=== PATIENT | male | born 1960 | race Caucasian/White ===

== ENCOUNTER 2021-02-02 12:07 | Outpatient (CLI) | payer MEDICARE, SELFPAY ==
[2021-02-02 12:46] LABS: Basophils # 0.1 10^3/uL (0.0-0.1); Eosinophils # 0.2 10^3/uL (0.0-0.8); Eosinophils % 3.2 %; Hematocrit 57.1 % (42.0-52.0); Hemoglobin 17.7 g/dL (11.7-16.6); Lymphocytes # 0.8 10^3/uL (0.8-4.8); Lymphocytes % 11.4 %; Mean Corpuscular Hemoglobin 27.1 pg (28.0-34.0); Mean Corpuscular Volume 87.6 fL (80-94); Mean Platelet Volume 9.6 fL (7.4-10.4); Monocytes # 0.9 10^3/uL (0.2-0.9); Monocytes % 12.4 %; Neutrophils # 5.08 10^3/uL (1.8-7.7); Neutrophils % 71.9 %; Nucleated Red Blood Cells % 0 %; Platelet Count 166 10^3/cmm (130-400); Red Blood Count 6.52 10^6/uL (4.1-5.3); Red Cell Distribution Width 19.2 % (12.1-15.1); White Blood Count 7.1 10^3/uL (4.0-10.0)
--- NOTE | 2021-02-02 15:18 | ONC CON_ITS ---
Dr. Arellano New Patient Note Patient: João Carter Unit #: [id number]: 1960 Dicatated By: Sera Arellano M.D.Date of Visit: Feb 02, 2021 Onc MED New Patient/Consult Referring Physician: Ness Ignacio History of Present Illness: Mr. João Carter, is a 60-year-old gentleman with history of sleep apnea, on CPAP machine since 2014, chronic kidney disease, diabetes, hypertension, paroxysmal supraventricular tachycardia,, during his routine follow-up his lab work-up done on January 20, 2021 showed white blood count 7.3 hemoglobin 17.5 hematocrit 55.7 platelets 180,000 RBC 6.55/uL, creatinine 3.10. As per patient this was a first-time he was told about elevated 'blood counts'. Denies any headaches blurred vision or double vision denies any peripheral neuropathy denies any shortness of breath palpitation, patient denies smoking, never smoked, denies any family history of polycythemia. Denies any night sweats, denies any weight loss, denies any recurrent fever denies any generalized weakness and fatigue, denies any male hormone supplement Past Medical History: 's medical history consists of chronic interstitual lung disease, chronic kidney disease (stage IV), hypertension, nephrotic syndrome, paroxysmal supraventricular tachycardia, sleep apnea, type II diabetes, and vitamin D deficiency. Past Surgical History: 's surgical/procedural history consists of lung surgery(drain) in 2014 and cholecystectomy in 1996. Medications: Aspirin 1 Tablet (of 81 mg) Tablet, chewable Oral daily, Cholecalciferol 1 Capsule (of 1.25 mg ) Oral q 7 days, Furosemide 1 Tablet (of 40 mg) Oral b.i.d., Lisinopril 1 Tablet (of 20 mg) Oral daily, Lovastatin 1 Tablet (of 20 mg) Oral daily, Metoprolol Tartrate 1 Tablet (of 25 mg) Oral b.i.d. Allergies: Penicillins Social History: is . He has no history of drinking. Family History: 's mother at age 81. 's father at age 67: congestive heart failure. has 1 sister who is alive. Review Of Symptoms: Review of Systems is not available for this patient. Vital Signs: Performed on Feb 02, 2021 14:46: 0, 0, 35.04 (HIGH), 2.27 sq.m, 70 in, 93 % (LOW), 88 /min, 18 /min, 163/81 mm(hg) (HIGH), 97.3 F (LOW), and 244.2 lbs (HIGH). Performance Status: 0 - Fully active, able to carry on all predisease activities without restrictions. (ECOG) Physical Examination: ENMT - No mouth sores, no thrush, no jaundice, Respiratory - Lungs are clear to auscultation, Cardiovascular - Regular rate and rhythm of heart, Abdomen - Soft, bowel sounds present, Extremities - No visible edema. Lab/Imaging: Most recent lab results are not available for this patient. Impression: Polycythemia, etiology unclear could be multifactorial including suboptimal CPAP machine setting causing hypoxia during sleep or medications like testosterone but patient denies, or myeloproliferative disorder including polycythemia vera Sleep apnea diagnosed in 2014, on CPAP machine since then Diabetes Hypertension Chronic renal insufficiency Paroxysmal supraventricular tachycardia No history of smoking Plan: Discussed with patient regarding his labs white blood count 7.1 hemoglobin 17.7 hematocrit 57.1, RBC 6.52 normal being less than 5.30 millions/uL,platelets 166,000, with a normal differential Clinically, patient denies any specific complaints, no headaches, no peripheral numbness, no blurred vision or double vision, no shortness of breath but generalized weakness and fatigue. Repeat CBC done today shows further increase in his hematocrit now 57.1, at this point will consider phlebotomy with 250 cc and replaced with 250 cc normal saline to avoid hypovolemia and continue phlebotomy on a weekly basis unless hematocrit less than 52 if is reactive polycythemia , or less than 45 if is due to polycythemia vera in the meantime. we will proceed with work-up including erythropoietin level, JAK2 mutation, CLL/MPL, BCR ABL 1 testing, patient return to clinic in 1 week with CBC, patient was advised to maintain good hydration is already on aspirin. Patient was advised in case he develops any headaches blurred vision double vision, then he need to call us or go to hospital for evaluation Signed By: Sera Arellano M.D. <<Signature on File>>
[2021-02-02] MEDS: sodium chloride 0.9% 250 ML 999 ML IV (16:00)
[2021-02-03 01:35] LABS: Vitamin B12 1895 pg/mL (232-1245)
[2021-02-08 16:17] LABS: CALR Exon 9 Mutation NOT DETECTED (NOT DETECTED); CSF3R Exon 14/17 Mutation NOT DETECTED (NOT DETECTED); JAK2 Exon 12 Mutation NOT DETECTED (NOT DETECTED); JAK2 V617 Block Specimen ID NG; JAK2 V617 Clinical Indication NG; JAK2 V617 Mutation NOT DETECTED (NOT DETECTED); JAK2 V617 Specimen Source NG; MPL Exon 12 Mutation NOT DETECTED (NOT DETECTED)
== END 2021-02-02 12:08 | disposition home or self-care (01) ==
PROVIDERS: PCP Family Medicine; Visit Provider Internal Medicine Hematology & Oncology
DX: D75.1 Secondary polycythemia (principal); G47.33 Obstructive sleep apnea (adult) (pediatric); E11.9 Type 2 diabetes mellitus without complications; N18.9 Chronic kidney disease, unspecified; I47.1 Supraventricular tachycardia; Z79.899 Other long term (current) drug therapy
CPT/HCPCS: 81219; 81270; 82607; 85025; 99195; 99205; J7050

== ENCOUNTER 2021-02-03 08:11 | Outpatient (CLI) | payer MEDICARE, SELFPAY ==
[2021-02-03 10:43] LABS: Basophils # 0.1 10^3/uL (0.0-0.1); Basophils % 0.7 %; Eosinophils # 0.3 10^3/uL (0.0-0.8); Hemoglobin 17.5 g/dL (11.7-16.6); Lymphocytes # 0.8 10^3/uL (0.8-4.8); Lymphocytes % 9.4 %; Mean Corpuscular HGB Conc 31.3 g/dL (30.0-36.0); Mean Corpuscular Hemoglobin 27.6 pg (28.0-34.0); Mean Corpuscular Volume 88.5 fL (80-94); Mean Platelet Volume 9.7 fL (7.4-10.4); Monocytes # 1.1 10^3/uL (0.2-0.9); Monocytes % 12.9 %; Neutrophils # 6.15 10^3/uL (1.8-7.7); Neutrophils % 73.8 %; Nucleated Red Blood Cells % 0 %; Platelet Count 170 10^3/cmm (130-400); Red Blood Count 6.33 10^6/uL (4.1-5.3); Red Cell Distribution Width 19.2 % (12.1-15.1); White Blood Count 8.3 10^3/uL (4.0-10.0)
== END 2021-02-03 08:12 | disposition home or self-care (01) ==
PROVIDERS: PCP Family Medicine; Visit Provider Internal Medicine Medical Oncology
DX: D45 Polycythemia vera (principal)
CPT/HCPCS: 85025

== ENCOUNTER 2021-02-07 11:31 | Outpatient (CLI) | payer MEDICARE, SELFPAY | END 2021-02-07 11:32 | disposition home or self-care (01) | LOC: ONCMED 11:33 | PROVIDERS: PCP Family Medicine; Visit Provider Internal Medicine Medical Oncology | DX: D45 Polycythemia vera (principal) | CPT/HCPCS: 36415; 88374 ==

== ENCOUNTER 2021-02-09 07:13 | Outpatient (CLI) | payer MEDICARE, SELFPAY ==
[2021-02-09 15:37] LABS: Basophils # 0.1 10^3/uL (0.0-0.1); Basophils % 0.8 %; Eosinophils # 0.3 10^3/uL (0.0-0.8); Eosinophils % 3.3 %; Hematocrit 55.3 % (42.0-52.0); Hemoglobin 17.3 g/dL (11.7-16.6); Mean Corpuscular HGB Conc 31.3 g/dL (30.0-36.0); Mean Corpuscular Hemoglobin 27.5 pg (28.0-34.0); Mean Corpuscular Volume 87.8 fL (80-94); Mean Platelet Volume 9.7 fL (7.4-10.4); Monocytes # 1.1 10^3/uL (0.2-0.9); Monocytes % 12.9 %; Neutrophils # 6.22 10^3/uL (1.8-7.7); Neutrophils % 71.8 %; Nucleated Red Blood Cells % 0 %; Platelet Count 192 10^3/cmm (130-400); Red Cell Distribution Width 19.3 % (12.1-15.1); White Blood Count 8.7 10^3/uL (4.0-10.0)
[2021-02-09] MEDS: sodium chloride 0.9% 250 ML 999 ML IV (16:00)
== END 2021-02-09 07:14 | disposition home or self-care (01) ==
LOC: ONCMED 07:20
PROVIDERS: PCP Family Medicine; Visit Provider Internal Medicine Medical Oncology
DX: D75.1 Secondary polycythemia (principal); G47.33 Obstructive sleep apnea (adult) (pediatric); E11.9 Type 2 diabetes mellitus without complications; N18.9 Chronic kidney disease, unspecified; I47.1 Supraventricular tachycardia; Z79.899 Other long term (current) drug therapy
CPT/HCPCS: 85025; 99195; J7050

== ENCOUNTER 2021-03-09 05:50 | Outpatient (RCR) | payer MEDICARE, SELFPAY ==
[2021-02-16 16:20] LABS: Basophils # 0.1 10^3/uL (0.0-0.1); Basophils % 0.7 %; Eosinophils # 0.3 10^3/uL (0.0-0.8); Hematocrit 53.1 % (42.0-52.0); Hemoglobin 16.4 g/dL (11.7-16.6); Lymphocytes # 0.9 10^3/uL (0.8-4.8); Lymphocytes % 11.6 %; Mean Corpuscular HGB Conc 30.9 g/dL (30.0-36.0); Mean Corpuscular Hemoglobin 27.7 pg (28.0-34.0); Mean Corpuscular Volume 89.8 fL (80-94); Mean Platelet Volume 9.9 fL (7.4-10.4); Monocytes # 1.1 10^3/uL (0.2-0.9); Monocytes % 14.1 %; Neutrophils % 69.3 %; Nucleated Red Blood Cells % 0 %; Platelet Count 182 10^3/cmm (130-400); Red Blood Count 5.91 10^6/uL (4.1-5.3); White Blood Count 7.5 10^3/uL (4.0-10.0)
[2021-02-23 16:20] LABS: Basophils # 0.1 10^3/uL (0.0-0.1); Basophils % 0.8 %; Eosinophils # 0.3 10^3/uL (0.0-0.8); Hematocrit 54.1 % (42.0-52.0); Hemoglobin 16.8 g/dL (11.7-16.6); Lymphocytes # 0.6 10^3/uL (0.8-4.8); Lymphocytes % 9.2 %; Mean Corpuscular HGB Conc 31.1 g/dL (30.0-36.0); Mean Corpuscular Hemoglobin 27.8 pg (28.0-34.0); Mean Corpuscular Volume 89.4 fL (80-94); Mean Platelet Volume 9.5 fL (7.4-10.4); Monocytes # 1.1 10^3/uL (0.2-0.9); Monocytes % 18.2 %; Neutrophils # 4.25 10^3/uL (1.8-7.7); Neutrophils % 67.6 %; Nucleated Red Blood Cells % 0 %; Platelet Count 174 10^3/cmm (130-400); Red Blood Count 6.05 10^6/uL (4.1-5.3); Red Cell Distribution Width 19.2 % (12.1-15.1); White Blood Count 6.3 10^3/uL (4.0-10.0)
[2021-02-23] MEDS: sodium chloride 0.9% 250 ML 999 ML IV (16:30)
[2021-03-02 15:44] LABS: Basophils % 0.5 %; Eosinophils # 0.3 10^3/uL (0.0-0.8); Eosinophils % 3.7 %; Hematocrit 51.8 % (42.0-52.0); Lymphocytes # 0.8 10^3/uL (0.8-4.8); Lymphocytes % 10.6 %; Mean Corpuscular HGB Conc 30.9 g/dL (30.0-36.0); Mean Corpuscular Hemoglobin 28.2 pg (28.0-34.0); Mean Corpuscular Volume 91.2 fL (80-94); Mean Platelet Volume 9.6 fL (7.4-10.4); Monocytes % 12.1 %; Neutrophils # 5.73 10^3/uL (1.8-7.7); Neutrophils % 72.8 %; Nucleated Red Blood Cells % 0 %; Platelet Count 194 10^3/cmm (130-400); Red Blood Count 5.68 10^6/uL (4.1-5.3); Red Cell Distribution Width 18.7 % (12.1-15.1); White Blood Count 7.9 10^3/uL (4.0-10.0)
[2021-03-02] MEDS: sodium chloride 0.9% 250 ML 999 ML IV (16:10)
[2021-03-09 15:54] LABS: Basophils # 0.1 10^3/uL (0.0-0.1); Basophils % 0.9 %; Eosinophils # 0.3 10^3/uL (0.0-0.8); Eosinophils % 2.8 %; Hematocrit 50.6 % (42.0-52.0); Hemoglobin 15.4 g/dL (11.7-16.6); Lymphocytes # 0.8 10^3/uL (0.8-4.8); Mean Corpuscular HGB Conc 30.4 g/dL (30.0-36.0); Mean Corpuscular Hemoglobin 27.5 pg (28.0-34.0); Mean Corpuscular Volume 90.2 fL (80-94); Mean Platelet Volume 9.9 fL (7.4-10.4); Monocytes # 0.8 10^3/uL (0.2-0.9); Monocytes % 8.6 %; Neutrophils # 6.96 10^3/uL (1.8-7.7); Neutrophils % 78.4 %; Nucleated Red Blood Cells % 0 %; Platelet Count 220 10^3/cmm (130-400); Red Blood Count 5.61 10^6/uL (4.1-5.3); Red Cell Distribution Width 17.6 % (12.1-15.1); White Blood Count 8.9 10^3/uL (4.0-10.0)
== END 2021-03-12 23:59 | disposition home or self-care (01) ==
LOC: ONCMED 05:50
PROVIDERS: Internal Medicine Medical Oncology; PCP Family Medicine; Visit Provider Internal Medicine Hematology & Oncology
DX: D75.1 Secondary polycythemia (principal); Z79.899 Other long term (current) drug therapy
CPT/HCPCS: 36415; 85025; 99195; J7050

== ENCOUNTER 2021-04-07 05:50 | Outpatient (RCR) | payer MEDICARE, SELFPAY ==
[2021-04-07 15:47] LABS: Basophils # 0.1 10^3/uL (0.0-0.1); Basophils % 0.7 %; Eosinophils # 0.3 10^3/uL (0.0-0.8); Hematocrit 52.5 % (42.0-52.0); Hemoglobin 15.8 g/dL (11.7-16.6); Lymphocytes # 0.8 10^3/uL (0.8-4.8); Lymphocytes % 9.1 %; Mean Corpuscular HGB Conc 30.1 g/dL (30.0-36.0); Mean Corpuscular Hemoglobin 26.4 pg (28.0-34.0); Mean Corpuscular Volume 87.8 fl (80-94); Mean Platelet Volume 9.6 fL (7.4-10.4); Monocytes # 1.1 10^3/uL (0.2-0.9); Neutrophils # 6.52 10^3/uL (1.8-7.7); Nucleated Red Blood Cells % 0 %; Platelet Count 204 10^3/cmm (130-400); Red Blood Count 5.98 10^6/uL (4.1-5.3); Red Cell Distribution Width 15.5 % (12.1-15.1); White Blood Count 8.8 10^3/uL (4.0-10.0)
--- NOTE | 2021-04-07 18:04 | ONC FU_ITS ---
Dr. Arellano follow up note Patient: João Carter Unit #: [id number]: 1960 Dicatated By: Sera Arellano M.D.Date of Visit:Apr 07, 2021 Onc Med Follow-up/Prog Note History of Present Illness: Mr. João Carter, is a 60-year-old gentleman with history of sleep apnea, on CPAP machine since 2014, chronic kidney disease, diabetes, hypertension, paroxysmal supraventricular tachycardia,, during his routine follow-up his lab work-up done on January 20, 2021 showed white blood count 7.3 hemoglobin 17.5 hematocrit 55.7 platelets 180,000 RBC 6.55/uL, creatinine 3.10. As per patient this was a first-time he was told about elevated 'blood counts'. Work-up for myeloproliferative disorder including polycythemia vera showed negative for JAK2 mutation, CHAYO R exon 9, MPL exon 10, Denies any headaches blurred vision or double vision denies any peripheral neuropathy denies any shortness of breath palpitation, patient denies smoking, never smoked, denies any family history of polycythemia. Denies any night sweats, denies any weight loss, denies any recurrent fever denies any generalized weakness and fatigue, denies any male hormone supplement Came for follow-up, complaining of generalized weakness and fatigue but no headaches blurred vision double vision, no mouth sores, no lightheadedness or dizziness, patient said he is using his CPAP machine on regular basis along with oxygen at night but denies any smoking denies any shortness of breath at rest but dyspnea on exertion denies any palpitation, Tolerating phlebotomies on as-needed basis well Medications: Aspirin 1 Tablet (of 81 mg) Tablet, chewable Oral daily, Cholecalciferol 1 Capsule (of 1.25 mg ) Oral q 7 days, Furosemide 1 Tablet (of 40 mg) Oral b.i.d., Lisinopril 1 Tablet (of 20 mg) Oral daily, Lovastatin 1 Tablet (of 20 mg) Oral daily, Metoprolol Tartrate 1 Tablet (of 25 mg) Oral b.i.d. Allergies: Penicillins Review of Systems: Review of Systems is not available for this patient. Vital Signs: Performed on Apr 07, 2021 16:28 Height - 70.00 in Weight - 253.2 lbs (HIGH) BSA - 2.31 sq.m BMI - 36.33 (HIGH) Temperature - 97.7 F (LOW) Pulse - 70 /min Respiration - 18 /min BP - 102/63 mm(hg) O2 Sat - 96 % Pain - 0 Fatigue - 4 Performance Status: 0 - Fully active, able to carry on all predisease activities without restrictions. (ECOG) Physical Examination: ENMT - No mouth sores, no thrush, no jaundice, Respiratory - Poor air entry otherwise clear, Cardiovascular - Regular rate and rhythm of heart, Abdomen - Soft, bowel sounds present, Extremities - No visible edema. Lab/Imaging: Test performed on Feb 16, 2021 16:10 WBC 7.5 10 3/uL RBC 5.91 10 6/uL HGB 16.4 g/dL HCT 53.1 % MCV 89.8 fL MCH 27.7 pg MCHC 30.9 g/dL RDW 19.0 % Platelet Count 182 10 3/cmm MPV 9.9 fL Neutrophils 5.20 10 3/uL Lymphocytes 0.9 10 3/uL Monocytes 1.1 10 3/uL Eosinophils 0.3 10 3/uL Basophils 0.1 10 3/uL Neutrophil % 69.3 % Lymphocyte % 11.6 % Monocyte % 14.1 % Eosinophil % 4.0 % Basophils % 0.7 % NRBC % 0 % Impression: Polycythemia,, Secondary to exertional hypoxia, probably malfunctioning CPAP machine, polycythemia vera less likely as molecular testing including JAK2 mutation, CHAYO R exon 9, MPL exon 10 came back negative On mild exertion his oxygen level dropped to 82 but recovered with rest up to 95 Sleep apnea diagnosed in 2014, on CPAP machine since then Diabetes Hypertension Chronic renal insufficiency Paroxysmal supraventricular tachycardia No history of smoking Plan: Discussed with patient regarding his labs white blood count 8.8 hemoglobin 15.8 hematocrit 52.5 platelets 204,000 Clinically, patient is doing reasonably well with no new signs symptoms except dyspnea on exertion, on mild exertion, his O2 sat dropped to 82, with rest it improved and to mid 90s, patient is not using oxygen except at night with CPAP machine, at this point, will refer him to pulmonology for evaluation regarding pulmonary function test as well as oxygen supplement if needed especially on exertion, patient was advised to maintain good hydration and continue to take daily aspirin and avoid exertion until evaluated by pulmonology. In the meantime, we will hold his phlebotomy as patient, most likely has reactive polycythemia to exertional hypoxia or may be malfunctioning CPAP machine or noncompliance as JAK2 mutation came back negative. Return to clinic in 1 month with CBC Signed By: Sera Arellano M.D. <<Signature on File>>
== END 2021-04-12 23:59 | disposition home or self-care (01) ==
LOC: ONCMED 05:50
PROVIDERS: PCP Family Medicine; Visit Provider Internal Medicine Hematology & Oncology
DX: D75.1 Secondary polycythemia (principal); R09.02 Hypoxemia; G47.33 Obstructive sleep apnea (adult) (pediatric); E11.9 Type 2 diabetes mellitus without complications; I10 Essential (primary) hypertension; N18.9 Chronic kidney disease, unspecified; I47.1 Supraventricular tachycardia; Z79.899 Other long term (current) drug therapy
CPT/HCPCS: 36415; 85025; 99214

== ENCOUNTER → 2021-06-13 10:34 | Outpatient (BNVA) | payer MEDICARE, SELFPAY | PROVIDERS: PCP Family Medicine; Visit Provider Internal Medicine Pulmonary Disease | DX: Z20.822 Contact with and (suspected) exposure to COVID-19 (principal); G47.30 Sleep apnea, unspecified; R06.02 Shortness of breath | CPT/HCPCS: 87635 ==

== ENCOUNTER 2021-06-16 10:09 | Outpatient (CLI) | payer MEDICARE, SELFPAY ==
--- NOTE | 2021-06-16 10:21 | USCV_ITS ---
João Carter Age: 60 Gender: M : 1960 Exam Date: 06/16/2021 11:17 Ordering Phys: Jer Block MD Technologist: HUMZA [place] [facility] [place] SOB BP: 104 / 66 HR: 89 Rhythm: Other Technical Quality: Technically difficult study MEASUREMENTS (Male / Female) Normal Values 2D ECHO LV Diastolic Diameter PLAX 3.5 cm 4.2 - 5.9 / 3.9 - 5.3 cm LV Systolic Diameter PLAX 2.3 cm IVS Diastolic Thickness 1.5 cm 0.6 - 1.0 / 0.6 - 0.9 cm IVS Systolic Thickness 1.7 cm LVPW Diastolic Thickness 2.1 cm 0.6 - 1.0 / 0.6 - 0.9 cm LVPW Systolic Thickness 2.7 cm LVOT Diameter 2.0 cm LV Ejection Fraction 2D Teich 63.7 % LV Ejection Fraction MOD 2C 60.4 % LV Ejection Fraction 2C AL 63.2 % LA Diameter 4.0 cm LA Width 3.7 cm LA Height 4.1 cm RA Width 4.1 cm RA Height 4.5 cm Aorta at Sinotubular Diameter 2.8 cm DOPPLER AV Peak Velocity 101.0 cm/s LVOT Peak Velocity 112.0 cm/s AV Area Cont Eq vti 3.1 cm squared AV Area Cont Eq pk 3.5 cm squared Right Atrial Pressure 3.0 mmHg PV Peak Velocity 50.0 cm/s RV Acceleration Time 0.1 s RV Ejection Time 0.3 s RV AcT/ET 0.3 FINDINGS Left Ventricle Normal left ventricular cavity size. Normal left ventricular systolic function. Left ventricular ejection fraction is estimated at 55 %. In the presence of atrial fibrillation diastolic function cannot be assessed accurately. Right Ventricle The right ventricle is normal in size and function. RVSP could not be calculated due to incomplete tricuspid regurgitation velocity profile. Right Atrium The right atrium is normal in size. Left Atrium The left atrium is normal in size. Mitral Valve Moderately thickened mitral valve. Moderate mitral annular calcification. No mitral valve stenosis. No mitral valve regurgitation. Aortic Valve Severe aortic valve calcification. Aortic valve sclerosis. No aortic valve stenosis. Trace aortic valve regurgitation. Tricuspid Valve Structurally normal tricuspid valve without significant stenosis or regurgitation. Pulmonic Valve Structurally normal pulmonic valve without significant stenosis. There is no pulmonic regurgitation. Pericardium Normal pericardium without effusion. Aorta Normal ascending aorta dimension. CONCLUSIONS 1-Normal left ventricular cavity size. Normal left ventricular systolic function. Left ventricular ejection fraction is estimated at 55 %. In the presence of atrial fibrillation diastolic function cannot be assessed accurately. 2-Severe aortic valve calcification. Aortic valve sclerosis. No aortic valve stenosis. Trace aortic valve regurgitation. 3-Moderately thickened mitral valve. Moderate mitral annular calcification. No mitral valve stenosis. No mitral valve regurgitation. 4-There is no pericardial effusion. 5-The right ventricle is normal in size and function. RVSP could not be calculated due to incomplete tricuspid regurgitation velocity profile. 6-There is no pericardial effusion. 7-Right atrial pressure is around 5 mm of mercury. 8-There are no prior echocardiogram studies to compare. Joshua Miller MD (Electronically Signed) Final Date: 16 June 2021 15:11 S
--- NOTE | 2021-06-16 10:21 | XR_ITS ---
WS: [id number] PA and lateral chest, 06/16/2021 Clinical Data: dyspnea Comparison: Portable chest, 12/07/2014. Findings: No nodules or masses are seen. The heart is enlarged. There is blunting of the right costop hrenic angle. There are bilateral pulmonary opacities which have been present before. No pneumothorax is seen. The aortic arch and descending thoracic thoracic aorta show calcification and tortuosity. T here is a healed right posterior lateral sixth rib fracture.. XR/XR chest 2V* [id number] Impression: 1. Bilateral pulmonary opacities which have been present before and may be from chronic and/or acute pneumonia. 2. Cardiomegaly and atherosclerosis.
--- NOTE | 2021-06-16 13:46 | PFTS_ITS ---
Date of Study:06/16/21 Date of Dictation: MECHANICS: Forced vital capacity (FVC) is reduced. Forced expiratory volume in one second (FEV1) is reduced. FEV1/FVC is normal. FLOW VOLUME LOOP: Narrow. LUNG VOLUMES: Total lung capacity (TLC) is reduced. Residual volume (RV) is normal. DIFFUSING CAPACITY FOR CARBON MONOXIDE: Mild reduced. INTERPRETATION: The pulmonary function tests are consistent with severe restriction. There is no significant postbronchodilator response. Lung volumes are consistent with restriction. Interestingly the patient has preserved residual volume. The constellation of severe restriction on spirometry with preserved residual volume could be suggestive of neuromuscular weakness. Gas exchange (DLCO) is minimally reduced. MTDD
== END 2021-06-16 10:10 | disposition home or self-care (01) ==
LOC: RT 10:16
PROVIDERS: PCP Family Medicine; Visit Provider Internal Medicine Pulmonary Disease
DX: R06.02 Shortness of breath (principal); I08.3 Combined rheumatic disorders of mitral, aortic and tricuspid valves; I70.90 Unspecified atherosclerosis
CPT/HCPCS: 71046; 93306; 94060; 94618; 94726; 94729; J7611

== ENCOUNTER 2021-07-11 12:58 | Outpatient (CLI) | payer MEDICARE, SELFPAY ==
[2021-07-11 14:30] LABS: Creatine Phosphokinase 51 U/L (39-308)
[2021-07-12 11:33] LABS: Aldolase 4.5 U/L (< OR = 8.1)
[2021-07-12 12:04] LABS: Smith Antibody <1.0 NEG AI (<1.0 NEG)
[2021-07-12 14:24] LABS: Anti-Double Strand DNA AB 1 IU/mL; Centromere B Antibody <1.0 NEG AI (<1.0 NEG); JO-1 Antibody <1.0 NEG AI (<1.0 NEG); SCL 70 <1.0 NEG AI (<1.0 NEG); SS A Ro Sjogrens Antibody <1.0 NEG AI (<1.0 NEG); SS-B/LA IGG <1.0 NEG AI (<1.0 NEG); Sm/RNP Antibody <1.0 NEG AI (<1.0 NEG)
[2021-07-12 15:13] LABS: Cyclic Citrullinated Peptide <16 UNITS
== END 2021-07-11 12:59 | disposition home or self-care (01) ==
LOC: LAB 13:06
PROVIDERS: PCP Family Medicine; Visit Provider Internal Medicine Pulmonary Disease
DX: J98.4 Other disorders of lung (principal); R06.02 Shortness of breath
CPT/HCPCS: 36415; 82085; 82550; 83516; 83519; 86200; 86225; 86235; 86431

== ENCOUNTER 2021-09-26 08:56 | Outpatient (CLI) | payer MEDICARE, SELFPAY ==
--- NOTE | 2021-09-26 09:00 | CT_ITS ---
WS: [id number] CT CHEST WITHOUT INTRAVENOUS CONTRAST HISTORY: Rule out interstitial lung disease TECHNIQUE: Contiguous 5 mm axial imaging performed on the thorax. Coronal and sagittal reformats are submitted. All CT scans at [facility] use at least one of these dose optimization techniques: automated exposure control; mA and/or kV adjustment per patient size (includes targeted exams where dose is matched to clinical indication); or iterative reconstruction. CONTRAST: None DLP: 756.99 mGy.cm COMPARISON: 03/13/2016 Lungs and central airway: Lung volumes are normal. There is diffuse groundglass attenuation with incr eased areas of focal consolidation. Central and peripheral involvement. Greatest involvement of the d enser consolidations throughout the RIGHT lung. Mild progression since the prior examination. Pleura: No pleural effusion. Heart and pericardium: Mild enlargement of the heart. No pericardial effusion. Mediastinum and cipriano: Numerous mediastinal and hilar lymph nodes are reidentified. Lymph nodes are di fficult to distinguish at the hilar regions without IV contrast. No definite change. Vessels: Moderate atherosclerosis aorta. Extensive coronary artery calcifications the appearance of t he aortic arch and aortic root are similar to the prior examinations. Dilated pulmonary artery 3.9 cm . Chest wall and lower neck: No soft tissue masses. Upper abdomen: Small amount of ascites adjacent to the liver and spleen. Omental thickening is probab ly on the basis of the ascites with no history of malignancy. Coronary artery atherosclerosis. Prior cholecystectomy. Additional lymph nodes are noted within the upper abdomen around the celiac axis wit h no change. Contour of the liver suggests cirrhosis. The ascites and lymph nodes in the upper abdome n may be associated to the patient's hepatocellular disease. Osseous structures: Severe degenerative disc disease at T10-11 with mild anterior wedging of T11. CT/CT chest wo con [id number] IMPRESSION: 1. Mild progression of diffuse groundglass attenuation and increasing opacific ations since 03/13/2016. By history patient has sarcoidosis. 2. No pleural effusion. 3. Moderate atherosclerosis thoracic aorta and coronary arteries. Very similar appearance with only minimal progression since 2016. 4. Pulmonary hypertension. 5. Prior cholecystectomy. 6. Development of new abdominal ascites with omental thickening which is proba warren also on the basis of the ascites and edema. May be related to patient's chr onic hepatocellular disease. Findings suspicious for cirrhosis. 7. Prior cholecystectomy. 8. Indeterminate prominent mediastinal and hilar lymph nodes. Similar to the p rior study. Cannot further characterize without IV contrast.
== END 2021-09-26 08:57 | disposition home or self-care (01) ==
LOC: RAD 08:59
PROVIDERS: PCP Family Medicine; Visit Provider Internal Medicine Pulmonary Disease
DX: J98.4 Other disorders of lung (principal); R06.02 Shortness of breath; I70.0 Atherosclerosis of aorta; I25.10 Atherosclerotic heart disease of native coronary artery without angina pectoris; I27.20 Pulmonary hypertension, unspecified; Z90.49 Acquired absence of other specified parts of digestive tract
CPT/HCPCS: 71250

== ENCOUNTER 2022-02-14 09:01 | Outpatient (CLI) | payer MEDICARE, SELFPAY ==
[2022-02-14 11:59] LABS: Blood Urea Nitrogen 53 mg/dL (8-23); Calcium 9.3 mg/dL (8.5-10.5); Carbon Dioxide 27 mmol/L (22-29); Glomerular Filtration Rate 26.5 mL/min (90-130); Glucose 67 mg/dL (65-115); Phosphorus 5.1 mg/dL (2.5-4.5)
[2022-02-14 12:08] LABS: Anion Gap 19.5 (5-19); Chloride 96 mmol/L (98-107); Potassium 4.5 mmol/L (3.5-5.1); Sodium 138 mmol/L (136-145)
== END 2022-02-14 09:02 | disposition home or self-care (01) ==
PROVIDERS: PCP Family Medicine; Visit Provider Internal Medicine Nephrology
DX: N17.9 Acute kidney failure, unspecified (principal)
CPT/HCPCS: 80069

== ENCOUNTER → 2022-10-09 12:15 | Outpatient (BNVA) | payer MEDICARE, SELFPAY | PROVIDERS: PCP Family Medicine; Visit Provider Internal Medicine Cardiovascular Disease | DX: R06.02 Shortness of breath (principal); J98.4 Other disorders of lung; G47.34 Idiopathic sleep related nonobstructive alveolar hypoventilation; D75.1 Secondary polycythemia; I46.9 Cardiac arrest, cause unspecified | CPT/HCPCS: 36415; 80048; 83880; 99214 ==

== ENCOUNTER → 2022-12-28 14:20 | Outpatient (BNVA) | payer MEDICARE, SELFPAY | PROVIDERS: PCP Family Medicine; Visit Provider Internal Medicine Pulmonary Disease | DX: J98.4 Other disorders of lung (principal); R06.02 Shortness of breath; N18.9 Chronic kidney disease, unspecified; D75.1 Secondary polycythemia; G47.33 Obstructive sleep apnea (adult) (pediatric); Z99.81 Dependence on supplemental oxygen; Z87.01 Personal history of pneumonia (recurrent) | CPT/HCPCS: 99214 ==

== ENCOUNTER → 2023-02-27 16:02 | Outpatient (BNVA) | payer MEDICARE, SELFPAY | PROVIDERS: PCP Family Medicine; Visit Provider Internal Medicine Pulmonary Disease | DX: R06.02 Shortness of breath (principal); J98.4 Other disorders of lung; G47.34 Idiopathic sleep related nonobstructive alveolar hypoventilation; G47.30 Sleep apnea, unspecified | CPT/HCPCS: 36415; 80048; 83735; 83880; 86331; 86606; 86609; 99214 ==

== ENCOUNTER → 2023-04-30 11:01 | Outpatient (BNVA) | payer MEDICARE, SELFPAY | PROVIDERS: PCP Family Medicine; Visit Provider Internal Medicine Cardiovascular Disease | DX: I50.30 Unspecified diastolic (congestive) heart failure (principal); J98.4 Other disorders of lung; D75.1 Secondary polycythemia; G47.34 Idiopathic sleep related nonobstructive alveolar hypoventilation; N18.6 End stage renal disease | CPT/HCPCS: 99214 ==

== ENCOUNTER → 2023-05-14 14:11 | Outpatient (BNVA) | payer MEDICARE, SELFPAY | PROVIDERS: PCP Family Medicine; Visit Provider Internal Medicine Pulmonary Disease | DX: J84.9 Interstitial pulmonary disease, unspecified (principal); N18.9 Chronic kidney disease, unspecified; G47.33 Obstructive sleep apnea (adult) (pediatric); Z99.81 Dependence on supplemental oxygen; I50.9 Heart failure, unspecified; Z99.89 Dependence on other enabling machines and devices | CPT/HCPCS: 99214 ==

== ENCOUNTER 2023-05-22 08:48 | Observation (INO) | payer MEDICARE, SELFPAY ==
[2023-05-22] VITALS (19 sets, daily range): BP systolic 113–156; BP diastolic 56–83; PULSE 53–86; RESP 15–19; TEMP 36.3–36.7; O2SAT 90–94; BMI 28.7
--- NOTE | 2023-05-22 08:50 | ECG_ITS ---
[facility] Test Date: 2023-05-22 Pat Name: João Carter Department: Room: Gender: Male [employer]: : 1960 Requested By: Pito Stanton Order Number: [id number] Thais MD: Steven Mallory M.D. Measurements Intervals [place] Rate: 65 P: 55 MN: 290 QRS: 260 QRSD: 165 T: -4 QT: 492 QTc: 514 Interpretive Statements SINUS RHYTHM WITH FIRST DEGREE AV BLOCK RIGHT AXIS DEVIATION [QRS AXIS > 100] RIGHT BUNDLE BRANCH BLOCK [120+ ms QRS DURATION, UPRIGHT V1, 40+ ms S IN I/aVL/V4/V5/V6] POSSIBLE ANTERIOR MYOCARDIAL INFARCTION , OF INDETERMINATE AGE [30 ms Q WAVE IN V3/V4, OR R < 0.2 mV IN V4] No previous ECG available for comparison Electronically Signed On 05-22-2023 9:14:49 CDT by Steven Mallory M.D. [id number]
--- NOTE | 2023-05-22 08:50 | XRR_ITS ---
PROCEDURE INFORMATION: Exam: XR Chest Exam date and time: 05/22/2023 9:08 AM Age: 62 years old Clinical indication: Pain; Angina pectoris; Additional info: Chest pain TECHNIQUE: Imaging protocol: Radiologic exam of the chest. Views: 1 view. COMPARISON: CT chest wo con [id number] 02/16/2023 12:49 PM FINDINGS: Tubes, catheters and devices: New tunneled right dialysis catheter projects in satisfactory position. Lungs: Abdominal window pneumonitis and/or atelectasis right upper lung is probably unchanged. Probable unchanged enlargement of both pulmonary cipriano. This is probably vasculature, but lymphadenopathy can not be excluded. Pleural spaces: Unchanged tiny right pleural effusion. No left pleural effusion or pneumothorax. Heart/Mediastinum: Unchanged mild cardiomegaly. Bones/joints: Mild spondylosis. XR/XR chest 1V portable [id number] IMPRESSION: 1. Right upper lung atelectasis and/or pneumonitis is probably unchanged. 2. Probably unchanged enlarged pulmonary cipriano is probably vasculature, but could be lymphadenopathy. 3. Additional details as above.
--- NOTE | 2023-05-22 08:51 | W.ED.CHESTPA ---
HPI - Chest Pain General: Chief Complaint: Chest Pain Stated Complaint: chest pain Time Seen by Provider: 05/22/23 08:50 Source: patient Mode of arrival: EMS History of Present Illness: 62-year-old male presents emergency room via EMS from dialysis clinic. He was getting his usual dialysis run this morning was about 30 minutes into it began to experience chest pain had episode of chest pain that lasted about 20 minutes and resolved spontaneously. He has previously had angiogram some 15+ years ago that was normal and about 3 to 5 years ago he thinks that he had a stress test he said the last one he had was done here and what was reported to him as normal he did not have any further testing after that. He is uncertain of the etiology of his renal failure he is not a smoker he is not diabetic. He is not having any chest pain at the time he arrives here. When he did have a dose substernal did not radiate. He is chronically on oxygen. He is on his baseline oxygen of 4 L/min at this time. MD complaint: chest pain Associated symptoms: Deny abdominal pain, dyspnea or fever(s) Review of Systems Const: Denies: fever(s) or chills Card: Reports: chest pain Resp: Denies: dyspnea GI: Denies: abdominal pain : Denies: dysuria, urinary frequency or urinary urgency Musc: Denies: neck pain or back pain Skin/Breast: Denies: rash PFSH ED PFSH: Medical History (Updated 05/22/23 @ 16:22 by Pito James DO) Cardiac arrest Late 2021/2022 during hospitalization/rehab stay in [place] Diabetes mellitus, type II History, lost weight, no longer active diagnosis Diastolic heart failure End stage renal disease started dialysis late 2021/2022 History of cirrhosis of liver History of echocardiogram 06/2021 EF 55%, severe AV sclerosis and calcification but no stenosis History of hemoptysis late summer 2022, several bronchoscopies done at [place], no source found, treated with antibiotics History of PFTs 06/2021 severe restriction with preserved residual volume, minimal reduction in DLCO History of pulmonary aspiration per swallow study done during a prolonged acute illness in late 2021/2022 Hyperlipidemia Hypertension Nephrotic syndrome JOSE (obstructive sleep apnea) Paroxysmal SVT (supraventricular tachycardia) Pneumonia due to COVID-19 virus 2022, on ventilator for a time Polycythemia secondary to hypoxia Restrictive lung disease Vitamin D deficiency Surgical History (Updated 05/22/23 @ 15:50 by Rebecca Wade MD) History of cholecystectomy 1996 History of percutaneous endoscopic gastrostomy late 2021/2022, removed short time later History of tracheostomy late 2021/2022, removed short time later S/P thoracentesis 2014 Family History Father CHF (congestive heart failure) Mother CHF (congestive heart failure) Social History (Updated 05/22/23 @ 15:50 by Rebecca Wade MD) Smoking and tobacco status: never smoked Second hand smoke exposure: No Alcohol intake: never Substance/Drug Use: never Household members: spouse 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 Physical Exam Const: COMMON NORMALS: no acute distress GENERAL APPEARANCE: cooperative and comfortable ORIENTATION/CONSCIOUSNESS: Yes awake, Yes oriented to person, Yes oriented to place and Yes oriented to time HENMT: COMMON NORMALS: normocephalic, atraumatic and hearing grossly normal bilaterally HEAD & SCALP: normocephalic and atraumatic Resp: COMMON NORMALS: normal respiratory effort, No retractions, No use of accessory muscles and clear to auscultation bilaterally AUSCULTATION: clear to auscultation bilaterally Cardio: COMMON NORMALS: regular rate, regular rhythm and No murmurs present (Cardio) RATE: regular rate RHYTHM: regular rhythm GI: COMMON NORMALS: Soft to palpation and No hepatosplenomegaly present AUSCULTATION: Yes normoactive bowel sounds PALPATION: Yes Soft to palpation, No Tenderness to palpation present (GI), No Guarding due to palpation present (GI) and Yes No hepatosplenomegaly present Extremity: COMMON NORMALS: normal to inspection, capillary refill normal, no clubbing, cyanosis or edema, no calf tenderness and no pedal edema Neuro: SENSORIUM/ORIENTATION: Yes oriented to person, Yes oriented to place and Yes oriented to time Skin: COMMON NORMALS: no rashes or lesions noted GENERAL SKIN EXAM: no rashes or lesions noted Course Vital Signs: Vital signs: Vital Signs Temperature 98.0 F 05/22/23 08:52 Pulse Rate 57 L 05/22/23 16:17 Respiratory Rate 18 05/22/23 16:17 Blood Pressure 123/83 05/22/23 16:17 Pulse Oximetry 91 05/22/23 16:17 Oxygen Delivery Me thod Nasal Cannula 05/22/23 15:17 Oxygen Flow Rate 4 05/22/23 14:30 MDM - Chest Pain Medical Decision Making Elevation of troponin. Will admit for further evaluation chest comfort started on nitro discussed with hospitalist will start on heparin as well. Consult nephrology may need to complete course of dialysis run today since he only had 30 minutes in initially. Medical Records I reviewed the patient's medical records. Lab Data I reviewed the patient's lab results. 05/22/23 08:30 05/22/23 09:31 Radiology Impressions Chest X-Ray 05/22/23 08:50 IMPRESSION: 1. Right upper lung atelectasis and/or pneumonitis is probably unchanged. 2. Probably unchanged enlarged pulmonary cipriano is probably vasculature, but could be lymphadenopathy. 3. Additional details as above. Laboratory Results WBC 5.90 10^3/uL (3.29-11.43) 05/22/23 08:30 RBC 4.76 10^6/uL (3.85-5.65) 05/22/23 08:30 Hgb 12.20 g/dL (11.27-16.99) 05/22/23 08:30 Hct 42.2 % (37-53) 05/22/23 08:30 MCV 88.7 fl (82-101) 05/22/23 08:30 MCH 25.6 pg (27-33) L 05/22/23 08:30 MCHC 28.9 g/dL (30-55) L 05/22/23 08:30 RDW 18.6 % (12.1-15.1) H 05/22/23 08:30 Plt Count 117 10^3/cmm (157-399) L 05/22/23 08:30 MPV 10.8 fL (7.4-10.4) H 05/22/23 08:30 Neut % (Auto) 85.4 % 05/22/23 08:30 Lymph % (Auto) 8.5 % 05/22/23 08:30 [place] % (Auto) 2.5 % 05/22/23 08:30 Eos % (Auto) 2.9 % 05/22/23 08:30 Baso % (Auto) 0.5 % 05/22/23 08:30 Neut # (Auto) 5.04 10^3/uL (1.8-7.7) 05/22/23 08:30 Lymph # (Auto) 0.5 10^3/uL (0.8-4.8) L 05/22/23 08:30 [place] # (Auto) 0.2 10^3/uL (0.2-0.9) 05/22/23 08:30 Eos # (Auto) 0.2 10^3/uL (0.0-0.8) 05/22/23 08:30 Baso # (Auto) 0.0 10^3/uL (0.0-0.1) 05/22/23 08:30 Nucleated RBC % (auto) 0 % 05/22/23 08:30 Nucleated RBCs # 0.0 /100WBC 05/22/23 08:30 PT 16.10 SECONDS (12.1-14.9) H 05/22/23 09:31 INR 1.25 (0.8-1.2) H 05/22/23 09:31 APTT 100.4 SECONDS (23.9-36.7) H 05/22/23 09:31 Sodium 135 mmol/L (136-145) L 05/22/23 09:31 Potassium 4.5 mmol/L (3.5-5.1) 05/22/23 09:31 Chloride 97 mmol/L (98-107) L 05/22/23 09:31 Carbon Dioxide 28 mmol/L (22-29) 05/22/23 09:31 Anion Gap 14.5 (5-19) 05/22/23 09:31 BUN 47 mg/dL (8-23) H 05/22/23 09:31 Creatinine 3.7 mg/dL (0.7-1.2) H 05/22/23 09:31 GFR Calculation 16.8 mL/min (90-130) L 05/22/23 09:31 Glucose 72 mg/dL (65-115) 05/22/23 09:31 Calculated Osmolality 291 mOsm/kg (285-295) 05/22/23 09:31 Calcium 9.1 mg/dL (8.5-10.5) 05/22/23 09:31 Total Bilirubin 0.7 mg/dL (0.15-1.2) 05/22/23 09:31 AST 14 U/L (0-40) 05/22/23 09:31 ALT 8 U/L (0-41) 05/22/23 09:31 Alkaline Phosphatase 99 U/L (40-130) 05/22/23 09:31 Troponin T Baseline 66 ng/L (0-15) H 05/22/23 09:31 Troponin T 120 Minute 70.10 ng/L (0-15) H 05/22/23 11:18 Delta Troponin T 4.10 ABS# (0-10) 05/22/23 11:18 Total Protein 7.7 g/dL (6.6-8.7) 05/22/23 09:31 Albumin 3.7 g/dL (3.5-5.2) 05/22/23 09:31 Globulin 4.0 g/dL (1.3-4.6) 05/22/23 09:31 All radiology interpretation(s) finalized by discharge Discharge Plan Discharge Patient Disposition: Admitted As Inpatient Admit Provider: Rebecca Wade Clinical Impression: Elevated troponin I level, Polycythemia secondary to hypoxia, End stage renal disease Condition: Stable Coding Level of Care Code ED Filing Clerk for Rafa Cassidy
[2023-05-22 09:10] LABS: Basophils % 0.5 %; Eosinophils # 0.2 10^3/uL (0.0-0.8); Eosinophils % 2.9 %; Hematocrit 42.2 % (37-53); Lymphocytes # 0.5 10^3/uL (0.8-4.8); Lymphocytes % 8.5 %; Mean Corpuscular HGB Conc 28.9 g/dL (30-55); Mean Corpuscular Hemoglobin 25.6 pg (27-33); Mean Corpuscular Volume 88.7 fl (82-101); Mean Platelet Volume 10.8 fL (7.4-10.4); Monocytes # 0.2 10^3/uL (0.2-0.9); Monocytes % 2.5 %; Neutrophils # 5.04 10^3/uL (1.8-7.7); Neutrophils % 85.4 %; Nucleated Red Blood Cells % 0 %; Platelet Count 117 10^3/cmm (157-399); Red Blood Count 4.76 10^6/uL (3.85-5.65); Red Cell Distribution Width 18.6 % (12.1-15.1)
[2023-05-22 10:01] LABS: Alanine Aminotransferase 8 U/L (0-41); Albumin Level 3.7 g/dL (3.5-5.2); Alkaline Phosphatase 99 U/L (40-130); Anion Gap 14.5 (5-19); Aspartate Amino Transferase 14 U/L (0-40); Blood Urea Nitrogen 47 mg/dL (8-23); Calcium 9.1 mg/dL (8.5-10.5); Carbon Dioxide 28 mmol/L (22-29); Chloride 97 mmol/L (98-107); Glomerular Filtration Rate 16.8 mL/min (90-130); Glucose 72 mg/dL (65-115); Osmolality Calculated 291 mOsm/kg (285-295); Potassium 4.5 mmol/L (3.5-5.1); Sodium 135 mmol/L (136-145); Total Bilirubin 0.7 mg/dL (0.15-1.2); Total Protein 7.7 g/dL (6.6-8.7)
[2023-05-22 10:02] LABS: Troponin(5th) Baseline 66 ng/L (0-15)
--- NOTE | 2023-05-22 10:50 | ECG_ITS ---
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 Measurements Intervals [place] Rate: 57 P: 48 FL: 282 QRS: 258 QRSD: 167 T: -9 QT: 519 QTc: 507 Interpretive Statements SINUS BRADYCARDIA WITH FIRST DEGREE AV BLOCK RIGHT AXIS DEVIATION [QRS AXIS > 100] RIGHT BUNDLE BRANCH BLOCK [120+ ms QRS DURATION, UPRIGHT V1, 40+ ms S IN I/aVL/V4/V5/V6] POSSIBLE ANTERIOR MYOCARDIAL INFARCTION , OF INDETERMINATE AGE [30 ms Q WAVE IN V3/V4, OR R < 0.2 mV IN V4] Compared to ECG 05/22/2023 08:52:42 Sinus rhythm no longer present Myocardial infarct finding still present Electronically Signed On 05-22-2023 11:46:13 CDT by Steven Mallory M.D. [email or web address]
--- NOTE | 2023-05-22 12:13 | P.HP_ITS ---
Providers/Chief Complaint Admitting Physician: Rebecca Wade MD Primary Care Provider: Philip Torrez Chief Complaint: chest pain History of Present Illness João Carter is a 62 year old male who presented to the emergency room from dialysis clinic with a chief complaint of chest pain. He was maybe 30 minutes into his usual dialysis session which is on Tuesdays, and Saturdays when he had sudden onset of substernal chest pain. There was no radiation of the pain. It was a pressure-like sensation. He rated it at an 8 out of 10 in severity. No other associated symptoms. At first he thought it was because they might have been pulling too fast but it persisted and eventually dialysis was stopped and he was sent to the emergency room for further evaluation. Pain lasted for a total of 20 to 30 minutes. Initial troponin was 66. Twelve-lead EKG had any ST elevation. Patient received Nitropaste with resolution of his chest pain. He denies any other episodes of chest pain recently. He has had some mild sensations of pressure in his chest with a few episodes of dialysis before but this was the most severe he can recall. Patient does have significant history as will be outlined below. No known coronary artery disease but has restrictive lung disease and CHF in addition to chronic kidney disease. Known sleep apnea on CPAP. He was started on dialysis in the early part of this year and has generally done better since then. Towards the end of 2021 in the beginning of 2022 he had a prolonged hospital stay during which she had an episode of cardiac arrest with successful resuscitation. He had tracheostomy and PEG tube placement during that timeframe which were eventually removed. He himself has no recollection of if any cardiac work-up was done during that hospital stay. He reports that he had cardiac catheterization a long time ago and some type of cardiac work-up maybe 5 years ago, both of which were normal. Attempts to obtain more recent cardiac records by Dr. Valles have not been fruitful thus far. This past summer he had some episodes of hemoptysis with several bronchoscopies and possibly pulmonary biopsies done without specific etiology identified. He was treated empirically with antibiotics. He denies any recent hemoptysis today. Again no other episodes of chest pain recently. No pleuritic type chest discomfort. No reports of calf pain or asymmetrical lower extremity swelling. No worsening of his breathing recently beyond baseline difficulties. No fevers. He has not had any GI symptoms to speak of that are new. Given past history, presenting complaints, findings, he is being admitted to the hospitalist service for further evaluation and treatment as indicated. Heparin drip was started in the emergency room. Review of Systems General: Reports: Other (ROS as per HPI or as otherwise noted here) Const: Denies: change in weight Card: Reports: edema and dyspnea on exertion (No recent increase); Denies: palpitations or syncope Resp: Reports: dyspnea, productive cough and non-productive cough; Denies: pain on inspiration or chest congestion GI: Reports: constipation; Denies: nausea, vomiting, heartburn or diarrhea Musc: Reports: other (No new musculoskeletal complaints) Neuro: Reports: other (No new focal neurological symptoms); Denies: headache(s) William/Lymph: Denies: easy bleeding (No recent hemoptysis) Medications/Allergies Home Medications Medication Instructions Recorded Confirmed Last Taken Type aspirin 81 mg chewable tablet 81 mg PO DAILY 05/02/21 05/22/23 05/21/23 History lisinopril 20 mg tablet 20 mg PO DAILY 05/02/21 05/22/23 05/21/23 History lovastatin 20 mg tablet 20 mg PO DAILY 05/02/21 05/22/23 05/21/23 History tramadol 50 mg tablet 50 mg PO BID PRN Pain 10/09/22 05/22/23 Unknown History albuterol sulfate 90 mcg/actuation 1 inh inhalation Q4H PRN Shortness 02/27/23 05/22/23 Unknown History aerosol inhaler Of Breath Or Wheezing metoprolol tartrate 25 mg tablet 25 mg PO BID 04/30/23 05/22/23 05/21/23 History furosemide 20 mg tablet 20 mg PO DAILY 05/14/23 05/22/23 05/21/23 History ascorbic acid (vitamin C) 500 mg 500 mg PO DAILY 05/22/23 05/22/23 05/21/23 History tablet (Vitamin C) cholecalciferol (vitamin D3) 25 25 mcg PO DAILY 05/22/23 05/22/23 05/21/23 History mcg (1,000 unit) capsule (Vitamin D3) vit B,C-folic ac 800 mcg-zinc 12.5 1 tab PO DAILY 05/22/23 05/22/23 05/21/23 History mg-selen-D3 2,000 unit-vit E tablet (RenaPlex-D) vitamin B12 0.5 mg-folic acid 1 mg 1 tab PO DAILY 05/22/23 05/22/23 05/21/23 History tablet vitamin E 268 mg (400 unit) capsule 268 mg PO DAILY 05/22/23 05/22/23 05/21/23 History vitamin K2 40 mcg tablet 40 mcg PO DAILY 05/22/23 05/22/23 05/21/23 History Allergies Allergy/AdvReac Type Severity Reaction Status Date / Time Penicillins Allergy Severe hives Verified 05/22/23 09:00 PFSH Acute PFS: Medical History (Updated 05/22/23 @ 16:22 by Pito James, ) Cardiac arrest Late 2022 during hospitalization/rehab stay in [place] Diabetes mellitus, type II History, lost weight, no longer active diagnosis Diastolic heart failure End stage renal disease started dialysis late 2022 History of cirrhosis of liver History of echocardiogram 06/2021 EF 55%, severe AV sclerosis and calcification but no stenosis History of hemoptysis late summer 2022, several bronchoscopies done at [place], no source found, treated with antibiotics History of PFTs 06/2021 severe restriction with preserved residual volume, minimal reduction in DLCO History of pulmonary aspiration per swallow study done during a prolonged acute illness in late 2022 Hyperlipidemia Hypertension Nephrotic syndrome JOSE (obstructive sleep apnea) Paroxysmal SVT (supraventricular tachycardia) Pneumonia due to COVID-19 virus 2022, on ventilator for a time Polycythemia secondary to hypoxia Restrictive lung disease Vitamin D deficiency Surgical History (Updated 05/22/23 @ 15:50 by Rebecca Wade MD) History of cholecystectomy 1996 History of percutaneous endoscopic gastrostomy 2022, removed short time later History of tracheostomy 2022, removed short time later S/P thoracentesis 2014 Family History Father CHF (congestive heart failure) Mother CHF (congestive heart failure) Social History (Updated 05/22/23 @ 15:50 by Rebecca Wade MD) Smoking and tobacco status: never smoked Second hand smoke exposure: No Alcohol intake: never Substance/Drug Use: never Household members: spouse 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 Normocephalic. Pupils are equal reactive. Oropharynx with moist mucous membranes. Neck is supple. Lungs are generally clear though some crackles noted at both bases posteriorly. No accessory muscle use. No chest wall tenderness to palpation. Cardiovascular exam reveals a regular rate and rhythm. No murmurs gallops or rubs noted. Abdomen is soft, nontender with positive bowel sounds. No pitting edema to lower extremities. Skin is dry. Speech clear, face symmetric, moves all extremities with no abnormal movements appreciated. Data 05/22/23 08:30 05/22/23 09:31 Other Labs: Radiology Impressions Chest X-Ray 05/22/23 08:50 IMPRESSION: 1. Right upper lung atelectasis and/or pneumonitis is probably unchanged. 2. Probably unchanged enlarged pulmonary cipriano is probably vasculature, but could be lymphadenopathy. 3. Additional details as above. Laboratory Results WBC 5.90 10^3/uL (3.29-11.43) 05/22/23 08:30 RBC 4.76 10^6/uL (3.85-5.65) 05/22/23 08:30 Hgb 12.20 g/dL (11.27-16.99) 05/22/23 08:30 Hct 42.2 % (37-53) 05/22/23 08:30 MCV 88.7 fl (82-101) 05/22/23 08:30 MCH 25.6 pg (27-33) L 05/22/23 08:30 MCHC 28.9 g/dL (30-55) L 05/22/23 08:30 RDW 18.6 % (12.1-15.1) H 05/22/23 08:30 Plt Count 117 10^3/cmm (157-399) L 05/22/23 08:30 MPV 10.8 fL (7.4-10.4) H 05/22/23 08:30 Neut % (Auto) 85.4 % 05/22/23 08:30 Lymph % (Auto) 8.5 % 05/22/23 08:30 [place] % (Auto) 2.5 % 05/22/23 08:30 Eos % (Auto) 2.9 % 05/22/23 08:30 Baso % (Auto) 0.5 % 05/22/23 08:30 Neut # (Auto) 5.04 10^3/uL (1.8-7.7) 05/22/23 08:30 Lymph # (Auto) 0.5 10^3/uL (0.8-4.8) L 05/22/23 08:30 [place] # (Auto) 0.2 10^3/uL (0.2-0.9) 05/22/23 08:30 Eos # (Auto) 0.2 10^3/uL (0.0-0.8) 05/22/23 08:30 Baso # (Auto) 0.0 10^3/uL (0.0-0.1) 05/22/23 08:30 Nucleated RBC % (auto) 0 % 05/22/23 08:30 Nucleated RBCs # 0.0 /100WBC 05/22/23 08:30 Sodium 135 mmol/L (136-145) L 05/22/23 09:31 Potassium 4.5 mmol/L (3.5-5.1) 05/22/23 09:31 Chloride 97 mmol/L (98-107) L 05/22/23 09:31 Carbon Dioxide 28 mmol/L (22-29) 05/22/23 09:31 Anion Gap 14.5 (5-19) 05/22/23 09:31 BUN 47 mg/dL (8-23) H 05/22/23 09:31 Creatinine 3.7 mg/dL (0.7-1.2) H 05/22/23 09:31 GFR Calculation 16.8 mL/min (90-130) L 05/22/23 09:31 Glucose 72 mg/dL (65-115) 05/22/23 09:31 Calculated Osmolality 291 mOsm/kg (285-295) 05/22/23 09:31 Calcium 9.1 mg/dL (8.5-10.5) 05/22/23 09:31 Total Bilirubin 0.7 mg/dL (0.15-1.2) 05/22/23 09:31 AST 14 U/L (0-40) 05/22/23 09:31 ALT 8 U/L (0-41) 05/22/23 09:31 Alkaline Phosphatase 99 U/L (40-130) 05/22/23 09:31 Troponin T Baseline 66 ng/L (0-15) H 05/22/23 09:31 Troponin T 120 Minute 70.10 ng/L (0-15) H 05/22/23 11:18 Delta Troponin T 4.10 ABS# (0-10) 05/22/23 11:18 Total Protein 7.7 g/dL (6.6-8.7) 05/22/23 09:31 Albumin 3.7 g/dL (3.5-5.2) 05/22/23 09:31 Globulin 4.0 g/dL (1.3-4.6) 05/22/23 09:31 A&P Assessment and plan (1) Chest pain: Precordial chest pain. Does not have a definitive history of coronary artery disease though certainly risk factors for such. Pain resolved with nitroglycerin. Blood pressures were not grossly elevated upon arrival nor significantly low both of which could have also contributed. No arrhythmias appreciated. Thromboembolic event within differential particularly with episodes of unexplained hemoptysis earlier this year, but patient's not experiencing hemoptysis currently, denies any pleuritic pain and has not had any recurrence of chest discomfort beyond that which he presented with. Does not otherwise sound pulmonary nor GI in nature by available description. No recent musculoskeletal injuries. Currently chest pain-free with nitrates in play. (2) End stage renal disease: Chronic kidney disease stage V on dialysis since late 2021 early 2022. He has a prior history of diabetes though no longer an active diagnosis. Also with hypertension. Usual dialysis days on Tuesdays and Saturdays via dialysis catheter in the right upper chest. (3) Diastolic heart failure: Chronic diastolic CHF with preserved ejection fraction, currently does not appear acute though with only having 30 minutes of usual dialysis today at risk for developing. (4) Hyperlipidemia: Chronically on statin therapy (5) Hypertension: Primary hypertension chronically on lisinopril, metoprolol and Lasix. Follows with Dr. Valles from a cardiac standpoint. (6) Restrictive lung disease: Follows with Dr. Block from a pulmonology standpoint. Was scheduled for pulmo nary function studies tomorrow morning at 645 which will need to be rescheduled. Has albuterol inhaler if needed. Not on any steroid, chronic antibiotic or immunosuppressive therapy. Clinically appears at baseline by examination and history. On home oxygen at 2 to 4 L by nasal cannula. (7) JOSE (obstructive sleep apnea): Chronically on CPAP therapy with sleep (8) Paroxysmal SVT (supraventricular tachycardia): Previous diagnosis from history prior to consistent use of CPAP for sleep apnea from what I can gather. Is on chronic beta-blockade but not on any chronic anticoagulation. Currently in sinus rhythm without any report of palpitations. Plan History of hemoptysis this past summer without clear etiology History of secondary polycythemia from hypoxemia/sleep apnea currently with appropriate hemoglobin levels Observation admission for now We will continue heparin drip presently Monitor for any evidence of hemoptysis and recent history and borderline platelet count Echocardiogram Continue serial cardiac enzymes and EKGs Depending on results of above will consider cardiology consult for catheterization versus scheduling cardiac stress testing Patient will need to have pulmonary function studies that were scheduled for tomorrow morning rescheduled, have asked nursing to assist with this Nephrology consultation for dialysis management Continue home aspirin, beta-blockade, ETHAN inhibitor and statin therapy Add sublingual nitroglycerin Status post 1 dose of Nitropaste in the ER With blood pressures at the time of my evaluation being in a lower range in this dialysis patient who only had 30 minutes of dialysis rather than usual schedule therapy, I am going to hold Lasix for at least 1 dose Monitor overall volume and respiratory status closely for need to adjust Breathing treatments if needed Telemetry monitoring CPAP with sleep Oxygen therapy which patient is on at home Continue home tramadol as needed Medical records request has been ordered for [facility] records VTE prophylaxis: Currently on heparin drip plus SCDs GI Prophylaxis: PPI Telemetry: Ordered for monitoring given complaint of chest pain and history of paroxysmal SVT [place]: not currently indicated Line(s): peripheral IVs plus right upper chest dialysis catheter which is pr esent on admission Disposition plan: Home with outpatient follow up to primary care provider. Will need pulmonary function studies rescheduled that have been ordered by Dr. Block and plan for May 23 at 6:45 in the morning. May need sooner follow-up appointment with Dr. Valles (currently scheduled for November 2023) and Dr. Block (currently scheduled for August 2023). We will also need to maintain follow-up with nephrology/dialysis and continue using home oxygen and CPAP. Code Status: Full Code Supportive care otherwise Findings, concerns and plans were discussed with patient as described and they were given an opportunity to ask questions Attestations Medical Necessity Statement*: Anticipate stay less than 2 midnights in this patient with multiple medical issues as noted above, including risk for CAD of prior diabetes, known hypertension and hyperlipidemia, diastolic CHF and paroxysmal SVT history. Presetned with chest pain during dialysis which persisted until treated with nitroglycerin. Elevated baseline troponin. Was unable to complete dialysis as scheduled today. Admitted for work up for chest pain as outlined. and High Time for a total of 80 minutes, includes reviewing past or interval history, examining/interviewing patient, placing orders, updating patient/family/other support, discussing plan of care with staff and documenting encounter Diagnoses Chest pain R07.9 End stage renal disease N18.6 Diastolic heart failure I50.30 Hyperlipidemia E78.5 Hypertension I10 Restrictive lung disease J98.4 JOES (obstructive sleep apnea) G47.33 Paroxysmal SVT (supraventricular tachycardia) I47.10
[2023-05-22] MEDS: nitroglycerin 1 gm/inch oint Pkt 1 INCH TOPICAL (12:28)
[2023-05-22] MEDS: heparin 5,000 unit/mL INJ 1 mL IV (12:32)
[2023-05-22] MEDS: heparin drip 25,000 UNIT/500 ML PREMIX 25.4 UNIT IV (12:41)
[2023-05-22 13:04] LABS: INR 1.25 (0.8-1.2)
[2023-05-22 13:12] LABS: Partial Thromboplastin Time 100.4 SECONDS (23.9-36.7)
--- NOTE | 2023-05-22 13:15 | P.CONIM_ITS ---
Providers/Reason For Consult Consulting Physician/Specialty*: [facility]/Nephrology Reason for Consult*: ESRD Primary Care Provider: Philip Torrez History of Present Illness History of Present Illness João Carter is a 62 year old male With past medical history of end-stage renal disease on dialysis per Sunday, history of liver cirrhosis, hypertension, history of pulmonary hypertension, dyslipidemia, obstructive sleep apnea, nephrotic syndrome scented to the emergency department due to chest pain. Patient underwent about half an hour of dialysis and started having chest pain and dialysis was discontinued and was sent department. . Review of Systems Narrative: Other ROS negative Medications/Allergies Home Medications Medication Instructions Recorded Confirmed Last Taken Type aspirin 81 mg chewable tablet 81 mg PO DAILY 05/02/21 05/22/23 05/21/23 History lisinopril 20 mg tablet 20 mg PO DAILY 05/02/21 05/22/23 05/21/23 History lovastatin 20 mg tablet 20 mg PO DAILY 05/02/21 05/22/23 05/21/23 History tramadol 50 mg tablet 50 mg PO BID PRN Pain 10/09/22 05/22/23 Unknown History albuterol sulfate 90 mcg/actuation 1 inh inhalation Q4H PRN Shortness 02/27/23 05/22/23 Unknown History aerosol inhaler Of Breath Or Wheezing metoprolol tartrate 25 mg tablet 25 mg PO BID 04/30/23 05/22/23 05/21/23 History furosemide 20 mg tablet 20 mg PO DAILY 05/14/23 05/22/23 05/21/23 History ascorbic acid (vitamin C) 500 mg 500 mg PO DAILY 05/22/23 05/22/23 05/21/23 History tablet (Vitamin C) cholecalciferol (vitamin D3) 25 25 mcg PO DAILY 05/22/23 05/22/23 05/21/23 History mcg (1,000 unit) capsule (Vitamin D3) vit B,C-folic ac 800 mcg-zinc 12.5 1 tab PO DAILY 05/22/23 05/22/23 05/21/23 History mg-selen-D3 2,000 unit-vit E tablet (RenaPlex-D) vitamin B12 0.5 mg-folic acid 1 mg 1 tab PO DAILY 05/22/23 05/22/23 05/21/23 History tablet vitamin E 268 mg (400 unit) capsule 268 mg PO DAILY 05/22/23 05/22/23 05/21/23 History vitamin K2 40 mcg tablet 40 mcg PO DAILY 05/22/23 05/22/23 05/21/23 History Allergies Allergy/AdvReac Type Severity Reaction Status Date / Time Penicillins Allergy Severe hives Verified 05/22/23 09:00 Current Medications Generic Name Dose Route Start Last Admin Trade Name Freq PRN Reason Stop Dose Admin Heparin Sodium (Porcine) 0 unit 05/22/23 12:09 05/22/23 12:32 Heparin 5,000 Unit/Ml Inj 1 Ml IV 4,000 unit PRN PRN Administration Heparin weight-base protocol Protocol Heparin Sodium/Sodium Chloride 25,000 unit in 500 mls @ 0 mls/hr 05/22/23 12:15 05/22/23 12:41 Heparin Drip IV 14 unit/kg/hr .Q0M LEN 25.4 mls/hr Administration Protocol Per Protocol PFSH Acute PFSH: Medical History (Updated 05/22/23 @ 16:22 by Pito James DO) Cardiac arrest Late 2021/2022 during hospitalization/rehab stay in [place] Diabetes mellitus, type II History, lost weight, no longer active diagnosis Diastolic heart failure End stage renal disease started dialysis late 2022 History of cirrhosis of liver History of echocardiogram 06/2021 EF 55%, severe AV sclerosis and calcification but no stenosis History of hemoptysis late summer 2022, several bronchoscopies done at [place], no source found, treated with antibiotics History of PFTs 06/2021 severe restriction with preserved residual volume, minimal reduction in DLCO History of pulmonary aspiration per swallow study done during a prolonged acute illness in late 2022 Hyperlipidemia Hypertension Nephrotic syndrome JOSE (obstructive sleep apnea) Paroxysmal SVT (supraventricular tachycardia) Pneumonia due to COVID-19 virus 2022, on ventilator for a time Polycythemia secondary to hypoxia Restrictive lung disease Vitamin D deficiency Surgical History (Updated 05/22/23 @ 15:50 by Rebecca Wade MD) History of cholecystectomy 1996 History of percutaneous endoscopic gastrostomy 2022, removed short time later History of tracheostomy 2022, removed short time later S/P thoracentesis 2014 Family History Father CHF (congestive heart failure) Mother CHF (congestive heart failure) Social History (Updated 05/22/23 @ 15:50 by Rebecca Wade MD) Smoking and tobacco status: never smoked Second hand smoke exposure: No Alcohol intake: never Substance/Drug Use: never Household members: spouse 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 End-stage renal disease: On TTS schedule as outpatient, no indication for HD today we will plan on HD tomorrow await cardiac work-up. 2. Hypertension: On beta-blockers, ETHAN inhibitors and Lasix, restart 3. CHF: With preserved ejection fraction 4. History of polycythemia 5. Obstructive sleep apnea 6. Chest pain: Await further work-up Patient evaluated using audiovisual cart. Time spent 40 minutes Consult Attestations Medical Necessity Statement: per medicine team Coding Level of Care Code Acute Code for Chg Fwd Diagnoses End stage renal disease N18.6
--- NOTE | 2023-05-22 14:42 | USCV_ITS ---
João Carter Age: 62 Gender: M : 1960 Exam Date: 05/22/2023 15:43 Ordering Phys: Rebecca Wade MD Technologist: [place] [facility] [place]: cad BP: 140 / 80 HR: 61 Rhythm: Sinus Technical Quality: Poor MEASUREMENTS (Male / Female) Normal Values 2D ECHO LV Chamber Size 4.9 cm RV Chamber Size 3.9 cm LVOT Diameter 2.1 cm LV Ejection Fraction MOD 2C 32.5 % LV Ejection Fraction 2C AL 30.5 % LA Diameter 4.4 cm LA Width 3.9 cm LA Height 4.1 cm RA Width 4.9 cm RA Height 5.2 cm Aorta at Sinotubular Diameter 1.9 cm IVC Diameter 2.1 cm M-MODE Aortic Annulus Diameter 3.3 cm LA Ao Ratio MM 1.3 MV E Point Septal Separation 1.3 cm DOPPLER AV Peak Velocity 78.0 cm/s LVOT Peak Velocity 60.0 cm/s AV Area Cont Eq vti 2.8 cm squared AV Area Cont Eq pk 2.6 cm squared MV Peak Velocity 87.0 cm/s MV Area PHT 3.5 cm squared Mitral E to A Ratio 1.0 MV E' Velocity 44.5 cm/s Mitral E to MV E' Ratio 22.4 Mitral E to LV E' Lateral Ratio 22.4 Mitral E to LV E' Septal Ratio 22.4 TV Peak E Velocity 52.0 cm/s Right Atrial Pressure 3.0 mmHg PV Peak Velocity 54.0 cm/s FINDINGS Left Ventricle Study is poor in quality. The ventricle is seen only in the apical view. The ventricle appears normal in size and there is probably lower limit of normal left ventricular function. A rough estimate of the ejection fraction is 55%. Grade 1 diastolic dysfunction. No obvious wall motion abnormalities. Right Ventricle Normal right ventricular size and systolic function. Unable to assess right ventricular pressure. Right Atrium The right atrium is normal in size. Left Atrium The left atrium is normal in size. Mitral Valve The mitral valve is not well seen. 1 cannot assess for the presence or absence of mitral regurgitation. Aortic Valve The aortic valve is poorly seen. There is probably mild calcification present. There is at least mild aortic insufficiency. No obvious aortic stenosis. Tricuspid Valve Tricuspid valve is poorly seen. Pulmonic Valve Pulmonic valve was not seen. There is mild pulmonic insufficiency. Pericardium Normal pericardium without effusion. Aorta Normal ascending aorta dimension. IVC Inferior vena cava not visualized. CONCLUSIONS Study is poor in quality. The ventricle is seen only in the apical view. The ventricle appears normal in size and there is probably lower limit of normal left ventricular function. A rough estimate of the ejection fraction is 55%. Grade 1 diastolic dysfunction. No obvious wall motion abnormalities. The aortic valve is poorly seen. There is probably mild calcification present. There is at least mild aortic insufficiency. No obvious aortic stenosis. Previous study is 06/16/2021. There appears to be no significant change from the previous study. Dr. Curtis Hinojosa MD (Electronically Signed) Final Date: 22 May 2023 17:43 S
--- NOTE | 2023-05-22 15:04 | ECG_ITS ---
[facility] Test Date: 2023-05-22 Pat Name: João Carter Department: Room: 112 Gender: Male Telephone Recorder: : 1960 Requested By: Pito Stanton Order Number: [id number] Thais MD: Steven Mallory M.D. Measurements Intervals [place] Rate: 54 P: 61 FL: 291 QRS: 259 QRSD: 169 T: 5 QT: 550 QTc: 522 Interpretive Statements SINUS BRADYCARDIA WITH FIRST DEGREE AV BLOCK RIGHT AXIS DEVIATION [QRS AXIS > 100] RIGHT BUNDLE BRANCH BLOCK [120+ ms QRS DURATION, UPRIGHT V1, 40+ ms S IN I/aVL/V4/V5/V6] POSSIBLE ANTERIOR MYOCARDIAL INFARCTION , OF INDETERMINATE AGE [30 ms Q WAVE IN V3/V4, OR R < 0.2 mV IN V4] PROLONGED QT INTERVAL Compared to ECG 05/22/2023 10:49:04 Prolonged QT interval now present Myocardial infarct finding still present Electronically Signed On 05-22-2023 15:20:55 CDT by Steven Mallory M.D. [id number]
[2023-05-22 16:18] LABS: Troponin 5 6HR 62.13 ng/L (0-15)
[2023-05-22 16:21] LABS: Troponin 5 6HR Delta -3.87 ng/L (0-12)
[2023-05-22 16:47] LABS: NT Pro B Type Natriuretic Pept 20938 pg/mL (0-125)
--- NOTE | 2023-05-22 18:52 | ECG_ITS ---
[facility] Test Date: 2023-05-23 Pat Name: João Carter Department: Room: 112 Gender: Male Payroll Assistant: Reddcarissa Carrasco : 1960 Requested By: Rebecca Wade Order Number: [id number] Thais MD: Steven Mallory M.D. Interpretive Statements NAME OF STUDY: LEXISCAN SESTAMIBI STRESS TEST INDICATION: [cp, ckd, baseline trop 60's, ] Procedure: At the baseline, the blood pressure was 129/59 mmHg with a heart rate of 54 bpm. The electrocardiogram showed sinus bradycaria, right bundle branch block with non specific ST T wave changes. The Lexiscan was infused over a period of 20 seconds. A total of 0.4 mg of Lexiscan was infused. The stress phase was continued for a total of 5 minutes. Heart rate was at the end of stress phase was 60 bpm and a blood pressure of 125/54 mmHg. The EKG at the peak infusion revealed normal sinus rhythm with no significant ST-T wave changes. Sestamibi was injected 20 seconds after the Lexiscan infusion. Blood pressure at the end of recovery phase was 120/51 mmHg with a heart rate of 58 bpm. Conclusion: 1. Normal EKG response to Lexiscan infusion 2. No Lexiscan induced chest pain or cardiac arrhythmia. 3. Normal blood pressure and heart rate response. 4. Sestamibi/sestamibi perfusion scan pending; see separate report. Electronically Signed On 06-07-2023 12:14:03 CDT by Steven Mallory M.D. [id number]
[2023-05-22 19:45] LABS: Partial Thromboplastin Time 62.5 SECONDS (23.9-36.7)
--- NOTE | 2023-05-22 20:23 | PC.NURSE ---
Patient pTT 62.5, no change to heparin gtt per protocol.
[2023-05-22] MEDS: metoprolol tartrate 25 mg Tablet PO (20:57)
[2023-05-23] VITALS (9 sets, daily range): BP systolic 120–177; BP diastolic 51–91; PULSE 53–72; RESP 16–19; TEMP 36.6–37; O2SAT 89–95
[2023-05-23 01:43] LABS: Basophils # 0.1 10^3/uL (0.0-0.1); Basophils % 0.9 %; Eosinophils # 0.2 10^3/uL (0.0-0.8); Eosinophils % 4.3 %; Hematocrit 40.6 % (37-53); Lymphocytes # 0.7 10^3/uL (0.8-4.8); Mean Corpuscular HGB Conc 29.3 g/dL (30-55); Mean Corpuscular Hemoglobin 25.6 pg (27-33); Mean Corpuscular Volume 87.5 fl (82-101); Mean Platelet Volume 9.7 fL (7.4-10.4); Monocytes # 0.7 10^3/uL (0.2-0.9); Neutrophils # 3.83 10^3/uL (1.8-7.7); Neutrophils % 69.4 %; Nucleated Red Blood Cells % 0 %; Platelet Count 136 10^3/cmm (157-399); Red Blood Count 4.64 10^6/uL (3.85-5.65); Red Cell Distribution Width 18.8 % (12.1-15.1); White Blood Count 5.52 10^3/uL (3.29-11.43)
[2023-05-23 02:00] LABS: Partial Thromboplastin Time 55.5 SECONDS (23.9-36.7)
[2023-05-23 02:16] LABS: Anion Gap 15.8 (5-19); Blood Urea Nitrogen 54 mg/dL (8-23); Calcium 8.9 mg/dL (8.5-10.5); Carbon Dioxide 25 mmol/L (22-29); Chloride 99 mmol/L (98-107); Cholesterol 104 mg/dL (0-200); Glomerular Filtration Rate 15.3 mL/min (90-130); Glucose 87 mg/dL (65-115); HDL Cholesterol 40 mg/dL (60-100); LDL Cholesterol Calculated 49 mg/dL (50-129); LDL HDL Ratio 1.23 RATIO (0.00-3.22); Magnesium 2.2 mg/dL (1.7-2.3); Osmolality Calculated 294 mOsm/kg (285-295); Phosphorus 5.8 mg/dL (2.5-4.5); Potassium 4.8 mmol/L (3.5-5.1); Sodium 135 mmol/L (136-145); Triglycerides 73 mg/dL (0-150)
--- NOTE | 2023-05-23 02:43 | PC.NURSE ---
No change to heparin gtt per protocol, pTT 55.5
[2023-05-23] MEDS: regadenoson 0.4 Mg/5 ml Syringe IVP (07:30)
--- NOTE | 2023-05-23 07:39 | PC.NURSE ---
Patient heparin gtt paused for stress test per Dr Wade.
[2023-05-23 09:15] LABS: Partial Thromboplastin Time 30.7 SECONDS (23.9-36.7)
[2023-05-23] MEDS: atorvastatin 40 mg Tablet 20 MG PO (10:04)
[2023-05-23] MEDS: pantoprazole DR 40 mg Tablet PO (10:04)
[2023-05-23] MEDS: metoprolol tartrate 25 mg Tablet PO (10:04)
[2023-05-23] MEDS: lisinopril 20 mg Tablet PO (10:05)
[2023-05-23] MEDS: heparin 5,000 unit/mL INJ 1 mL IV (10:05)
[2023-05-23] MEDS: aspirin 81 mg Chew Tablet PO (10:05)
[2023-05-23 10:17] LABS: Hepatitis B Surface Antigen Non-Reactive (Nonreactive)
[2023-05-23 10:28] LABS: Hepatitis B Surface AB < 3.5 (11.5-1000)
[2023-05-23] MEDS: heparin drip 25,000 UNIT/500 ML PREMIX 31 UNIT IV (11:12)
--- NOTE | 2023-05-23 12:12 | PM.DCS ---
Discharge Providers Date of Admission: 05/22/23 12:36 Date of Discharge: May 23, 2023 Attending Provider at Admission: Rebecca Wade MD Attending Provider at Discharge: Mike Pro MD Primary Care Provider: Philip Torrez Diagnoses at Discharge Discharge Diagnosis (1) End stage renal disease: Status: Chronic Permanent problem details: started dialysis late 2021/early 2022 Reason for Visit Reason for Visit: chest pain Hospital Course Hospital Course João Carter is a 62-year-old male with a past medical history significant for ESRD on HD, cardiac arrest, type 2 diabetes mellitus, diastolic heart failure, liver cirrhosis, hemoptysis, hypertension, hyperlipidemia, supraventricular tachycardia, restrictive lung disease, polycythemia and multiple other comorbidities who presented from dialysis clinic with chest pain. Troponin was found to be elevated without significant delta troponin consistent with chronic myocardial injury. Patient treated with heparin drip and underwent ischemic evaluation with myocardial stress testing which was negative for evidence of reversible ischemia. Patient's home regiment was adjusted to include a long-acting nitrate. Echocardiogram obtained and although study quality was limited, no acute findings were identified. Patient's symptomatology resolved. He was discharged home in stable condition. He will follow-up with his primary care provider as well as cardiology clinic for further care. Physical Exam Narrative: General: Patient is awake and alert. Head: Normocephalic. Atraumatic. EOM intact. Neck: No JVD. Cardiovascular: RRR. No gallops. No murmurs. Lungs: Breath sounds are slightly diminished in bilateral bases, no use of accessory muscles, no crackles or wheezes. Skin: No jaundice. No rashes. Abdomen: Normal bowel sounds, abdomen soft and nontender. Extremities: No cyanosis or clubbing. Musculoskeletal: No erythematous joints. Neurological: Moves all 4 extremities. No myoclonus. Discharge Data Studies Completed and Pending Completed Studies During Hospitalization Category Date Time Status Sestamibi Stress Test Request Routine Exams 05/22/23 18:52 Draft XR chest 1V portable [id number] Stat Exams 05/22/23 08:50 Completed NM aristeo perf SPECT r/s* [id number] Routine Nuc Med 05/23/23 18:52 Completed CV. echo complete* [id number] Routine Ultrasound 05/22/23 14:42 Completed Pending at discharge Category Date Time Status PTT [Partial Thromboplastin Time] Timed Lab 05/23/23 16:00 Ordered Platelet Count Q2D Lab 05/24/23 04:00 Ordered Platelet Count Q2D Lab 05/26/23 04:00 Ordered Radiology Impressions Chest X-Ray 05/22/23 08:50 IMPRESSION: 1. Right upper lung atelectasis and/or pneumonitis is probably unchanged. 2. Probably unchanged enlarged pulmonary cipriano is probably vasculature, but could be lymphadenopathy. 3. Additional details as above. Laboratory Results WBC 5.52 10^3/uL (3.29-11.43) 05/23/23 01:35 RBC 4.64 10^6/uL (3.85-5.65) 05/23/23 01:35 Hgb 11.90 g/dL (11.27-16.99) 05/23/23 01:35 Hct 40.6 % (37-53) 05/23/23 01:35 MCV 87.5 fl (82-101) 05/23/23 01:35 MCH 25.6 pg (27-33) L 05/23/23 01:35 MCHC 29.3 g/dL (30-55) L 05/23/23 01:35 RDW 18.8 % (12.1-15.1) H 05/23/23 01:35 Plt Count 136 10^3/cmm (157-399) L 05/23/23 01:35 MPV 9.7 fL (7.4-10.4) 05/23/23 01:35 Neut % (Auto) 69.4 % 05/23/23 01:35 Lymph % (Auto) 13.0 % 05/23/23 01:35 [place] % (Auto) 12.0 % 05/23/23 01:35 Eos % (Auto) 4.3 % 05/23/23 01:35 Baso % (Auto) 0.9 % 05/23/23 01:35 Neut # (Auto) 3.83 10^3/uL (1.8-7.7) 05/23/23 01:35 Lymph # (Auto) 0.7 10^3/uL (0.8-4.8) L 05/23/23 01:35 [place] # (Auto) 0.7 10^3/uL (0.2-0.9) 05/23/23 01:35 Eos # (Auto) 0.2 10^3/uL (0.0-0.8) 05/23/23 01:35 Baso # (Auto) 0.1 10^3/uL (0.0-0.1) 05/23/23 01:35 Nucleated RBC % (auto) 0 % 05/23/23 01:35 Nucleated RBCs # 0.0 /100WBC 05/23/23 01:35 PT 16.10 SECONDS (12.1-14.9) H 05/22/23 09:31 INR 1.25 (0.8-1.2) H 05/22/23 09:31 APTT 30.7 SECONDS (23.9-36.7) 05/23/23 08:54 Sodium 135 mmol/L (136-145) L 05/23/23 01:35 Potassium 4.8 mmol/L (3.5-5.1) 05/23/23 01:35 Chloride 99 mmol/L (98-107) 05/23/23 01:35 Carbon Dioxide 25 mmol/L (22-29) 05/23/23 01:35 Anion Gap 15.8 (5-19) 05/23/23 01:35 BUN 54 mg/dL (8-23) H 05/23/23 01:35 Creatinine 4.0 mg/dL (0.7-1.2) H 05/23/23 01:35 GFR Calculation 15.3 mL/min (90-130) L 05/23/23 01:35 Glucose 87 mg/dL (65-115) 05/23/23 01:35 Calculated Osmolality 294 mOsm/kg (285-295) 05/23/23 01:35 Calcium 8.9 mg/dL (8.5-10.5) 05/23/23 01:35 Phosphorus 5.8 mg/dL (2.5-4.5) H 05/23/23 01:35 Magnesium 2.2 mg/dL (1.7-2.3) 05/23/23 01:35 Total Bilirubin 0.7 mg/dL (0.15-1.2) 05/22/23 09:31 AST 14 U/L (0-40) 05/22/23 09:31 ALT 8 U/L (0-41) 05/22/23 09:31 Alkaline Phosphatase 99 U/L (40-130) 05/22/23 09:31 Troponin T Baseline 66 ng/L (0-15) H 05/22/23 09:31 Troponin T 120 Minute 70.10 ng/L (0-15) H 05/22/23 11:18 Delta Troponin T 4.10 ABS# (0-10) 05/22/23 11:18 Troponin T Hi Sens 6Hr 62.13 ng/L (0-15) H 05/22/23 15:31 Troponin T Hi Sens 6Hr Delta -3.87 ng/L (0-12) L 05/22/23 15:31 NT-Pro-B Natriuret Pep 26085 pg/mL (0-125) H 05/22/23 09:31 Total Protein 7.7 g/dL (6.6-8.7) 05/22/23 09:31 Albumin 3.7 g/dL (3.5-5.2) 05/22/23 09:31 Globulin 4.0 g/dL (1.3-4.6) 05/22/23 09:31 Triglycerides 73 mg/dL (0-150) 05/23/23 01:35 Cholesterol 104 mg/dL (0-200) 05/23/23 01:35 LDL Cholesterol, Calc 49 mg/dL (50-129) L 05/23/23 01:35 HDL Cholesterol 40 mg/dL (60-100) L 05/23/23 01:35 LDL/HDL Ratio 1.23 RATIO (0.00-3.22) 05/23/23 01:35 Cholesterol/HDL Ratio 2.60 mg/dL (1.0-5.00) 05/23/23 01:35 Hep Bs Antigen Non-reactive (Nonreactive) 05/23/23 01:35 Hep Bs Antibody < 3.5 (11.5-1000) L 05/23/23 01:35 Vitals Last Vital Signs Temp 98.1 F 05/23/23 11:08 Pulse 57 L 05/23/23 11:08 Resp 18 05/23/23 11:08 BP 156/62 05/23/23 11:08 Pulse Ox 93 05/23/23 09:44 O2 Del Method Nasal Cannula 05/23/23 09:44 O2 Flow Rate 5 05/23/23 09:44 Discharge Plan Discharge Patient Disposition: Home Condition: Stable Prescriptions: New isosorbide mononitrate 30 mg tablet extended release 24 hr 30 mg PO DAILY Qty: 30 1RF Continued aspirin 81 mg tablet,chewable 81 mg PO DAILY lisinopril 20 mg tablet 20 mg PO DAILY lovastatin 20 mg tablet 20 mg PO DAILY metoprolol tartrate 25 mg tablet 25 mg PO BID tramadol 50 mg tablet 50 mg PO BID PRN (Reason: Pain) albuterol sulfate 90 mcg/actuation HFA aerosol inhaler 1 inh inhalation Q4H PRN (Reason: Shortness Of Breath Or Wheezing) furosemide 20 mg tablet 20 mg PO DAILY Vitamin C 500 mg Tablet 500 mg PO DAILY vitamin E 268 mg (400 unit) Capsule 268 mg PO DAILY Vitamin D3 25 mcg (1,000 unit) Capsule 25 mcg PO DAILY vitamin R68-eamaw acid 0.5-1 mg Tablet 1 tab PO DAILY vitamin K2 40 mcg Tablet 40 mcg PO DAILY RenaPlex-D 800 mcg-12.5 mg -2,000 unit tablet 1 tab PO DAILY Discharge Orders: Discharge Order (Routine); Ordered 05/23/23 Ordered By: Mike Pro Referrals: Philip Torrez [Primary Care Provider] - 05/28/23 11:00 am Jeri Beltran FNP [Nurse Practitioner] - 7-10 days Discharge Diet: Advance as tolerated, Usual diet, Cardiac and Low Salt Discharge Activity: Resume usual activity and Increase activity as tolerated Patient Instructions: Opioid Safety Activity Restrictions/Additional Instructions: 1. Take medications as prescribed. 2. Resume usual dialysis schedule. 3. Follow up with PCP as scheduled. Discharge Attestations Time Spent in Discharge Care*: greater than 30 min Quality Metrics Clinical Quality Measures [ No reported AMI, CVA or VTE this stay] Coding Level of Care Code Acute Code for Chg Fwd Diagnoses End stage renal disease N18.6
--- NOTE | 2023-05-23 15:42 | PC.NURSE ---
Pt arrived back from dialysis. IV heparin drip stopped. Pt to be discharged.
--- NOTE | 2023-05-23 16:34 | PM.PN ---
Subjective Subjective: getting hd Medications: Reviewed: Yes Vitals/I&O/Wt Last Vital Signs Temp 98.6 F 05/23/23 14:38 Pulse 53 L 05/23/23 14:38 Resp 16 05/23/23 14:38 BP 171/68 05/23/23 14:38 Pulse Ox 93 05/23/23 09:44 O2 Del Method Nasal Cannula 05/23/23 09:44 O2 Flow Rate 5 05/23/23 09:44 05/23/23 05/23/23 05/23/23 06:59 14:59 22:59 Intake Total 800 / 800 Output Total 3300 / 3300 Balance -2500 / -2500 Weight last 48 hrs Weight 94.6 kg Weight 96.814 kg Weight 90.718 kg Physical Exam Narrative: awake , alert heent s1s2 rrr lungs clear no edema Data 05/23/23 01:35 05/23/23 01:35 A&P Assessment and plan (1) End stage renal disease: 1. End-stage renal disease: On TTS schedule as outpatient, hd today 2. Hypertension: On beta-blockers, ETHAN inhibitors and Lasix, restart 3. CHF: With preserved ejection fraction 4. History of polycythemia 5. Obstructive sleep apnea 6. Chest pain: Await further work-up Patient evaluated using audiovisual cart. Time spent 20 minutes Attestations Medical Necessity Statement*: per medicine team Coding Level of Care Code Acute Code for Chg Fwd Diagnoses End stage renal disease N18.6
--- NOTE | 2023-05-23 17:24 | PC.NURSE ---
Discharge Note Patient discharged to [home] via [w/c to POV] accompanied by [spouse]. Discharge instructions reviewed with patient and/or welding equipment sales representative. Mobile pharmacy medications and/or prescriptions provided. Belongings/home medications returned.
--- NOTE | 2023-05-23 18:52 | NMCV_ITS ---
NM aristeo perf SPECT r/s* [id number] João Carter Age: 62 Gender: M : 1960 Exam Date: 05/23/2023 18:52 Ordering Phys: Rebecca Wade MD Technologist: ANIA Lynn Exam Location: [facility] Indications: CHEST PAIN STRESS TEST Please see separate stress test report in [facility] for full findings IMAGE PROTOCOL Rest/Stress 1 Lexiscan Day Radiopharmaceutical Dose (mCi) Administration Site Administered by Rest: Tc-99m 10.7 IV ANIA Quick Sestamibi Stress:Tc-99m 32.9 IV ANIA Quick Sestamibi Rest: 23-May-2023 60 Discovery 630 Stress: 23-May-2023 30 Discovery 630 0.4mg Lexiscan. Supine position only as patient was unable to lay prone. SPECT RESULTS Technical Quality: Excellent Raw Data Analysis: Normal Image Corrections: No attenuation or motion correction applied Summed Stress Score: 0 Summed Rest Score: 0 Summed Difference Score: 0 PERFUSION FINDINGS SPECT images demonstrate homogeneous tracer distribution throughout the myocardium. FUNCTIONAL RESULTS (calculated via Gated SPECT) Stress Image LV EF (%): 62 Stress EDV (mL):112 TID: 0.96 Stress ESV (mL):43 FUNCTIONAL FINDINGS: There is normal left ventricular systolic function. IMPRESSIONS 1. Normal myocardial perfusion imaging with no evidence of ischemia 2. LV systolic function is normal Steven Mallory MD (Electronically Signed) Final Date: 23 May 2023 10:56 S
== END 2023-05-23 17:25 | disposition home or self-care (01) ==
LOC: ER 08:54 → CSU 15:09
PROVIDERS: Hospitalist; Admitting Provider Hospitalist; Emergency Provider Family Medicine; PCP Family Medicine; Visit Provider Internal Medicine
DX: E11.22 Type 2 diabetes mellitus with diabetic chronic kidney disease (principal); I13.0 Hypertensive heart and chronic kidney disease with heart failure and stage 1 through stage 4 chronic kidney disease, or unspecified chronic kidney disease; N18.6 End stage renal disease; I50.30 Unspecified diastolic (congestive) heart failure; Z99.2 Dependence on renal dialysis; I45.10 Unspecified right bundle-branch block; K74.60 Unspecified cirrhosis of liver; I27.20 Pulmonary hypertension, unspecified; E78.5 Hyperlipidemia, unspecified; G47.33 Obstructive sleep apnea (adult) (pediatric); Z79.82 Long term (current) use of aspirin; I47.10 Supraventricular tachycardia, unspecified; J98.4 Other disorders of lung; I44.0 Atrioventricular block, first degree
CPT/HCPCS: 36415; 71045; 78452; 80048; 80053; 80061; 83735; 83880; 84100; 84484; 85025; 85610; 85730; 86706; 87340; 90935; 93005; 93306; 96365; 96366; 96375; 99285; A9500; G0378; J1644; J2785; Q3014

== ENCOUNTER → 2023-05-28 13:32 | Outpatient (BNVA) | payer MEDICARE, SELFPAY | PROVIDERS: PCP Family Medicine; Visit Provider Nurse Practitioner Family | DX: I13.2 Hypertensive heart and chronic kidney disease with heart failure and with stage 5 chronic kidney disease, or end stage renal disease (principal); N18.6 End stage renal disease; I50.30 Unspecified diastolic (congestive) heart failure; Z99.2 Dependence on renal dialysis | CPT/HCPCS: 99213 ==

== ENCOUNTER → 2023-09-12 10:30 | Outpatient (BNVA) | payer MEDICARE, SELFPAY | PROVIDERS: PCP Family Medicine; Visit Provider Internal Medicine Pulmonary Disease | DX: J98.4 Other disorders of lung (principal); G47.30 Sleep apnea, unspecified; I13.2 Hypertensive heart and chronic kidney disease with heart failure and with stage 5 chronic kidney disease, or end stage renal disease; N18.6 End stage renal disease; I50.33 Acute on chronic diastolic (congestive) heart failure; Z99.2 Dependence on renal dialysis | CPT/HCPCS: 99214 ==

== ENCOUNTER 2023-10-03 15:02 | Outpatient (CLI) | payer MEDICARE, SELFPAY ==
--- NOTE | 2023-10-03 15:30 | CT_ITS ---
WS: [id number] CT CHEST CT-HIGH RESOLUTION, NONCONTRAST. HISTORY: Interstitial lung disease. Technique: High-resolution chest CT is performed in inspiration, expiration, supine and prone positio pam. All CT scans at [facility] use at least one of these dose optimization techniques: automated exposure control; mA and/or kV adjustment per patient size (includes targeted exams where dose is mat ched to clinical indication); or iterative reconstruction. DLP: 1537.30 mGy.cm COMPARISON: 02/28/2023, 09/26/2021 Findings: Overall there has been a mild improvement in the areas of groundglass attenuation and mosai c attenuation since 02/28/2023. Mild elevation of the LEFT hemidiaphragm. Focal area of consolidation with mild peripheral sparing centered in the RIGHT upper lobe was previously described. There is asso ciated bronchiectasis now present in the RIGHT upper lobe. There is mild bronchovascular thickening o n the RIGHT. There is slight nodularity along the fissures of the RIGHT lung. No mass. No obvious, id entifiable changes noted within the mosaic attenuation between inspiration and expiration. Also with prone positioning the mosaic attenuation and the airspace disease in the RIGHT upper lobe did not radha nge. Fullness in the hilar regions bilaterally similar to prior studies. Suspicious for lymphadenopathy bu t cannot be further described without IV contrast. There are smaller paratracheal lymph nodes. Pulmon denise artery is dilated. Pulmonary artery measures 3.8 cm. Aorta is mildly aneurysmal at 4.1 cm. Heavy calcification in the [place] coronary arteries. Heart is slightly enlarged. There is advanced atherosclerosis within the aorta which is much greater than expected for a patient of this age. Atherosclerotic plaque continues into the suprarenal aorta and the splenic artery. Prior cholecystectomy. Impression: 1. Low lung volumes. 2. RIGHT upper lobe opacification with subpleural sparing and underlying bronchiectasis is reidentif ied with no progression. There may be slight improvement since the prior study. Some of the interstit ial changes extend along the bronchovascular bundle which is seen with sarcoidosis. There is no simil ar finding on the LEFT. 3. Mosaic attenuation and groundglass attenuation bilaterally does not change with prone positioning or expiration. 4. Continued fullness in the hilar regions bilaterally. This cannot be further evaluated without IV contrast. Suspicious but indeterminate for adenopathy. 5. There is severe atherosclerotic plaque within the aorta and [place] coronary arteries. 6. Pulmonary hypertension.
== END 2023-10-03 15:03 | disposition home or self-care (01) ==
LOC: RAD 15:02
PROVIDERS: PCP Family Medicine; Visit Provider Internal Medicine Pulmonary Disease
DX: J47.9 Bronchiectasis, uncomplicated (principal); I25.10 Atherosclerotic heart disease of native coronary artery without angina pectoris; I27.20 Pulmonary hypertension, unspecified
CPT/HCPCS: 71250

== ENCOUNTER 2023-10-10 07:49 | Outpatient (CLI) | payer MEDICARE, SELFPAY ==
[2023-10-10] MEDS: albuterol 2.5 mg/3 mL Neb INHALATION (07:57)
[2023-10-10 08:13] VITALS: PULSE 79; RESP 18; O2SAT 96
[2023-10-10 08:17] VITALS: PULSE 90
== END 2023-10-10 07:50 | disposition home or self-care (01) ==
LOC: RT 07:49
PROVIDERS: PCP Family Medicine; Visit Provider Internal Medicine Pulmonary Disease
DX: R06.02 Shortness of breath (principal)
CPT/HCPCS: 94060; 94618; 94726; 94729; J7613

== ENCOUNTER → 2023-11-09 10:43 | Outpatient (BNVA) | payer MEDICARE, SELFPAY | PROVIDERS: PCP Family Medicine; Visit Provider Internal Medicine Pulmonary Disease | DX: J98.4 Other disorders of lung (principal); D86.9 Sarcoidosis, unspecified; G47.30 Sleep apnea, unspecified; I13.2 Hypertensive heart and chronic kidney disease with heart failure and with stage 5 chronic kidney disease, or end stage renal disease; N18.6 End stage renal disease; I50.30 Unspecified diastolic (congestive) heart failure; Z99.2 Dependence on renal dialysis | CPT/HCPCS: 99214 ==

== ENCOUNTER → 2023-11-20 14:57 | Outpatient (BNVA) | payer MEDICARE, SELFPAY | PROVIDERS: PCP Family Medicine; Visit Provider Internal Medicine Cardiovascular Disease | DX: I46.9 Cardiac arrest, cause unspecified (principal); I11.0 Hypertensive heart disease with heart failure; I50.32 Chronic diastolic (congestive) heart failure; Z99.81 Dependence on supplemental oxygen | CPT/HCPCS: 99214 ==

== ENCOUNTER 2024-04-26 13:00 | Inpatient (IN) | payer MEDICARE, SELFPAY ==
[2024-04-26] VITALS (71 sets, daily range): BP systolic 78–137; BP diastolic 48–91; PULSE 75–135; RESP 10–30; TEMP 37.1; O2SAT 79–98; BMI 31.4
--- NOTE | 2024-04-26 13:07 | CTR_ITS ---
PROCEDURE INFORMATION: Exam: CT Head Without Contrast Exam date and time: 04/26/2024 1:00 PM Age: 63 years old Clinical indication: Stroke-like symptoms; Altered mental status/memory loss TECHNIQUE: Imaging protocol: Computed tomography of the head without contrast. Radiation optimization: All CT scans at this facility use at least one of these dose optimization techniques: automated exposure control; mA and/or kV adjustment per patient size (includes targeted exams where dose is matched to clinical indication); or iterative reconstruction. Other technique: STROKE PROTOCOL was implemented. COMPARISON: CT head wo con* [id number] 03/12/2023 3:14 PM RADIATION DOSE METRICS: Total DLP (mGy-cm): 1134.7 FINDINGS: Brain: Mild bilateral periventricular white matter and centrum semiovale hypodensities, consistent with chronic ischemic small vessel disease. No recent infarct, intracranial bleed or mass effect. Cerebral ventricles: No ventriculomegaly. Pituitary gland and sella: Partially empty sella. Paranasal sinuses: Visualized sinuses are unremarkable. No fluid levels. Mastoid air cells: Visualized mastoid air cells are well aerated. Orbital cavities: Post bilateral cataract surgery. Bones: Unremarkable. No acute fracture. Soft tissues: Mild soft tissue emphysema in the left forehead. CT/CT head thrombolytic [id number] IMPRESSION: No large territorial infarct or intracranial bleed. ASSESSMENT: ASPECTS ([place] Stroke Program Early CT Score) is 10.
--- NOTE | 2024-04-26 13:19 | ECG_ITS ---
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 Measurements Intervals [place] Rate: 91 P: 101 CA: 264 QRS: 252 QRSD: 161 T: 8 QT: 431 QTc: 531 Interpretive Statements SINUS RHYTHM WITH FIRST DEGREE AV BLOCK RIGHT AXIS DEVIATION [QRS AXIS > 100] RIGHT BUNDLE BRANCH BLOCK [120+ ms QRS DURATION, UPRIGHT V1, 40+ ms S IN I/aVL/V4/V5/V6] POSSIBLE ANTERIOR MYOCARDIAL INFARCTION , OF INDETERMINATE AGE [30 ms Q WAVE IN V3/V4, OR R < 0.2 mV IN V4] INFERIOR MYOCARDIAL INFARCTION , PROBABLY OLD [40+ ms Q WAVE AND/OR ST/T ABNORMALITY IN II/aVF] Compared to ECG 05/22/2023 15:04:31 Sinus bradycardia no longer present Prolonged QT interval no longer present Myocardial infarct finding still present Electronically Signed On 04-27-2024 9:15:59 CDT by Steven Mallory M.D. [id number]
--- NOTE | 2024-04-26 13:19 | XRR_ITS ---
PROCEDURE INFORMATION: Exam: XR Chest Exam date and time: 04/26/2024 1:55 PM Age: 63 years old Clinical indication: Other: Neuro deficits, came in as stroke symptoms; Prior surgery; Surgery date: 1-6 months; Surgery type: Dialysis port; Additional info: Neurodeficits TECHNIQUE: Imaging protocol: Radiologic exam of the chest. Views: 1 view. COMPARISON: CT chest con [id number] 10/03/2023 3:23 PM FINDINGS: Tubes, catheters and devices: Right internal jugular tunneled catheter with its tip in the cavoatrial junction. Lungs: Left lower lung zone reticular opacities that might represent atelectasis versus infiltrates. No consolidation. Pleural spaces: Small right pleural effusion. Heart/Mediastinum: Unremarkable. No cardiomegaly. Vasculature: Aortic arch calcifications. Unfolding of the thoracic aorta. Bones/joints: Moderate degenerative disease of bilateral acromioclavicular and bilateral glenohumeral joints. XR/XR chest 1V portable [id number] IMPRESSION: Left lower lung zone reticular opacities that might represent atelectasis versus infiltrates.
--- NOTE | 2024-04-26 13:23 | ED_ITS ---
Documented by User: Jay Sagastume DO 04/26/24 16:15 HPI - Neuro Symptoms/Deficit 2 General: Chief Complaint: Neuro Symptoms/Deficit Stated Complaint: right side weakness Time Seen by Provider: 04/26/24 13:03 History of Present Illness: Presents to the ER as code stroke, after dialysis was finished today patient appeared to pass out and when he came to he was flaccid on his right side and had altered mental status. EMS arrived there and brought him to the ER where he was taken directly to CT. Upon evaluation patient is alert oriented to name and place knows his year of and the season but not the dates. Time: 12:40 Last Observed Normal: 12:40 Timing confirmed by: other (ems) Location: right arm History of same: No Severity: mild Quality: weak Relieving factors: none Exacerbating factors: none Context: sudden onset On Anticoagulants: No Associated symptoms: Reports syncope Treatments Prior to Arrival: none Related Data Home Medications Medication Instructions Recorded Confirmed aspirin 81 mg chewable tablet 81 mg PO DAILY 05/02/21 11/09/23 lisinopril 20 mg tablet 20 mg PO DAILY 05/02/21 11/09/23 lovastatin 20 mg tablet 20 mg PO DAILY 05/02/21 11/09/23 tramadol 50 mg tablet 50 mg PO BID PRN Pain 10/09/22 11/09/23 albuterol sulfate 90 mcg/actuation 1 inh inhalation Q4H PRN Shortness 02/27/23 11/09/23 aerosol inhaler Of Breath Or Wheezing metoprolol tartrate 25 mg tablet 25 mg PO BID 04/30/23 11/09/23 furosemide 20 mg tablet 20 mg PO DAILY 05/14/23 11/09/23 ascorbic acid (vitamin C) 500 mg 500 mg PO DAILY 05/22/23 11/09/23 tablet (Vitamin C) cholecalciferol (vitamin D3) 25 25 mcg PO DAILY 05/22/23 11/09/23 mcg (1,000 unit) capsule (Vitamin D3) vit B,C-folic ac 800 mcg-zinc 12.5 1 tab PO DAILY 05/22/23 11/09/23 mg-selen-D3 2,000 unit-vit E tablet (RenaPlex-D) vitamin B12 0.5 mg-folic acid 1 mg 1 tab PO DAILY 05/22/23 11/09/23 tablet vitamin E 268 mg (400 unit) capsule 268 mg PO DAILY 05/22/23 11/09/23 vitamin K2 40 mcg tablet 40 mcg PO DAILY 05/22/23 11/09/23 Previous Rx's Medication Instructions Recorded isosorbide mononitrate 30 mg 30 mg PO DAILY #30 tabs 05/23/23 tablet,extended release 24 hr Allergies Allergy/AdvReac Type Severity Reaction Status Date / Time Penicillins Allergy Severe hives Verified 04/26/24 14:51 Review of Systems 2 General: Reports: 10 or more systems reviewed and unremarkable except in HPI and below Card: Reports: syncope [facility] ED 2 [facility]: Medical History Hyperlipidemia Paroxysmal SVT (supraventricular tachycardia) History of hemoptysis late summer 2022, several bronchoscopies done at [place], no source found, treated with antibiotics Pneumonia due to COVID-19 virus 2022, on ventilator for a time History of pulmonary aspiration per swallow study done during a prolonged acute illness in late 2022 History of cirrhosis of liver History of echocardiogram 06/2021 EF 55%, severe AV sclerosis and calcification but no stenosis History of PFTs 06/2021 severe restriction with preserved residual volume, minimal reduction in DLCO Nephrotic syndrome Vitamin D deficiency Diabetes mellitus, type II History, lost weight, no longer active diagnosis Hypertension JOSE (obstructive sleep apnea) Diastolic heart failure End stage renal disease started dialysis 2022 Cardiac arrest 2022 during hospitalization/rehab stay in [place] Restrictive lung disease Polycythemia secondary to hypoxia Surgical History History of percutaneous endoscopic gastrostomy late 2022, removed short time later History of tracheostomy 2022, removed short time later S/P thoracentesis 2014 History of cholecystectomy 1996 Family History Father Congestive heart failure (CHF) Mother Congestive heart failure (CHF) Social History Smoking and tobacco/nicotine status: never used tobacco/nicotine Second hand smoke exposure: No Alcohol intake: never Substance/Drug Use: never Household members: spouse 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 NIH stroke score 2 NIHSS: Level Of Consciousness - 1a: 0 Level Of Consciousness Questions - 1b: One Correct Level Of Consciousness Commands - 1c: One Correct Best Gaze - 2: Normal Visual Vásquez - 3: No Visual Loss Facial Palsy - 4: N ormal Motor Arm Right - 5: No Drift Motor Arm Left - 5: No Drift Motor Leg Right - 6: No Drift Motor Leg Left - 6: No Drift Limb Ataxia - 7: P resent In One Limb Sensory - 8: Normal Best Language - 9: No Aphasia D ysarthia - 10: Normal Extinction And Inattention - 11: 0 Score: Total Score: 3 Physical Exam 2 Const: COMMON NORMALS: no acute distress, average body habitus, healthy appearing, alert and well nourished HENMT: COMMON NORMALS: normocephalic, atraumatic, hearing grossly normal bilaterally, external ears normal, TM's normal bilaterally, Normal external nose present and moist oral mucous membranes HEAD & SCALP: normocephalic and atraumatic NOSE: Normal external nose present EXTERNAL EAR: Yes external ears normal TYMPANIC MEMBRANE: TM's normal bilaterally Eye: COMMON NORMALS: Equal, round and reactive pupils present, EOMs intact bilaterally, conjunctivae normal and no scleral icterus CONJUNCTIVA: Yes conjunctivae normal PUPIL: Yes Equal, round and reactive pupils present Neck/C-Spine: COMMON NORMALS: full ROM, no lymphadenopathy, supple, no meningeal signs, no JVD and Thyroid normal THYROID: Thyroid normal Chest: COMMONS NORMALS: normal inspection of the chest and normal palpation of entire chest wall Resp: COMMON NORMALS: normal respiratory effort, No retractions, No use of accessory muscles and clear to auscultation bilaterally AUSCULTATION: clear to auscultation bilaterally Cardio: COMMON NORMALS: no JVD, regular rate, regular rhythm, S1 normal heart sound present, S2 normal heart sound present, No gallops present (Cardio), No clicks present (Cardio), No murmurs present (Cardio) and No rub (Cardio) R ATE: regular rate RHYTHM: regular rhythm HEART SOUNDS: S1 normal heart sound present and S2 normal heart sound present GI: COMMON NORMALS: Normal to inspection, nondistended, normoactive bowel sounds present, Soft to palpation, non-tender, No hepatosplenomegaly present and no masses PALPATION: Yes Soft to palpation and Yes No hepatosplenomegaly present Neuro: SENSORIUM/ORIENTATION: Yes alert MENINGEAL SIGNS: Yes no meningeal signs Course 2 Vital Signs: Vital signs: Vital Signs Temperature 98.8 F 04/26/24 13:15 Pulse Rate 88 04/27/24 00:00 Respiratory Rate 14 04/27/24 00:26 Blood Pressure 142/96 04/27/24 00:00 Pulse Oximetry 97 04/27/24 00:26 Oxygen Delivery Me thod Mechanical Ventil ation 04/26/24 21:35 Fraction of Inspir ed Oxygen 80 04/27/24 00:26 MDM - Neuro Symptoms/Deficit Medical Decision Making While talking on the phone to [facility] neuro on-call nurse notified me that his NIH went from 3-0, [facility] said that is not an indication for TNKase due to low NIH that is not proving and patient back to baseline. They will write a complete workup with suggestions. Discussed the patient with Dr. Monroy we will place the patient on [facility], we will get a CTA of the head and neck, we will consult nephrology. Called left message for nephrology nephrology called back and we will see the patient in the ER, and we notified them of the CTA and they said no problem they will take care of it. Differential Diagnosis Likely cerebrovascular accident and transient cerebral ischemia Medical Records I reviewed the patient's medical records. Lab Data I reviewed the patient's lab results. 04/26/24 13:29 04/26/24 22:25 Radiology Impressions Head/Neck CTA 04/26/24 16:04 IMPRESSION: No occlusion of the ALESHA, MCA or [employer]JUN[employer] IN[employer] CHEMISTRY arteries. IMPRESSION: 1. Severe stenosis of the left proximal common carotid artery with sluggish flow in the common carotid and left internal carotid arteries. 2. Ground-glass infiltrates in the right upper lobe, likely infectious. REFERENCES: NASCET CRITERIA. The degree of stenosis in the cervical segment of the internal carotid artery is based on NASCET criteria. Normal is no stenosis. Mild is less than 50% stenosis. Moderate is 50-69% stenosis. Severe is 70% to 99% stenosis. Total occlusion is no detectable patent lumen. Head CT 04/26/24 19:57 IMPRESSION: No acute intracranial findings. Chest CTA 04/26/24 20:46 IMPRESSION: 1. No evidence of pulmonary emboli. 2. Left basilar consolidation concerning for pneumonia. Findings may be in part on the basis of aspiration, particularly with a small amount of layering debris in the upper thoracic esophagus. Recommend continued imaging follow-up to evaluate evolution of findings. 3. Multifocal ground-glass and consolidative opacities throughout the remaining portions of the lungs overall appear similar to prior. Chronic fibrotic changes are likely, including with areas of air trapping from chronic small airways disease. Superimposed edema and/or atypical infection not excluded. 4. Mediastinal/hilar adenopathy similar to prior. 5. Reflux of contrast into the IVC and hepatic veins compatible with tricuspid regurgitation and/or elevated right heart pressures. 6. Ectatic ascending thoracic aorta measuring up to 4.4 cm. 7. Dilated main pulmonary artery can be seen with pulmonary hypertension. COMMENTS: Consistent with the [employer]'s Incidental Findings Committee white paper (J Am Cecily Radiol 2015): In patients aged 35 years and older with an incidental thyroid nodule equal to or greater than 1.[address], MRI or extrathyroidal US, further evaluation with dedicated thyroid US is recommended for patients with normal life expectancy and without comorbidities. For smaller nodules without suspicious features, no further evaluation or follow up is recommended. Chest X-Ray 04/26/24 22:41 IMPRESSION: 1. NG tube tip is in the stomach with the side port below the GE junction. 2. Diffuse interstitial and airspace opacities may reflect pulmonary edema and/or atypical infection. Laboratory Results WBC 10.39 10^3/uL (3.29-11.43) 04/26/24 13:29 RBC 7.25 10^6/uL (3.85-5.65) H 04/26/24 13:29 Hgb 18.40 g/dL (11.27-16.99) H 04/26/24 13:29 Hct 61.1 % (37-53) H 04/26/24 13:29 MCV 84.3 fl (82-101) 04/26/24 13:29 MCH 25.4 pg (27-33) L 04/26/24 13:29 MCHC 30.1 g/dL (30-55) 04/26/24 13:29 RDW 21.2 % (12.1-15.1) H 04/26/24 13:29 Plt Count 90 10^3/cmm (157-399) L 04/26/24 13:29 MPV 9.2 fL (7.4-10.4) 04/26/24 13:29 Neut % (Auto) 82.0 % 04/26/24 13:29 Lymph % (Auto) 6.5 % 04/26/24 13:29 Runnels % (Auto) 9.7 % 04/26/24 13:29 Eos % (Auto) 0.7 % 04/26/24 13:29 Baso % (Auto) 0.5 % 04/26/24 13:29 Neut # (Auto) 8.52 10^3/uL (1.8-7.7) H 04/26/24 13:29 Lymph # (Auto) 0.7 10^3/uL (0.8-4.8) L 04/26/24 13:29 Runnels # (Auto) 1.0 10^3/uL (0.2-0.9) H 04/26/24 13:29 Eos # (Auto) 0.1 10^3/uL (0.0-0.8) 04/26/24 13:29 Baso # (Auto) 0.1 10^3/uL (0.0-0.1) 04/26/24 13:29 Nucleated RBC % (auto) 0 % 04/26/24 13: Nucleated RBCs # 0.0 /100WBC 04/26/24 13:29 Peripher Smr Path Cons Sent for review 04/26/24 13:29 ESR 17 mm/hr (0-10) H 04/26/24 13:29 PT 14.10 SECONDS (12.1-14.9) 04/26/24 13:29 INR 1.06 (0.8-1.2) 04/26/24 13:29 APTT 66.8 SECONDS (23.9-36.7) H 04/26/24 13:29 Sodium 135 mmol/L (136-145) L 04/26/24 13:29 Potassium 4.5 mmol/L (3.5-5.1) 04/26/24 13:29 Chloride 91 mmol/L (98-107) L 04/26/24 13:29 Carbon Dioxide 26 mmol/L (22-29) 04/26/24 13:29 Anion Gap 22.5 (5-19) H 04/26/24 13:29 BUN 25 mg/dL (8-23) H 04/26/24 13:29 Creatinine 3.1 mg/dL (0.7-1.2) H 04/26/24 13:29 GFR Calculation 20.5 mL/min (90-130) L 04/26/24 13:29 Glucose 125 mg/dL (65-115) H 04/26/24 13:29 Estimat Average Glucose 126 04/26/24 13:29 Hemoglobin A1c 6.0 % (4.0-6.0) 04/26/24 13:29 Calculated Osmolality 286 mOsm/kg (285-295) 04/26/24 13:29 Lactic Acid 1.8 mmol/L (0.5-2.2) 04/26/24 13:29 Calcium 9.2 mg/dL (8.5-10.5) 04/26/24 13:29 Phosphorus 3.3 mg/dL (2.5-4.5) 04/26/24 13:29 Magnesium 2.4 mg/dL (1.7-2.3) H 04/26/24 13:29 Total Bilirubin 1.0 mg/dL (0.15-1.2) 04/26/24 13:29 Total Bilirubin 1.2 mg/dL (0.15-1.2) 04/26/24 13:29 Direct Bilirubin 0.30 mg/dL (0.00-0.30) 04/26/24 13:29 AST 26 U/L (0-40) 04/26/24 13:29 AST 32 U/L (0-40) 04/26/24 13:29 ALT 18 U/L (0-41) 04/26/24 13:29 ALT 20 U/L (0-41) 04/26/24 13:29 Alkaline Phosphatase 131 U/L (40-130) H 04/26/24 13:29 Alkaline Phosphatase 167 U/L (40-130) H 04/26/24 13:29 Troponin T Baseline 97 ng/L (0-15) H 04/26/24 13:29 Troponin T 120 Minute 119.0 ng/L (0-15) H 04/26/24 15:58 Delta Troponin T 22.0 ABS# (0-10) H* 04/26/24 15:58 C-Reactive Protein 26.5 mg/L (0.0-4.9) H 04/26/24 13:29 NT-Pro-B Natriuret Pep 4734 pg/mL (0-125) H 04/26/24 13:29 Total Protein 8.5 g/dL (6.6-8.7) 04/26/24 13:29 Total Protein 9.7 g/dL (6.6-8.7) H 04/26/24 13:29 Albumin 3.9 g/dL (3.5-5.2) 04/26/24 13:29 Albumin 4.8 g/dL (3.5-5.2) 04/26/24 13:29 Globulin 4.6 g/dL (1.3-4.6) 04/26/24 13:29 Globulin 4.9 g/dL (1.3-4.6) H 04/26/24 13:29 Triglycerides 116 mg/dL (0-150) 04/26/24 13:29 Cholesterol 141 mg/dL (0-200) 04/26/24 13:29 LDL Cholesterol, Calc 65 mg/dL (50-129) 04/26/24 13:29 HDL Cholesterol 53 mg/dL (60-100) L 04/26/24 13:29 LDL/HDL Ratio 1.23 RATIO (0.00-3.22) 04/26/24 13:29 Cholesterol/HDL Ratio 2.66 mg/dL (1.0-5.00) 04/26/24 13:29 Procalcitonin 0.37 ng/mL (0-0.5) 04/26/24 13:29 Procalcitonin 0.38 ng/mL (0-0.5) 04/26/24 13:29 TSH 5.21 uIU/mL (0.27-4.20) H 04/26/24 13:29 TSH 5.25 uIU/mL (0.27-4.20) H 04/26/24 13:29 Ethyl Alcohol < 10 mg/dL (0-10) 04/26/24 13:29 Hepatitis A IgM Ab Non-reactive (Nonreactive) 04/26/24 13:29 Hep Bs Antigen Non-reactive (Nonreactive) 04/26/24 13:29 Hep Bs Antibody 28.4 (11.5-1000) 04/26/24 13:29 Hep B Core Total Ab Non-reactive (Nonreactive) 04/26/24 13:29 Hepatitis C Antibody Non-reactive (Nonreactive) 04/26/24 13:29 All radiology interpretation(s) finalized by discharge Discharge Plan Discharge Patient Disposition: Placed in Observation Admit Provider: Kellie Monroy Clinical Impression: Transient ischemic attack (TIA), ESRD on dialysis Coding Level of Care Code ED Pole Classifier for Chg Fwd Documented by User: Anjel Nash DO 04/27/24 00:49 HPI - Neuro Symptoms/Deficit 2 General: Chief Complaint: Neuro Symptoms/Deficit Stated Complaint: right side weakness Time Seen by Provider: 04/26/24 13:03 Related Data Home Medications Medication Instructions Recorded Confirmed aspirin 81 mg chewable tablet 81 mg PO DAILY 05/02/21 11/09/23 lisinopril 20 mg tablet 20 mg PO DAILY 05/02/21 11/09/23 lovastatin 20 mg tablet 20 mg PO DAILY 05/02/21 11/09/23 tramadol 50 mg tablet 50 mg PO BID PRN Pain 10/09/22 11/09/23 albuterol sulfate 90 mcg/actuation 1 inh inhalation Q4H PRN Shortness 02/27/23 11/09/23 aerosol inhaler Of Breath Or Wheezing metoprolol tartrate 25 mg tablet 25 mg PO BID 04/30/23 11/09/23 furosemide 20 mg tablet 20 mg PO DAILY 05/14/23 11/09/23 ascorbic acid (vitamin C) 500 mg 500 mg PO DAILY 05/22/23 11/09/23 tablet (Vitamin C) cholecalciferol (vitamin D3) 25 25 mcg PO DAILY 05/22/23 11/09/23 mcg (1,000 unit) capsule (Vitamin D3) vit B,C-folic ac 800 mcg-zinc 12.5 1 tab PO DAILY 05/22/23 11/09/23 mg-selen-D3 2,000 unit-vit E tablet (RenaPlex-D) vitamin B12 0.5 mg-folic acid 1 mg 1 tab PO DAILY 05/22/23 11/09/23 tablet vitamin E 268 mg (400 unit) capsule 268 mg PO DAILY 05/22/23 11/09/23 vitamin K2 40 mcg tablet 40 mcg PO DAILY 05/22/23 11/09/23 Previous Rx's Medication Instructions Recorded isosorbide mononitrate 30 mg 30 mg PO DAILY #30 tabs 05/23/23 tablet,extended release 24 hr Allergies Allergy/AdvReac Type Severity Reaction Status Date / Time Penicillins Allergy Severe hives Verified 04/26/24 14:51 PFS ED 2 PFSH: Medical History Hyperlipidemia Paroxysmal SVT (supraventricular tachycardia) History of hemoptysis late summer 2022, several bronchoscopies done at [place], no source found, treated with antibiotics Pneumonia due to COVID-19 virus 2022, on ventilator for a time History of pulmonary aspiration per swallow study done during a prolonged acute illness in late 2022 History of cirrhosis of liver History of echocardiogram 06/2021 EF 55%, severe AV sclerosis and calcification but no stenosis History of PFTs 06/2021 severe restriction with preserved residual volume, minimal reduction in DLCO Nephrotic syndrome Vitamin D deficiency Diabetes mellitus, type II History, lost weight, no longer active diagnosis Hypertension JOSE (obstructive sleep apnea) Diastolic heart failure End stage renal disease started dialysis 2022 Cardiac arrest 2022 during hospitalization/rehab stay in [place] Restrictive lung disease Polycythemia secondary to hypoxia Surgical History History of percutaneous endoscopic gastrostomy late 2022, removed short time later History of tracheostomy 2022, removed short time later S/P thoracentesis 2014 History of cholecystectomy 1996 Family History Father Congestive heart failure (CHF) Mother Congestive heart failure (CHF) Social History Smoking and tobacco/nicotine status: never used tobacco/nicotine Second hand smoke exposure: No Alcohol intake: never Substance/Drug Use: never Household members: spouse 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 NIH stroke score 2 Score: Total Score: 3 Procedures Central Line Placement Left Femoral: Time Out Performed: Yes Patient Placed on Monitor/Pulse Ox: Yes MD Prep: mask, gown and gloves Central Line Prep: Chlorhexidine scrub Local Anesthetic: lidocaine 1% Amount of anesthesia used (mL): 3 Ultrasound Used for Placement: Yes Central Line Lumen Inserted: triple Post Procedure: sutured in place, good blood return, all ports aspirated, flushed, capped and sterile dressing applied Post Procedure X-Ray: other Patient Tolerated Procedure: well and no complications Complications: none Intubation Time out performed: No sedative: none Laryngoscope: Zakiya ET Tube Size: 8 ET Tube Uncuffed: No Tube Secured Depth (cm): 25 Tube Secured Location: lips Tube Placement Confirmation: visualized tube passing through cords, equal breath sounds bilaterally and confirmation by capnometry Patient Tolerated Procedure: well and no complications Intubation Complications: none Course 2 Vital Signs: Vital signs: Vital Signs Temperature 98.8 F 04/26/24 13:15 Pulse Rate 88 04/27/24 00:00 Respiratory Rate 14 04/27/24 00:26 Blood Pressure 142/96 04/27/24 00:00 Pulse Oximetry 97 04/27/24 00:26 Oxygen Delivery Me thod Mechanical Ventil ation 04/26/24 21:35 Fraction of Inspir ed Oxygen 80 04/27/24 00:26 MDM - Neuro Symptoms/Deficit Lab Data 04/26/24 13:29 04/26/24 22:25 Radiology Impressions Head/Neck CTA 04/26/24 16:04 IMPRESSION: No occlusion of the ALESHA, MCA or ADJUN[employer] IN[employer] CHEMISTRY arteries. IMPRESSION: 1. Severe stenosis of the left proximal common carotid artery with sluggish flow in the common carotid and left internal carotid arteries. 2. Ground-glass infiltrates in the right upper lobe, likely infectious. REFERENCES: NASCET CRITERIA. The degree of stenosis in the cervical segment of the internal carotid artery is based on NASCET criteria. Normal is no stenosis. Mild is less than 50% stenosis. Moderate is 50-69% stenosis. Severe is 70% to 99% stenosis. Total occlusion is no detectable patent lumen. Head CT 04/26/24 19:57 IMPRESSION: No acute intracranial findings. Chest CTA 04/26/24 20:46 IMPRESSION: 1. No evidence of pulmonary emboli. 2. Left basilar consolidation concerning for pneumonia. Findings may be in part on the basis of aspiration, particularly with a small amount of layering debris in the upper thoracic esophagus. Recommend continued imaging follow-up to evaluate evolution of findings. 3. Multifocal ground-glass and consolidative opacities throughout the remaining portions of the lungs overall appear similar to prior. Chronic fibrotic changes are likely, including with areas of air trapping from chronic small airways disease. Superimposed edema and/or atypical infection not excluded. 4. Mediastinal/hilar adenopathy similar to prior. 5. Reflux of contrast into the IVC and hepatic veins compatible with tricuspid regurgitation and/or elevated right heart pressures. 6. Ectatic ascending thoracic aorta measuring up to 4.4 cm. 7. Dilated main pulmonary artery can be seen with pulmonary hypertension. COMMENTS: Consistent with the [employer]'s Incidental Findings Committee white paper (J Am Cecily Radiol 2015): In patients aged 35 years and older with an incidental thyroid nodule equal to or greater than 1.[address], MRI or extrathyroidal US, further evaluation with dedicated thyroid US is recommended for patients with normal life expectancy and without comorbidities. For smaller nodules without suspicious features, no further evaluation or follow up is recommended. Chest X-Ray 04/26/24 22:41 IMPRESSION: 1. NG tube tip is in the stomach with the side port below the GE junction. 2. Diffuse interstitial and airspace opacities may reflect pulmonary edema and/or atypical infection. Laboratory Results WBC 10.39 10^3/uL (3.29-11.43) 04/26/24 13:29 RBC 7.25 10^6/uL (3.85-5.65) H 04/26/24 13:29 Hgb 18.40 g/dL (11.27-16.99) H 04/26/24 13:29 Hct 61.1 % (37-53) H 04/26/24 13:29 MCV 84.3 fl (82-101) 04/26/24 13:29 MCH 25.4 pg (27-33) L 04/26/24 13:29 MCHC 30.1 g/dL (30-55) 04/26/24 13:29 RDW 21.2 % (12.1-15.1) H 04/26/24 13:29 Plt Count 90 10^3/cmm (157-399) L 04/26/24 13:29 MPV 9.2 fL (7.4-10.4) 04/26/24 13:29 Neut % (Auto) 82.0 % 04/26/24 13:29 Lymph % (Auto) 6.5 % 04/26/24 13:29 Runnels % (Auto) 9.7 % 04/26/24 13:29 Eos % (Auto) 0.7 % 04/26/24 13:29 Baso % (Auto) 0.5 % 04/26/24 13:29 Neut # (Auto) 8.52 10^3/uL (1.8-7.7) H 04/26/24 13:29 Lymph # (Auto) 0.7 10^3/uL (0.8-4.8) L 04/26/24 13:29 Runnels # (Auto) 1.0 10^3/uL (0.2-0.9) H 04/26/24 13:29 Eos # (Auto) 0.1 10^3/uL (0.0-0.8) 04/26/24 13:29 Baso # (Auto) 0.1 10^3/uL (0.0-0.1) 04/26/24 13:29 Nucleated RBC % (auto) 0 % 04/26/24 13:29 Nucleated RBCs # 0.0 /100WBC 04/26/24 13:29 Peripher Smr Path Cons Sent for review 04/26/24 13:29 ESR 17 mm/hr (0-10) H 04/26/24 13:29 PT 14.10 SECONDS (12.1-14.9) 04/26/24 13:29 INR 1.06 (0.8-1.2) 04/26/24 13:29 APTT 66.8 SECONDS (23.9-36.7) H 04/26/24 13:29 Sodium 135 mmol/L (136-145) L 04/26/24 13:29 Potassium 4.5 mmol/L (3.5-5.1) 04/26/24 13:29 Chloride 91 mmol/L (98-107) L 04/26/24 13:29 Carbon Dioxide 26 mmol/L (22-29) 04/26/24 13:29 Anion Gap 22.5 (5-19) H 04/26/24 13:29 BUN 25 mg/dL (8-23) H 04/26/24 13:29 Creatinine 3.1 mg/dL (0.7-1.2) H 04/26/24 13:29 GFR Calculation 20.5 mL/min (90-130) L 04/26/24 13:29 Glucose 125 mg/dL (65-115) H 04/26/24 13:29 Estimat Average Glucose 126 04/26/24 13:29 Hemoglobin A1c 6.0 % (4.0-6.0) 04/26/24 13:29 Calculated Osmolality 286 mOsm/kg (285-295) 04/26/24 13:29 Lactic Acid 1.8 mmol/L (0.5-2.2) 04/26/24 13:29 Calcium 9.2 mg/dL (8.5-10.5) 04/26/24 13:29 Phosphorus 3.3 mg/dL (2.5-4.5) 04/26/24 13:29 Magnesium 2.4 mg/dL (1.7-2.3) H 04/26/24 13:29 Total Bilirubin 1.0 mg/dL (0.15-1.2) 04/26/24 13:29 Total Bilirubin 1.2 mg/dL (0.15-1.2) 04/26/24 13:29 Direct Bilirubin 0.30 mg/dL (0.00-0.30) 04/26/24 13:29 AST 26 U/L (0-40) 04/26/24 13:29 AST 32 U/L (0-40) 04/26/24 13:29 ALT 18 U/L (0-41) 04/26/24 13:29 ALT 20 U/L (0-41) 04/26/24 13:29 Alkaline Phosphatase 131 U/L (40-130) H 04/26/24 13:29 Alkaline Phosphatase 167 U/L (40-130) H 04/26/24 13:29 Troponin T Baseline 97 ng/L (0-15) H 04/26/24 13:29 Troponin T 120 Minute 119.0 ng/L (0-15) H 04/26/24 15:58 Delta Troponin T 22.0 ABS# (0-10) H* 04/26/24 15:58 C-Reactive Protein 26.5 mg/L (0.0-4.9) H 04/26/24 13:29 NT-Pro-B Natriuret Pep 4734 pg/mL (0-125) H 04/26/24 13:29 Total Protein 8.5 g/dL (6.6-8.7) 04/26/24 13:29 Total Protein 9.7 g/dL (6.6-8.7) H 04/26/24 13:29 Albumin 3.9 g/dL (3.5-5.2) 04/26/24 13:29 Albumin 4.8 g/dL (3.5-5.2) 04/26/24 13:29 Globulin 4.6 g/dL (1.3-4.6) 04/26/24 13:29 Globulin 4.9 g/dL (1.3-4.6) H 04/26/24 13:29 Triglycerides 116 mg/dL (0-150) 04/26/24 13:29 Cholesterol 141 mg/dL (0-200) 04/26/24 13:29 LDL Cholesterol, Calc 65 mg/dL (50-129) 04/26/24 13:29 HDL Cholesterol 53 mg/dL (60-100) L 04/26/24 13:29 LDL/HDL Ratio 1.23 RATIO (0.00-3.22) 04/26/24 13:29 Cholesterol/HDL Ratio 2.66 mg/dL (1.0-5.00) 04/26/24 13:29 Procalcitonin 0.37 ng/mL (0-0.5) 04/26/24 13:29 Procalcitonin 0.38 ng/mL (0-0.5) 04/26/24 13:29 TSH 5.21 uIU/mL (0.27-4.20) H 04/26/24 13:29 TSH 5.25 uIU/mL (0.27-4.20) H 04/26/24 13:29 Ethyl Alcohol < 10 mg/dL (0-10) 04/26/24 13:29 Hepatitis A IgM Ab Non-reactive (Nonreactive) 04/26/24 13:29 Hep Bs Antigen Non-reactive (Nonreactive) 04/26/24 13:29 Hep Bs Antibody 28.4 (11.5-1000) 04/26/24 13:29 Hep B Core Total Ab Non-reactive (Nonreactive) 04/26/24 13:29 Hepatitis C Antibody Non-reactive (Nonreactive) 04/26/24 13:29 Discharge Plan Discharge Patient Disposition: Placed in Observation Admit Provider: Kellie Monroy Clinical Impression: Transient ischemic attack (TIA), ESRD on dialysis Coding Level of Care Code ED Pole Classifier for Rafa Cassidy
[2024-04-26 14:14] LABS: Basophils # 0.1 10^3/uL (0.0-0.1); Basophils % 0.5 %; Eosinophils # 0.1 10^3/uL (0.0-0.8); Eosinophils % 0.7 %; Hematocrit 61.1 % (37-53); Lymphocytes # 0.7 10^3/uL (0.8-4.8); Lymphocytes % 6.5 %; Mean Corpuscular HGB Conc 30.1 g/dL (30-55); Mean Corpuscular Hemoglobin 25.4 pg (27-33); Mean Corpuscular Volume 84.3 fl (82-101); Mean Platelet Volume 9.2 fL (7.4-10.4); Monocytes % 9.7 %; Neutrophils # 8.52 10^3/uL (1.8-7.7); Nucleated Red Blood Cells % 0 %; Platelet Count 90 10^3/cmm (157-399); Red Blood Count 7.25 10^6/uL (3.85-5.65); Red Cell Distribution Width 21.2 % (12.1-15.1); White Blood Count 10.39 10^3/uL (3.29-11.43)
[2024-04-26 14:19] LABS: Erythrocyte Sedimentation Rate 17 mm/hr (0-10)
[2024-04-26 14:30] LABS: INR 1.06 (0.8-1.2)
[2024-04-26 14:31] LABS: Partial Thromboplastin Time 66.8 SECONDS (23.9-36.7)
[2024-04-26 14:32] LABS: Troponin(5th) Baseline 97 ng/L (0-15)
[2024-04-26 14:33] LABS: Lactic Sepsis W/Reflex 1.8 mmol/L (0.5-2.2)
[2024-04-26 14:43] LABS: NT Pro B Type Natriuretic Pept 4734 pg/mL (0-125); Procalcitonin 0.38 ng/mL (0-0.5); Thyroid Stimulating Hormone 5.21 uIU/mL (0.27-4.20)
[2024-04-26 14:54] LABS: Alanine Aminotransferase 20 U/L (0-41); Albumin Level 4.8 g/dL (3.5-5.2); Alkaline Phosphatase 167 U/L (40-130); Aspartate Amino Transferase 32 U/L (0-40); C Reactive Protein 26.5 mg/L (0.0-4.9); Chloride 91 mmol/L (98-107); Glucose 125 mg/dL (65-115); Phosphorus 3.3 mg/dL (2.5-4.5); Potassium 4.5 mmol/L (3.5-5.1); Sodium 135 mmol/L (136-145)
[2024-04-26 15:06] LABS: Alcohol Level < 10 mg/dL (0-10)
[2024-04-26 15:19] LABS: Anion Gap 22.5 (5-19); Blood Urea Nitrogen 25 mg/dL (8-23); Calcium 9.2 mg/dL (8.5-10.5); Carbon Dioxide 26 mmol/L (22-29); Globulin 4.9 g/dL (1.3-4.6); Glomerular Filtration Rate 20.5 mL/min (90-130); Magnesium 2.4 mg/dL (1.7-2.3); Osmolality Calculated 286 mOsm/kg (285-295); Total Bilirubin 1.2 mg/dL (0.15-1.2); Total Protein 9.7 g/dL (6.6-8.7)
[2024-04-26 15:25] LABS: Creatinine Clr Calc Pharmacy 30.0549
[2024-04-26] MEDS: heparin, porcine 1,000 unit/mL INJ 10 mL 4000 UNIT XX (15:31)
--- NOTE | 2024-04-26 15:31 | ECG_ITS ---
[facility] Test Date: 2024-04-26 Pat Name: João Carter Department: Room: Gender: Male Branch Manager: : 1960 Requested By: Jay Sagastume Order Number: [id number] Thais MD: Steven Mallory M.D. Measurements Intervals [place] Rate: 79 P: 263 AL: 214 QRS: 249 QRSD: 158 T: -22 QT: 442 QTc: 509 Interpretive Statements ECTOPIC ATRIAL RHYTHM WITH FIRST DEGREE AV BLOCK POSSIBLE LEFT ATRIAL ENLARGEMENT [-0.1mV P-WAVE IN V1/V2] RIGHT AXIS DEVIATION [QRS AXIS > 100] RIGHT BUNDLE BRANCH BLOCK AND POSSIBLE RIGHT VENTRICULAR HYPERTROPHY [RBBB, 1.5 mV R IN V1, RAD] POSSIBLE ANTERIOR MYOCARDIAL INFARCTION , OF INDETERMINATE AGE [30 ms Q WAVE IN V3/V4, OR R < 0.2 mV IN V4] INFERIOR MYOCARDIAL INFARCTION , OF INDETERMINATE AGE [40+ ms Q WAVE AND/OR ST/T ABNORMALITY IN II/aVF] Compared to ECG 04/26/2024 13:19:30 Ectopic atrial rhythm now present Myocardial infarct finding still present Electronically Signed On 04-27-2024 9:25:24 CDT by Steven Mallory M.D. [id number]
--- NOTE | 2024-04-26 16:03 | P.HP_ITS ---
Providers/Chief Complaint 2 Primary Care Provider: Philip Torrez Chief Complaint: right side weakness History of Present Illness João Carter is a 63 year old male With past medical history of sleep apnea noncompliant with CPAP, diabetes, hypertension, end-stage renal disease, SVT, secondary polycythemia presented to the hospital after right-sided flaccidity while he was going to dialysis. Patient was also altered at the time. He was brought in by EMS and taken directly to CT. CT negative for acute stroke. He was seen by telemetry neurology service at [place] and he was not a candidate for TNKase based on NIH. As patient was being evaluated via A/V cart patient's symptoms resolved and now he could move his right side and subsequently had an NIH of 0. Apparently blood pressure was low during that episode as well. He did not take his antihypertensives today. Patient's does state that lately he has been having issues where low blood pressure and similar episodes. [facility] recommends to admit patient for TIA workup at this time. CTA head and neck has been ordered. Nephrology has been consulted. When seen in ER patient has no focal deficits at this time. Denies nausea vomiting diarrhea abdominal pain, constipation, shortness of breath, chest pain. Medications/Allergies Home Medications Medication Instructions Recorded Confirmed Last Taken Type aspirin 81 mg chewable tablet 81 mg PO DAILY 05/02/21 11/09/23 05/21/23 History lisinopril 20 mg tablet 20 mg PO DAILY 05/02/21 11/09/23 05/21/23 History lovastatin 20 mg tablet 20 mg PO DAILY 05/02/21 11/09/23 05/21/23 History tramadol 50 mg tablet 50 mg PO BID PRN Pain 10/09/22 11/09/23 Unknown History albuterol sulfate 90 mcg/actuation 1 inh inhalation Q4H PRN Shortness 02/27/23 11/09/23 Unknown History aerosol inhaler Of Breath Or Wheezing metoprolol tartrate 25 mg tablet 25 mg PO BID 04/30/23 11/09/23 05/21/23 History furosemide 20 mg tablet 20 mg PO DAILY 05/14/23 11/09/23 05/21/23 History ascorbic acid (vitamin C) 500 mg 500 mg PO DAILY 05/22/23 11/09/23 05/21/23 History tablet (Vitamin C) cholecalciferol (vitamin D3) 25 25 mcg PO DAILY 05/22/23 11/09/23 05/21/23 History mcg (1,000 unit) capsule (Vitamin D3) vit B,C-folic ac 800 mcg-zinc 12.5 1 tab PO DAILY 05/22/23 11/09/23 05/21/23 History mg-selen-D3 2,000 unit-vit E tablet (RenaPlex-D) vitamin B12 0.5 mg-folic acid 1 mg 1 tab PO DAILY 05/22/23 11/09/23 05/21/23 History tablet vitamin E 268 mg (400 unit) capsule 268 mg PO DAILY 05/22/23 11/09/23 05/21/23 History vitamin K2 40 mcg tablet 40 mcg PO DAILY 05/22/23 11/09/23 05/21/23 History isosorbide mononitrate 30 mg 30 mg PO DAILY #30 tabs 05/23/23 11/09/23 Unknown Rx tablet,extended release 24 hr Allergies Allergy/AdvReac Type Severity Reaction Status Date / Time Penicillins Allergy Severe hives Verified 04/26/24 14:51 PFSH Acute 2 PFSH: Medical History Hyperlipidemia Paroxysmal SVT (supraventricular tachycardia) History of hemoptysis late summer 2022, several bronchoscopies done at [place], no source found, treated with antibiotics Pneumonia due to COVID-19 virus 2022, on ventilator for a time History of pulmonary aspiration per swallow study done during a prolonged acute illness in late 2022 History of cirrhosis of liver History of echocardiogram 06/2021 EF 55%, severe AV sclerosis and calcification but no stenosis History of PFTs 06/2021 severe restriction with preserved residual volume, minimal reduction in DLCO Nephrotic syndrome Vitamin D deficiency Diabetes mellitus, type II History, lost weight, no longer active diagnosis Hypertension JOSE (obstructive sleep apnea) Diastolic heart failure End stage renal disease started dialysis 2022 Cardiac arrest Late 2022 during hospitalization/rehab stay in [place] Restrictive lung disease Polycythemia secondary to hypoxia Surgical History History of percutaneous endoscopic gastrostomy late 2022, removed short time later History of tracheostomy late 2022, removed short time later S/P thoracentesis 2014 History of cholecystectomy 1997 Family History Father Congestive heart failure (CHF) Mother Congestive heart failure (CHF) Social History Smoking and tobacco/nicotine status: never used tobacco/nicotine Second hand smoke exposure: No Alcohol intake: never Substance/Drug Use: never Household members: spouse 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 HEENT: Normocephalic, atraumatic, EOMI, breathing room air. Cardio: Regular rate rhythm, normal S1-S2, Respiratory: Good bilateral air entry, no wheezes no rhonchi appreciated GI: Abdomen soft, nontender, nondistended, bowel sounds + Behavior: Appropriate and cooperative Extremities: No edema bilateral extremities. Data 04/27/24 04:13 04/27/24 04:13 Micro: Microbiology 04/26/24 13:35 Blood Culture - Preliminary Blood SPECIMEN COLLECTED 04/26/24 13:45 Blood Culture - Preliminary Blood SPECIMEN COLLECTED A&P Assessment and plan (1) Hypertension: Qualifiers: Hypertension type: primary hypertension Qualified Code(s): I10 - Essential (primary) hypertension (2) Chronic diastolic heart failure: (3) Hyperlipidemia: (4) ESRD on dialysis: (5) Transient ischemic attack (TIA): (6) Uses continuous positive airway pressure (CPAP) ventilation at home: (7) Seizure: (8) Respiratory failure: Plan #TIA #Hypertensive episode during dialysis #Thrombocytopenia #End-stage renal disease #History of diastolic heart failure, cardiac arrest #Restrictive lung disease #Polycythemia secondary to hypoxia #Obstructive sleep apnea #History of COVID-19 #Hypertension #Dyslipidemia - neuro checks q2h - cta head and neck pending - continue on aspirin, plavix x 21 days. -Platelets are 70,000. Will continue to monitor. ? Will need to confirm home medications ? From last cardiology office visit it seems patient is on Lasix 20 daily, Imdur 30 daily, lovastatin 20 daily, lisinopril 20 daily, metoprolol tartrate 25 twice daily, aspirin 81. ? I will hold all antihypertensive at this time since patient's blood pressure is on the soft side. ? Check echocardiogram ? Placed on telemetry rule out atrial fibrillation ? Patient may require an event monitor at discharge ? PT OT ? Consult nephrology for dialysis ? Continue CPAP at nighttime for sleep apnea ? Will check peripheral blood smear secondary to thrombocytopenia ? Check liver function panel ? Check HIV, hepatitis panel ? Dysphagia nursing screen. ? Check TSH, hemoglobin A1c, lipid panel Full code Due to prophylaxis: Will hold off as platelets are low. I have added dual antiplatelet for TIA at this time. Will use SCDs as mechanical DVT prophylaxis. Attestations 2 Medical Necessity Statement*: Greater than 2 midnight stay for management of TIA workup. Diagnoses Primary hypertension I10 Hypertension type: primary hypertension Chronic diastolic heart failure I50.32 Hyperlipidemia E78.5 ESRD on dialysis N18.6; Z99.2 Transient ischemic attack (TIA) G45.9 Uses continuous positive airway pressure (CPAP) ventilation at home Z99.89 Seizure R56.9 Respiratory failure J96.90
--- NOTE | 2024-04-26 16:04 | CTR_ITS ---
PROCEDURE INFORMATION: Exam: CTA Head With Contrast, Arteriography Exam date and time: 04/26/2024 4:58 PM Age: 63 years old Clinical indication: Weakness; Additional info: Right sided weakness, esrd on dialysis TECHNIQUE: Imaging protocol: Computed tomographic angiography of the head with contrast. Exam focused on the arteries. 3D rendering (Not supervised by radiologist): MIP and/or 3D reconstructed images were created by the technologist. Radiation optimization: All CT scans at this facility use at least one of these dose optimization techniques: automated exposure control; mA and/or kV adjustment per patient size (includes targeted exams where dose is matched to clinical indication); or iterative reconstruction. Contrast material: [id number]; Contrast volume: 100 ml; Contrast route: INTRAVENOUS (IV); COMPARISON: CT head thrombolytic 00000 04/26/2024 1:00 PM RADIATION DOSE METRICS: Total DLP (mGy-cm): 592.33 FINDINGS: ANTERIOR CIRCULATION: Right internal carotid artery: Calcified atheroma of the right cavernous ICA but no significant stenosis. Right middle cerebral artery: No occlusion or significant stenosis. No aneurysm. Right anterior cerebral artery: No occlusion or significant stenosis. No aneurysm. Left internal carotid artery: Severe stenosis of the left internal carotid artery with sluggish flow and mild retrograde opacification from the anterior communicating artery. Left middle cerebral artery: No occlusion or significant stenosis. No aneurysm. Left anterior cerebral artery: No occlusion or significant stenosis. No aneurysm. POSTERIOR CIRCULATION: Right vertebral artery: No occlusion or significant stenosis. No aneurysm. Left vertebral artery: No occlusion or significant stenosis. No aneurysm. Basilar artery: No occlusion or significant stenosis. No aneurysm. Right posterior cerebral artery: No occlusion or significant stenosis. No aneurysm. Left posterior cerebral artery: No occlusion or significant stenosis. No aneurysm. Brain: No definite mass, mass effect, or midline shift. Chronic ischemic small vessel disease. Cerebral ventricles: No ventriculomegaly. Bones/joints: Unremarkable. No acute fracture. Soft tissues: Unremarkable. PROCEDURE INFORMATION: Exam: CTA Neck With Contrast Exam date and time: 04/26/2024 4:58 PM Age: 63 years old Clinical indication: Weakness; Additional info: Right sided weakness, esrd on dialysis TECHNIQUE: Imaging protocol: Computed tomographic angiography of the neck with contrast. Exam focused on the cervical segments of the vasculature. 3D rendering (Not supervised by radiologist): MIP and/or 3D reconstructed images were created by the technologist. Radiation optimization: All CT scans at this facility use at least one of these dose optimization techniques: automated exposure control; mA and/or kV adjustment per patient size (includes targeted exams where dose is matched to clinical indication); or iterative reconstruction. Contrast material: [id number]; Contrast volume: 100 ml; Contrast route: INTRAVENOUS (IV); COMPARISON: CT head thrombolytic 39875 04/26/2024 1:00 PM RADIATION DOSE METRICS: Total DLP (mGy-cm): 592.33 FINDINGS: Right common carotid artery: Calcified atheroma of the right common carotid artery but no significant stenosis. Right internal carotid artery: No stenosis of the extracranial segment. No dissection or occlusion. Right external carotid artery: No occlusion or stenosis of the origin. Left common carotid artery: Calcified atheroma of the left common carotid artery with 90% stenosis and diffuse sluggish flow in the left common carotid artery and left internal carotid artery. Left internal carotid artery: No stenosis of the extracranial segment. No dissection or occlusion. Left external carotid artery: No occlusion or stenosis of the origin. Left middle cerebral artery: Collateral opacification of the left MCA via the anterior communicating artery. Right vertebral artery: Calcified atheroma of the V4 segment of the right vertebral artery but no significant stenosis. Left vertebral artery: No stenosis. No dissection or occlusion. Orbital cavities: Post bilateral cataract surgery. Soft tissues: Normal. No significant soft tissue swelling. Bones/joints: Mild degenerative disease at the anterior C1-C2 articulation. Lungs: Ground-glass infiltrates in the right upper lobe. CT/CT angio headneck* [id number] IMPRESSION: No occlusion of the ALESHA, MCA or [employer] arteries. IMPRESSION: 1. Severe stenosis of the left proximal common carotid artery with sluggish flow in the common carotid and left internal carotid arteries. 2. Ground-glass infiltrates in the right upper lobe, likely infectious. REFERENCES: NASCET CRITERIA. The degree of stenosis in the cervical segment of the internal carotid artery is based on NASCET criteria. Normal is no stenosis. Mild is less than 50% stenosis. Moderate is 50-69% stenosis. Severe is 70% to 99% stenosis. Total occlusion is no detectable patent lumen.
--- NOTE | 2024-04-26 16:25 | P.CONIM_ITS ---
Providers/Reason For Consult 2 Consulting Physician/Specialty*: contreras eagle md Reason for Consult*: ESRD care Requesting Physician: DR Martha Monroy Attending Physician: Dr Kellie Monroy Primary Care Provider: Philip Torrez History of Present Illness History of Present Illness João Carter is a 63 year old male history of ESRD, heart failure preserved ejection fraction, cardiac arrest, restrictive lung disease, polycythemia, obstructive sleep apnea, ESRD on dialysis Sunday and Sunday for over a year. History of COVID-19 pneumonia and was ventilated for 2 weeks at that time. History of pneumonia, obesity hyperlipidemia nephrotic syndrome type 2 diabetes hypertension. The patient is here as at the end of dialysis he became weak on his right side and was somewhat confused. Per the family recently his blood pressure has been dropping at the end of dialysis. And he said episodes of confusion he usually improves. Review of Systems 2 Narrative: Patient states that he is on many medications for blood pressure and has episodes of low blood pressure. He has had episodes of confusion and weakness. He has sleep apnea and requires BiPAP at night. Otherwise review of systems normal Medications/Allergies Home Medications Medication Instructions Recorded Confirmed Last Taken Type aspirin 81 mg chewable tablet 81 mg PO DAILY 05/02/21 11/09/23 05/21/23 History lisinopril 20 mg tablet 20 mg PO DAILY 05/02/21 11/09/23 05/21/23 History lovastatin 20 mg tablet 20 mg PO DAILY 05/02/21 11/09/23 05/21/23 History tramadol 50 mg tablet 50 mg PO BID PRN Pain 10/09/22 11/09/23 Unknown History albuterol sulfate 90 mcg/actuation 1 inh inhalation Q4H PRN Shortness 02/27/23 11/09/23 Unknown History aerosol inhaler Of Breath Or Wheezing metoprolol tartrate 25 mg tablet 25 mg PO BID 04/30/23 11/09/23 05/21/23 History furosemide 20 mg tablet 20 mg PO DAILY 05/14/23 11/09/23 05/21/23 History ascorbic acid (vitamin C) 500 mg 500 mg PO DAILY 05/22/23 11/09/23 05/21/23 History tablet (Vitamin C) cholecalciferol (vitamin D3) 25 25 mcg PO DAILY 05/22/23 11/09/23 05/21/23 History mcg (1,000 unit) capsule (Vitamin D3) vit B,C-folic ac 800 mcg-zinc 12.5 1 tab PO DAILY 05/22/23 11/09/23 05/21/23 History mg-selen-D3 2,000 unit-vit E tablet (RenaPlex-D) vitamin B12 0.5 mg-folic acid 1 mg 1 tab PO DAILY 05/22/23 11/09/23 05/21/23 History tablet vitamin E 268 mg (400 unit) capsule 268 mg PO DAILY 05/22/23 11/09/23 05/21/23 History vitamin K2 40 mcg tablet 40 mcg PO DAILY 05/22/23 11/09/23 05/21/23 History isosorbide mononitrate 30 mg 30 mg PO DAILY #30 tabs 05/23/23 11/09/23 Unknown Rx tablet,extended release 24 hr Allergies Allergy/AdvReac Type Severity Reaction Status Date / Time Penicillins Allergy Severe hives Verified 04/26/24 14:51 PFSH Acute 2 PFSH: Medical History Hyperlipidemia Paroxysmal SVT (supraventricular tachycardia) History of hemoptysis late summer 2022, several bronchoscopies done at [place], no source found, treated with antibiotics Pneumonia due to COVID-19 virus 2022, on ventilator for a time History of pulmonary aspiration per swallow study done during a prolonged acute illness in late 2022 History of cirrhosis of liver History of echocardiogram 06/2021 EF 55%, severe AV sclerosis and calcification but no stenosis History of PFTs 06/2021 severe restriction with preserved residual volume, minimal reduction in DLCO Nephrotic syndrome Vitamin D deficiency Diabetes mellitus, type II History, lost weight, no longer active diagnosis Hypertension JOSE (obstructive sleep apnea) Diastolic heart failure End stage renal disease started dialysis 2022 Cardiac arrest 2022 during hospitalization/rehab stay in [place] Restrictive lung disease Polycythemia secondary to hypoxia Surgical History History of percutaneous endoscopic gastrostomy late 2022, removed short time later History of tracheostomy 2022, removed short time later S/P thoracentesis 2014 History of cholecystectomy 1996 Family History Father Congestive heart failure (CHF) Mother Congestive heart failure (CHF) Social History Smoking and tobacco/nicotine status: never used tobacco/nicotine Second hand smoke exposure: No Alcohol intake: never Substance/Drug Use: never Household members: spouse 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 Confused at times. Blood pressure on low side. HEENT normocephalic atraumatic. Neck is supple Lungs clear to auscultation. Heart regular Abdomen is soft positive bowel sounds. Extremities no edema. Right anterior chest wall permacath. Neuro awake alert oriented x 3. Able to move all extremities. Data 04/26/24 13:29 04/26/24 13:29 Micro: Microbiology 04/26/24 13:35 Blood Culture - Preliminary Blood SPECIMEN COLLECTED 04/26/24 13:45 Blood Culture - Preliminary Blood SPECIMEN COLLECTED A&P Assessment and plan (1) ESRD on dialysis: 63-year-old gentleman ESRD here with right-sided weakness. History of hypertension, polycythemia, obesity, sleep apnea. Patient here with episodes of altered mental status. 1. Please ensure patient not getting Epogen. Please note patient also has thrombocytopenia. 2. Agree with getting a CTA. Can do extra dialysis tomorrow. 3. Blood pressure on low side with lower his medications. Will decrease furosemide to daily and decrease lisinopril dose and have hold blood pressure pills today as blood pressure is on low side. 4. Chest x-ray reviewed patient has left lower lobe lung opacity either atelectasis versus infiltrate. Monitor for possible pneumonia. The patient was seen and examined using A/V equipment and a nurse examined the patient. The patient consented to telehealth visit and to dialysis. We will follow the patient along with you. Thank for this interesting consult. Plan See above neurological evaluation. Consult Attestations 2 Medical Necessity Statement: ESRD question TIA elevated hemoglobin with thrombocytopenia consider hematology evaluation. Can be as outpatient. Time Spent in Patient Care: Greater than 35 minutes (>than 50% of time spent in counselling and/or direct pt care on unit) . Coding Level of Care Code Acute Code for Chg Fwd Diagnoses ESRD on dialysis N18.6; Z99.2
[2024-04-26 16:50] LABS: Procalcitonin 0.37 ng/mL (0-0.5); Thyroid Stimulating Hormone 5.25 uIU/mL (0.27-4.20)
[2024-04-26 16:59] LABS: Alanine Aminotransferase 18 U/L (0-41); Albumin Level 3.9 g/dL (3.5-5.2); Alkaline Phosphatase 131 U/L (40-130); Aspartate Amino Transferase 26 U/L (0-40); Globulin 4.6 g/dL (1.3-4.6); Total Protein 8.5 g/dL (6.6-8.7)
[2024-04-26 17:01] LABS: Chol HDL Ratio 2.66 mg/dL (1.0-5.00); Cholesterol 141 mg/dL (0-200); HDL Cholesterol 53 mg/dL (60-100); LDL Cholesterol Calculated 65 mg/dL (50-129); LDL HDL Ratio 1.23 RATIO (0.00-3.22); Triglycerides 116 mg/dL (0-150)
[2024-04-26 17:12] LABS: Estmated Average Glucose 126
[2024-04-26] MEDS: iohexol 350 mg/mL 500 mL Btl (per mL) IV ×2 (17:20→22:00)
[2024-04-26 17:22] LABS: Hepatitis A Antibody IgM Non-Reactive (Nonreactive); Hepatitis B Core AB, Total Non-Reactive (Nonreactive); Hepatitis B Surface AB 28.4 (11.5-1000); Hepatitis B Surface Antigen Non-Reactive (Nonreactive); Hepatitis C Virus Antibody Non-Reactive (Nonreactive); LAB Peripheral Smear Sent for Review
--- NOTE | 2024-04-26 19:28 | PC.NURSE ---
This nurse and charge nurse Moses EDMONDS overrode 4mg IVP of Ativan per verbal instruction of Dr Nash for emergent situation, witnessed at Pyxis by Moses EDMONDS.
--- NOTE | 2024-04-26 19:29 | ECG_ITS ---
[facility] Test Date: 2024-04-26 Pat Name: João Carter Department: Room: 277 Gender: Male Cardiothoracic Icu Rn: : 1960 Requested By: Jay Sagastume Order Number: [id number] Thais MD: Steven Mallory M.D. Measurements Intervals [place] Rate: 114 P: 0 IA: 0 QRS: 261 QRSD: 162 T: 66 QT: 365 QTc: 503 Interpretive Statements ATRIAL FIBRILLATION WITH RAPID VENTRICULAR RESPONSE RIGHT AXIS DEVIATION [QRS AXIS > 100] RIGHT BUNDLE BRANCH BLOCK [120+ ms QRS DURATION, UPRIGHT V1, 40+ ms S IN I/aVL/V4/V5/V6] INFERIOR MYOCARDIAL INFARCTION , OF INDETERMINATE AGE [40+ ms Q WAVE AND/OR ST/T ABNORMALITY IN II/aVF] ANTEROLATERAL MYOCARDIAL INFARCTION , AGE INDETERMINATE Compared to ECG 04/26/2024 15:31:53 Ectopic atrial rhythm no longer present First degree AV block no longer present Myocardial infarct finding still present Electronically Signed On 04-27-2024 9:23:54 CDT by Steven Mallory M.D. [id number]
[2024-04-26] MEDS: atropine 0.1 mg/mL Syr 10 mL 1 MG IVP (19:31)
[2024-04-26] MEDS: LORazepam 2 mg/mL INJ 1 mL 4 MG IVP (19:32)
[2024-04-26 19:38] LABS: ABG PCO2 54.5 mmHg (35-45); Alveolar-Arterial Oxygen Gradi 0.2 mmHg (5-10); Arterial Blood Gas Hematocrit 57.3 % (42-52); Base Excess ABG -14.8 mmol/L (-2.0-2.0); Blood Gas Allen Test Pos; Blood Gas Operator Identificat CL; Blood Gas Sample Site Radial, right; Blood Gas Sample Type Arterial; HCO3 ABG 15.9 mmol/L (22-26); HGB O2 Sat 86.6 % (95-100); Ionized Calcium Level - ABG 1.3 mmol/L (1.1-1.4); Methemoglobin 0.8 % (0.4-1.5); Oxygen Device AMBU; Oxygen Saturation ABG 88.2; PO2 ABG 81.4 mmHg (80.0-100.0); Potassium Level - ABG 5.3 mmol/L (3.5-5.0); Total Hemoglobin 18.7 g/dL (14-18)
[2024-04-26 19:39] LABS: ABG PH Result 7.08 (7.35-7.45)
--- NOTE | 2024-04-26 19:42 | PC.NURSE ---
Verbal order taken from Dr Sagastume for propofol drip and ramin.
--- NOTE | 2024-04-26 19:46 | XRR_ITS ---
PROCEDURE INFORMATION: Exam: XR Chest Exam date and time: 04/26/2024 7:44 PM Age: 63 years old Clinical indication: Device placement; Ett placement (vent status); Prior surgery; Surgery date: 6+ months; Surgery type: RT dialysis cath; Additional info: Tube placement TECHNIQUE: Imaging protocol: Radiologic exam of the chest. Views: 1 view. COMPARISON: CR (CHEST, ) 04/26/2024 1:55 PM FINDINGS: Tubes, catheters and devices: Endotracheal tube tip is approximately 3.2 cm above the linda. Pacer pads overlie the chest. Right IJ dialysis catheter is in similar position. Lungs: Improved aeration of the left lung base. No evidence of new airspace disease. Pleural spaces: Unremarkable. No pleural effusion. No pneumothorax. Heart/Mediastinum: Stable cardiomediastinal silhouette. Vasculature: Atherosclerotic aortic calcifications. Bones/joints: Unremarkable. XR/XR chest 1V portable [id number] IMPRESSION: 1. Endotracheal tube appears appropriately positioned. 2. No new airspace disease.
[2024-04-26] MEDS: propofol 1,000 MG/100 ML INJ 3.06 MG IV (19:48)
[2024-04-26] MEDS: levETIRAcetam 1,000 MG/100 ML PREMIX 400 MG IV (19:55)
--- NOTE | 2024-04-26 19:56 | PC.NURSE ---
This nurse had to override propofol due to unavailability to pull at time of order.
--- NOTE | 2024-04-26 19:57 | CTR_ITS ---
PROCEDURE INFORMATION: Exam: CT Head Without Contrast Exam date and time: 04/26/2024 9:57 PM Age: 63 years old Clinical indication: Patient HX: Witnessed grand mal seizure with loss of airway while in er. CT angiography performed earlier at 1700 hours. Intubated. ; Additional info: Seizures TECHNIQUE: Imaging protocol: Computed tomography of the head without contrast. Radiation optimization: All CT scans at this facility use at least one of these dose optimization techniques: automated exposure control; mA and/or kV adjustment per patient size (includes targeted exams where dose is matched to clinical indication); or iterative reconstruction. COMPARISON: CT angio headneck* [id number] 04/26/2024 4:58 PM RADIATION DOSE METRICS: Total DLP (mGy-cm): 1402.64 FINDINGS: Brain: No hemorrhage. Mild periventricular white matter hypodensities are again seen, likely chronic small vessel ischemic changes. No mass effect. Cerebral ventricles: No ventriculomegaly. Pituitary gland and sella: Partially empty sella again seen. Paranasal sinuses: Visualized sinuses are unremarkable. No fluid levels. Mastoid air cells: Visualized mastoid air cells are well aerated. Orbital cavities: Bilateral lens replacements. Bones: Unremarkable. No acute fracture. Soft tissues: Unremarkable. CT/CT head wo con* [id number] IMPRESSION: No acute intracranial findings.
[2024-04-26 20:25] LABS: Anion Gap 33.9 (5-19); Blood Urea Nitrogen 30 mg/dL (8-23); Calcium 9.6 mg/dL (8.5-10.5); Carbon Dioxide 16 mmol/L (22-29); Chloride 88 mmol/L (98-107); Creatinine Clr Calc Pharmacy 25.1811; Glomerular Filtration Rate 16.7 mL/min (90-130); Glucose 193 mg/dL (65-115); Osmolality Calculated 287 mOsm/kg (285-295); Phosphorus 6.9 mg/dL (2.5-4.5); Potassium 4.9 mmol/L (3.5-5.1); Sodium 133 mmol/L (136-145)
[2024-04-26] MEDS: cefTRIAXone 1,000 mg SDV 1000 MG IVP (20:29)
[2024-04-26 20:31] LABS: Troponin(5th) Baseline 187 ng/L (0-15)
--- NOTE | 2024-04-26 20:46 | CTR_ITS ---
PROCEDURE INFORMATION: Exam: CTA Chest With Contrast Exam date and time: 04/26/2024 10:01 PM Age: 63 years old Clinical indication: Shortness of breath; Prior surgery; Surgery date: 6+ months; Surgery type: Dialysis cath; Patient HX: Resp failure post grand mal seizure with loss of airway. Base troponin of 187. Intubated. TECHNIQUE: Imaging protocol: Computed tomographic angiography of the chest with contrast. Exam focused on the arteries. 3D rendering (Not supervised by radiologist): MIP and/or 3D reconstructed images were created by the technologist. Radiation optimization: All CT scans at this facility use at least one of these dose optimization techniques: automated exposure control; mA and/or kV adjustment per patient size (includes targeted exams where dose is matched to clinical indication); or iterative reconstruction. Contrast material: OMNI 350; Contrast volume: 80 ml; Contrast route: INTRAVENOUS (IV); COMPARISON: CT chest wo [facility] [id number] 10/03/2023 3:23 PM RADIATION DOSE METRICS: Total DLP (mGy-cm): 448.99 FINDINGS: Tubes, catheters and devices: Endotracheal tube tip is 2.8 cm above the linda. Right IJ dialysis catheter terminates in the superior cavoatrial junction. Pulmonary arteries: Dilated main pulmonary artery measuring 3.2 cm in caliber. Aorta: Ectatic ascending thoracic aorta measuring 4.4 cm in caliber. Extensive atherosclerotic calcifications of the aorta, including along the aortic valve plane. Veins: Reflux of contrast into the IVC and hepatic veins. Thyroid: Tiny hypodense thyroid nodules are of doubtful clinical significance. Lungs: Multifocal consolidative and ground-glass opacities throughout the lungs bilaterally with areas of mosaic attenuation. Findings are overall similar to prior. Likely right apical scarring appears unchanged. Interval development of left basilar consolidation. Calcified granuloma in the right lung apex. Pleural spaces: Unremarkable. No pneumothorax. No pleural effusion. Heart: Moderate cardiomegaly. Coronary arteries: Multivessel coronary artery calcifications. Esophagus: Mildly patulous esophagus with layering debris in the upper thoracic esophagus. Lymph nodes: Multiple enlarged mediastinal and hilar lymph nodes are similar to prior exams. Liver: Morphologic changes of the liver. Bones/joints: Degenerative changes of the thoracic spine. No acute fracture. Similar small sclerotic focus in the sternum. Soft tissues: Mild bilateral gynecomastia. CT/CT angio chest PE protcl [id number] IMPRESSION: 1. No evidence of pulmonary emboli. 2. Left basilar consolidation concerning for pneumonia. Findings may be in part on the basis of aspiration, particularly with a small amount of layering debris in the upper thoracic esophagus. Recommend continued imaging follow-up to evaluate evolution of findings. 3. Multifocal ground-glass and consolidative opacities throughout the remaining portions of the lungs overall appear similar to prior. Chronic fibrotic changes are likely, including with areas of air trapping from chronic small airways disease. Superimposed edema and/or atypical infection not excluded. 4. Mediastinal/hilar adenopathy similar to prior. 5. Reflux of contrast into the IVC and hepatic veins compatible with tricuspid regurgitation and/or elevated right heart pressures. 6. Ectatic ascending thoracic aorta measuring up to 4.4 cm. 7. Dilated main pulmonary artery can be seen with pulmonary hypertension. COMMENTS: Consistent with the [employer]'s Incidental Findings Committee white paper (J Am Cecily Radiol 2015): In patients aged 35 years and older with an incidental thyroid nodule equal to or greater than 1.[address], MRI or extrathyroidal US, further evaluation with dedicated thyroid US is recommended for patients with normal life expectancy and without comorbidities. For smaller nodules without suspicious features, no further evaluation or follow up is recommended.
[2024-04-26] MEDS: norepinephrine 4 MG/250 ML BAG 18.75 MG IV (21:10)
[2024-04-26] MEDS: azithromycin 500 MG in sodium chloride 0.9% 250 ML 250 MG IV (21:31)
--- NOTE | 2024-04-26 21:32 | XRR_ITS ---
PROCEDURE INFORMATION: Exam: XR Chest Exam date and time: 04/26/2024 9:44 PM Age: 63 years old Clinical indication: Shortness of breath; Prior surgery; Surgery date: 6+ months; Surgery type: RT dialysis cath; Patient HX: Respiratory distress; Concern for lt upper pneumo after unsuccessful central line attempt due to PT anatomy TECHNIQUE: Imaging protocol: Radiologic exam of the chest. Views: 1 view. COMPARISON: CR XR chest 1V portable [id number] 04/26/2024 7:44 PM FINDINGS: Tubes, catheters and devices: Stable support hardware. Pacer pads remain over the chest. Lungs: Similar appearance of the lungs. No new airspace disease. Pleural spaces: Unremarkable. No pleural effusion. No pneumothorax. Heart/Mediastinum: Unremarkable. No cardiomegaly. Bones/joints: Unremarkable. XR/XR chest 1V portable [id number] IMPRESSION: 1. No pneumothorax visualized. 2. Remainder stable.
[2024-04-26 21:39] LABS: ABG PCO2 47.1 mmHg (35-45); Arterial Blood Gas Hematocrit 52.9 % (42-52); Base Excess ABG -3.5 mmol/L (-2.0-2.0); Blood Gas Allen Test Pos; Blood Gas Operator Identificat CL; Blood Gas Sample Site Radial, right; Blood Gas Sample Type Arterial; Carboxyhemoglobin 1.1 %THgb (0.4-20.1); HCO3 ABG 23.3 mmol/L (22-26); HGB O2 Sat 97.6 % (95-100); Ionized Calcium Level - ABG 1.1 mmol/L (1.1-1.4); Methemoglobin 0.8 % (0.4-1.5); Oxygen Device VENT; Oxygen Saturation ABG > 99.1; PO2 FiO2 Ratio Arterial Blood 168; Potassium Level - ABG 5.6 mmol/L (3.5-5.0); Total Hemoglobin 17.3 g/dL (14-18)
--- NOTE | 2024-04-26 22:15 | PM.CCNAC ---
Critical Care Event Note The high probability of a clinically significant, sudden or life threatening deterioration of the patient's [] system(s) required my full and direct attention, intervention and personal management. The critical care time is as shown. This time is in addition to time spent performing any reported procedures but includes the following: [x] Data and vital sign review and interpretation [x] Patient assessment, examination and intervention [x] Documentation [x] Medication orders and management Critical Care Time Code activated: No Critical Care Time (min): 35 Additional information about critical care time: - I was notified by ER provider, Dr. Sagastume, that in the emergency room, patient had a seizure episode, became nonresponsive, needed to be bagged, by nursing staff, subsequently intubated by ER provider, he is intubated, sedated, mechanical ventilation, MAP is around 65, currently on propofol -Patient was examined, currently intubated, on propofol, MAP around 65, heart rates are in the 120s, it looks like A-fib on the monitor -Pupils are minimally reactive to light, endotracheal tube in place, currently on mechanical ventilation, currently on propofol -Patient's is at bedside, patient's denies known history of seizures in the past, but she does tell me that he he has been complaining of these intermittent episodes of twitching, João describes his episodes to his family members that he has these episodes in which he becomes weak and starts twitching, typically 1 side of his body, sometimes he needs to sleep off these episodes -Discussed with family, I am going to reorder head CT to ensure he has not had an intracranial bleed with a stroke, repeat head CT is within normal limits -Will order CTA of the lungs, to evaluate for possible respiratory failure, pneumonia ? CTA shows no pulmonary embolism, left basilar consolidation, multifocal groundglass and consolidative opacities throughout the remaining portion of the lungs, continue Rocephin, azithromycin -Due to low blood pressure patient was started on Levophed -Repeat ABG shows pH 7.3, pCO2 47.1, pO2 168 -Potassium is 5.9 will give 10 units IV push insulin with D10, bicarb 25 -Troponins up to 205, positive delta troponin, start heparin drip, monitor platelet count as it is 90,000, monitor hemoglobin -Status is critical, prognosis guarded -Reviewed with Dr. Datar note, he has a history of restrictive lung disease, had a bronchial lavage, which was suggestive of sarcoidosis Coding Level of Care Code Acute Code for Chg Fwd
--- NOTE | 2024-04-26 22:41 | XRR_ITS ---
PROCEDURE INFORMATION: Exam: XR Chest Exam date and time: 04/26/2024 10:53 PM Age: 63 years old Clinical indication: Device placement; Ng tube; Prior surgery; Surgery date: 6+ months; Surgery type: Dialysis cath; Patient HX: Check S/P og placement. Intubated. ; Additional info: Og tube placement verification TECHNIQUE: Imaging protocol: Radiologic exam of the chest. Views: 1 view. COMPARISON: CT angio chest PE protcl [id number] 04/26/2024 10:01 PM FINDINGS: Tubes, catheters and devices: Endotracheal tube tip is 3 cm above the linda. Interval placement of a nasogastric tube with the tip in the stomach. The side port is below the GE junction. Remaining support hardware is unchanged. Lungs: Similar appearance of the lungs. Diffuse interstitial and airspace opacities. Pleural spaces: Unremarkable. No pleural effusion. No pneumothorax. Heart/Mediastinum: Stable cardiomediastinal contours. Bones/joints: Unremarkable. Organs: Cholecystectomy clips. XR/XR chest 1V portable [id number] IMPRESSION: 1. NG tube tip is in the stomach with the side port below the GE junction. 2. Diffuse interstitial and airspace opacities may reflect pulmonary edema and/or atypical infection.
--- NOTE | 2024-04-26 22:42 | ECG_ITS ---
[facility] Test Date: 2024-04-27 Pat Name: João Carter Department: Room: ICU11 Gender: Male Miller Head Wet Process: : 1960 Requested By: Miguel Dietz Order Number: [id number] Thais MD: Steven Mallory M.D. Measurements Intervals [place] Rate: 82 P: 250 MO: 159 QRS: 263 QRSD: 161 T: 78 QT: 434 QTc: 508 Interpretive Statements SINUS RHYTHM RIGHT AXIS DEVIATION [QRS AXIS > 100] RIGHT BUNDLE BRANCH BLOCK [120+ ms QRS DURATION, UPRIGHT V1, 40+ ms S IN I/aVL/V4/V5/V6] POSSIBLE ANTERIOR MYOCARDIAL INFARCTION , OF INDETERMINATE AGE [30 ms Q WAVE IN V3/V4, OR R < 0.2 mV IN V4] Compared to ECG 04/26/2024 20:20:44 T-wave abnormality now present Possible ischemia now present Atrial fibrillation no longer present Myocardial infarct finding still present Electronically Signed On 04-27-2024 9:20:59 CDT by Steven Mallory M.D. [id number]
--- NOTE | 2024-04-26 23:38 | PC.NURSE ---
This nurse read through admitting patients chart and read consulation from Dr. Corrales that patient has thrombocytopenia.This nurse also clarified with Dr. Dietz to give heparin drip. Physician said would be easier to monitor on a heparin drip. Notified physician also of plt count of 90.
[2024-04-26 23:46] LABS: Alanine Aminotransferase 16 U/L (0-41); Albumin Level 3.4 g/dL (3.5-5.2); Alkaline Phosphatase 114 U/L (40-130); Anion Gap 17.9 (5-19); Aspartate Amino Transferase 26 U/L (0-40); Blood Urea Nitrogen 33 mg/dL (8-23); Calcium 8.1 mg/dL (8.5-10.5); Carbon Dioxide 25 mmol/L (22-29); Chloride 91 mmol/L (98-107); Globulin 3.8 g/dL (1.3-4.6); Glomerular Filtration Rate 15.3 mL/min (90-130); Glucose 163 mg/dL (65-115); Osmolality Calculated 277 mOsm/kg (285-295); Potassium 5.9 mmol/L (3.5-5.1); Sodium 128 mmol/L (136-145); Total Bilirubin 0.5 mg/dL (0.15-1.2); Total Protein 7.2 g/dL (6.6-8.7)
[2024-04-26 23:50] LABS: Creatinine Clr Calc Pharmacy 23.2925
[2024-04-26 23:52] LABS: Troponin 5 2HR 205.2 ng/L (0-15); Troponin 5 2HR Delta 18.2 ABS# (0-10)
--- NOTE | 2024-04-26 23:59 | PC.NURSE ---
ORDER OF EVENTS REGARDING SEIZURE AND INTUBATION, RECORDED BY RADHA INIGUEZ RN Note put in chart by this nurse per request of primary nurse 1925-- seizure postictal - bagging, HR 85, last BP 98/75 @0 1930-- intubation perfomred by Dr Nash 1930-- 0.5mg atropine and ABG obtained 1931-- 4mg Ativan, HR 99 1937-- O2 67%, HR 140 1941-- Move to ED 11, ABG results, HR 124 1943-- O2 88%, XR, BP 99/82
[2024-04-27] VITALS (105 sets, daily range): BP systolic 73–164; BP diastolic 45–111; PULSE 65–88; RESP 14–18; TEMP 36.2–37; O2SAT 94–99
[2024-04-27] MEDS: heparin 5,000 unit/mL INJ 1 mL IVP (00:06)
[2024-04-27] MEDS: heparin drip 25,000 UNIT/500 ML PREMIX 28 UNIT IV (00:07)
[2024-04-27 01:08] LABS: Basophils # 0.1 10^3/uL (0.0-0.1); Basophils % 0.3 %; Eosinophils # 0.1 10^3/uL (0.0-0.8); Eosinophils % 0.7 %; Hematocrit 56.3 % (37-53); Lymphocytes # 0.9 10^3/uL (0.8-4.8); Lymphocytes % 4.7 %; Mean Corpuscular HGB Conc 29.5 g/dL (30-55); Mean Corpuscular Volume 84.8 fl (82-101); Mean Platelet Volume 10.3 fL (7.4-10.4); Monocytes # 2.1 10^3/uL (0.2-0.9); Monocytes % 11.2 %; Neutrophils # 15.59 10^3/uL (1.8-7.7); Neutrophils % 82.7 %; Nucleated Red Blood Cells % 0 %; Platelet Count 164 10^3/cmm (157-399); Red Blood Count 6.64 10^6/uL (3.85-5.65); Red Cell Distribution Width 21.1 % (12.1-15.1); White Blood Count 18.83 10^3/uL (3.29-11.43)
[2024-04-27] MEDS: insulin regular-human 10 UNIT in SYRINGE 1 EACH 999 UNIT IVP (01:54)
[2024-04-27] MEDS: dextrose 10% 125 ML 750 ML IV (01:56)
--- NOTE | 2024-04-27 01:57 | ECG_ITS ---
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 Measurements Intervals [place] Rate: 75 P: 4 CA: 268 QRS: 157 QRSD: 154 T: -11 QT: 452 QTc: 507 Interpretive Statements SINUS RHYTHM WITH FIRST DEGREE AV BLOCK POSSIBLE LEFT ATRIAL ENLARGEMENT [-0.1mV P-WAVE IN V1/V2] RIGHT BUNDLE BRANCH BLOCK [120+ ms QRS DURATION, UPRIGHT V1, 40+ ms S IN I/aVL/V4/V5/V6] LEFT POSTERIOR FASCICULAR BLOCK [QRS AXIS > 109, INFERIOR Q] POSSIBLE ANTERIOR MYOCARDIAL INFARCTION , PROBABLY OLD [30 ms Q WAVE IN V3/V4, OR R < 0.2 mV IN V4] MODERATE T-WAVE ABNORMALITY, CONSIDER INFERIOR ISCHEMIA [-0.1+ mV T-WAVE IN II/aVF] Compared to ECG 04/27/2024 00:45:59 First degree AV block now present Left posterior fascicular block now present T-wave abnormality still present Possible ischemia still present Electronically Signed On 04-27-2024 9:19:32 CDT by Steven Mallory M.D. [id number]
[2024-04-27 02:12] LABS: HIV 1 & 2 Antibody Non-Reactive (Non-Reactiv); HIV 1 & 2 Antigen Non-Reactive (Non-Reactiv)
[2024-04-27 02:53] LABS: Troponin 5 6HR 389.1 ng/L (0-15)
[2024-04-27 02:54] LABS: Troponin 5 6HR Delta 202.1 ng/L (0-12)
[2024-04-27 04:27] LABS: Basophils # 0.1 10^3/uL (0.0-0.1); Basophils % 0.3 %; Eosinophils # 0.2 10^3/uL (0.0-0.8); Eosinophils % 1.1 %; Hematocrit 53.9 % (37-53); Lymphocytes # 1.2 10^3/uL (0.8-4.8); Lymphocytes % 6.7 %; Mean Corpuscular HGB Conc 29.9 g/dL (30-55); Mean Corpuscular Volume 83.8 fl (82-101); Mean Platelet Volume 9.6 fL (7.4-10.4); Monocytes # 2.2 10^3/uL (0.2-0.9); Monocytes % 11.9 %; Neutrophils # 14.69 10^3/uL (1.8-7.7); Neutrophils % 79.5 %; Nucleated Red Blood Cells % 0 %; Platelet Count 139 10^3/cmm (157-399); Red Blood Count 6.43 10^6/uL (3.85-5.65); Red Cell Distribution Width 20.7 % (12.1-15.1); White Blood Count 18.47 10^3/uL (3.29-11.43)
[2024-04-27 04:42] LABS: INR 1.19 (0.8-1.2)
[2024-04-27 04:45] LABS: Alanine Aminotransferase 18 U/L (0-41); Albumin Level 3.6 g/dL (3.5-5.2); Alkaline Phosphatase 118 U/L (40-130); Anion Gap 15.9 (5-19); Aspartate Amino Transferase 40 U/L (0-40); Blood Urea Nitrogen 38 mg/dL (8-23); Calcium 8.6 mg/dL (8.5-10.5); Carbon Dioxide 26 mmol/L (22-29); Chloride 92 mmol/L (98-107); Globulin 3.9 g/dL (1.3-4.6); Glomerular Filtration Rate 13.7 mL/min (90-130); Glucose 89 mg/dL (65-115); Magnesium 2.9 mg/dL (1.7-2.3); Osmolality Calculated 275 mOsm/kg (285-295); Potassium 5.9 mmol/L (3.5-5.1); Sodium 128 mmol/L (136-145); Total Bilirubin 0.5 mg/dL (0.15-1.2); Total Protein 7.5 g/dL (6.6-8.7)
[2024-04-27 04:48] LABS: Creatinine Clr Calc Pharmacy 20.8739
[2024-04-27 04:53] LABS: Partial Thromboplastin Time 126.2 SECONDS (23.9-36.7)
[2024-04-27 04:55] LABS: ABG PH Result 7.34 (7.35-7.45); Arterial Blood Gas Hematocrit 56.4 % (42-52); Base Excess ABG -1.5 mmol/L (-2.0-2.0); Blood Gas Allen Test Pos; Blood Gas Operator Identificat JB; Blood Gas Sample Site Radial, right; Blood Gas Sample Type Arterial; Carboxyhemoglobin 0.4 %THgb (0.4-20.1); HCO3 ABG 25.1 mmol/L (22-26); HGB O2 Sat 96.3 % (95-100); Ionized Calcium Level - ABG 1.3 mmol/L (1.1-1.4); Methemoglobin 0.6 % (0.4-1.5); Oxygen Device VENT; Oxygen Saturation ABG 97.3; PO2 FiO2 Ratio Arterial Blood 138; Potassium Level - ABG 5.2 mmol/L (3.5-5.0); Total Hemoglobin 18.4 g/dL (14-18)
[2024-04-27] MEDS: norepinephrine 4 MG/250 ML BAG 30 MG IV ×2 (05:02→12:35)
[2024-04-27] MEDS: propofol 1,000 MG/100 ML INJ 9.19 MG IV (06:45)
[2024-04-27] MEDS: clopidogrel 75 mg Tablet PO (08:53)
[2024-04-27] MEDS: aspirin 81 mg EC Tablet PO (08:53)
--- NOTE | 2024-04-27 09:18 | P.PN_ITS ---
Subjective 2 Subjective: Overnight events noted. Patient was intubated yesterday evening in the emergency room when he had question of his seizure-like activity and became unresponsive. The patient is now on pressors. The patient is requiring high FiO2 requirements. Medications: Reviewed: Yes Medication Review Details: Current Medications Acetaminophen (Acetaminophen 325 Mg Tablet) 650 mg PO Q6H PRN PRN Reason: Mild/Mod Pain Or Temp >/= 101 Aspirin (Aspirin 81 Mg Ec Tablet) 81 mg PO DAILY LEN Last Admin: 04/27/24 08:53 Dose: 81 mg Atorvastatin Calcium (Atorvastatin 40 Mg Tablet) 80 mg PO BEDTIME LEN Last Admin: 04/27/24 00:29 Dose: Not Given Ceftriaxone Sodium (Ceftriaxone 1,000 Mg Sdv) 1,000 mg IVP Q24H LEN; Protocol Last Admin: 04/26/24 20:29 Dose: 1,000 mg Clopidogrel Bisulfate (Clopidogrel 75 Mg Tablet) 75 mg PO DAILY LEN Last Admin: 04/27/24 08:53 Dose: 75 mg Heparin Sodium (Porcine) (Heparin Lock Flush 500 Unit/5 Ml Syringe) 200 - 500 unit IV Q12H LEN Last Admin: 04/27/24 08:49 Dose: Not Given Heparin Sodium (Porcine) (Heparin Lock Flush 500 Unit/5 Ml Syringe) 200 - 500 unit IV PRN PRN PRN Reason: Central line flush Heparin Sodium (Porcine) (Heparin 5,000 Unit/Ml Inj 1 Ml) 0 unit IVP PRN PRN; Protocol PRN Reason: Heparin Weight Based Protocol -Subsequent Bolus Azithromycin 500 mg/ Sodium (Chloride) 250 mls @ 250 mls/hr IV Q24H LEN; Protocol Last Infusion: 04/27/24 00:20 Dose: Infused Propofol (Diprivan) 1,000 mg in 100 mls @ 0 mls/hr IV .Q0M LEN; Protocol Last Titration: 04/27/24 08:20 Dose: 17 mcg/kg/min, 10.41 mls/hr Norepinephrine Bitartrate (Levophed) 4 mg in 250 mls @ 0 mls/hr IV .Q0M LEN; Protocol Last Titration: 04/27/24 08:00 Dose: 8 mcg/min, 30 mls/hr Heparin Sodium/Sodium Chloride (Heparin Drip) 25,000 unit in 500 mls @ 0 mls/hr IV CONT ELN; Protocol Last Titration: 04/27/24 05:16 Dose: 10.78 unit/kg/hr, 22 mls/hr Dextrose (D10w) 125 mls @ 750 mls/hr IV PRN PRN; Protocol PRN Reason: Adult Acute Hypoglycemia Nursing Protocol Dextrose (D10w) 125 mls @ 750 mls/hr IV PRN PRN PRN Reason: HYPERKALEMIA Last Admin: 04/27/24 01:56 Dose: 750 mls/hr Lidocaine HCl (Lidocaine 1% Inj 20 Ml) 0.1 ml INTRADERMA PRN PRN PRN Reason: Anesthetic Catheter Placement Morphine Sulfate (Morphine 4 Mg/Ml Sdv 1 Ml) 2 mg IVP Q4H PRN PRN Reason: SEVERE PAIN Ondansetron HCl (Ondansetron 2 Mg/Ml Sdv 2 Ml) 4 mg IVP Q8H PRN PRN Reason: vomiting, or N/V if npo Sodium Chloride (Sodium Chloride 0.9 % (Flush) Syringe 10 Ml) 5 - 10 ml IV Q12H LEN Last Admin: 04/27/24 08:49 Dose: Not Given Sodium Chloride (Sodium Chloride 0.9 % (Flush) Syringe 10 Ml) 5 - 10 ml IV PRN PRN PRN Reason: Central line flush Vitals/I&O/Wt Last Vital Signs Temp 98.4 F 04/27/24 08:00 Pulse 78 04/27/24 06:00 Resp 14 04/27/24 08:06 BP 122/77 04/27/24 04:15 Pulse Ox 96 04/27/24 08:06 O2 Del Method Mechanical Ventilation 04/27/24 00:38 FiO2 80 04/27/24 08:06 04/26/24 04/27/24 04/27/24 22:59 06:59 14:59 Intake Total 122.459 / 122.459 681.850 / 804.309 103.551 / 103.551 Output Total 250 / 250 Balance 122.459 / 122.459 431.850 / 554.309 103.551 / 103.551 Weight last 48 hrs Weight 100.2 kg Weight 99 kg Weight 102.058 kg Physical Exam 2 Narrative: Intubated on Levophed FiO2 of 80%. HEENT normocephalic atraumatic. Neck is supple Lungs -scattered bilateral rhonchi. Heart regular positive S1-S2 Abdomen is soft positive bowel sounds. Extremities no edema. Right anterior chest wall permacath. Neuro sedated. Urinary Catheter Management: [place]: Cath Placed During This Visit: yes Reason for Continuing Indwelling Catheter: Accurate Measurement of Urinary Output in Critically Ill Patients Urinary Catheter Date of Insertion: 04/26/24 Urinary Catheter Time of Insertion: 21:25 Data 04/27/24 04:13 04/27/24 04:13 Micro: Microbiology 04/26/24 13:35 Blood Culture - Preliminary Blood SPECIMEN COLLECTED 04/26/24 13:45 Blood Culture - Preliminary Blood SPECIMEN COLLECTED A&P Assessment and plan (1) ESRD on dialysis: 63-year-old gentleman ESRD here with right-sided weakness. History of hypertension, polycythemia, obesity, sleep apnea. Patient here with episodes of altered mental status. 1. Vent dependent respiratory failure. As per critical care. Appreciate Dr. Carrillo's note. CTA found dilated main pulmonary artery of 3.2 cm ectatic ascending thoracic aorta measuring 4.4 cm in the lung multifocal consolidative and groundglass opacities of the lungs with areas of mosaic attenuation. Similar to prior likely right apical scarring calcified granuloma in the right lung apex -Multiple enlarged mediastinal and hilar, no evidence of PE. Question of left basilar consolidation for pneumonia. Question of sarcoidosis. 1b. ESRD with hyperkalemia and hyponatremia from poor mental status will dialyze today. 2. septic shock with white cell count of 18.47. Renal dosed antibiotics 3. Hyponatremia monitor with dialysis 4. Hyperkalemia monitor with dialysis. 5. Hyperphosphatemia monitor with dialysis and get binder when eating. 6. Positive troponins likely from stress. 7. History of sarcoidosis as per pulmonary. Patient is in critical condition in the ICU will monitor closely. The patient was seen and examined using A/V equipment and a nurse examined the patient. The patient consented on april 26, 2024 to telehealth visit and to dialysis. . Plan See above Attestations 2 Medical Necessity Statement*: Septic shock, vent dependent respiratory failure, on pressors, ESRD with hyperkalemia., Pneumonia., Question sarcoidosis. Time Spent in Patient Care: Greater than 35 minutes (>than 50% of time spent in counselling and/or direct pt care on unit) . Coding Level of Care Code Acute Code for Chg Fwd Diagnoses ESRD on dialysis N18.6; Z99.2
[2024-04-27 10:08] LABS: Hepatitis B Surface AB 18.4 (11.5-1000); Hepatitis B Surface Antigen Non-Reactive (Nonreactive); Hepatitis C Virus Antibody Non-Reactive (Nonreactive)
[2024-04-27 10:40] LABS: Glucose Point of Care 113 mg/dL (70-110)
[2024-04-27 11:26] LABS: Partial Thromboplastin Time 48.1 SECONDS (23.9-36.7)
[2024-04-27] MEDS: heparin, porcine 1,000 unit/mL INJ 10 mL 1000 UNIT IV (11:50)
[2024-04-27 12:11] LABS: Glucose Point of Care 103 mg/dL (70-110)
--- NOTE | 2024-04-27 12:25 | P.CONIM_ITS ---
Providers/Reason For Consult 2 Consulting Physician/Specialty*: Steven Mallory MD / Cardiology Reason for Consult*: Troponin elevation Requesting Physician: Dr Monroy Attending Physician: Kellie Monroy MD Primary Care Provider: Philip Torrez History of Present Illness History of Present Illness João Carter is a 63 year old male with past medical history of end-stage renal disease, hypertension, cardiac arrest, sarcoidosis, no history of coronary artery disease presented to hospital with right-sided weakness. Suspected TIA. While in the ER, per the notes, he had seizure and altered mental status requiring intubation. Cardiology was consulted as troponins were checked and trended up from a baseline of 187 to 202 at 6 hours. EKG showed sinus rhythm with right bundle branch block and non-specific ST T wave changes. Patient is on levophed and heparin. Patient went in afib with RVR briefly last night. He is currently in normal sinus rhythm. CTA neck shows severe stenosis of left common carotid and internal carotid arteries. Review of Systems 2 General: Reports: ROS unobtainable due to endotracheal tube Medications/Allergies Home Medications Medication Instructions Recorded Confirmed Last Taken Type aspirin 81 mg chewable tablet 81 mg PO DAILY 05/02/21 11/09/23 05/21/23 History lisinopril 20 mg tablet 20 mg PO DAILY 05/02/21 11/09/23 05/21/23 History lovastatin 20 mg tablet 20 mg PO DAILY 05/02/21 11/09/23 05/21/23 History tramadol 50 mg tablet 50 mg PO BID PRN Pain 10/09/22 11/09/23 Unknown History albuterol sulfate 90 mcg/actuation 1 inh inhalation Q4H PRN Shortness 02/27/23 11/09/23 Unknown History aerosol inhaler Of Breath Or Wheezing metoprolol tartrate 25 mg tablet 25 mg PO BID 04/30/23 11/09/23 05/21/23 History furosemide 20 mg tablet 20 mg PO DAILY 05/14/23 11/09/23 05/21/23 History ascorbic acid (vitamin C) 500 mg 500 mg PO DAILY 05/22/23 11/09/23 05/21/23 History tablet (Vitamin C) cholecalciferol (vitamin D3) 25 25 mcg PO DAILY 05/22/23 11/09/23 05/21/23 History mcg (1,000 unit) capsule (Vitamin D3) vit B,C-folic ac 800 mcg-zinc 12.5 1 tab PO DAILY 05/22/23 11/09/23 05/21/23 History mg-selen-D3 2,000 unit-vit E tablet (RenaPlex-D) vitamin B12 0.5 mg-folic acid 1 mg 1 tab PO DAILY 05/22/23 11/09/23 05/21/23 History tablet vitamin E 268 mg (400 unit) capsule 268 mg PO DAILY 05/22/23 11/09/23 05/21/23 History vitamin K2 40 mcg tablet 40 mcg PO DAILY 05/22/23 11/09/23 05/21/23 History isosorbide mononitrate 30 mg 30 mg PO DAILY #30 tabs 05/23/23 11/09/23 Unknown Rx tablet,extended release 24 hr Allergies Allergy/AdvReac Type Severity Reaction Status Date / Time Penicillins Allergy Severe hives Verified 04/26/24 14:51 Current Medications Generic Name Dose Route Start Last Admin Trade Name Joseq PRN Reason Stop Dose Admin Aspirin 81 mg 04/27/24 09:00 04/27/24 08:53 Aspirin 81 Mg Ec Tablet PO 81 mg DAILY [facility] Administration Atorvastatin Calcium 80 mg 04/26/24 22:42 04/27/24 00:29 Atorvastatin 40 Mg Tablet PO Not Given BEDTIME [facility] Ceftriaxone Sodium 1,000 mg 04/26/24 19:30 04/26/24 20:29 Ceftriaxone 1,000 Mg Sdv IVP 1,000 mg Q24H LEN Administration Protocol Clopidogrel Bisulfate 75 mg 04/27/24 09:00 04/27/24 08:53 Clopidogrel 75 Mg Tablet PO 75 mg DAILY [facility] Administration Heparin Sodium (Porcine) 200 - 500 unit 04/26/24 20:30 04/27/24 08:49 Heparin Lock Flush 500 Unit/5 Ml Syringe IV Not Given Q12H [facility] Azithromycin 500 mg/ Sodium 250 mls @ 250 mls/hr 04/26/24 19:30 04/27/24 00:20 Chloride IV Infused Q24H [facility] Infusion Protocol Propofol 1,000 mg in 100 mls @ 0 mls/hr 04/26/24 19:45 04/27/24 08:20 Diprivan IV 17 mcg/kg/min .Q0M LEN 10.41 mls/hr Titration Protocol Per Protocol Norepinephrine Bitartrate 4 mg in 250 mls @ 0 mls/hr 04/26/24 20:30 04/27/24 11:23 Levophed IV 6 mcg/min .Q0M LEN 22.5 mls/hr Titration Protocol Per Protocol Heparin Sodium/Sodium Chloride 25,000 unit in 500 mls @ 0 mls/hr 04/26/24 23:15 04/27/24 11:46 Heparin Drip IV 11.27 unit/kg/hr CONT LEN 23 mls/hr Titration Protocol Per Protocol Dextrose 125 mls @ 750 mls/hr 04/27/24 00:39 04/27/24 01:56 D10w IV 750 mls/hr PRN PRN Administration HYPERKALEMIA Sodium Chloride 5 - 10 ml 04/26/24 20:30 04/27/24 08:49 Sodium Chloride 0.9 % (Flush) Syringe 10 Ml IV Not Given Q12H LEN PFSH Acute 2 PFSH: Medical History Hyperlipidemia Paroxysmal SVT (supraventricular tachycardia) History of hemoptysis late summer 2022, several bronchoscopies done at [facility], no source found, treated with antibiotics Pneumonia due to COVID-19 virus 2022, on ventilator for a time History of pulmonary aspiration per swallow study done during a prolonged acute illness in late 2022 History of cirrhosis of liver History of echocardiogram 06/2021 EF 55%, severe AV sclerosis and calcification but no stenosis History of PFTs 06/2021 severe restriction with preserved residual volume, minimal reduction in DLCO Nephrotic syndrome Vitamin D deficiency Diabetes mellitus, type II History, lost weight, no longer active diagnosis Hypertension JOSE (obstructive sleep apnea) Diastolic heart failure End stage renal disease started dialysis 2022 Cardiac arrest 2022 during hospitalization/rehab stay in [place] Restrictive lung disease Polycythemia secondary to hypoxia Surgical History History of percutaneous endoscopic gastrostomy late 2022, removed short time later History of tracheostomy 2022, removed short time later S/P thoracentesis 2014 History of cholecystectomy 1996 Family History Father Congestive heart failure (CHF) Mother Congestive heart failure (CHF) Social History Smoking and tobacco/nicotine status: never used tobacco/nicotine Second hand smoke exposure: No Alcohol intake: never Substance/Drug Use: never Household members: spouse 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 NECK: No jugular vein distension. [] HEENT: No cyanosis. No icterus. No pallor. [] HEART: Regular S1 and S2. No murmur, rub or gallop. [] LUNGS: Diminished air entry. EXTREMITIES: Lower extremities with 1+ edema bilaterally. Urinary Catheter Management: Latham: Cath Placed During This Visit: yes Reason for Continuing Indwelling Catheter: Accurate Measurement of Urinary Output in Critically Ill Patients Urinary Catheter Date of Insertion: 04/26/24 Urinary Catheter Time of Insertion: 21:25 Data 04/27/24 04:13 04/27/24 04:13 Micro: Microbiology 04/26/24 13:35 Blood Culture - Preliminary Blood SPECIMEN COLLECTED 04/26/24 13:45 Blood Culture - Preliminary Blood SPECIMEN COLLECTED A&P Assessment and plan (1) Transient ischemic attack (TIA): (2) Seizure: (3) Troponin level elevated: (4) Hypertension: Qualifiers: Hypertension type: primary hypertension Qualified Code(s): I10 - Essential (primary) hypertension (5) Hyperlipidemia: (6) ESRD on dialysis: (7) Sarcoidosis: (8) Carotid artery stenosis: Plan Patient had presented with presumed TIA and had seizure activity in the ER. Cardiology was consulted as troponins were elevated. Likely secondary to demand ischemia. Will obtain echocardiogram. If EF is normal, can plan on stress testing once patient is stable. If there is reduction in EF, can plan for coronary angiogram. Patient has severe left carotid artery disease. Also went into afib last night. If no contraindication from neurological standpoint, can continue dual antiplatelet therapy and anticoagulation. Will also need vascular surgery work up for carotid artery disease Thank you for involving us with care of this patient. We will continue to follow. Please call with questions. I spoke with patient's and updated about the plan. She showed understanding and agreed with current plan. Consult Attestations 2 Medical Necessity Statement: Care expected to cross 2 midnights. Coding Level of Care Code Acute Code for [facility] Diagnoses Transient ischemic attack (TIA) G45.9 Seizure R56.9 Troponin level elevated R79.89 Primary hypertension I10 Hypertension type: primary hypertension Hyperlipidemia E78.5 ESRD on dialysis N18.6; Z99.2 Sarcoidosis D86.9 Carotid artery stenosis I65.29
--- NOTE | 2024-04-27 13:29 | P.PN_ITS ---
Subjective 2 Subjective: Overnight events noted. Patient had a seizure in the ER and became unresponsive therefore was intubated. Seen this morning. On 80% FiO2 on the ventilator. Sedated intubated Addendum to history physical document: Patient denied a history of seizures on admission I did not mention that he was ever intubated before. No family at bedside at this time Vitals/I&O/Wt Last Vital Signs Temp 98.6 F 04/27/24 12:08 Pulse 75 04/27/24 12:08 Resp 14 04/27/24 12:08 BP 131/83 04/27/24 12:08 Pulse Ox 97 04/27/24 11:00 O2 Del Method Mechanical Ventilation 04/27/24 00:38 FiO2 70 04/27/24 11:00 04/26/24 04/27/24 04/27/24 22:59 06:59 14:59 Intake Total 122.459 / 122.459 681.850 / 804.309 373.363 / 373.363 Output Total 250 / 250 250 / 250 Balance 122.459 / 122.459 431.850 / 554.309 123.363 / 123.363 Weight last 48 hrs Weight 100.2 kg Weight 99 kg Weight 102.058 kg Physical Exam 2 Narrative: General: Intubated sedated HEENT: Normocephalic, atraumatic, EOMI, Cardio: Regular rate rhythm, normal S1-S2, Respiratory: Mild rhonchi bilateral lower lung bases GI: Abdomen soft, nontender, nondistended, bowel sounds + Extremities: No edema bilateral extremities. Urinary Catheter Management: Latham: Cath Placed During This Visit: yes Reason for Continuing Indwelling Catheter: Accurate Measurement of Urinary Output in Critically Ill Patients Urinary Catheter Date of Insertion: 04/26/24 Urinary Catheter Time of Insertion: 21:25 Data 04/27/24 04:13 04/27/24 04:13 Micro: Microbiology 04/26/24 13:35 Blood Culture - Preliminary Blood SPECIMEN COLLECTED 04/26/24 13:45 Blood Culture - Preliminary Blood SPECIMEN COLLECTED A&P Assessment and plan (1) Hypertension: Qualifiers: Hypertension type: primary hypertension Qualified Code(s): I10 - Essential (primary) hypertension (2) Chronic diastolic heart failure: (3) Hyperlipidemia: (4) ESRD on dialysis: (5) Transient ischemic attack (TIA): (6) Uses continuous positive airway pressure (CPAP) ventilation at home: (7) Seizure: (8) Respiratory failure: Plan #TIA #Hypotensive episode during dialysis #Thrombocytopenia #End-stage renal disease #History of diastolic heart failure, cardiac arrest #Restrictive lung disease #Polycythemia secondary to hypoxia #Obstructive sleep apnea #History of COVID-19 #Hypertension #Dyslipidemia - neuro checks q2h - cta head and neck pending - continue on aspirin, plavix x 21 days. -Platelets are 70,000. Will continue to monitor. ? Will need to confirm home medications ? From last cardiology office visit it seems patient is on Lasix 20 daily, Imdur 30 daily, lovastatin 20 daily, lisinopril 20 daily, metoprolol tartrate 25 twice daily, aspirin 81. ? I will hold all antihypertensive at this time since patient's blood pressure is on the soft side. ? Check echocardiogram ? Placed on telemetry rule out atrial fibrillation ? Patient may require an event monitor at discharge ? PT OT ? Consult nephrology for dialysis ? Continue CPAP at nighttime for sleep apnea ? Will check peripheral blood smear secondary to thrombocytopenia ? Check liver function panel ? Check HIV, hepatitis panel ? Dysphagia nursing screen. ? Check TSH, hemoglobin A1c, lipid panel Full code Due to prophylaxis: Will hold off as platelets are low. I have added dual antiplatelet for TIA at this time. Will use SCDs as mechanical DVT prophylaxis. 04/27 #Vent dependent respiratory failure #Septic shock secondary to pneumonia? #New onset seizure #Period Of unresponsiveness #Hyperkalemia #Hyponatremia #NSTEMI #History of sarcoidosis These above diagnoses are in addition to the ones listed above. ? Patient was initially admitted for TIA and was asymptomatic by the time he was seen in the ER by hospitalist. He was admitted under observation to allow for permissive hypertension and was started on aspirin Plavix for 21 days. CTA head and neck was performed which showed severe right artery stenosis 90% on right side. He was to be monitored on telemetry overnight set up with an event monitor at discharge to rule out atrial fibrillation and discharged home in next 24 to 48 hours. However overnight he developed a seizure and became unresponsive had to be Ambu bag in the ER and was subsequently intubated. Transferred to ICU. ? Patient currently on 80% FiO2. Will recheck ABG ? Goal to wean off vent when able ? Hyperkalemic potassium 5.9. Seen by nephrology. Plan for dialysis today. ? Will check chest x-ray WBC count 18.47 most likely secondary to stress response versus seizure versus true infection. CTA chest done yesterday did show left basilar consolidation concerning for pneumonia. And multifocal groundglass and consolidative opacities throughout the remaining portions of the lungs overall appear similar to prior. I will continue to treat empirically with vancomycin and Zosyn at this time. Placed on Protonix 40 IV daily for GI prophylaxis Continue to hold home antihypertensives at this time CT head repeated negative for acute stroke ? Echocardiogram pending Cardiology consulted Continue on heparin drip at this time Delta troponin positive at 6 hours. EKG without any acute ischemic changes. Did also have an episode of atrial fibrillation overnight as evidenced on one of the EKGs. Once patient is extubated will need anticoagulation agent. Continue on heparin at this time. Check blood cultures Check sputum culture Gram stain Patient is requiring 8 mics of Levophed. Will wean off as able. ABG in a.m., chest x-ray Check BNP, CRP, phosphorus, CK Check urine drug screen Continue propofol and fentanyl. Full code Due to prophylaxis: On heparin drip Attestations 2 Medical Necessity Statement*: Critically ill in ICU with vent dependent respiratory failure, septic shock, new onset seizure, NSTEMI Critical Care Time: The high probability of a clinically significant, sudden or life threatening deterioration of the patient's [cardiovascular, pulmonary, renal] system(s) required my full and direct attention, intervention and personal management. The critical care time is as shown. This time is in addition to time spent performing any reported procedures but includes the following: [x] Data and vital sign review and interpretation [x] Patient assessment, examination and intervention [x] Documentation [x] Medication orders and management Critical Care Time (min): 65 Coding Level of Care Code Acute Code for Chg Fwd Diagnoses Primary hypertension I10 Hypertension type: primary hypertension Chronic diastolic heart failure I50.32 Hyperlipidemia E78.5 ESRD on dialysis N18.6; Z99.2 Transient ischemic attack (TIA) G45.9 Uses continuous positive airway pressure (CPAP) ventilation at home Z99.89 Seizure R56.9 Respiratory failure J96.90
[2024-04-27] MEDS: albuterol 2.5 mg/3 mL Neb INHALATION ×2 (13:42→20:22)
[2024-04-27] MEDS: cefepime 1,000 MG in sodium chloride 0.9% (plus) 50 ML 100 MG IV (14:18)
[2024-04-27] MEDS: propofol 1,000 MG/100 ML INJ 10.41 MG IV (14:26)
--- NOTE | 2024-04-27 14:26 | PHA.VACGOAL ---
Vancomycin Goal - Goal Vancomycin Indication:: Other - Therapy Day of therpy:: Day []of [] . Actual body weight (kg): 220 lb 14.451 oz - Data Labs: WBC 18.47 10^3/uL (3.29-11.43) H 04/27/24 04:13 RBC 6.43 10^6/uL (3.85-5.65) H 04/27/24 04:13 Hgb 16.10 g/dL (11.27-16.99) 04/27/24 04:13 Hct 53.9 % (37-53) H 04/27/24 04:13 MCV 83.8 fl (82-101) 04/27/24 04:13 MCH 25.0 pg (27-33) L 04/27/24 04:13 MCHC 29.9 g/dL (30-55) L 04/27/24 04:13 RDW 20.7 % (12.1-15.1) H 04/27/24 04:13 Sodium 128 mmol/L (136-145) L 04/27/24 04:13 Potassium 5.9 mmol/L (3.5-5.1) H 04/27/24 04:13 Chloride 92 mmol/L (98-107) L 04/27/24 04:13 Carbon Dioxide 26 mmol/L (22-29) 04/27/24 04:13 Anion Gap 15.9 (5-19) 04/27/24 04:13 BUN 38 mg/dL (8-23) H 04/27/24 04:13 Creatinine 4.4 mg/dL (0.7-1.2) H 04/27/24 04:13 GFR Calculation 13.7 mL/min (90-130) L 04/27/24 04:13 Treatment plan:: new consult Regimen:: 1500MG Q36 H
--- NOTE | 2024-04-27 14:53 | PC.NURSE ---
1444 Monitor showed 4 beat run of ectopy. Blood pressure continues stable. No other changes. Rythem strip posted in chart.
--- NOTE | 2024-04-27 14:55 | PC.NURSE ---
1445 Unable to do NIH stroke scale due to patient being sedated and on ventilator. Does gag when suctioned. Pupils react to light.
[2024-04-27] MEDS: vancomycin 1,500 MG/300 ML PIGGYBACK 200 MG IV (14:59)
[2024-04-27 18:10] LABS: Partial Thromboplastin Time 77.2 SECONDS (23.9-36.7)
--- NOTE | 2024-04-27 19:54 | PC.NURSE ---
Lipitor held this evening, tablet cannot be crushed and placed in OG.
[2024-04-27] MEDS: propofol 1,000 MG/100 ML INJ 18.37 MG IV (20:52)
--- NOTE | 2024-04-27 22:42 | USCV_ITS ---
João Carter Age: 63 Gender: M : 1960 Exam Date: 04/27/2024 18:09 Ordering Phys: Kellie Monroy MD Technologist: Angel Hardwick [place] [facility] [place]: BP: 134 / 77 HR: 69 Rhythm: Sinus Technical Quality: Adequate MEASUREMENTS (Male / Female) Normal Values 2D ECHO LV Diastolic Diameter PLAX 2.8 cm 4.2 - 5.9 / 3.9 - 5.3 cm IVS Diastolic Thickness 1.7 cm 0.6 - 1.0 / 0.6 - 0.9 cm IVS Systolic Thickness 1.9 cm LVPW Diastolic Thickness 2.7 cm 0.6 - 1.0 / 0.6 - 0.9 cm LVPW Systolic Thickness 2.8 cm LVOT Diameter 2.0 cm LV Ejection Fraction 2D Teich 66.2 % LV Ejection Fraction MOD 4C 60.5 % LV Ejection Fraction MOD 2C 67.1 % LV Ejection Fraction 2C AL 68.1 % LA Diameter 3.6 cm RA Systolic Volume 4C AL 53.9 ml RA Systolic Volume 4C MOD 49.4 ml LA Sys Volume AL 42.7 cm cubed LA Sys Volume Index AL 19.0 cm cubed/m squared Aorta at Sinotubular Diameter 2.3 cm IVC Diameter 1.9 cm M-MODE LA Ao Ratio MM 1.5 AV Cusp Separation MM 1.1 cm DOPPLER AV Peak Velocity 86.0 cm/s LVOT Peak Velocity 65.0 cm/s AV Area Cont Eq vti 2.3 cm squared AV Area Cont Eq pk 2.4 cm squared MV Peak Velocity 111.0 cm/s MV Area PHT 7.4 cm squared Mitral E to A Ratio 0.6 PV Peak Velocity 71.0 cm/s RV Ejection Time 0.3 s FINDINGS Left Ventricle Technically limited quality echocardiogram because of poor ultrasonic windows. LV systolic function is normal with EF of 60 to 65%. Moderate to severe left ventricular hypertrophy seen. Grade 1 diastolic dysfunction. No regional wall motion abnormalities Right Ventricle Grossly normal Right Atrium Normal in size Left Atrium Normal in size Mitral Valve Structurally normal mitral valve. Mild mitral regurgitation. Aortic Valve Grossly aortic valve is thickened. Doppler signals are suboptimal however grossly no significant stenosis. Tricuspid Valve Mild tricuspid regurgitation. Insufficient TR jet to calculate RVSP Pulmonic Valve Mild pulmonic regurgitation. Pericardium Normal Aorta Normal in size IVC Appears to be normal CONCLUSIONS Technically limited quality echocardiogram because of poor ultrasonic windows. LV systolic function is normal with EF of 60 to 65%. Grade 1 diastolic dysfunction Moderate to severe left ventricular hypertrophy Mild mitral regurgitation Mild tricuspid regurgitation Mild pulmonic regurgitation Accurate comparison with prior studies not possible because of poor ultrasonic windows and limited visualization. Steven Mallory MD (Electronically Signed) Final Date: 27 April 2024 19:08 S
[2024-04-27] MEDS: heparin drip 25,000 UNIT/500 ML PREMIX 22 UNIT IV (22:46)
[2024-04-28] VITALS (111 sets, daily range): BP systolic 62–139; BP diastolic 49–88; PULSE 63–87; RESP 14–22; TEMP 36.3–36.7; O2SAT 94–100
[2024-04-28 00:18] LABS: Glucose Point of Care 95 mg/dL (70-110)
[2024-04-28 01:13] LABS: Partial Thromboplastin Time 60.4 SECONDS (23.9-36.7)
[2024-04-28] MEDS: albuterol 2.5 mg/3 mL Neb INHALATION ×2 (01:34→08:40)
[2024-04-28] MEDS: propofol 1,000 MG/100 ML INJ 18.37 MG IV ×5 (03:15→23:44)
[2024-04-28 04:14] LABS: INR 1.19 (0.8-1.2)
[2024-04-28 04:20] LABS: Lactate (Lactic Acid level) 2.5 mmol/L (0.5-2.2)
[2024-04-28 04:29] LABS: C Reactive Protein 122.1 mg/L (0.0-4.9); Phosphorus 6.2 mg/dL (2.5-4.5)
[2024-04-28 04:30] LABS: ABG PCO2 42.9 mmHg (35-45); ABG PH Result 7.36 (7.35-7.45); Arterial Blood Gas Hematocrit 48.4 % (42-52); Base Excess ABG -1.4 mmol/L (-2.0-2.0); Blood Gas Allen Test Pos; Blood Gas Operator Identificat ED; Blood Gas Sample Site Radial, right; Blood Gas Sample Type Arterial; HCO3 ABG 24.3 mmol/L (22-26); Oxygen Device VENT; PO2 ABG 79.3 mmHg (80.0-100.0); PO2 FiO2 Ratio Arterial Blood 226
[2024-04-28 04:31] LABS: NT Pro B Type Natriuretic Pept 8284 pg/mL (0-125); Procalcitonin 0.94 ng/mL (0-0.5)
[2024-04-28 04:41] LABS: Creatine Phosphokinase 120 U/L (39-308)
[2024-04-28 06:34] LABS: Partial Thromboplastin Time 52.1 SECONDS (23.9-36.7)
[2024-04-28] MEDS: norepinephrine 4 MG/250 ML BAG 7.5 MG IV (06:49)
[2024-04-28 08:03] LABS: Basophils # 0.1 10^3/uL (0.0-0.1); Basophils % 0.6 %; Eosinophils # 0.4 10^3/uL (0.0-0.8); Eosinophils % 3.6 %; Lymphocytes # 0.6 10^3/uL (0.8-4.8); Lymphocytes % 5.9 %; Mean Corpuscular HGB Conc 29.4 g/dL (30-55); Mean Corpuscular Hemoglobin 24.9 pg (27-33); Mean Corpuscular Volume 84.6 fl (82-101); Mean Platelet Volume 10.5 fL (7.4-10.4); Monocytes # 1.1 10^3/uL (0.2-0.9); Monocytes % 9.8 %; Neutrophils # 8.54 10^3/uL (1.8-7.7); Neutrophils % 79.7 %; Nucleated Red Blood Cells % 0 %; Platelet Count 102 10^3/cmm (157-399); Red Blood Count 6.15 10^6/uL (3.85-5.65); White Blood Count 10.71 10^3/uL (3.29-11.43)
--- NOTE | 2024-04-28 08:04 | P.PN_ITS ---
Subjective 2 Subjective: remains on vent Medications: Reviewed: Yes Vitals/I&O/Wt Last Vital Signs Temp 97.4 F L 04/28/24 04:00 Pulse 66 04/28/24 05:43 Resp 14 04/28/24 03:54 BP 62/49 04/28/24 04:15 Pulse Ox 96 04/28/24 04:15 O2 Del Method Mechanical Ventilation 04/28/24 01:34 FiO2 35 04/28/24 03:54 04/27/24 04/28/24 04/28/24 22:59 06:59 14:59 Intake Total 1293.209 / 1780.073 289.737 / 2069.810 87.258 / 87.258 Output Total 2514 / 2764 75 / 2839 Balance -1220.791 / -983.927 214.737 / -769.190 87.258 / 87.258 Weight last 48 hrs Weight 95.5 kg Weight 98.9 kg Weight 100.2 kg Weight 99 kg Weight 102.058 kg Physical Exam 2 Narrative: Intubated on Levophed FiO2 of 80%. HEENT normocephalic atraumatic. Neck is supple Lungs -scattered bilateral rhonchi. Heart regular positive S1-S2 Abdomen is soft positive bowel sounds. Extremities no edema. Right anterior chest wall permacath. Neuro sedated. Urinary Catheter Management: Latham: Cath Placed During This Visit: yes Reason for Continuing Indwelling Catheter: Accurate Measurement of Urinary Output in Critically Ill Patients Urinary Catheter Date of Insertion: 04/26/24 Urinary Catheter Time of Insertion: 21:25 Data 04/28/24 06:13 04/27/24 04:13 Micro: Microbiology 04/26/24 13:35 Blood Culture - Preliminary Blood NEGATIVE TO DATE 04/26/24 13:45 Blood Culture - Preliminary Blood NEGATIVE TO DATE A&P Assessment and plan (1) ESRD on dialysis: 63-year-old gentleman ESRD here with right-sided weakness. History of hypertension, polycythemia, obesity, sleep apnea. Patient here with episodes of altered mental status. 1. Vent dependent respiratory failure. As per critical care. Appreciate Dr. Carrillo's note. CTA found dilated main pulmonary artery of 3.2 cm ectatic ascending thoracic aorta measuring 4.4 cm in the lung multifocal consolidative and groundglass opacities of the lungs with areas of mosaic attenuation. Similar to prior likely right apical scarring calcified granuloma in the right lung apex -Multiple enlarged mediastinal and hilar, no evidence of PE. Question of left basilar consolidation for pneumonia. Question of sarcoidosis. 1. ESRD : HD yesterday , seth for next HD tomorrow 2. septic shock with white cell count of 18.47. Renal dosed antibiotics 3. Hyponatremia monitor with dialysis 4. Hyperkalemia monitor with dialysis. 5. Hyperphosphatemia monitor with dialysis and get binder when eating. 6. Positive troponins likely from stress. 7. History of sarcoidosis as per pulmonary. Patient is in critical condition in the ICU will monitor closely. The patient was seen and examined using A/V equipment and a nurse examined the patient. The patient consented on april 26, 2024 to telehealth visit and to dialysis. . Plan See above Attestations 2 Medical Necessity Statement*: per jace Coding Level of Care Code Acute Code for Chg Fwd Diagnoses ESRD on dialysis N18.6; Z99.2
[2024-04-28 08:19] LABS: Blood Urea Nitrogen 29 mg/dL (8-23); Calcium 8.9 mg/dL (8.5-10.5); Carbon Dioxide 21 mmol/L (22-29); Chloride 94 mmol/L (98-107); Creatinine Clr Calc Pharmacy 21.0066; Glomerular Filtration Rate 14.1 mL/min (90-130); Glucose 114 mg/dL (65-115); Osmolality Calculated 281 mOsm/kg (285-295); Sodium 132 mmol/L (136-145)
[2024-04-28] MEDS: pantoprazole 40 mg SDV IVP (08:31)
[2024-04-28] MEDS: clopidogrel 75 mg Tablet PO (08:31)
[2024-04-28] MEDS: aspirin 81 mg EC Tablet PO (08:31)
--- NOTE | 2024-04-28 08:40 | PM.PN ---
Subjective Subjective: Events over the weekend were noted. Patient with end-stage renal disease, on hemodialysis, was brought to the hospital with the TIA-like symptoms. He was found to have a high-grade stenosis of the left ICA. While being in the emergency room, he also had a seizure episode and followed by altered mental status. Currently he is intubated and sedated. He had an episode of atrial fibrillation in the hospital. Currently he is on IV heparin. His troponin Ts were found to be elevated. Etiology is unclear. Patient is on dual antiplatelet treatment along with heparin. So far his vitals are stable. Medications: Medication Review Details: Current Medications Acetaminophen (Acetaminophen 325 Mg Tablet) 650 mg PO Q6H PRN PRN Reason: Mild/Mod Pain Or Temp >/= 101 Albuterol Sulfate (Albuterol 2.5 Mg/3 Ml Neb) 2.5 mg INHALATION Q6H.RESP PRN PRN Reason: sob Albuterol/Ipratropium (Ipratropium-Albuterol 3 Ml Neb) 3 ml INHALATION Q6H.RESP LEN Last Admin: 04/28/24 13:47 Dose: 3 ml Aspirin (Aspirin 81 Mg Ec Tablet) 81 mg PO DAILY LEN Last Admin: 04/28/24 08:31 Dose: 81 mg Atorvastatin Calcium (Atorvastatin 40 Mg Tablet) 80 mg PO BEDTIME LEN Last Admin: 04/27/24 19:54 Dose: Not Given Budesonide (Budesonide 0.5 Mg/2 Ml Neb) 0.5 mg INHALATION BID.RESPIRATORY LEN Clopidogrel Bisulfate (Clopidogrel 75 Mg Tablet) 75 mg PO DAILY LEN Last Admin: 04/28/24 08:31 Dose: 75 mg Heparin Sodium (Porcine) (Heparin Lock Flush 500 Unit/5 Ml Syringe) 200 - 500 unit IV Q12H LEN Last Admin: 04/28/24 07:37 Dose: Not Given Heparin Sodium (Porcine) (Heparin 5,000 Unit/Ml Inj 1 Ml) 0 unit IVP PRN PRN; Protocol PRN Reason: Heparin Weight Based Protocol -Subsequent Bolus Propofol (Diprivan) 1,000 mg in 100 mls @ 0 mls/hr IV .Q0M LEN; Protocol Last Admin: 04/28/24 17:47 Dose: 30 mcg/kg/min, 18.37 mls/hr Norepinephrine Bitartrate (Levophed) 4 mg in 250 mls @ 0 mls/hr IV .Q0M LEN; Protocol Last Titration: 04/28/24 08:46 Dose: 4 mcg/min, 15 mls/hr Heparin Sodium/Sodium Chloride (Heparin Drip) 25,000 unit in 500 mls @ 0 mls/hr IV CONT [facility]; Protocol Last Titration: 04/28/24 14:05 Dose: 12.74 unit/kg/hr, 26 mls/hr Dextrose (D10w) 125 mls @ 750 mls/hr IV PRN PRN; Protocol PRN Reason: Adult Acute Hypoglycemia Nursing Protocol Albumin Human (Albumin) 12.5 gm in 50 mls @ 60 mls/hr IV PRN PRN PRN Reason: Hypotension and/or symptomatic Vancomycin HCl (Vancocin) 1,500 mg in 300 mls @ 200 mls/hr IV Q36H [facility] Last Infusion: 04/27/24 16:25 Dose: Infused Cefepime HCl 1,000 mg/ Sodium (Chloride) 50 mls @ 100 mls/hr IV Q24H [facility]; Protocol Last Infusion: 04/28/24 13:47 Dose: Infused Fentanyl (Sublimaze) 1,000 mcg in 100 mls @ 0 mls/hr IV .Q0M [facility]; Protocol Last Admin: 04/28/24 10:07 Dose: 25 mcg/hr, 2.5 mls/hr Dextrose (D10w) 250 mls @ 1,000 mls/hr IV PRN PRN PRN Reason: HYPOGLYCEMIA Lidocaine HCl (Lidocaine 1% Inj 20 Ml) 0.1 ml INTRADERMA PRN PRN PRN Reason: Anesthetic Catheter Placement Midodrine (Midodrine 5 Mg Tablet) 10 mg PO TID [facility] Last Admin: 04/28/24 15:28 Dose: 10 mg Morphine Sulfate (Morphine 4 Mg/Ml Sdv 1 Ml) 2 mg IVP Q4H PRN PRN Reason: SEVERE PAIN Ondansetron HCl (Ondansetron 2 Mg/Ml Sdv 2 Ml) 4 mg IVP Q8H PRN PRN Reason: vomiting, or N/V if npo Pantoprazole Sodium (Pantoprazole 40 Mg Sdv) 40 mg IVP DAILY [facility] Last Admin: 04/28/24 08:31 Dose: 40 mg Prednisone (Prednisone 20 Mg Tablet) 40 mg PO DAILY [facility] Last Admin: 04/28/24 08:50 Dose: 40 mg Sodium Chloride (Sodium Chloride 0.9 % (Flush) Syringe 10 Ml) 5 - 10 ml IV Q12H LEN Last Admin: 04/28/24 07:37 Dose: Not Given Vitals/I&O/Wt Last Vital Signs Temp 97.4 F L 04/28/24 04:00 Pulse 67 04/28/24 08:15 Resp 14 04/28/24 03:54 BP 120/66 04/28/24 08:15 Pulse Ox 97 04/28/24 08:15 O2 Del Method Mechanical Ventilation 04/28/24 01:34 FiO2 35 04/28/24 08:00 04/27/24 04/28/24 04/28/24 22:59 06:59 14:59 Intake Total 1293.209 / 1780.073 289.737 / 2069.810 87.258 / 87.258 Output Total 2514 / 2764 75 / 2839 Balance -1220.791 / -983.927 214.737 / -769.190 87.258 / 87.258 Weight last 48 hrs Weight 210 lb 8.663 oz Weight 218 lb 0.595 oz Weight 220 lb 14.451 oz Weight 218 lb 4.122 oz Weight 225 lb Physical Exam Narrative: GENERAL: The patient is intubated and sedated. HEENT: Moderate pallor with no icterus or lymphadenopathy.Oral cavity: There are no mucous membrane lesions. NECK: Trachea appears to be central. No masses noted. No JVD or thyromegaly appreciated. RESPIRATORY: Chest is symmetrical. No intercostals muscle retraction or any accessory muscle activation. There is no chest wall tenderness. Breath sounds are heard bilaterally. No rales or rhonchi heard. No evidence of any consolidation. BREASTS: Deferred. HEART: The heart sounds are normal. No S3 or S4. Short systolic murmur at the left upper border. No diastolic murmurs. No pericardial rub ABDOMEN: No vessel pulsations or distention. No tenderness. No organomegaly appreciated. Bowel sounds are normally heard. : Deferred. RECTAL: Deferred. LYMPHATIC: No lymphadenopathy noted in the neck. EXTREMITIES: No edema or cyanosis. No clubbing. MUSCULOSKELETAL: No acute joint deformities or swelling SKIN: There are no significant rashes or ecchymosis NEUROPSYCHIATRIC: The patient is alert and oriented x3. Appears to be in a good mood. No tremors or rigidity noted. Urinary Catheter Management: [place]: Cath Placed During This Visit: yes Reason for Continuing Indwelling Catheter: Accurate Measurement of Urinary Output in Critically Ill Patients Urinary Catheter Date of Insertion: 04/26/24 Urinary Catheter Time of Insertion: 21:25 Data 04/28/24 06:13 04/28/24 06:13 Other Labs: Laboratory Last Values WBC 10.71 10^3/uL (3.29-11.43) 04/28/24 06:13 RBC 6.15 10^6/uL (3.85-5.65) H 04/28/24 06:13 Hgb 15.30 g/dL (11.27-16.99) 04/28/24 06:13 Hct 52.0 % (37-53) 04/28/24 06:13 MCV 84.6 fl (82-101) 04/28/24 06:13 MCH 24.9 pg (27-33) L 04/28/24 06:13 MCHC 29.4 g/dL (30-55) L 04/28/24 06:13 RDW 21.0 % (12.1-15.1) H 04/28/24 06:13 Plt Count 102 10^3/cmm (157-399) L 04/28/24 06:13 MPV 10.5 fL (7.4-10.4) H 04/28/24 06:13 Neut % (Auto) 79.7 % 04/28/24 06:13 Lymph % (Auto) 5.9 % 04/28/24 06:13 [place] % (Auto) 9.8 % 04/28/24 06:13 Eos % (Auto) 3.6 % 04/28/24 06:13 Baso % (Auto) 0.6 % 04/28/24 06:13 Neut # (Auto) 8.54 10^3/uL (1.8-7.7) H 04/28/24 06:13 Lymph # (Auto) 0.6 10^3/uL (0.8-4.8) L 04/28/24 06:13 [place] # (Auto) 1.1 10^3/uL (0.2-0.9) H 04/28/24 06:13 Eos # (Auto) 0.4 10^3/uL (0.0-0.8) 04/28/24 06:13 Baso # (Auto) 0.1 10^3/uL (0.0-0.1) 04/28/24 06:13 Nucleated RBC % (auto) 0 % 04/28/24 06:13 Nucleated RBCs # 0.0 /100WBC 04/28/24 06:13 Peripher Smr Path Cons Sent for review 04/26/24 13:29 ESR 17 mm/hr (0-10) H 04/26/24 13:29 PT 15.50 SECONDS (12.1-14.9) H 04/28/24 03:20 INR 1.19 (0.8-1.2) 04/28/24 03:20 APTT 49.5 SECONDS (23.9-36.7) H 04/28/24 13:24 Specimen Type Arterial 04/28/24 04:18 Sample Site Radial, right 04/28/24 04:18 ABG pH 7.36 (7.35-7.45) 04/28/24 04:18 ABG pCO2 42.9 mmHg (35-45) 04/28/24 04:18 ABG pO2 79.3 mmHg (80.0-100.0) L 04/28/24 04:18 ABG PO2/FiO2 Ratio 226 04/28/24 04:18 ABG HCO3 24.3 mmol/L (22-26) 04/28/24 04:18 ABG O2 Saturation 97.3 04/27/24 04:30 ABG Base Excess -1.4 mmol/L (-2.0-2.0) 04/28/24 04:18 Martin Test Pos 04/28/24 04:18 A-a O2 Gradient 52.0 mmHg (5-10) H 04/27/24 04:30 Hematocrit 48.4 % (42-52) 04/28/24 04:18 Hgb O2 Saturation 96.3 % (95-100) 04/27/24 04:30 Carboxyhemoglobin 0.4 %THgb (0.4-20.1) 04/27/24 04:30 Methemoglobin 0.6 % (0.4-1.5) 04/27/24 04:30 Total Hemoglobin 18.4 g/dL (14-18) H 04/27/24 04:30 Sodium 123.0 mmol/L (131-143) L 04/27/24 04:30 Potassium 5.2 mmol/L (3.5-5.0) H 04/27/24 04:30 Glucose 82.0 mg/dL (70-115) 04/27/24 04:30 Ionized Calcium 1.3 mmol/L (1.1-1.4) 04/27/24 04:30 O2 Delivery Device Vent 04/28/24 04:18 FiO2 35.0 % 04/28/24 04:18 Tidal Volume 0.50 04/28/24 04:18 PEEP 8.0 cmH20 04/28/24 04:18 Bonding Molder ID Ed 04/28/24 04:18 Sodium 132 mmol/L (136-145) L 04/28/24 06:13 Potassium 6.0 mmol/L (3.5-5.1) H 04/28/24 06:13 Chloride 94 mmol/L (98-107) L 04/28/24 06:13 Carbon Dioxide 21 mmol/L (22-29) L 04/28/24 06:13 Anion Gap 23.0 (5-19) H 04/28/24 06:13 BUN 29 mg/dL (8-23) H 04/28/24 06:13 Creatinine 4.3 mg/dL (0.7-1.2) H 04/28/24 06:13 GFR Calculation 14.1 mL/min (90-130) L 04/28/24 06:13 Glucose 114 mg/dL (65-115) 04/28/24 06:13 POC Glucose 95 mg/dL (70-110) 04/27/24 22:22 Estimat Average Glucose 126 04/26/24 13:29 Hemoglobin A1c 6.0 % (4.0-6.0) 04/26/24 13:29 Calculated Osmolality 281 mOsm/kg (285-295) L 04/28/24 06:13 Lactic Acid 1.8 mmol/L (0.5-2.2) 04/26/24 13:29 Lactate 2.5 mmol/L (0.5-2.2) H 04/28/24 03:20 Calcium 8.9 mg/dL (8.5-10.5) 04/28/24 06:13 Phosphorus 6.2 mg/dL (2.5-4.5) H 04/28/24 03:20 Magnesium 2.9 mg/dL (1.7-2.3) H 04/27/24 04:13 Iron 19 ug/dL (59-158) L 04/28/24 06:13 TIBC 253 mcg/dl 04/28/24 06:13 % Saturation 7.5 % (20-50) L 04/28/24 06:13 Unsat Iron Binding 234 ug/dL (112-347) 04/28/24 06:13 Total Bilirubin 0.5 mg/dL (0.15-1.2) 04/27/24 04:13 Direct Bilirubin 0.30 mg/dL (0.00-0.30) 04/26/24 13:29 AST 40 U/L (0-40) 04/27/24 04:13 ALT 18 U/L (0-41) 04/27/24 04:13 Alkaline Phosphatase 118 U/L (40-130) 04/27/24 04:13 Lactate Dehydrogenase 201 U/L (135-225) 04/28/24 06:13 Creatine Kinase 120 U/L (39-308) 04/28/24 03:20 Troponin T Baseline 187 ng/L (0-15) H* 04/26/24 19:49 Troponin T 120 Minute 205.2 ng/L (0-15) H 04/26/24 22:25 Delta Troponin T 18.2 ABS# (0-10) H* 04/26/24 22:25 Troponin T Hi Sens 6Hr 389.1 ng/L (0-15) H 04/27/24 01:51 Troponin T Hi Sens 6Hr Delta 202.1 ng/L (0-12) H* 04/27/24 01:51 C-Reactive Protein 122.1 mg/L (0.0-4.9) H 04/28/24 03:20 NT-Pro-B Natriuret Pep 8284 pg/mL (0-125) H 04/28/24 03:20 Total Protein 7.5 g/dL (6.6-8.7) 04/27/24 04:13 Albumin 3.6 g/dL (3.5-5.2) 04/27/24 04:13 Globulin 3.9 g/dL (1.3-4.6) 04/27/24 04:13 Triglycerides 116 mg/dL (0-150) 04/26/24 13:29 Cholesterol 141 mg/dL (0-200) 04/26/24 13:29 LDL Cholesterol, Calc 65 mg/dL (50-129) 04/26/24 13:29 HDL Cholesterol 53 mg/dL (60-100) L 04/26/24 13:29 LDL/HDL Ratio 1.23 RATIO (0.00-3.22) 04/26/24 13:29 Cholesterol/HDL Ratio 2.66 mg/dL (1.0-5.00) 04/26/24 13:29 Vitamin B12 > 2000 pg/mL (232-1245) H 04/28/24 06:13 Procalcitonin 0.94 ng/mL (0-0.5) H 04/28/24 03:20 TSH 5.21 uIU/mL (0.27-4.20) H 04/26/24 13:29 TSH 5.25 uIU/mL (0.27-4.20) H 04/26/24 13:29 Ethyl Alcohol < 10 mg/dL (0-10) 04/26/24 13:29 Hepatitis A IgM Ab Non-reactive (Nonreactive) 04/26/24 13:29 Hep Bs Antigen Non-reactive (Nonreactive) 04/27/24 04:13 Hep Bs Antibody 18.4 (11.5-1000) 04/27/24 04:13 Hep B Core Total Ab Non-reactive (Nonreactive) 04/26/24 13:29 Hepatitis C Antibody Non-reactive (Nonreactive) 04/27/24 04:13 HIV 1&2 Ab & HIV 1 Ag Non-reactive (Non-Reactiv) 04/27/24 00:30 HIV 1&2 Antibody Non-reactive (Non-Reactiv) 04/27/24 00:30 MRSA (PCR) Cancelled 04/28/24 06:13 Beta-(1,3)-D-Glucan Cancelled 04/28/24 06:13 B-(1,3)-D-Glucan Intrp Cancelled 04/28/24 06:13 Micro: Microbiology 04/26/24 13:35 Blood Culture - Preliminary Blood NEGATIVE TO DATE 04/26/24 13:45 Blood Culture - Preliminary Blood NEGATIVE TO DATE Other data: Echocardiogram from 04/27/2024 Technically limited quality echocardiogram because of poor ultrasonic windows. LV systolic function is normal with EF of 60 to 65%. Grade 1 diastolic dysfunction Moderate to severe left ventricular hypertrophy Mild mitral regurgitation Mild tricuspid regurgitation Mild pulmonic regurgitation Accurate comparison with prior studies not possible because of poor ultrasonic windows and limited visualization. A&P Assessment and plan (1) Troponin level elevated: Possibly from type II DC. Cannot exclude type I. Echocardiogram was unremarkable. No acute ST-T changes. May continue on the current medications. Consider Myocardial perfusion imaging, once the patient is extubated and clinically stable. (2) Left carotid artery stenosis: Patient may benefit from carotid intervention. Vascular surgery is to decide the timing (3) ESRD on dialysis: Patient is on dialysis, 3 times a week. This may be continued. (4) Transient ischemic attack (TIA): Possible related to hypotension and high-grade carotid stenosis. Currently has no recurrence. (5) Paroxysmal atrial fibrillation with rapid ventricular response: Patient is on IV heparin. This may be continued. (6) Cardiac arrest: Patient has a history of cardiac cardiac arrest with no recent recurrence. Had a Myocardial perfusion imaging in June of last year and was found to have no evidence of ischemia. Plan May continue on the current management. Cardiac [place] the patient seems to be stable. Attestations Medical Necessity Statement*: Deferred to the primary Coding Level of Care Code 19884 Diagnoses Troponin level elevated R79.89 Left carotid artery stenosis I65.22 ESRD on dialysis N18.6; Z99.2 Transient ischemic attack (TIA) G45.9 Paroxysmal atrial fibrillation with rapid ventricular response I48.0 Cardiac arrest I46.9
[2024-04-28] MEDS: midodrine 5 mg TABLET 10 MG PO ×3 (08:46→22:20)
[2024-04-28] MEDS: predniSONE 20 mg Tablet 40 MG PO (08:50)
[2024-04-28] MEDS: budesonide 0.5 mg/2 mL Neb INHALATION ×2 (09:02→20:27)
[2024-04-28 09:57] LABS: Iron 19 ug/dL (59-158); Lactate Dehydrogenase 201 U/L (135-225); Percent Saturation 7.5 % (20-50); Total Iron Binding Capacity 253 mcg/dl; Unsaturated Iron Binding 234 ug/dL (112-347)
[2024-04-28] MEDS: fentaNYL 1,000 MCG/100 ML BAG 2.5 MCG IV (10:07)
[2024-04-28 10:21] LABS: Vitamin B12 > 2000 pg/mL (232-1245)
[2024-04-28] MEDS: dextrose 10% 125 ML 750 ML IV (11:10)
[2024-04-28] MEDS: insulin regular-human 10 UNIT in SYRINGE 1 EACH IVP (11:19)
--- NOTE | 2024-04-28 12:04 | PC.PHAR ---
Pt unable to verify medications. No answer at wifes' phone number. Verified with pharmacy.
[2024-04-28] MEDS: cefepime 1,000 MG in sodium chloride 0.9% (plus) 50 ML 100 MG IV (13:16)
[2024-04-28] MEDS: ipratropium-albuterol 3 mL Neb INHALATION ×2 (13:47→20:27)
[2024-04-28 14:03] LABS: Partial Thromboplastin Time 49.5 SECONDS (23.9-36.7)
--- NOTE | 2024-04-28 14:33 | PC.OT ---
OT EVALUATION HELD TODAY PATIENT IS STILL INTUBATED
--- NOTE | 2024-04-28 15:37 | PC.SOCIAL ---
IMM Update patient is intubated @ this time. IMM not updated. Copy left @ bedside. Copy Placed in chart.
--- NOTE | 2024-04-28 17:23 | PM.PN ---
Subjective Subjective: Hospital course, labs appreciated. On examination patient on propofol of 25, not on fentanyl. Currently on mechanical ventilation with PEEP of 8, tidal volume of 500, FiO2 of 35%, saturating over 90%. Mean artery pressure maintained between 60-65 on Levophed of 2. Patient sedated. Vitals/I&O/Wt Last Vital Signs Temp 97.4 F L 04/28/24 04:00 Pulse 73 04/28/24 16:00 Resp 15 04/28/24 16:08 BP 107/67 04/28/24 16:00 Pulse Ox 96 04/28/24 16:08 O2 Del Method Mechanical Ventilation 04/28/24 13:48 FiO2 35 04/28/24 16:08 04/28/24 04/28/24 04/28/24 06:59 14:59 22:59 Intake Total 289.737 / 2069.810 543.282 / 543.282 Output Total 75 / 2839 Balance 214.737 / -769.190 543.282 / 543.282 Weight last 48 hrs Weight 95.5 kg Weight 98.9 kg Weight 100.2 kg Weight 99 kg Physical Exam Narrative: General: Intubated sedated HEENT: Normocephalic, atraumatic, EOMI, Cardio: Regular rate rhythm, normal S1-S2, Respiratory: Mild rhonchi bilateral lower lung bases GI: Abdomen soft, nontender, nondistended, bowel sounds + Extremities: No edema bilateral extremities. Urinary Catheter Management: [place]: Cath Placed During This Visit: yes Reason for Continuing Indwelling Catheter: Accurate Measurement of Urinary Output in Critically Ill Patients Urinary Catheter Date of Insertion: 04/26/24 Urinary Catheter Time of Insertion: 21:25 Data 04/28/24 06:13 04/28/24 06:13 Micro: Microbiology 04/28/24 08:50 Gram Stain - Final Sputum - Endotracheal Tube Aspirate 04/26/24 13:35 Blood Culture - Preliminary Blood NEGATIVE TO DATE 04/26/24 13:45 Blood Culture - Preliminary Blood NEGATIVE TO DATE A&P Assessment and plan (1) Respiratory failure: Most likely in setting of aspiration pneumonitis with baseline COPD on obstructive sleep apnea with significant history of sarcoidosis in the past. Currently on mechanical ventilation. Appreciate ABG. Continue with propofol. Add fentanyl for analgesia. Maintain oxygen saturation over 90%. Sedation vacation daily. Possible extubation within next 24 hours. Follow-up sputum culture. Check LDH, Fungitell, histoplasma urine antigen, coccidiomycosis, MRSA swab. For now continue with IV vancomycin and cefepime. With dose as per hemodialysis. Check angiotensin converting enzyme level. Start on prednisone 40 mg oral daily given significant history of sarcoidosis in the past. (2) Transient ischemic attack (TIA): Appreciate CT head and CTA head and neck done on admission. CT head and neck concerning for severe left carotid artery stenosis. Consulted with [facility] neurology team on admission. Deemed not a candidate for intervention. Continue with aspirin, statin, Plavix, heparin drip for now. Patient will need to follow-up with vascular surgery as an outpatient. (3) Seizure: Witnessed seizure in the ER. No further seizure activity. Could be in setting of hypotension in setting of carotid artery stenosis. Hold off on antiseizure medications for now. Seizure precautions. Maintain mean arterial pressure over 65. Add midodrine 10 mg 3 times daily. Wean Levophed accordingly. (4) Troponin level elevated: Most likely in setting of demand ischemia. Appreciate cardiology recommendations. Continue with dual antiplatelet therapy along with statin as above. Most likely will need ACS workup once more stable. (5) Left carotid artery stenosis: (6) Sarcoidosis: (7) ESRD on dialysis: (8) Hypertension: Qualifiers: Hypertension type: primary hypertension Qualified Code(s): I10 - Essential (primary) hypertension (9) Chronic diastolic heart failure: (10) Hyperlipidemia: (11) Uses continuous positive airway pressure (CPAP) ventilation at home: Plan Sedation: C/w Propofol, add fentanyl Glycemic control: A1c- 6.0 Nutrition: NPO CODE STATUS: Full Code PUD prophylaxis: Protonix DVT prophylaxis: Heparin drip Discharge planning: Depending on the clinical picture going forward. Continue with care at ICU This documentation was created by [employer] v belt mold assembler and curer software. Every effort was made to ensure accuracy of v belt mold assembler and curer. Any obvious errors or omissions should be clarified with the author of the document. Patient's care discussed in detail with both and daughter over the phone. All the questions were answered. Attestations Medical Necessity Statement*: Requires further hospitalization for management of respiratory failure in setting of aspiration pneumonitis in a patient with baseline sarcoidosis, obstructive sleep apnea postseizure who was initially admitted for TIA in setting of severe left carotid artery stenosis Critical Care Time: The high probability of a clinically significant, sudden or life threatening deterioration of the patient's [pulmonary, cardiac, renal, neurology] system(s) required my full and direct attention, intervention and personal management. The critical care time is as shown. This time is in addition to time spent performing any reported procedures but includes the following: [x] Data and vital sign review and interpretation [x] Patient assessment, examination and intervention [x] Documentation [x] Medication orders and management Critical Care Time (min): 70 Coding Level of Care Code Critical Care >/= 30 minutes Critical care time (in minutes): 70 The high probability of a clinically significant, sudden or life threatening deterioration, as referenced in this documentation, required my full and direct attention, intervention and personal management. The critical care time shown is in addition to time spent performing any reported separately billable procedures and includes the following: [x] Data and vital sign review and interpretation [x] Patient assessment, examination and intervention [x] Medication orders and management [x] Patient/Family updates as able [x] Care Coordination and Documentation. Other Coding Information This patient has a high probability of clinically significant, sudden or life threatening deterioration of the patient's (neurological/pulmonary/cardiac/renal/ID/endocrine) systems required my full, direct attention, the highest level of physician preparedness for urgent intervention and personal management. I managed/supervised life or organ supporting interventions that required frequent physician assessment. I devoted my full attention in the ICU to the direct care of this patient for the period of time indicated above. Time I spent with family or surrogate(s) is included only if the patient was incapable of providing necessary information or participating in decision making. This time includes the following services provided: Telemetry review Mechanical Ventilation Hemodynamic interpretation, assessment and management Review and interpretation of CXR Review and interpretation of lab values Review and interpretation of microbiologic data and culture results Review of medications and administration Review and interpretation of Nutrition requirements and management Discussion of management with other consultants and services Clinical update to family members Diagnoses Respiratory failure J96.90 Transient ischemic attack (TIA) G45.9 Seizure R56.9 Troponin level elevated R79.89 Left carotid artery stenosis I65.22 Sarcoidosis D86.9 ESRD on dialysis N18.6; Z99.2 Primary hypertension I10 Hypertension type: primary hypertension Chronic diastolic heart failure I50.32 Hyperlipidemia E78.5 Uses continuous positive airway pressure (CPAP) ventilation at home Z99.89
--- NOTE | 2024-04-28 17:47 | PC.NURSE ---
[facility] coordinator, Ragini, on site and seen pt.
--- NOTE | 2024-04-28 17:57 | PC.NURSE ---
's Updated phone number [phone]
[2024-04-28 20:21] LABS: Partial Thromboplastin Time 56.6 SECONDS (23.9-36.7)
[2024-04-28] MEDS: heparin drip 25,000 UNIT/500 ML PREMIX 26 UNIT IV (21:50)
--- NOTE | 2024-04-28 23:54 | ECG_ITS ---
[facility] Test Date: 2024-04-28 Pat Name: João Carter Department: Room: ICU11 Gender: Male Dish Carrier: : 1960 Requested By: Miguel Dietz Order Number: [id number] Thais MD: Steven Mallory M.D. Measurements Intervals [place] Rate: 76 P: 256 SC: 210 QRS: 256 QRSD: 170 T: 30 QT: 448 QTc: 505 Interpretive Statements ECTOPIC ATRIAL RHYTHM WITH FIRST DEGREE AV BLOCK RIGHT AXIS DEVIATION [QRS AXIS > 100] RIGHT BUNDLE BRANCH BLOCK [120+ ms QRS DURATION, UPRIGHT V1, 40+ ms S IN I/aVL/V4/V5/V6] POSSIBLE ANTERIOR MYOCARDIAL INFARCTION , OF INDETERMINATE AGE [30 ms Q WAVE IN V3/V4, OR R < 0.2 mV IN V4] Compared to ECG 04/27/2024 03:53:08 Ectopic atrial rhythm now present Right-axis deviation now present Sinus rhythm no longer present Possible ischemia no longer present Myocardial infarct finding still present Electronically Signed On 04-29-2024 7:57:09 CDT by Steven Mallory M.D. [id number]
[2024-04-29] VITALS (109 sets, daily range): BP systolic 79–179; BP diastolic 45–99; PULSE 54–93; RESP 13–31; TEMP 36.3–37.3; O2SAT 90–99
[2024-04-29] MEDS: norepinephrine 4 MG/250 ML BAG 7.5 MG IV (01:18)
[2024-04-29 01:53] LABS: Amphetamines Screen Urine Negative (Negative); Barbiturates Screen Urine Negative (Negative); Benzodiazepines Screen Urine Positive (Negative); Cocaine Screen Urine Negative (Negative); Opiate Screen Urine Negative (Negative); PCP Screen Urine Negative (Negative); THC Screen Urine Negative (Negative)
[2024-04-29 02:02] LABS: Partial Thromboplastin Time 67.4 SECONDS (23.9-36.7)
[2024-04-29 02:14] LABS: Add Urine Microscopic? YES; Bilirubin Urine Neg (Negative); Blood Urine 3+ (Negative); Glucose Urine UA Norm (Normal); Ketones Urine Negative (Negative); Leukocyte Esterase Urine 2+ (Negative); Nitrate Urine Negative (Negative); Protein Urine 2+ (Negative); RBC Urine 21-50 /hpf (0-2); Urine Appearance Slightly Cloudy (CLEAR); Urine Color Yellow (Yellow); Urobilinogen Urine Neg (Negative); pH Urine 5 (5-7)
[2024-04-29 02:15] LABS: Add Urine Culture? Yes; Bacteria Urine 3+ /hpf; Hyaline Casts Urine 0-4 /lpf; Mucus Urine 2+ /hpf; WBC Urine 15-25 /hpf (0-5)
[2024-04-29] MEDS: vancomycin 1,500 MG/300 ML PIGGYBACK 200 MG IV (02:34)
[2024-04-29] MEDS: ipratropium-albuterol 3 mL Neb INHALATION ×4 (02:55→20:26)
[2024-04-29 04:29] LABS: ABG PCO2 45.4 mmHg (35-45); ABG PH Result 7.29 (7.35-7.45); Arterial Blood Gas Hematocrit 45.2 % (42-52); Base Excess ABG -4.9 mmol/L (-2.0-2.0); Blood Gas Allen Test Pos; Blood Gas Operator Identificat ED; Blood Gas Sample Site Radial, left; Blood Gas Sample Type Arterial; HCO3 ABG 21.8 mmol/L (22-26); Oxygen Device VENT; PO2 FiO2 Ratio Arterial Blood 271
[2024-04-29 05:03] LABS: Basophils % 0.1 %; Eosinophils % 0.3 %; Hematocrit 47.4 % (37-53); Lymphocytes # 0.5 10^3/uL (0.8-4.8); Lymphocytes % 4.5 %; Mean Corpuscular HGB Conc 29.7 g/dL (30-55); Mean Corpuscular Hemoglobin 24.7 pg (27-33); Mean Corpuscular Volume 83.2 fl (82-101); Mean Platelet Volume 10.5 fL (7.4-10.4); Monocytes # 0.9 10^3/uL (0.2-0.9); Monocytes % 7.6 %; Neutrophils # 9.89 10^3/uL (1.8-7.7); Neutrophils % 87.2 %; Nucleated Red Blood Cells % 0 %; Platelet Count 126 10^3/cmm (157-399); Red Cell Distribution Width 20.6 % (12.1-15.1); White Blood Count 11.33 10^3/uL (3.29-11.43)
[2024-04-29 05:24] LABS: Alanine Aminotransferase 12 U/L (0-41); Albumin Level 3.2 g/dL (3.5-5.2); Alkaline Phosphatase 101 U/L (40-130); Anion Gap 24.5 (5-19); Aspartate Amino Transferase 17 U/L (0-40); Blood Urea Nitrogen 47 mg/dL (8-23); Calcium 8.8 mg/dL (8.5-10.5); Carbon Dioxide 19 mmol/L (22-29); Chloride 93 mmol/L (98-107); Creatinine Clr Calc Pharmacy 16.1301; Globulin 3.9 g/dL (1.3-4.6); Glomerular Filtration Rate 10.4 mL/min (90-130); Glucose 103 mg/dL (65-115); Osmolality Calculated 283 mOsm/kg (285-295); Sodium 130 mmol/L (136-145); Total Bilirubin 0.4 mg/dL (0.15-1.2); Total Protein 7.1 g/dL (6.6-8.7)
[2024-04-29 05:25] LABS: Magnesium 2.7 mg/dL (1.7-2.3)
[2024-04-29 05:27] LABS: C Reactive Protein 113.7 mg/L (0.0-4.9)
[2024-04-29 05:28] LABS: Procalcitonin 0.74 ng/mL (0-0.5)
[2024-04-29] MEDS: propofol 1,000 MG/100 ML INJ 18.37 MG IV (05:28)
[2024-04-29 05:35] LABS: Phosphorus 7.9 mg/dL (2.5-4.5); Potassium 6.5 mmol/L (3.5-5.1); Vancomycin Random 55.3 ug/mL (20.0-40.0)
[2024-04-29] MEDS: calcium gluconate 0.1 gm/mL 10% SDV 10mL 1 GM IVP (06:15)
--- NOTE | 2024-04-29 06:18 | ECG_ITS ---
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 Measurements Intervals [place] Rate: 64 P: 74 [place]: 291 QRS: 256 QRSD: 177 T: 15 QT: 496 QTc: 513 Interpretive Statements SINUS RHYTHM WITH FIRST DEGREE AV BLOCK RIGHT AXIS DEVIATION [QRS AXIS > 100] RIGHT BUNDLE BRANCH BLOCK [120+ ms QRS DURATION, UPRIGHT V1, 40+ ms S IN I/aVL/V4/V5/V6] POSSIBLE ANTERIOR MYOCARDIAL INFARCTION , OF INDETERMINATE AGE [30 ms Q WAVE IN V3/V4, OR R < 0.2 mV IN V4] Compared to ECG 04/28/2024 23:56:47 Ectopic atrial rhythm no longer present Myocardial infarct finding still present Electronically Signed On 04-29-2024 7:23:55 CDT by Steven Mallory M.D. [email or web address]
[2024-04-29 06:23] LABS: Folate Level > 20.0 ng/mL (4.5-32.2)
[2024-04-29] MEDS: insulin regular-human 10 UNIT in SYRINGE 1 EACH IVP (06:43)
[2024-04-29] MEDS: dextrose 10% 125 ML 750 ML IV (06:45)
[2024-04-29] MEDS: pantoprazole 40 mg SDV IVP (08:18)
[2024-04-29] MEDS: predniSONE 20 mg Tablet 40 MG PO (08:18)
[2024-04-29] MEDS: midodrine 5 mg TABLET 10 MG PO ×3 (08:18→21:14)
[2024-04-29] MEDS: clopidogrel 75 mg Tablet PO (08:18)
[2024-04-29] MEDS: aspirin 81 mg EC Tablet PO (08:18)
[2024-04-29] MEDS: budesonide 0.5 mg/2 mL Neb INHALATION ×2 (08:28→20:26)
--- NOTE | 2024-04-29 08:31 | P.PN_ITS ---
Subjective 2 Subjective: remains on vent Medications: Reviewed: Yes Vitals/I&O/Wt Last Vital Signs Temp 97.6 F 04/28/24 20:01 Pulse 63 04/29/24 06:15 Resp 14 04/29/24 04:19 BP 126/70 04/29/24 06:15 Pulse Ox 95 04/29/24 06:15 O2 Del Method Mechanical Ventilation 04/29/24 02:55 FiO2 35 04/29/24 04:19 04/28/24 04/29/24 04/29/24 22:59 06:59 14:59 Intake Total 234.121 / 777.403 873.853 / 1651.256 125.1 / 125.1 Output Total 180 / 180 125 / 305 Balance 54.121 / 597.403 748.853 / 1346.256 125.1 / 125.1 Weight last 48 hrs Weight 96.5 kg Weight 95.5 kg Weight 98.9 kg Physical Exam 2 Narrative: Intubated on Levophed FiO2 of 35 %. HEENT normocephalic atraumatic. Neck is supple Lungs -scattered bilateral rhonchi. Heart regular positive S1-S2 Abdomen is soft positive bowel sounds. Extremities no edema. Right anterior chest wall permacath. Neuro sedated. Urinary Catheter Management: Latham: Cath Placed During This Visit: yes Reason for Continuing Indwelling Catheter: Accurate Measurement of Urinary Output in Critically Ill Patients Urinary Catheter Date of Insertion: 04/26/24 Urinary Catheter Time of Insertion: 21:25 Data 04/29/24 04:45 04/29/24 04:45 Micro: Microbiology 04/29/24 01:10 Bacterial Antigens - Final Urine Kidney 04/28/24 08:50 Gram Stain - Final Sputum - Endotracheal Tube Aspirate A&P Assessment and plan (1) ESRD on dialysis: 63-year-old gentleman ESRD here with right-sided weakness. History of hypertension, polycythemia, obesity, sleep apnea. Patient here with episodes of altered mental status. 1. Vent dependent respiratory failure. As per critical care. Appreciate Dr. Carrillo's note. CTA found dilated main pulmonary artery of 3.2 cm ectatic ascending thoracic aorta measuring 4.4 cm in the lung multifocal consolidative and groundglass opacities of the lungs with areas of mosaic attenuation. Similar to prior likely right apical scarring calcified granuloma in the right lung apex -Multiple enlarged mediastinal and hilar, no evidence of PE. Question of left basilar consolidation for pneumonia. Question of sarcoidosis. 1. ESRD : HD today 2. septic shock with white cell count of 18.47. Renal dosed antibiotics 3. Hyponatremia monitor with dialysis 4. Hyperkalemia monitor with dialysis. 5. Hyperphosphatemia monitor with dialysis and get binder when eating. 6. Positive troponins likely from stress. 7. History of sarcoidosis as per pulmonary. Patient is in critical condition in the ICU will monitor closely. The patient was seen and examined using A/V equipment and a nurse examined the patient. The patient consented on april 26, 2024 to telehealth visit and to dialysis. . Plan See above Attestations 2 Medical Necessity Statement*: per jace Coding Level of Care Code Acute Code for Chg Fwd Diagnoses ESRD on dialysis N18.6; Z99.2
[2024-04-29 08:40] LABS: Partial Thromboplastin Time 72.6 SECONDS (23.9-36.7)
[2024-04-29 11:04] LABS: MRSA PCR OZH (swab) NOT DETECTED ` (Negative)
[2024-04-29] MEDS: propofol 1,000 MG/100 ML INJ 15.31 MG IV (12:12)
--- NOTE | 2024-04-29 12:13 | PC.HD ---
Dialysis cath has a narrow red ring at insertion site, picture sent to Dr Meyers.
--- NOTE | 2024-04-29 13:54 | PC.OT ---
PATIENT STILL INTUBATED AND RECEIVING DIALYSIS. WILL ATTEMPT EVAL AGAIN TOMORROW.
[2024-04-29] MEDS: cefepime 1,000 MG in sodium chloride 0.9% (plus) 50 ML 100 MG IV (14:34)
--- NOTE | 2024-04-29 15:36 | PC.NURSE ---
Extubated by RT per Dr. Vega orders at 1540.
[2024-04-29 15:48] LABS: Partial Thromboplastin Time 137.9 SECONDS (23.9-36.7)
--- NOTE | 2024-04-29 16:59 | P.PN_ITS ---
Subjective 2 Subjective: Seen multiple times in today. No acute events overnight. Currently today morning when seen he is on PEEP of 8, tidal volume of 500 with FiO2 35% saturating more than 95%. Mean atrial pressure has been maintained on Levophed of 2. Levophed was turned off for a short while but his mean artery pressure could not be maintained so was started again. Eventually during the day after dialysis patient was transitioned over to pressure support and eventually extubated on 3 L of oxygen supplementation. Patient is slightly confused postextubation but is AO x 2 Vitals/I&O/Wt Last Vital Signs Temp 99.2 F 04/29/24 14:30 Pulse 89 04/29/24 16:31 Resp 17 04/29/24 15:17 BP 125/71 04/29/24 16:31 Pulse Ox 95 04/29/24 16:31 O2 Del Method Mechanical Ventilation 04/29/24 14:15 FiO2 35 04/29/24 15:17 04/29/24 04/29/24 04/29/24 06:59 14:59 22:59 Intake Total 873.853 / 1651.256 207.955 / 207.955 655.232 / 863.187 Output Total 125 / 305 Balance 748.853 / 1346.256 207.955 / 207.955 655.232 / 863.187 Weight last 48 hrs Weight 96.5 kg Weight 95.5 kg Physical Exam 2 Narrative: General: No acute distress postextubation, AO x 2, slightly confused on 2 L of oxygen supplementation HEENT: Normocephalic, atraumatic, EOMI, Cardio: Regular rate rhythm, normal S1-S2, Respiratory: Bilateral bronchial breath sounds all over lung long with occasional rhonchi and coarse crackles more so in right middle and upper zone GI: Abdomen soft, nontender, nondistended, bowel sounds + Extremities: No edema bilateral extremities. Urinary Catheter Management: Latham: Cath Placed During This Visit: yes Reason for Continuing Indwelling Catheter: Accurate Measurement of Urinary Output in Critically Ill Patients Urinary Catheter Date of Insertion: 04/26/24 Urinary Catheter Time of Insertion: 21:25 Data 04/29/24 04:45 04/29/24 04:45 Micro: Microbiology 04/28/24 08:50 Gram Stain - Final Sputum - Endotracheal Tube Aspirate Sputum Culture - Preliminary Gram Negative Rods 04/29/24 01:10 Bacterial Antigens - Final Urine Kidney A&P Assessment and plan (1) Respiratory failure: Most likely in setting of aspiration pneumonitis with baseline COPD on obstructive sleep apnea with significant history of sarcoidosis in the past. Extubated on 04/29. Repeat ABG in AM. Sputum culture growing gram-negative rods. Check MRSA swab. For now continue with IV cefepime and vancomycin as per renal functions. DuoNeb every 6 hour, Pulmicort twice daily. Follow-up LDH, Fungitell, histoplasma urine antigen, coccidiomycosis. Follow-up angiotensin converting enzyme level. Continue with prednisone 40 mg oral daily given significant history of sarcoidosis in the past. (2) Transient ischemic attack (TIA): Appreciate CT head and CTA head and neck done on admission. CT head and neck concerning for severe left carotid artery stenosis. Consulted with [facility] neurology team on admission. Deemed not a candidate for intervention. Continue with aspirin, statin, Plavix, heparin drip for now. Patient will need to have a workup and possible further treatment for carotid artery stenosis with carotid stenting versus endarterectomy given significant TIA/strokelike symptoms, seizures on developing hypotension specially during dialysis. Will reach out to vascular surgery at a tertiary center for further recommendations once patient is stable postextubation. (3) Seizure: Witnessed seizure in the ER. No further seizure activity. Could be in setting of hypotension in setting of carotid artery stenosis. Hold off on antiseizure medications for now. Seizure precautions. Maintain mean arterial pressure over 65. Add midodrine 10 mg 3 times daily. Wean Levophed accordingly. (4) Troponin level elevated: Most likely in setting of demand ischemia. Appreciate cardiology recommendations. Continue with dual antiplatelet therapy along with statin as above. Most likely will need ACS workup once more stable. (5) Left carotid artery stenosis: (6) Sarcoidosis: (7) ESRD on dialysis: (8) Hypertension: Qualifiers: Hypertension type: primary hypertension Qualified Code(s): I10 - Essential (primary) hypertension (9) Chronic diastolic heart failure: (10) Hyperlipidemia: (11) Uses continuous positive airway pressure (CPAP) ventilation at home: (12) Paroxysmal atrial fibrillation with rapid ventricular response: Currently rate controlled. Continue to monitor. Continue with heparin drip for anticoagulation. Once patient is able to start oral intake can transition over to Eliquis. Plan Analgesia: Morphine 1 mg every 4 hours as needed Glycemic control: A1c- 6.0. Start on insulin sliding scale low-dose protocol every 6 hour Nutrition: NPO. Advance as per speech evaluation CODE STATUS: Full Code PUD prophylaxis: Protonix DVT prophylaxis: Heparin drip PT/OT/speech evaluation. Discharge planning: Depending on the clinical picture going forward. Possibly will need transfer to a tertiary center for vascular surgery opinion versus treatment given significant left carotid artery stenosis leading to seizures and TIA with hypotension during dialysis Continue with care at ICU This documentation was created by [employer] figure clerk software. Every effort was made to ensure accuracy of figure clerk. Any obvious errors or omissions should be clarified with the author of the document. Patient's care discussed in detail with both and daughter over the phone. All the questions were answered. Attestations 2 Medical Necessity Statement*: Requires further hospitalization for hypoxic respiratory failure postextubation care, end-stage renal disease on hemodialysis, TIA and seizure-like activity with low blood pressures in setting of left carotid artery stenosis Critical Care Time: The high probability of a clinically significant, sudden or life threatening deterioration of the patient's [pulmonary, renal, cardiac, neurology] system(s) required my full and direct attention, intervention and personal management. The critical care time is as shown. This time is in addition to time spent performing any reported procedures but includes the following: [x] Data and vital sign review and interpretation [x] Patient assessment, examination and intervention [x] Documentation [x] Medication orders and management Critical Care Time (min): 90 Coding Level of Care Code Critical Care >/= 30 minutes Critical care time (in minutes): 80 The high probability of a clinically significant, sudden or life threatening deterioration, as referenced in this documentation, required my full and direct attention, intervention and personal management. The critical care time shown is in addition to time spent performing any reported separately billable procedures and includes the following: [x] Data and vital sign review and interpretation [x ] Patient assessment, examination and intervention [x] Medication orders and management [x] Patient/Family updates as able [x] Care Coordination and Documentation. Other Coding Information This patient has a high probability of clinically significant, sudden or life threatening deterioration of the patient's (neurological/pulmonary/cardiac/renal/ID/endocrine) systems required my full, direct attention, the highest level of physician preparedness for urgent intervention and personal management. I managed/supervised life or organ supporting interventions that required frequent physician assessment. I devoted my full attention in the ICU to the direct care of this patient for the period of time indicated above. Time I spent with family or surrogate(s) is included only if the patient was incapable of providing necessary information or participating in decision making. This time includes the following services provided: Telemetry review Mechanical Ventilation Hemodynamic interpretation, assessment and management Review and interpretation of CXR Review and interpretation of lab values Review and interpretation of microbiologic data and culture results Review of medications and administration Review and interpretation of Nutrition requirements and management Discussion of management with other consultants and services Clinical update to family members Diagnoses Respiratory failure J96.90 Transient ischemic attack (TIA) G45.9 Seizure R56.9 Troponin level elevated R79.89 Left carotid artery stenosis I65.22 Sarcoidosis D86.9 ESRD on dialysis N18.6; Z99.2 Primary hypertension I10 Hypertension type: primary hypertension Chronic diastolic heart failure I50.32 Hyperlipidemia E78.5 Uses continuous positive airway pressure (CPAP) ventilation at home Z99.89 Paroxysmal atrial fibrillation with rapid ventricular response I48.0
[2024-04-29] MEDS: heparin drip 25,000 UNIT/500 ML PREMIX 20 UNIT IV (17:47)
[2024-04-29 17:50] LABS: Glucose Point of Care 110 mg/dL (70-110)
[2024-04-29] MEDS: atorvastatin 40 mg Tablet 80 MG PO (21:14)
--- NOTE | 2024-04-29 22:27 | P.PN_ITS ---
Subjective 2 Subjective: Patient still remains intubated. He is partially awake. Denies any chest pain. No fever or chills. Telemetry shows sinus rhythm. Has not had a recurrence of atrial fibrillation. Medications: Medication Review Details: Current Medications Acetaminophen (Acetaminophen 325 Mg Tablet) 650 mg PO Q6H PRN PRN Reason: Mild/Mod Pain Or Temp >/= 101 Albuterol Sulfate (Albuterol 2.5 Mg/3 Ml Neb) 2.5 mg INHALATION Q6H.RESP PRN PRN Reason: sob Albuterol/Ipratropium (Ipratropium-Albuterol 3 Ml Neb) 3 ml INHALATION Q6H.RESP LEN Last Admin: 04/29/24 20:26 Dose: 3 ml Aspirin (Aspirin 81 Mg Ec Tablet) 81 mg PO DAILY LEN Last Admin: 04/29/24 08:18 Dose: 81 mg Atorvastatin Calcium (Atorvastatin 40 Mg Tablet) 80 mg PO BEDTIME LEN Last Admin: 04/29/24 21:14 Dose: 80 mg Budesonide (Budesonide 0.5 Mg/2 Ml Neb) 0.5 mg INHALATION BID.RESPIRATORY LEN Last Admin: 04/29/24 20:26 Dose: 0.5 mg Clopidogrel Bisulfate (Clopidogrel 75 Mg Tablet) 75 mg PO DAILY LEN Last Admin: 04/29/24 08:18 Dose: 75 mg Glucagon (Glucagon 1 Mg/Ml Kit 1 Ml) 1 mg IM ONCE PRN; Protocol PRN Reason: Adult Acute Hypoglycemia Nursing Prot. Heparin Sodium (Porcine) (Heparin Lock Flush 500 Unit/5 Ml Syringe) 200 - 500 unit IV Q12H LEN Last Admin: 04/29/24 15:34 Dose: Not Given Heparin Sodium (Porcine) (Heparin 5,000 Unit/Ml Inj 1 Ml) 0 unit IVP PRN PRN; Protocol PRN Reason: Heparin Weight Based Protocol -Subsequent Bolus Norepinephrine Bitartrate (Levophed) 4 mg in 250 mls @ 0 mls/hr IV .Q0M LEN; Protocol Last Titration: 04/29/24 16:35 Dose: 0 mcg/min, 0 mls/hr Heparin Sodium/Sodium Chloride (Heparin Drip) 25,000 unit in 500 mls @ 0 mls/hr IV CONT LEN; Protocol Last Admin: 04/29/24 17:47 Dose: 9.8 unit/kg/hr, 20 mls/hr Dextrose (D10w) 125 mls @ 750 mls/hr IV PRN PRN; Protocol PRN Reason: Adult Acute Hypoglycemia Nursing Protocol Last Infusion: 04/29/24 07:56 Dose: Infused Cefepime HCl 1,000 mg/ Sodium (Chloride) 50 mls @ 100 mls/hr IV Q24H [facility]; Protocol Last Infusion: 04/29/24 15:35 Dose: Infused Dextrose (D10w) 250 mls @ 1,000 mls/hr IV PRN PRN PRN Reason: HYPOGLYCEMIA Dextrose (D10w) 125 mls @ 750 mls/hr IV PRN PRN PRN Reason: HYPOGLYCEMIA Sodium Chloride (Sodium Chloride 0.9%) 1,000 mls @ 0 mls/hr IV .Q0M PRN PRN Reason: hypotension or symptomatic Albumin Human (Albumin) 12.5 gm in 50 mls @ 60 mls/hr IV PRN PRN PRN Reason: Hypotension and/or symptomatic Vancomycin HCl 1,000 mg/ (Sodium Chloride) 250 mls @ 250 mls/hr IV DIALYSIS LEN Dextrose (D5w) 500 mls @ 0 mls/hr IV ONCE PRN; Protocol PRN Reason: Adult Acute Hypoglycemia Prot Insulin Human Lispro (Insulin Lispro 100 Unit/1 Ml) 0 unit SUBCUT TIDWM [facility]; Protocol Last Admin: 04/29/24 17:49 Dose: Not Given Midodrine (Midodrine 5 Mg Tablet) 10 mg PO TID [facility] Last Admin: 04/29/24 21:14 Dose: 10 mg Morphine Sulfate (Morphine 4 Mg/Ml Sdv 1 Ml) 1 mg IVP Q4H PRN PRN Reason: SEVERE PAIN Ondansetron HCl (Ondansetron 2 Mg/Ml Sdv 2 Ml) 4 mg IVP Q8H PRN PRN Reason: vomiting, or N/V if npo Pantoprazole Sodium (Pantoprazole 40 Mg Sdv) 40 mg IVP DAILY [facility] Last Admin: 04/29/24 08:18 Dose: 40 mg Prednisone (Prednisone 20 Mg Tablet) 40 mg PO DAILY [facility] Last Admin: 04/29/24 08:18 Dose: 40 mg Sodium Chloride (Sodium Chloride 0.9 % (Flush) Syringe 10 Ml) 5 - 10 ml IV Q12H [facility] Last Admin: 04/29/24 15:34 Dose: Not Given Vitals/I&O/Wt Last Vital Signs Temp 99.2 F 04/29/24 14:30 Pulse 74 04/29/24 20:37 Resp 16 04/29/24 20:25 BP 125/71 04/29/24 16:31 Pulse Ox 92 04/29/24 20:25 O2 Del Method Nasal Cannula 04/29/24 20:25 O2 Flow Rate 3 04/29/24 20:25 FiO2 35 04/29/24 15:17 04/29/24 04/29/24 04/29/24 06:59 14:59 22:59 Intake Total 873.853 / 1651.256 207.955 / 207.955 667.299 / 875.254 Output Total 125 / 305 Balance 748.853 / 1346.256 207.955 / 207.955 667.299 / 875.254 Weight last 48 hrs Weight 212 lb 11.937 oz Weight 210 lb 8.663 oz Physical Exam 2 Narrative: GENERAL: The patient is intubated and sedated. HEENT: Moderate pallor with no icterus or lymphadenopathy.Oral cavity: There are no mucous membrane lesions. NECK: Trachea appears to be central. No masses noted. No JVD or thyromegaly appreciated. Carotid bruit on the left side RESPIRATORY: Chest is symmetrical. No intercostals muscle retraction or any accessory muscle activation. There is no chest wall tenderness. Breath sounds are heard bilaterally. No rales or rhonchi heard. No evidence of any consolidation. BREASTS: Deferred. HEART: The heart sounds are normal. No S3 or S4. Short systolic murmur at the left upper border. No diastolic murmurs. No pericardial rub ABDOMEN: No vessel pulsations or distention. No tenderness. No organomegaly appreciated. Bowel sounds are normally heard. : Deferred. RECTAL: Deferred. LYMPHATIC: No lymphadenopathy noted in the neck. EXTREMITIES: No edema or cyanosis. No clubbing. MUSCULOSKELETAL: No acute joint deformities or swelling SKIN: There are no significant rashes or ecchymosis NEUROPSYCHIATRIC: The patient is alert and oriented x3. Appears to be in a good mood. No tremors or rigidity noted. Urinary Catheter Management: [place]: Cath Placed During This Visit: yes Reason for Continuing Indwelling Catheter: Accurate Measurement of Urinary Output in Critically Ill Patients Urinary Catheter Date of Insertion: 04/26/24 Urinary Catheter Time of Insertion: 21:25 Data 04/29/24 04:45 04/29/24 04:45 Other Labs: Laboratory Last Values WBC 11.33 10^3/uL (3.29-11.43) 04/29/24 04:45 RBC 5.70 10^6/uL (3.85-5.65) H 04/29/24 04:45 Hgb 14.10 g/dL (11.27-16.99) 04/29/24 04:45 Hct 47.4 % (37-53) 04/29/24 04:45 MCV 83.2 fl (82-101) 04/29/24 04:45 MCH 24.7 pg (27-33) L 04/29/24 04:45 MCHC 29.7 g/dL (30-55) L 04/29/24 04:45 RDW 20.6 % (12.1-15.1) H 04/29/24 04:45 Plt Count 126 10^3/cmm (157-399) L 04/29/24 04:45 MPV 10.5 fL (7.4-10.4) H 04/29/24 04:45 Neut % (Auto) 87.2 % 04/29/24 04:45 Lymph % (Auto) 4.5 % 04/29/24 04:45 Whitman % (Auto) 7.6 % 04/29/24 04:45 Eos % (Auto) 0.3 % 04/29/24 04:45 Baso % (Auto) 0.1 % 04/29/24 04:45 Neut # (Auto) 9.89 10^3/uL (1.8-7.7) H 04/29/24 04:45 Lymph # (Auto) 0.5 10^3/uL (0.8-4.8) L 04/29/24 04:45 Whitman # (Auto) 0.9 10^3/uL (0.2-0.9) 04/29/24 04:45 Eos # (Auto) 0.0 10^3/uL (0.0-0.8) 04/29/24 04:45 Baso # (Auto) 0.0 10^3/uL (0.0-0.1) 04/29/24 04:45 Nucleated RBC % (auto) 0 % 04/29/24 04:45 Nucleated RBCs # 0.0 /100WBC 04/29/24 04:45 Peripher Smr Path Cons Sent for review 04/26/24 13:29 ESR 17 mm/hr (0-10) H 04/26/24 13:29 PT 15.50 SECONDS (12.1-14.9) H 04/28/24 03:20 INR 1.19 (0.8-1.2) 04/28/24 03:20 APTT 137.9 SECONDS (23.9-36.7) H D 04/29/24 15:12 Specimen Type Arterial 04/29/24 04:18 Sample Site Radial, left 04/29/24 04:18 ABG pH 7.29 (7.35-7.45) L 04/29/24 04:18 ABG pCO2 45.4 mmHg (35-45) H 04/29/24 04:18 ABG pO2 95.0 mmHg (80.0-100.0) 04/29/24 04:18 ABG PO2/FiO2 Ratio 271 04/29/24 04:18 ABG HCO3 21.8 mmol/L (22-26) L 04/29/24 04:18 ABG O2 Saturation 97.3 04/27/24 04:30 ABG Base Excess -4.9 mmol/L (-2.0-2.0) L 04/29/24 04:18 Martin Test Pos 04/29/24 04:18 A-a O2 Gradient 52.0 mmHg (5-10) H 04/27/24 04:30 Hematocrit 45.2 % (42-52) 04/29/24 04:18 Hgb O2 Saturation 96.3 % (95-100) 04/27/24 04:30 Carboxyhemoglobin 0.4 %THgb (0.4-20.1) 04/27/24 04:30 Methemoglobin 0.6 % (0.4-1.5) 04/27/24 04:30 Total Hemoglobin 18.4 g/dL (14-18) H 04/27/24 04:30 Sodium 123.0 mmol/L (131-143) L 04/27/24 04:30 Potassium 5.2 mmol/L (3.5-5.0) H 04/27/24 04:30 Glucose 82.0 mg/dL (70-115) 04/27/24 04:30 Ionized Calcium 1.3 mmol/L (1.1-1.4) 04/27/24 04:30 O2 Delivery Device Vent 04/29/24 04:18 FiO2 35.0 % 04/29/24 04:18 Tidal Volume 0.50 04/29/24 04:18 PEEP 8.0 cmH20 04/29/24 04:18 Meat Blender ID Ed 04/29/24 04:18 Sodium 130 mmol/L (136-145) L 04/29/24 04:45 Potassium 6.5 mmol/L (3.5-5.1) H* 04/29/24 04:45 Chloride 93 mmol/L (98-107) L 04/29/24 04:45 Carbon Dioxide 19 mmol/L (22-29) L 04/29/24 04:45 Anion Gap 24.5 (5-19) H 04/29/24 04:45 BUN 47 mg/dL (8-23) H 04/29/24 04:45 Creatinine 5.6 mg/dL (0.7-1.2) H* 04/29/24 04:45 GFR Calculation 10.4 mL/min (90-130) L 04/29/24 04:45 Glucose 103 mg/dL (65-115) 04/29/24 04:45 POC Glucose 110 mg/dL (70-110) 04/29/24 17:47 Estimat Average Glucose 126 04/26/24 13:29 Hemoglobin A1c 6.0 % (4.0-6.0) 04/26/24 13:29 Calculated Osmolality 283 mOsm/kg (285-295) L 04/29/24 04:45 Lactic Acid 1.8 mmol/L (0.5-2.2) 04/26/24 13:29 Lactate 2.5 mmol/L (0.5-2.2) H 04/28/24 03:20 Calcium 8.8 mg/dL (8.5-10.5) 04/29/24 04:45 Phosphorus 7.9 mg/dL (2.5-4.5) H* 04/29/24 04:45 Magnesium 2.7 mg/dL (1.7-2.3) H 04/29/24 04:45 Iron 19 ug/dL (59-158) L 04/28/24 06:13 TIBC 253 mcg/dl 04/28/24 06:13 % Saturation 7.5 % (20-50) L 04/28/24 06:13 Unsat Iron Binding 234 ug/dL (112-347) 04/28/24 06:13 Total Bilirubin 0.4 mg/dL (0.15-1.2) 04/29/24 04:45 Direct Bilirubin 0.30 mg/dL (0.00-0.30) 04/26/24 13:29 AST 17 U/L (0-40) 04/29/24 04:45 ALT 12 U/L (0-41) 04/29/24 04:45 Alkaline Phosphatase 101 U/L (40-130) 04/29/24 04:45 Lactate Dehydrogenase 201 U/L (135-225) 04/28/24 06:13 Creatine Kinase 120 U/L (39-308) 04/28/24 03:20 Troponin T Baseline 187 ng/L (0-15) H* 04/26/24 19:49 Troponin T 120 Minute 205.2 ng/L (0-15) H 04/26/24 22:25 Delta Troponin T 18.2 ABS# (0-10) H* 04/26/24 22:25 Troponin T Hi Sens 6Hr 389.1 ng/L (0-15) H 04/27/24 01:51 Troponin T Hi Sens 6Hr Delta 202.1 ng/L (0-12) H* 04/27/24 01:51 C-Reactive Protein 113.7 mg/L (0.0-4.9) H 04/29/24 04:45 NT-Pro-B Natriuret Pep 8284 pg/mL (0-125) H 04/28/24 03:20 Total Protein 7.1 g/dL (6.6-8.7) 04/29/24 04:45 Albumin 3.2 g/dL (3.5-5.2) L 04/29/24 04:45 Globulin 3.9 g/dL (1.3-4.6) 04/29/24 04:45 Triglycerides 116 mg/dL (0-150) 04/26/24 13:29 Cholesterol 141 mg/dL (0-200) 04/26/24 13:29 LDL Cholesterol, Calc 65 mg/dL (50-129) 04/26/24 13:29 HDL Cholesterol 53 mg/dL (60-100) L 04/26/24 13:29 LDL/HDL Ratio 1.23 RATIO (0.00-3.22) 04/26/24 13: Cholesterol/HDL Ratio 2.66 mg/dL (1.0-5.00) 04/26/24 13:29 Vitamin B12 > 2000 pg/mL (232-1245) H 04/28/24 06:13 Folate > 20.0 ng/mL (4.5-32.2) 04/29/24 04:45 Procalcitonin 0.74 ng/mL (0-0.5) H 04/29/24 04:45 TSH 5.21 uIU/mL (0.27-4.20) H 04/26/24 13:29 TSH 5.25 uIU/mL (0.27-4.20) H 04/26/24 13:29 Urine Color Yellow (Yellow) 04/29/24 01:10 Urine Appearance Slightly cloudy (CLEAR) 04/29/24 01:10 Urine pH 5 (5-7) 04/29/24 01:10 Ur Specific [place] 1.020 (1.005-1.030) 04/29/24 01:10 Urine Protein 2+ (Negative) H 04/29/24 01:10 Urine Glucose (UA) Norm (Normal) 04/29/24 01:10 Urine Ketones Negative (Negative) 04/29/24 01:10 Urine Blood 3+ (Negative) H 04/29/24 01:10 Urine Nitrate Negative (Negative) 04/29/24 01:10 Urine Bilirubin Neg (Negative) 04/29/24 01:10 Urine Urobilinogen Neg mg/dL (Negative) 04/29/24 01:10 Ur Leukocyte Esterase 2+ (Negative) H 04/29/24 01:10 Urine RBC 21-50 /hpf (0-2) H 04/29/24 01:10 Urine WBC 15-25 /hpf (0-5) H 04/29/24 01:10 Ur Squamous Epith Cells None /hpf (0-5) 04/29/24 01:10 Amorphous Sediment Not Reportable 04/29/24 01:10 Urine Bacteria 3+ /hpf (NONE) H 04/29/24 01:10 Hyaline Casts 0-4 /lpf H 04/29/24 01:10 Urine Mucus 2+ /hpf 04/29/24 01:10 Urine Yeast 2+ /hpf H 04/29/24 01:10 Random Vancomycin 55.3 ug/mL (20.0-40.0) H* 04/29/24 04:45 Urine Opiates Screen Negative ng/mL (Negative) 04/29/24 01:10 Ur Barbiturates Screen Negative ng/mL (Negative) 04/29/24 01:10 Ur Phencyclidine Scrn Negative ng/mL (Negative) 04/29/24 01:10 Ur Amphetamines Screen Negative ng/mL (Negative) 04/29/24 01:10 U Benzodiazepines Scrn Positive ng/mL (Negative) H 04/29/24 01:10 Urine Cocaine Screen Negative ng/mL (Negative) 04/29/24 01:10 U Marijuana (THC) Screen Negative ng/mL (Negative) 04/29/24 01:10 Ethyl Alcohol < 10 mg/dL (0-10) 04/26/24 13:29 Hepatitis A IgM Ab Non-reactive (Nonreactive) 04/26/24 13:29 Hep Bs Antigen Non-reactive (Nonreactive) 04/27/24 04:13 Hep Bs Antibody 18.4 (11.5-1000) 04/27/24 04:13 Hep B Core Total Ab Non-reactive (Nonreactive) 04/26/24 13:29 Hepatitis C Antibody Non-reactive (Nonreactive) 04/27/24 04:13 HIV 1&2 Ab & HIV 1 Ag Non-reactive (Non-Reactiv) 04/27/24 00:30 HIV 1&2 Antibody Non-reactive (Non-Reactiv) 04/27/24 00:30 MRSA Culture Not detected ` (Negative) 04/28/24 20:55 MRSA (PCR) Cancelled 04/28/24 20:55 Beta-(1,3)-D-Glucan Cancelled 04/28/24 06:13 B-(1,3)-D-Glucan Intrp Cancelled 04/28/24 06:13 Micro: Microbiology 04/28/24 08:50 Gram Stain - Final Sputum - Endotracheal Tube Aspirate Sputum Culture - Preliminary Gram Negative Rods 04/29/24 01:10 Bacterial Antigens - Final Urine Kidney A&P Assessment and plan (1) Troponin level elevated: Possibly from type II NH. Cannot exclude type I. Echocardiogram was unremarkable. No acute ST-T changes. May continue on the current medications. Consider Myocardial perfusion imaging/cardiac catheterization, once the patient is extubated and clinically stable. (2) Left carotid artery stenosis: Patient may benefit from carotid intervention. Vascular surgery is to decide the timing. Consider categorization prior to the carotid intervention for risk assessment, especially in view of the elevated troponin T (3) ESRD on dialysis: Patient is on dialysis, 3 times a week. This may be continued. (4) Transient ischemic attack (TIA): Possibly related to hypotension and high-grade carotid stenosis. Currently has no recurrence. (5) Paroxysmal atrial fibrillation with rapid ventricular response: Patient is on IV heparin. This may be continued. (6) Cardiac arrest: Patient has a history of cardiac cardiac arrest with no recent recurrence. Had a Myocardial perfusion imaging in June of last year and was found to have no evidence of ischemia. Plan Possible extubation today- vascular surgery consult to decide on the timing of carotid intervention Attestations 2 Medical Necessity Statement*: Patient requires continued hospital stay for close monitoring and further management Coding Level of Care Code 71574 Diagnoses Troponin level elevated R79.89 Left carotid artery stenosis I65.22 ESRD on dialysis N18.6; Z99.2 Transient ischemic attack (TIA) G45.9 Paroxysmal atrial fibrillation with rapid ventricular response I48.0 Cardiac arrest I46.9
[2024-04-29 23:03] LABS: Partial Thromboplastin Time 49.6 SECONDS (23.9-36.7)
[2024-04-30] VITALS (63 sets, daily range): BP systolic 80–200; BP diastolic 48–84; PULSE 64–91; RESP 13–26; TEMP 36.2–36.7; O2SAT 88–98
[2024-04-30] MEDS: ipratropium-albuterol 3 mL Neb INHALATION ×4 (02:04→20:48)
--- NOTE | 2024-04-30 02:51 | PC.NURSE ---
Addendum entered by Milagros Montiel RN 04/30/24 02:52: witnessed waste Original Note: Wasted 20 ml Fentanyl and 60 ml Propofol.
[2024-04-30 04:36] LABS: Basophils % 0.1 %; Eosinophils # 0.1 10^3/uL (0.0-0.8); Eosinophils % 1.2 %; Hematocrit 47.3 % (37-53); Lymphocytes # 0.5 10^3/uL (0.8-4.8); Lymphocytes % 5.7 %; Mean Corpuscular HGB Conc 29.8 g/dL (30-55); Mean Corpuscular Hemoglobin 24.8 pg (27-33); Mean Corpuscular Volume 83.1 fl (82-101); Mean Platelet Volume 10.3 fL (7.4-10.4); Monocytes # 0.9 10^3/uL (0.2-0.9); Monocytes % 10.8 %; Neutrophils # 7.05 10^3/uL (1.8-7.7); Neutrophils % 81.9 %; Nucleated Red Blood Cells % 0 %; Platelet Count 133 10^3/cmm (157-399); Red Blood Count 5.69 10^6/uL (3.85-5.65); Red Cell Distribution Width 20.5 % (12.1-15.1); White Blood Count 8.61 10^3/uL (3.29-11.43)
[2024-04-30 05:04] LABS: C Reactive Protein 66.4 mg/L (0.0-4.9); Vancomycin Random 26.3 ug/mL (20.0-40.0)
[2024-04-30 05:10] LABS: Alanine Aminotransferase 18 U/L (0-41); Albumin Level 3.7 g/dL (3.5-5.2); Alkaline Phosphatase 113 U/L (40-130); Aspartate Amino Transferase 26 U/L (0-40); Blood Urea Nitrogen 43 mg/dL (8-23); Carbon Dioxide 23 mmol/L (22-29); Chloride 94 mmol/L (98-107); Creatinine Clr Calc Pharmacy 17.7964; Globulin 3.4 g/dL (1.3-4.6); Glomerular Filtration Rate 11.6 mL/min (90-130); Glucose 77 mg/dL (65-115); Osmolality Calculated 290 mOsm/kg (285-295); Sodium 135 mmol/L (136-145); Total Bilirubin 0.5 mg/dL (0.15-1.2); Total Protein 7.1 g/dL (6.6-8.7)
[2024-04-30 05:11] LABS: Magnesium 2.6 mg/dL (1.7-2.3)
[2024-04-30 05:23] LABS: Phosphorus 8.4 mg/dL (2.5-4.5)
[2024-04-30 06:40] LABS: Partial Thromboplastin Time 56.3 SECONDS (23.9-36.7)
[2024-04-30] MEDS: budesonide 0.5 mg/2 mL Neb INHALATION ×2 (08:34→20:48)
[2024-04-30 09:00] LABS: Glucose Point of Care 77 mg/dL (70-110)
[2024-04-30] MEDS: aspirin 81 mg EC Tablet PO (09:17)
[2024-04-30] MEDS: predniSONE 20 mg Tablet 40 MG PO (09:17)
[2024-04-30] MEDS: midodrine 5 mg TABLET 10 MG PO (09:17)
[2024-04-30] MEDS: clopidogrel 75 mg Tablet PO (09:17)
[2024-04-30] MEDS: pantoprazole 40 mg SDV IVP (09:17)
[2024-04-30 12:09] LABS: Angiotensin Converting Enzyme 45 U/L (9-67)
[2024-04-30] MEDS: ondansetron 2 mg/ML SDV 2 mL 4 MG IVP (12:13)
[2024-04-30 12:39] LABS: Glucose Point of Care 92 mg/dL (70-110)
--- NOTE | 2024-04-30 12:47 | P.PN_ITS ---
Subjective 2 Subjective: No acute events overnight. Patient has remained hemodynamically stable and afebrile. Today morning on 4 L of oxygen supplementation. Laying comfortably in bed. Awake and alert. Denies any nausea, ting, headache, weakness in any of his arms. Has been off Levophed. Vitals/I&O/Wt Last Vital Signs Temp 97.1 F L 04/30/24 07:16 Pulse 74 04/30/24 10:00 Resp 17 04/30/24 10:00 BP 103/67 04/30/24 10:00 Pulse Ox 91 04/30/24 09:00 O2 Del Method Nasal Cannula 04/30/24 08:45 O2 Flow Rate 4 04/30/24 08:45 FiO2 35 04/29/24 15:17 04/29/24 04/30/24 04/30/24 22:59 06:59 14:59 Intake Total 667.299 / 875.254 122.333 / 997.587 160.6 / 160.6 Output Total 350 / 350 Balance 667.299 / 875.254 -227.667 / 647.587 160.6 / 160.6 Weight last 48 hrs Weight 93.5 kg Weight 96.5 kg Physical Exam 2 Narrative: General: No acute distress, AOx3 on 4 L of oxygen supplementation HEENT: Normocephalic, atraumatic, EOMI, Cardio: Regular rate rhythm, normal S1-S2, Respiratory: Bilateral bronchial breath sounds all over lung long with occasional rhonchi and coarse crackles more so in right middle and upper zone GI: Abdomen soft, nontender, nondistended, bowel sounds + Extremities: No edema bilateral extremities. Urinary Catheter Management: [place]: Cath Placed During This Visit: yes Reason for Continuing Indwelling Catheter: Accurate Measurement of Urinary Output in Critically Ill Patients Urinary Catheter Date of Insertion: 04/26/24 Urinary Catheter Time of Insertion: 21:25 Data 04/30/24 04:09 04/30/24 04:09 Micro: Microbiology 04/29/24 01:10 Urine Culture - Preliminary Urine,Clean Catch 04/28/24 08:50 Gram Stain - Final Sputum - Endotracheal Tube Aspirate Sputum Culture - Final Pseudomonas aeruginosa A&P Assessment and plan (1) Respiratory failure: Most likely in setting of aspiration pneumonitis with baseline COPD on obstructive sleep apnea with significant history of sarcoidosis in the past. Extubated on 04/29. Repeat ABG in AM. Sputum culture growing Pseudomonas. Appreciate sensitivities. Stop vancomycin. Switch from cefepime to meropenem. DuoNeb every 6 hour, Pulmicort twice daily. Appreciate ETHAN levels. Follow-up LDH, Fungitell, histoplasma urine antigen, coccidiomycosis. Continue with prednisone 40 mg oral daily for overall 5-day course. (2) Transient ischemic attack (TIA): Appreciate CT head and CTA head and neck done on admission. CT head and neck concerning for severe left carotid artery stenosis. Consulted with [facility] neurology team on admission. Deemed not a candidate for intervention. Continue with aspirin, statin, Plavix, heparin drip for now. Patient will need to have a workup and possible further treatment for carotid artery stenosis with carotid stenting versus endarterectomy given significant TIA/strokelike symptoms, seizures on developing hypotension specially during dialysis. Will reach out to vascular surgery at a tertiary center for further recommendations once patient is stable postextubation. (3) Seizure: Witnessed seizure in the ER. No further seizure activity. Could be in setting of hypotension in setting of carotid artery stenosis. Hold off on antiseizure medications for now. Seizure precautions. Maintain mean arterial pressure over 65. Add midodrine 10 mg 3 times daily. Wean Levophed accordingly. (4) Troponin level elevated: Most likely in setting of demand ischemia. Appreciate cardiology recommendations. Continue with dual antiplatelet therapy along with statin as above. Most likely will need ACS workup once more stable. (5) Left carotid artery stenosis: (6) Sarcoidosis: (7) ESRD on dialysis: Continue with nephrology follow-up. On hemodialysis sessions Sunday, , Sunday. (8) Hypertension: Qualifiers: Hypertension type: primary hypertension Qualified Code(s): I10 - Essential (primary) hypertension (9) Chronic diastolic heart failure: (10) Hyperlipidemia: (11) Uses continuous positive airway pressure (CPAP) ventilation at home: (12) Paroxysmal atrial fibrillation with rapid ventricular response: Currently rate controlled. Continue to monitor. Continue with heparin drip for anticoagulation. Once patient is able to start oral intake can transition over to Eliquis. Plan Analgesia: Morphine 1 mg every 4 hours as needed Glycemic control: A1c- 6.0. Start on insulin sliding scale low-dose protocol every 6 hour Nutrition: NPO. Advance as per speech evaluation CODE STATUS: Full Code PUD prophylaxis: Protonix DVT prophylaxis: Heparin drip PT/OT/speech evaluation. Discharge planning: Depending on the clinical picture going forward. Possibly will need transfer to a tertiary center for vascular surgery opinion versus treatment given significant left carotid artery stenosis leading to seizures and TIA with hypotension during dialysis Plan for the day: Oxygen supplementation keeping saturation over 90%. Monitor blood pressures. Continue with midodrine 10 mg 3 times daily. Keep mean artery pressure over 65. Depending on the blood pressures can change midodrine to as needed. Dialysis as per nephrology. Switching antibiotics to meropenem as per culture sensitivities. Possible transfer to tertiary center for vascular surgery given concerns for high-grade left carotid artery stenosis. Transfer to [facility]. Continue with heparin drip, aspirin, Plavix, statin. Advance diet as per speech evaluation. Physical therapy, out of bed to chair. This documentation was created by [employer] supervisor advertising dispatch clerks software. Every effort was made to ensure accuracy of supervisor advertising dispatch clerks. Any obvious errors or omissions should be clarified with the author of the document. Patient's care discussed in detail with both and daughter over the phone. All the questions were answered. Attestations 2 Medical Necessity Statement*: Requires further hospitalization for management of respiratory failure, postextubation care due to Pseudomonas pneumonia, left carotid artery stenosis leading to TIA and seizure in setting of hypotension during hemodialysis in a patient with end-stage renal disease while possible transfer to tertiary center is awaited Diagnoses Respiratory failure J96.90 Transient ischemic attack (TIA) G45.9 Seizure R56.9 Troponin level elevated R79.89 Left carotid artery stenosis I65.22 Sarcoidosis D86.9 ESRD on dialysis N18.6; Z99.2 Primary hypertension I10 Hypertension type: primary hypertension Chronic diastolic heart failure I50.32 Hyperlipidemia E78.5 Uses continuous positive airway pressure (CPAP) ventilation at home Z99.89 Paroxysmal atrial fibrillation with rapid ventricular response I48.0
[2024-04-30] MEDS: meropenem 1,000 MG in sodium chloride 0.9% (plus) 50 ML 100 MG IV (13:14)
--- NOTE | 2024-04-30 13:59 | PC.NURSE ---
received pt from [facility] pt is sitting up in a recliner. pt looks sleepy,lethargic. Per at bedside, pt has been off and on sleeping in a recliner since after breakfast. pt heparin drip running at 24 cc/hr. call light w/in reach in his recliner.
[2024-04-30 14:10] LABS: Partial Thromboplastin Time 52.5 SECONDS (23.9-36.7)
[2024-04-30] MEDS: heparin 5,000 unit/mL INJ 1 mL IVP (15:03)
[2024-04-30 16:44] LABS: Glucose Point of Care 103 mg/dL (70-110)
--- NOTE | 2024-04-30 17:01 | PM.PN ---
Subjective Subjective: Patient is extubated. Denies any chest pain or palpitations. The vital signs are stable. No recurrence of atrial fibrillation on the monitor. No focal neurological deficits. Medications: Medication Review Details: Current Medications Acetaminophen (Acetaminophen 325 Mg Tablet) 650 mg PO Q6H PRN PRN Reason: Mild/Mod Pain Or Temp >/= 101 Albuterol Sulfate (Albuterol 2.5 Mg/3 Ml Neb) 2.5 mg INHALATION Q6H.RESP PRN PRN Reason: sob Albuterol/Ipratropium (Ipratropium-Albuterol 3 Ml Neb) 3 ml INHALATION Q6H.RESP LEN Last Admin: 04/30/24 13:12 Dose: 3 ml Aspirin (Aspirin 81 Mg Ec Tablet) 81 mg PO DAILY LEN Last Admin: 04/30/24 09:17 Dose: 81 mg Atorvastatin Calcium (Atorvastatin 40 Mg Tablet) 80 mg PO BEDTIME LEN Last Admin: 04/29/24 21:14 Dose: 80 mg Budesonide (Budesonide 0.5 Mg/2 Ml Neb) 0.5 mg INHALATION BID.RESPIRATORY LEN Last Admin: 04/30/24 08:34 Dose: 0.5 mg Clopidogrel Bisulfate (Clopidogrel 75 Mg Tablet) 75 mg PO DAILY LEN Last Admin: 04/30/24 09:17 Dose: 75 mg Glucagon (Glucagon 1 Mg/Ml Kit 1 Ml) 1 mg IM ONCE PRN; Protocol PRN Reason: Adult Acute Hypoglycemia Nursing Prot. Heparin Sodium (Porcine) (Heparin Lock Flush 500 Unit/5 Ml Syringe) 200 - 500 unit IV Q12H LEN Last Admin: 04/30/24 07:13 Dose: Not Given Heparin Sodium (Porcine) (Heparin 5,000 Unit/Ml Inj 1 Ml) 0 unit IVP PRN PRN; Protocol PRN Reason: Heparin Weight Based Protocol -Subsequent Bolus Last Admin: 04/30/24 15:03 Dose: 2,100 unit Heparin Sodium/Sodium Chloride (Heparin Drip) 25,000 unit in 500 mls @ 0 mls/hr IV CONT LEN; Protocol Last Titration: 04/30/24 15:06 Dose: 11.76 unit/kg/hr, 24 mls/hr Dextrose (D10w) 125 mls @ 750 mls/hr IV PRN PRN; Protocol PRN Reason: Adult Acute Hypoglycemia Nursing Protocol Last Infusion: 04/29/24 07:56 Dose: Infused Dextrose (D10w) 250 mls @ 1,000 mls/hr IV PRN PRN PRN Reason: HYPOGLYCEMIA Sodium Chloride (Sodium Chloride 0.9%) 1,000 mls @ 0 mls/hr IV .Q0M PRN PRN Reason: hypotension or symptomatic Albumin Human (Albumin) 12.5 gm in 50 mls @ 60 mls/hr IV PRN PRN PRN Reason: Hypotension and/or symptomatic Dextrose (D5w) 500 mls @ 0 mls/hr IV ONCE PRN; Protocol PRN Reason: Adult Acute Hypoglycemia Prot Insulin Human Lispro (Insulin Lispro 100 Unit/1 Ml) 0 unit SUBCUT TIDWM [facility]; Protocol Last Admin: 04/30/24 16:53 Dose: Not Given Meropenem (Meropenem 1,000 Mg Sdv) 1,000 mg IVP Q12H [facility] Last Admin: 04/30/24 13:43 Dose: Not Given Midodrine (Midodrine 5 Mg Tablet) 10 mg PO TID PRN PRN Reason: SBP less 140 mmhg Morphine Sulfate (Morphine 4 Mg/Ml Sdv 1 Ml) 1 mg IVP Q4H PRN PRN Reason: SEVERE PAIN Ondansetron HCl (Ondansetron 2 Mg/Ml Sdv 2 Ml) 4 mg IVP Q8H PRN PRN Reason: vomiting, or N/V if npo Last Admin: 04/30/24 12:13 Dose: 4 mg Pantoprazole Sodium (Pantoprazole 40 Mg Sdv) 40 mg IVP DAILY [facility] Last Admin: 04/30/24 09:17 Dose: 40 mg Prednisone (Prednisone 20 Mg Tablet) 40 mg PO DAILY [facility] Stop: 05/03/24 08:59 Last Admin: 04/30/24 09:17 Dose: 40 mg Sodium Chloride (Sodium Chloride 0.9 % (Flush) Syringe 10 Ml) 5 - 10 ml IV Q12H [facility] Last Admin: 04/30/24 07:13 Dose: Not Given Vitals/I&O/Wt Last Vital Signs Temp 98.0 F 04/30/24 15:52 Pulse 64 04/30/24 15:52 Resp 18 04/30/24 15:52 BP 111/59 04/30/24 15:52 Pulse Ox 93 04/30/24 15:52 O2 Del Method Nasal Cannula 04/30/24 15:52 O2 Flow Rate 3 04/30/24 15:52 FiO2 35 04/29/24 15:17 04/30/24 04/30/24 04/30/24 06:59 14:59 22:59 Intake Total 122.333 / 997.587 210.6 / 210.6 173.833 / 384.433 Output Total 350 / 350 Balance -227.667 / 647.587 210.6 / 210.6 173.833 / 384.433 Weight last 48 hrs Weight 206 lb 2.115 oz Weight 212 lb 11.937 oz Physical Exam Narrative: GENERAL: The patient alert and oriented x 3. HEENT: Moderate pallor with no icterus or lymphadenopathy.Oral cavity: There are no mucous membrane lesions. NECK: Trachea appears to be central. No masses noted. No JVD or thyromegaly appreciated. Carotid bruit on the left side RESPIRATORY: Chest is symmetrical. No intercostals muscle retraction or any accessory muscle activation. There is no chest wall tenderness. Breath sounds are heard bilaterally. No rales or rhonchi heard. No evidence of any consolidation. BREASTS: Deferred. HEART: The heart sounds are normal. No S3 or S4. Short systolic murmur at the left upper border. No diastolic murmurs. No pericardial rub ABDOMEN: No vessel pulsations or distention. No tenderness. No organomegaly appreciated. Bowel sounds are normally heard. : Deferred. RECTAL: Deferred. LYMPHATIC: No lymphadenopathy noted in the neck. EXTREMITIES: No edema or cyanosis. No clubbing. MUSCULOSKELETAL: No acute joint deformities or swelling SKIN: There are no significant rashes or ecchymosis NEUROPSYCHIATRIC: The patient is alert and oriented x3. Appears to be in a good mood. No tremors or rigidity noted. Urinary Catheter Management: [place]: Cath Placed During This Visit: yes Reason for Continuing Indwelling Catheter: Accurate Measurement of Urinary Output in Critically Ill Patients Urinary Catheter Date of Insertion: 04/26/24 Urinary Catheter Time of Insertion: 21:25 Data 04/30/24 04:09 04/30/24 04:09 Other Labs: Laboratory Last Values WBC 8.61 10^3/uL (3.29-11.43) 04/30/24 04:09 RBC 5.69 10^6/uL (3.85-5.65) H 04/30/24 04:09 Hgb 14.10 g/dL (11.27-16.99) 04/30/24 04:09 Hct 47.3 % (37-53) 04/30/24 04:09 MCV 83.1 fl (82-101) 04/30/24 04:09 MCH 24.8 pg (27-33) L 04/30/24 04:09 MCHC 29.8 g/dL (30-55) L 04/30/24 04:09 RDW 20.5 % (12.1-15.1) H 04/30/24 04:09 Plt Count 133 10^3/cmm (157-399) L 04/30/24 04:09 MPV 10.3 fL (7.4-10.4) 04/30/24 04:09 Neut % (Auto) 81.9 % 04/30/24 04:09 Lymph % (Auto) 5.7 % 04/30/24 04:09 Bath % (Auto) 10.8 % 04/30/24 04:09 Eos % (Auto) 1.2 % 04/30/24 04:09 Baso % (Auto) 0.1 % 04/30/24 04:09 Neut # (Auto) 7.05 10^3/uL (1.8-7.7) 04/30/24 04:09 Lymph # (Auto) 0.5 10^3/uL (0.8-4.8) L 04/30/24 04:09 Bath # (Auto) 0.9 10^3/uL (0.2-0.9) 04/30/24 04:09 Eos # (Auto) 0.1 10^3/uL (0.0-0.8) 04/30/24 04:09 Baso # (Auto) 0.0 10^3/uL (0.0-0.1) 04/30/24 04:09 Nucleated RBC % (auto) 0 % 04/30/24 04:09 Nucleated RBCs # 0.0 /100WBC 04/30/24 04:09 Peripher Smr Path Cons Sent for review 04/26/24 13:29 ESR 17 mm/hr (0-10) H 04/26/24 13:29 PT 15.50 SECONDS (12.1-14.9) H 04/28/24 03:20 INR 1.19 (0.8-1.2) 04/28/24 03:20 APTT 52.5 SECONDS (23.9-36.7) H 04/30/24 13:22 Specimen Type Arterial 04/29/24 04:18 Sample Site Radial, left 04/29/24 04:18 ABG pH 7.29 (7.35-7.45) L 04/29/24 04:18 ABG pCO2 45.4 mmHg (35-45) H 04/29/24 04:18 ABG pO2 95.0 mmHg (80.0-100.0) 04/29/24 04:18 ABG PO2/FiO2 Ratio 271 04/29/24 04:18 ABG HCO3 21.8 mmol/L (22-26) L 04/29/24 04:18 ABG O2 Saturation 97.3 04/27/24 04:30 ABG Base Excess -4.9 mmol/L (-2.0-2.0) L 04/29/24 04:18 Martin Test Pos 04/29/24 04:18 A-a O2 Gradient 52.0 mmHg (5-10) H 04/27/24 04:30 Hematocrit 45.2 % (42-52) 04/29/24 04:18 Hgb O2 Saturation 96.3 % (95-100) 04/27/24 04:30 Carboxyhemoglobin 0.4 %THgb (0.4-20.1) 04/27/24 04:30 Methemoglobin 0.6 % (0.4-1.5) 04/27/24 04:30 Total Hemoglobin 18.4 g/dL (14-18) H 04/27/24 04:30 Sodium 123.0 mmol/L (131-143) L 04/27/24 04:30 Potassium 5.2 mmol/L (3.5-5.0) H 04/27/24 04:30 Glucose 82.0 mg/dL (70-115) 04/27/24 04:30 Ionized Calcium 1.3 mmol/L (1.1-1.4) 04/27/24 04:30 O2 Delivery Device Vent 04/29/24 04:18 FiO2 35.0 % 04/29/24 04:18 Tidal Volume 0.50 04/29/24 04:18 PEEP 8.0 cmH20 04/29/24 04:18 Clinical Staff Pharmacist ID Ed 04/29/24 04:18 Sodium 135 mmol/L (136-145) L 04/30/24 04:09 Potassium 5.0 mmol/L (3.5-5.1) 04/30/24 04:09 Chloride 94 mmol/L (98-107) L 04/30/24 04:09 Carbon Dioxide 23 mmol/L (22-29) 04/30/24 04:09 Anion Gap 23.0 (5-19) H 04/30/24 04:09 BUN 43 mg/dL (8-23) H 04/30/24 04:09 Creatinine 5.1 mg/dL (0.7-1.2) H 04/30/24 04:09 GFR Calculation 11.6 mL/min (90-130) L 04/30/24 04:09 Glucose 77 mg/dL (65-115) 04/30/24 04:09 POC Glucose 103 mg/dL (70-110) 04/30/24 15:50 Estimat Average Glucose 126 04/26/24 13:29 Hemoglobin A1c 6.0 % (4.0-6.0) 04/26/24 13:29 Calculated Osmolality 290 mOsm/kg (285-295) 04/30/24 04:09 Lactic Acid 1.8 mmol/L (0.5-2.2) 04/26/24 13:29 Lactate 2.5 mmol/L (0.5-2.2) H 04/28/24 03:20 Calcium 9.0 mg/dL (8.5-10.5) 04/30/24 04:09 Phosphorus 8.4 mg/dL (2.5-4.5) H* 04/30/24 04:09 Magnesium 2.6 mg/dL (1.7-2.3) H 04/30/24 04:09 Iron 19 ug/dL (59-158) L 04/28/24 06:13 TIBC 253 mcg/dl 04/28/24 06:13 % Saturation 7.5 % (20-50) L 04/28/24 06:13 Unsat Iron Binding 234 ug/dL (112-347) 04/28/24 06:13 Total Bilirubin 0.5 mg/dL (0.15-1.2) 04/30/24 04:09 Direct Bilirubin 0.30 mg/dL (0.00-0.30) 04/26/24 13:29 AST 26 U/L (0-40) 04/30/24 04:09 ALT 18 U/L (0-41) 04/30/24 04:09 Alkaline Phosphatase 113 U/L (40-130) 04/30/24 04:09 Lactate Dehydrogenase 201 U/L (135-225) 04/28/24 06:13 Creatine Kinase 120 U/L (39-308) 04/28/24 03:20 Troponin T Baseline 187 ng/L (0-15) H* 04/26/24 19:49 Troponin T 120 Minute 205.2 ng/L (0-15) H 04/26/24 22:25 Delta Troponin T 18.2 ABS# (0-10) H* 04/26/24 22:25 Troponin T Hi Sens 6Hr 389.1 ng/L (0-15) H 04/27/24 01:51 Troponin T Hi Sens 6Hr Delta 202.1 ng/L (0-12) H* 04/27/24 01:51 C-Reactive Protein 66.4 mg/L (0.0-4.9) H 04/30/24 04:09 NT-Pro-B Natriuret Pep 8284 pg/mL (0-125) H 04/28/24 03:20 Total Protein 7.1 g/dL (6.6-8.7) 04/30/24 04:09 Albumin 3.7 g/dL (3.5-5.2) 04/30/24 04:09 Globulin 3.4 g/dL (1.3-4.6) 04/30/24 04:09 Triglycerides 116 mg/dL (0-150) 04/26/24 13:29 Cholesterol 141 mg/dL (0-200) 04/26/24 13:29 LDL Cholesterol, Calc 65 mg/dL (50-129) 04/26/24 13:29 HDL Cholesterol 53 mg/dL (60-100) L 04/26/24 13:29 LDL/HDL Ratio 1.23 RATIO (0.00-3.22) 04/26/24 13:29 Cholesterol/HDL Ratio 2.66 mg/dL (1.0-5.00) 04/26/24 13:29 Angiotensin Convert Enz 45 U/L (9-67) 04/27/24 04:13 Vitamin B12 > 2000 pg/mL (232-1245) H 04/28/24 06:13 Folate > 20.0 ng/mL (4.5-32.2) 04/29/24 04:45 Procalcitonin 0.74 ng/mL (0-0.5) H 04/29/24 04:45 TSH 5.21 uIU/mL (0.27-4.20) H 04/26/24 13:29 TSH 5.25 uIU/mL (0.27-4.20) H 04/26/24 13:29 Urine Color Yellow (Yellow) 04/29/24 01:10 Urine Appearance Slightly cloudy (CLEAR) 04/29/24 01:10 Urine pH 5 (5-7) 04/29/24 01:10 Ur Specific [place] 1.020 (1.005-1.030) 04/29/24 01:10 Urine Protein 2+ (Negative) H 04/29/24 01:10 Urine Glucose (UA) Norm (Normal) 04/29/24 01:10 Urine Ketones Negative (Negative) 04/29/24 01:10 Urine Blood 3+ (Negative) H 04/29/24 01:10 Urine Nitrate Negative (Negative) 04/29/24 01:10 Urine Bilirubin Neg (Negative) 04/29/24 01:10 Urine Urobilinogen Neg mg/dL (Negative) 04/29/24 01:10 Ur Leukocyte Esterase 2+ (Negative) H 04/29/24 01:10 Urine RBC 21-50 /hpf (0-2) H 04/29/24 01:10 Urine WBC 15-25 /hpf (0-5) H 04/29/24 01:10 Ur Squamous Epith Cells None /hpf (0-5) 04/29/24 01:10 Amorphous Sediment Not Reportable 04/29/24 01:10 Urine Bacteria 3+ /hpf (NONE) H 04/29/24 01:10 Hyaline Casts 0-4 /lpf H 04/29/24 01:10 Urine Mucus 2+ /hpf 04/29/24 01:10 Urine Yeast 2+ /hpf H 04/29/24 01:10 Random Vancomycin 26.3 ug/mL (20.0-40.0) 04/30/24 04:09 Urine Opiates Screen Negative ng/mL (Negative) 04/29/24 01:10 Ur Barbiturates Screen Negative ng/mL (Negative) 04/29/24 01:10 Ur Phencyclidine Scrn Negative ng/mL (Negative) 04/29/24 01:10 Ur Amphetamines Screen Negative ng/mL (Negative) 04/29/24 01:10 U Benzodiazepines Scrn Positive ng/mL (Negative) H 04/29/24 01:10 Urine Cocaine Screen Negative ng/mL (Negative) 04/29/24 01:10 U Marijuana (THC) Screen Negative ng/mL (Negative) 04/29/24 01:10 Ethyl Alcohol < 10 mg/dL (0-10) 04/26/24 13:29 Hepatitis A IgM Ab Non-reactive (Nonreactive) 04/26/24 13:29 Hep Bs Antigen Non-reactive (Nonreactive) 04/27/24 04:13 Hep Bs Antibody 18.4 (11.5-1000) 04/27/24 04:13 Hep B Core Total Ab Non-reactive (Nonreactive) 04/26/24 13:29 Hepatitis C Antibody Non-reactive (Nonreactive) 04/27/24 04:13 HIV 1&2 Ab & HIV 1 Ag Non-reactive (Non-Reactiv) 04/27/24 00:30 HIV 1&2 Antibody Non-reactive (Non-Reactiv) 04/27/24 00:30 MRSA Culture Not detected ` (Negative) 04/28/24 20:55 MRSA (PCR) Cancelled 04/28/24 20:55 Beta-(1,3)-D-Glucan Cancelled 04/28/24 06:13 B-(1,3)-D-Glucan Intrp Cancelled 04/28/24 06:13 Micro: Microbiology 04/29/24 01:10 Urine Culture - Preliminary Urine,Clean Catch 04/28/24 08:50 Gram Stain - Final Sputum - Endotracheal Tube Aspirate Sputum Culture - Final Pseudomonas aeruginosa A&P Assessment and plan (1) Troponin level elevated: Possibly from type II CA. Cannot exclude type I. Echocardiogram was unremarkable. No acute ST-T changes. In view of the high-grade stenosis of the carotid artery, possibility of him having underlying coronary artery disease also is high. We may consider doing a cardiac catheterization to evaluate the coronary status. Will discuss with Dr. Monroe regarding the appropriate timing. (2) Left carotid artery stenosis: Patient may benefit from carotid intervention. Vascular surgery is to decide the timing. We may consider the categorization as early as possible. (3) ESRD on dialysis: Patient is on dialysis, 3 times a week. This may be continued. (4) Transient ischemic attack (TIA): Possibly related to hypotension and high-grade carotid stenosis. Currently has no recurrence. (5) Paroxysmal atrial fibrillation with rapid ventricular response: Continue the IV heparin. Consider cardiac catheterization, sometime tomorrow. (6) Cardiac arrest: Patient has a history of cardiac cardiac arrest with no recent recurrence. Had a Myocardial perfusion imaging in June of last year and was found to have no evidence of ischemia. Plan Based on the patient's clinical progress, further recommendations will be made. May keep n.p.o. after an aircraft maintenance technician breakfast tomorrow Attestations Medical Necessity Statement*: Patient requires continued hospital stay for close monitoring and further management Coding Level of Care Code 01014 Diagnoses Troponin level elevated R79.89 Left carotid artery stenosis I65.22 ESRD on dialysis N18.6; Z99.2 Transient ischemic attack (TIA) G45.9 Paroxysmal atrial fibrillation with rapid ventricular response I48.0 Cardiac arrest I46.9
[2024-04-30] MEDS: heparin drip 25,000 UNIT/500 ML PREMIX 24 UNIT IV (17:34)
--- NOTE | 2024-04-30 19:29 | P.PN_ITS ---
Subjective 2 Subjective: extubated Medications: Reviewed: Yes Vitals/I&O/Wt Last Vital Signs Temp 98.0 F 04/30/24 15:52 Pulse 64 04/30/24 15:52 Resp 18 04/30/24 15:52 BP 111/59 04/30/24 15:52 Pulse Ox 93 04/30/24 15:52 O2 Del Method Nasal Cannula 04/30/24 15:52 O2 Flow Rate 3 04/30/24 15:52 FiO2 35 04/29/24 15:17 04/30/24 04/30/24 04/30/24 06:59 14:59 22:59 Intake Total 122.333 / 997.587 210.6 / 210.6 337.067 / 547.667 Output Total 350 / 350 125 / 125 Balance -227.667 / 647.587 210.6 / 210.6 212.067 / 422.667 Weight last 48 hrs Weight 93.5 kg Weight 96.5 kg Physical Exam 2 Narrative: extubated HEENT normocephalic atraumatic. Neck is supple Lungs -scattered bilateral rhonchi. Heart regular positive S1-S2 Abdomen is soft positive bowel sounds. Extremities no edema. Right anterior chest wall permacath. Neuro sedated. Urinary Catheter Management: [place]: Cath Placed During This Visit: yes Reason for Continuing Indwelling Catheter: Other Urinary Catheter Date of Insertion: 04/26/24 Urinary Catheter Time of Insertion: 21:25 Data 04/30/24 04:09 04/30/24 04:09 Micro: Microbiology 04/29/24 01:10 Urine Culture - Preliminary Urine,Clean Catch 04/28/24 08:50 Gram Stain - Final Sputum - Endotracheal Tube Aspirate Sputum Culture - Final Pseudomonas aeruginosa A&P Assessment and plan (1) ESRD on dialysis: 63-year-old gentleman ESRD here with right-sided weakness. History of hypertension, polycythemia, obesity, sleep apnea. Patient here with episodes of altered mental status. 1. Respiratory failure. As per critical care. . CTA found dilated main pulmonary artery of 3.2 cm ectatic ascending thoracic aorta measuring 4.4 cm in the lung multifocal consolidative and groundglass opacities of the lungs with areas of mosaic attenuation. Similar to prior likely right apical scarring calcified granuloma in the right lung apex -Multiple enlarged mediastinal and hilar, no evidence of PE. Question of left basilar consolidation for pneumonia. Question of sarcoidosis. -Extubated 1. ESRD : HD yesterday , , next HD tomorrow 2. septic shock with white cell count of 18.47. Renal dosed antibiotics 3. Hyponatremia monitor with dialysis 4. Hyperkalemia monitor with dialysis. 5. Hyperphosphatemia monitor with dialysis and get binder when eating. 6. Positive troponins likely from stress. 7. History of sarcoidosis as per pulmonary. Patient is in critical condition in the ICU will monitor closely. The patient was seen and examined using A/V equipment and a nurse examined the patient. The patient consented on april 26, 2024 to telehealth visit and to dialysis. . Plan See above Attestations 2 Medical Necessity Statement*: per jace Coding Level of Care Code Acute Code for Chg Fwd Diagnoses ESRD on dialysis N18.6; Z99.2
[2024-04-30] MEDS: sodium chloride 0.9 % (flush) syringe 10 mL IV (20:20)
[2024-04-30] MEDS: atorvastatin 40 mg Tablet 80 MG PO (20:21)
[2024-05-01] VITALS (9 sets, daily range): BP systolic 98–140; BP diastolic 65–74; PULSE 71–86; RESP 16–22; TEMP 37–37.4; O2SAT 90–96
[2024-05-01] MEDS: meropenem 1,000 mg SDV 1000 MG IVP (01:13)
[2024-05-01] MEDS: ipratropium-albuterol 3 mL Neb INHALATION ×2 (02:20→07:57)
[2024-05-01 04:57] LABS: Basophils % 0.3 %; Hematocrit 49.1 % (37-53); Lymphocytes # 0.4 10^3/uL (0.8-4.8); Lymphocytes % 5.7 %; Mean Corpuscular HGB Conc 29.5 g/dL (30-55); Mean Corpuscular Hemoglobin 24.9 pg (27-33); Mean Corpuscular Volume 84.2 fl (82-101); Mean Platelet Volume 10.1 fL (7.4-10.4); Monocytes # 0.9 10^3/uL (0.2-0.9); Monocytes % 12.7 %; Neutrophils # 5.49 10^3/uL (1.8-7.7); Neutrophils % 80.9 %; Nucleated Red Blood Cells % 0 %; Platelet Count 138 10^3/cmm (157-399); Red Blood Count 5.83 10^6/uL (3.85-5.65); Red Cell Distribution Width 20.4 % (12.1-15.1); White Blood Count 6.79 10^3/uL (3.29-11.43)
[2024-05-01 05:16] LABS: Alanine Aminotransferase 22 U/L (0-41); Albumin Level 3.8 g/dL (3.5-5.2); Alkaline Phosphatase 110 U/L (40-130); Aspartate Amino Transferase 32 U/L (0-40); Blood Urea Nitrogen 64 mg/dL (8-23); Calcium 8.6 mg/dL (8.5-10.5); Carbon Dioxide 21 mmol/L (22-29); Chloride 94 mmol/L (98-107); Globulin 3.4 g/dL (1.3-4.6); Glomerular Filtration Rate 9.1 mL/min (90-130); Glucose 92 mg/dL (65-115); Osmolality Calculated 298 mOsm/kg (285-295); Sodium 135 mmol/L (136-145); Total Bilirubin 0.4 mg/dL (0.15-1.2); Total Protein 7.2 g/dL (6.6-8.7)
[2024-05-01 05:18] LABS: Magnesium 2.9 mg/dL (1.7-2.3)
[2024-05-01 05:22] LABS: Vancomycin Random 22.7 ug/mL (20.0-40.0)
[2024-05-01 05:26] LABS: Anion Gap 26.5 (5-19); Potassium 6.5 mmol/L (3.5-5.1)
[2024-05-01 05:27] LABS: Creatinine Clr Calc Pharmacy 14.2003
[2024-05-01] MEDS: sodium polystyrene sulfonate 15 gm/60 mL Btl PO (06:20)
[2024-05-01] MEDS: dextrose 10% 125 ML 750 ML IV ×2 (06:35→06:47)
[2024-05-01 06:36] LABS: Glucose Point of Care 84 mg/dL (70-110)
[2024-05-01] MEDS: calcium gluconate 0.1 gm/mL 10% SDV 10mL 1 GM IVP (06:38)
[2024-05-01] MEDS: insulin regular-human 10 UNIT in SYRINGE 1 EACH 999 UNIT IVP (06:45)
[2024-05-01 07:48] LABS: Glucose Point of Care 171 mg/dL (70-110)
[2024-05-01] MEDS: budesonide 0.5 mg/2 mL Neb INHALATION (07:57)
--- NOTE | 2024-05-01 08:16 | PM.TDS ---
Transfer Summary Providers Date of Admission: 04/26/24 16:09 Date of Discharge/Transfer: 05/01/24 Attending Provider at Admission: Kellie Monroy MD Attending Provider at Transfer: Noe Goodman MD Consults: Neurology: [facility] Cardiology: Dr. Valles Primary Care Provider: Philip Torrez Transfer Plans: Anticipated date of transfer: 05/01/24. Diagnoses at Discharge Discharge Diagnosis (1) Troponin level elevated: Status: Acute (2) Left carotid artery stenosis: Status: Acute (3) ESRD on dialysis: Status: Acute (4) Transient ischemic attack (TIA): Status: Acute (5) Paroxysmal atrial fibrillation with rapid ventricular response: Status: Acute (6) Cardiac arrest: Status: Acute Reason for Visit Reason for Visit right side weakness Brief History: History as per HPI: João Carter is a 63 year old male With past medical history of sleep apnea noncompliant with CPAP, diabetes, hypertension, end-stage renal disease, SVT, secondary polycythemia presented to the hospital after right-sided flaccidity while he was going to dialysis. Patient was also altered at the time. He was brought in by EMS and taken directly to CT. CT negative for acute stroke. He was seen by telemetry neurology service at [place] and he was not a candidate for TNKase based on NIH. As patient was being evaluated via A/V cart patient's symptoms resolved and now he could move his right side and subsequently had an NIH of 0. Apparently blood pressure was low during that episode as well. He did not take his antihypertensives today. Patient's does state that lately he has been having issues where low blood pressure and similar episodes. [facility] recommends to admit patient for TIA workup at this time. CTA head and neck has been ordered. Nephrology has been consulted. When seen in ER patient has no focal deficits at this time. Denies nausea vomiting diarrhea abdominal pain, constipation, shortness of breath, chest pain. Hospital Course Hospital Course Patient was admitted to the hospital further evaluation and management possible TIA while hemodialysis due to hypotension. He was not a candidate for tPA on admission. He underwent CT head and CTA head and neck which was concerning for significant stenosis of left carotid with sluggish blood flow and left internal carotid artery. During hospitalization on 04/26 while in the ER waiting for a bed in ICU he had a seizure for which she was intubated to protect his airway. Patient was managed for respiratory failure with IV antibiotics. His blood culture remain negative though sputum culture came back positive for Pseudomonas. Eventually he was extubated on 04/29 to 3 L of oxygen supplementation with 2 L being his baseline. He did have few runs of paroxysmal A-fib during hospitalization though currently has remained in normal sinus rhythm. He has been maintained on heparin drip with concerns for stroke prevention for A-fib. His hospitalization was otherwise unremarkable and he did not have any further episodes of seizure activity of antiseizure medications. It is believed patient's TIA/strokelike symptoms on hemodialysis and seizure activity is most likely in setting of borderline blood pressures because of sluggish blood flow to brain in setting of left carotid artery stenosis. Because of the same transfer to a tertiary center for vascular surgery opinion was recommended by both cardiology and neurology team hence transfer to a higher center was sought and he was accepted at [facility] by Dr. Hernandez for further management after talking to the vascular surgeon at [facility] as well. He has been transferred in hemodynamically stable condition. His last dialysis was on Sunday 04/29. Patient will most likely need cardiac workup as well prior to vascular surgery given concerns for elevated troponins on admission though echocardiogram showed normal EF with LVH and no regional wall motion abnormality. Patient during hospitalization remained chest pain-free. Patient's care were discussed in detail with the admitting provider at [facility] and all the questions were answered. Physical Exam Narrative: General: No acute distress, AOx3 on 4 L of oxygen supplementation HEENT: Normocephalic, atraumatic, EOMI, Cardio: Regular rate rhythm, normal S1-S2, Respiratory: Bilateral bronchial breath sounds all over lung long with occasional rhonchi and coarse crackles more so in right middle and upper zone GI: Abdomen soft, nontender, nondistended, bowel sounds + Extremities: No edema bilateral extremities. Urinary Catheter Management: [place]: Cath Placed During This Visit: yes Reason for Continuing Indwelling Catheter: Other Urinary Catheter Date of Insertion: 04/26/24 Urinary Catheter Time of Insertion: 21:25 TS Data Studies Completed and Pending Pending at discharge Category Date Time Status Blood Culture Stat Lab 04/26/24 13:35 Results Coccidioides AB CF Serum Routine Lab 04/28/24 03:20 Received Complete Blood Count w/Auto AM LABS Lab 05/02/24 04:00 Ordered Comprehensive Metabolic Panel AM LABS Lab 05/02/24 04:00 Ordered Fungitell Glucan Assay (Blood) Routine Lab 04/28/24 06:13 Received Histoplasma Quantitative AG Routine Lab 04/28/24 Ordered PTT [Partial Thromboplastin Time] Routine Lab 05/01/24 10:20 Ordered Urine Culture Stat Lab 04/29/24 01:10 Results Vancomycin Random AM LABS Lab 05/02/24 04:00 Ordered Completed Studies During Hospitalization Category Date Time Status CT angio chest PE protcl [id number] Stat Cat Scan 04/26/24 20:[address] head thrombolytic [id number] Stat Cat Scan 04/26/24 13:[address] head wo con* [id number] Stat Cat Scan 04/26/24 19:57 Completed CTA head neck [CT angio headneck* [id number]] Stat Cat Scan 04/26/24 16:04 Completed XR chest 1V portable [id number] Routine Exams 04/26/24 19:46 Completed XR chest 1V portable [id number] Routine Exams 04/26/24 22:41 Completed XR chest 1V portable [id number] Stat Exams 04/26/24 13:19 Completed XR chest 1V portable [id number] Stat Exams 04/26/24 21:32 Completed CV. echo complete* [id number] Routine Ultrasound 04/27/24 22:42 Completed Laboratory Last Values WBC 6.79 10^3/uL (3.29-11.43) 05/01/24 04:23 RBC 5.83 10^6/uL (3.85-5.65) H 05/01/24 04:23 Hgb 14.50 g/dL (11.27-16.99) 05/01/24 04:23 Hct 49.1 % (37-53) 05/01/24 04:23 MCV 84.2 fl (82-101) 05/01/24 04:23 MCH 24.9 pg (27-33) L 05/01/24 04:23 MCHC 29.5 g/dL (30-55) L 05/01/24 04:23 RDW 20.4 % (12.1-15.1) H 05/01/24 04:23 Plt Count 138 10^3/cmm (157-399) L 05/01/24 04:23 MPV 10.1 fL (7.4-10.4) 05/01/24 04:23 Neut % (Auto) 80.9 % 05/01/24 04:23 Lymph % (Auto) 5.7 % 05/01/24 04:23 Laurens % (Auto) 12.7 % 05/01/24 04:23 Eos % (Auto) 0.0 % 05/01/24 04:23 Baso % (Auto) 0.3 % 05/01/24 04:23 Neut # (Auto) 5.49 10^3/uL (1.8-7.7) 05/01/24 04:23 Lymph # (Auto) 0.4 10^3/uL (0.8-4.8) L 05/01/24 04:23 Laurens # (Auto) 0.9 10^3/uL (0.2-0.9) 05/01/24 04:23 Eos # (Auto) 0.0 10^3/uL (0.0-0.8) 05/01/24 04:23 Baso # (Auto) 0.0 10^3/uL (0.0-0.1) 05/01/24 04:23 Nucleated RBC % (auto) 0 % 05/01/24 04:23 Nucleated RBCs # 0.0 /100WBC 05/01/24 04:23 Peripher Smr Path Cons Sent for review 04/26/24 13:29 ESR 17 mm/hr (0-10) H 04/26/24 13:29 PT 15.50 SECONDS (12.1-14.9) H 04/28/24 03:20 INR 1.19 (0.8-1.2) 04/28/24 03:20 APTT 59.0 SECONDS (23.9-36.7) H 05/01/24 04:23 Specimen Type Arterial 04/29/24 04:18 Sample Site Radial, left 04/29/24 04:18 ABG pH 7.29 (7.35-7.45) L 04/29/24 04:18 ABG pCO2 45.4 mmHg (35-45) H 04/29/24 04:18 ABG pO2 95.0 mmHg (80.0-100.0) 04/29/24 04:18 ABG PO2/FiO2 Ratio 271 04/29/24 04:18 ABG HCO3 21.8 mmol/L (22-26) L 04/29/24 04:18 ABG O2 Saturation 97.3 04/27/24 04:30 ABG Base Excess -4.9 mmol/L (-2.0-2.0) L 04/29/24 04:18 Martin Test Pos 04/29/24 04:18 A-a O2 Gradient 52.0 mmHg (5-10) H 04/27/24 04:30 Hematocrit 45.2 % (42-52) 04/29/24 04:18 Hgb O2 Saturation 96.3 % (95-100) 04/27/24 04:30 Carboxyhemoglobin 0.4 %THgb (0.4-20.1) 04/27/24 04:30 Methemoglobin 0.6 % (0.4-1.5) 04/27/24 04:30 Total Hemoglobin 18.4 g/dL (14-18) H 04/27/24 04:30 Sodium 123.0 mmol/L (131-143) L 04/27/24 04:30 Potassium 5.2 mmol/L (3.5-5.0) H 04/27/24 04:30 Glucose 82.0 mg/dL (70-115) 04/27/24 04:30 Ionized Calcium 1.3 mmol/L (1.1-1.4) 04/27/24 04:30 O2 Delivery Device Vent 04/29/24 04:18 FiO2 35.0 % 04/29/24 04:18 Tidal Volume 0.50 04/29/24 04:18 PEEP 8.0 cmH20 04/29/24 04:18 Dispatcher Maintenance Service ID Ed 04/29/24 04:18 Sodium 135 mmol/L (136-145) L 05/01/24 04:23 Potassium 6.5 mmol/L (3.5-5.1) H* 05/01/24 04:23 Chloride 94 mmol/L (98-107) L 05/01/24 04:23 Carbon Dioxide 21 mmol/L (22-29) L 05/01/24 04:23 Anion Gap 26.5 (5-19) H 05/01/24 04:23 BUN 64 mg/dL (8-23) H 05/01/24 04:23 Creatinine 6.3 mg/dL (0.7-1.2) H* 05/01/24 04:23 GFR Calculation 9.1 mL/min (90-130) L 05/01/24 04:23 Glucose 92 mg/dL (65-115) 05/01/24 04:23 POC Glucose 171 mg/dL (70-110) H 05/01/24 07:03 Estimat Average Glucose 126 04/26/24 13:29 Hemoglobin A1c 6.0 % (4.0-6.0) 04/26/24 13:29 Calculated Osmolality 298 mOsm/kg (285-295) H 05/01/24 04:23 Lactic Acid 1.8 mmol/L (0.5-2.2) 04/26/24 13:29 Lactate 2.5 mmol/L (0.5-2.2) H 04/28/24 03:20 Calcium 8.6 mg/dL (8.5-10.5) 05/01/24 04:23 Phosphorus 8.4 mg/dL (2.5-4.5) H* 04/30/24 04:09 Magnesium 2.9 mg/dL (1.7-2.3) H 05/01/24 04:23 Iron 19 ug/dL (59-158) L 04/28/24 06:13 TIBC 253 mcg/dl 04/28/24 06:13 % Saturation 7.5 % (20-50) L 04/28/24 06:13 Unsat Iron Binding 234 ug/dL (112-347) 04/28/24 06:13 Total Bilirubin 0.4 mg/dL (0.15-1.2) 05/01/24 04:23 Direct Bilirubin 0.30 mg/dL (0.00-0.30) 04/26/24 13:29 AST 32 U/L (0-40) 05/01/24 04:23 ALT 22 U/L (0-41) 05/01/24 04:23 Alkaline Phosphatase 110 U/L (40-130) 05/01/24 04:23 Lactate Dehydrogenase 201 U/L (135-225) 04/28/24 06:13 Creatine Kinase 120 U/L (39-308) 04/28/24 03:20 Troponin T Baseline 187 ng/L (0-15) H* 04/26/24 19:49 Troponin T 120 Minute 205.2 ng/L (0-15) H 04/26/24 22:25 Delta Troponin T 18.2 ABS# (0-10) H* 04/26/24 22:25 Troponin T Hi Sens 6Hr 389.1 ng/L (0-15) H 04/27/24 01:51 Troponin T Hi Sens 6Hr Delta 202.1 ng/L (0-12) H* 04/27/24 01:51 C-Reactive Protein 66.4 mg/L (0.0-4.9) H 04/30/24 04:09 NT-Pro-B Natriuret Pep 8284 pg/mL (0-125) H 04/28/24 03:20 Total Protein 7.2 g/dL (6.6-8.7) 05/01/24 04:23 Albumin 3.8 g/dL (3.5-5.2) 05/01/24 04:23 Globulin 3.4 g/dL (1.3-4.6) 05/01/24 04:23 Triglycerides 116 mg/dL (0-150) 04/26/24 13:29 Cholesterol 141 mg/dL (0-200) 04/26/24 13:29 LDL Cholesterol, Calc 65 mg/dL (50-129) 04/26/24 13:29 HDL Cholesterol 53 mg/dL (60-100) L 04/26/24 13:29 LDL/HDL Ratio 1.23 RATIO (0.00-3.22) 04/26/24 13:29 Cholesterol/HDL Ratio 2.66 mg/dL (1.0-5.00) 04/26/24 13:29 Angiotensin Convert Enz 45 U/L (9-67) 04/27/24 04:13 Vitamin B12 > 2000 pg/mL (232-1245) H 04/28/24 06:13 Folate > 20.0 ng/mL (4.5-32.2) 04/29/24 04:45 Procalcitonin 0.74 ng/mL (0-0.5) H 04/29/24 04:45 TSH 5.21 uIU/mL (0.27-4.20) H 04/26/24 13:29 TSH 5.25 uIU/mL (0.27-4.20) H 04/26/24 13:29 Urine Color Yellow (Yellow) 04/29/24 01:10 Urine Appearance Slightly cloudy (CLEAR) 04/29/24 01:10 Urine pH 5 (5-7) 04/29/24 01:10 Ur Specific Mcclure 1.020 (1.005-1.030) 04/29/24 01:10 Urine Protein 2+ (Negative) H 04/29/24 01:10 Urine Glucose (UA) Norm (Normal) 04/29/24 01:10 Urine Ketones Negative (Negative) 04/29/24 01:10 Urine Blood 3+ (Negative) H 04/29/24 01:10 Urine Nitrate Negative (Negative) 04/29/24 01:10 Urine Bilirubin Neg (Negative) 04/29/24 01:10 Urine Urobilinogen Neg mg/dL (Negative) 04/29/24 01:10 Ur Leukocyte Esterase 2+ (Negative) H 04/29/24 01:10 Urine RBC 21-50 /hpf (0-2) H 04/29/24 01:10 Urine WBC 15-25 /hpf (0-5) H 04/29/24 01:10 Ur Squamous Epith Cells None /hpf (0-5) 04/29/24 01:10 Amorphous Sediment Not Reportable 04/29/24 01:10 Urine Bacteria 3+ /hpf (NONE) H 04/29/24 01:10 Hyaline Casts 0-4 /lpf H 04/29/24 01:10 Urine Mucus 2+ /hpf 04/29/24 01:10 Urine Yeast 2+ /hpf H 04/29/24 01:10 Random Vancomycin 22.7 ug/mL (20.0-40.0) 05/01/24 04:23 Urine Opiates Screen Negative ng/mL (Negative) 04/29/24 01:10 Ur Barbiturates Screen Negative ng/mL (Negative) 04/29/24 01:10 Ur Phencyclidine Scrn Negative ng/mL (Negative) 04/29/24 01:10 Ur Amphetamines Screen Negative ng/mL (Negative) 04/29/24 01:10 U Benzodiazepines Scrn Positive ng/mL (Negative) H 04/29/24 01:10 Urine Cocaine Screen Negative ng/mL (Negative) 04/29/24 01:10 U Marijuana (THC) Screen Negative ng/mL (Negative) 04/29/24 01:10 Ethyl Alcohol < 10 mg/dL (0-10) 04/26/24 13:29 Hepatitis A IgM Ab Non-reactive (Nonreactive) 04/26/24 13:29 Hep Bs Antigen Non-reactive (Nonreactive) 04/27/24 04:13 Hep Bs Antibody 18.4 (11.5-1000) 04/27/24 04:13 Hep B Core Total Ab Non-reactive (Nonreactive) 04/26/24 13:29 Hepatitis C Antibody Non-reactive (Nonreactive) 04/27/24 04:13 HIV 1&2 Ab & HIV 1 Ag Non-reactive (Non-Reactiv) 04/27/24 00:30 HIV 1&2 Antibody Non-reactive (Non-Reactiv) 04/27/24 00:30 MRSA Culture Not detected ` (Negative) 04/28/24 20:55 MRSA (PCR) Cancelled 04/28/24 20:55 Beta-(1,3)-D-Glucan Cancelled 04/28/24 06:13 B-(1,3)-D-Glucan Intrp Cancelled 04/28/24 06:13 Radiology Impressions Head/Neck CTA 04/26/24 16:04 IMPRESSION: No occlusion of the ALESHA, MCA or IMAGING ANALYST arteries. IMPRESSION: 1. Severe stenosis of the left proximal common carotid artery with sluggish flow in the common carotid and left internal carotid arteries. 2. Ground-glass infiltrates in the right upper lobe, likely infectious. REFERENCES: NASCET CRITERIA. The degree of stenosis in the cervical segment of the internal carotid artery is based on NASCET criteria. Normal is no stenosis. Mild is less than 50% stenosis. Moderate is 50-69% stenosis. Severe is 70% to 99% stenosis. Total occlusion is no detectable patent lumen. Head CT 04/26/24 19:57 IMPRESSION: No acute intracranial findings. Chest CTA 04/26/24 20:46 IMPRESSION: 1. No evidence of pulmonary emboli. 2. Left basilar consolidation concerning for pneumonia. Findings may be in part on the basis of aspiration, particularly with a small amount of layering debris in the upper thoracic esophagus. Recommend continued imaging follow-up to evaluate evolution of findings. 3. Multifocal ground-glass and consolidative opacities throughout the remaining portions of the lungs overall appear similar to prior. Chronic fibrotic changes are likely, including with areas of air trapping from chronic small airways disease. Superimposed edema and/or atypical infection not excluded. 4. Mediastinal/hilar adenopathy similar to prior. 5. Reflux of contrast into the IVC and hepatic veins compatible with tricuspid regurgitation and/or elevated right heart pressures. 6. Ectatic ascending thoracic aorta measuring up to 4.4 cm. 7. Dilated main pulmonary artery can be seen with pulmonary hypertension. COMMENTS: Consistent with the [employer]'s Incidental Findings Committee white paper (J Am Cecily Radiol 2015): In patients aged 35 years and older with an incidental thyroid nodule equal to or greater than 1.[address], MRI or extrathyroidal US, further evaluation with dedicated thyroid US is recommended for patients with normal life expectancy and without comorbidities. For smaller nodules without suspicious features, no further evaluation or follow up is recommended. Chest X-Ray 04/26/24 22:41 IMPRESSION: 1. NG tube tip is in the stomach with the side port below the GE junction. 2. Diffuse interstitial and airspace opacities may reflect pulmonary edema and/or atypical infection. Echocardiogram: CONCLUSIONS Technically limited quality echocardiogram because of poor ultrasonic windows. LV systolic function is normal with EF of 60 to 65%. Grade 1 diastolic dysfunction Moderate to severe left ventricular hypertrophy Mild mitral regurgitation Mild tricuspid regurgitation Mild pulmonic regurgitation Accurate comparison with prior studies not possible because of poor ultrasonic windows and limited visualization. Steven Mallory MD (Electronically Signed) Final Date: 27 April 2024 19:08 Recent Clincial Data Last Vital Signs Temp 98.6 F 05/01/24 07:07 Pulse 86 05/01/24 08:13 Resp 16 05/01/24 07:57 BP 140/74 05/01/24 07:07 Pulse Ox 96 05/01/24 07:57 O2 Del Method Nasal Cannula 05/01/24 07:57 O2 Flow Rate 4 05/01/24 07:57 FiO2 35 04/29/24 15:17 Vital Signs Temp Pulse Resp BP Pulse Ox O2 Del Method O2 Flow Rate 05/01/24 08:13 86 05/01/24 07:57 83 16 96 Nasal Cannula 4 05/01/24 07:07 98.6 F 85 18 140/74 95 Nasal Cannula 3 05/01/24 05:52 83 05/01/24 04:00 99.3 F 83 22 H 98/67 90 Room Air 05/01/24 02:20 71 17 92 Nasal Cannula 3 05/01/24 00:00 72 19 H 128/65 93 Room Air 04/30/24 22:00 70 04/30/24 20:56 69 04/30/24 20:48 70 20 H 94 Nasal Cannula 3 Intake & Output/Weight 04/29/24 04/30/24 05/01/24 05/02/24 06:59 06:59 06:59 06:59 Intake Total 1651.256 / 1651.256 997.587 / 997.587 937.500 / 937.500 Output Total 305 / 305 350 / 350 125 / 125 Balance 1346.256 / 1346.256 647.587 / 647.587 812.500 / 812.500 Weight 96.5 kg 93.5 kg 89.6 kg Vitals Last Vital Signs Temp 98.6 F 05/01/24 07:07 Pulse 86 05/01/24 08:13 Resp 16 05/01/24 07:57 BP 140/74 05/01/24 07:07 Pulse Ox 96 05/01/24 07:57 O2 Del Method Nasal Cannula 05/01/24 07:57 O2 Flow Rate 4 05/01/24 07:57 FiO2 35 04/29/24 15:17 TS Medications Medications Acetaminophen (Acetaminophen 325 Mg Tablet) 650 mg PO Q6H PRN PRN Reason: Mild/Mod Pain Or Temp >/= 101 Albuterol Sulfate (Albuterol 2.5 Mg/3 Ml Neb) 2.5 mg INHALATION Q6H.RESP PRN PRN Reason: sob Albuterol/Ipratropium (Ipratropium-Albuterol 3 Ml Neb) 3 ml INHALATION Q6H.RESP LEN Last Admin: 05/01/24 07:57 Dose: 3 ml Aspirin (Aspirin 81 Mg Ec Tablet) 81 mg PO DAILY LEN Last Admin: 04/30/24 09:17 Dose: 81 mg Atorvastatin Calcium (Atorvastatin 40 Mg Tablet) 80 mg PO BEDTIME LEN Last Admin: 04/30/24 20:21 Dose: 80 mg Budesonide (Budesonide 0.5 Mg/2 Ml Neb) 0.5 mg INHALATION BID.RESPIRATORY LEN Last Admin: 05/01/24 07:57 Dose: 0.5 mg Clopidogrel Bisulfate (Clopidogrel 75 Mg Tablet) 75 mg PO DAILY LEN Last Admin: 04/30/24 09:17 Dose: 75 mg Glucagon (Glucagon 1 Mg/Ml Kit 1 Ml) 1 mg IM ONCE PRN; Protocol PRN Reason: Adult Acute Hypoglycemia Nursing Prot. Heparin Sodium (Porcine) (Heparin Lock Flush 500 Unit/5 Ml Syringe) 200 - 500 unit IV Q12H LEN Last Admin: 04/30/24 20:20 Dose: 500 unit Heparin Sodium (Porcine) (Heparin 5,000 Unit/Ml Inj 1 Ml) 0 unit IVP PRN PRN; Protocol PRN Reason: Heparin Weight Based Protocol -Subsequent Bolus Last Admin: 04/30/24 15:03 Dose: 2,100 unit Heparin Sodium/Sodium Chloride (Heparin Drip) 25,000 unit in 500 mls @ 0 mls/hr IV CONT LEN; Protocol Last Titration: 05/01/24 05:08 Dose: 10.78 unit/kg/hr, 22 mls/hr Dextrose (D10w) 125 mls @ 750 mls/hr IV PRN PRN; Protocol PRN Reason: Adult Acute Hypoglycemia Nursing Protocol Last Infusion: 04/29/24 07:56 Dose: Infused Dextrose (D10w) 250 mls @ 1,000 mls/hr IV PRN PRN PRN Reason: HYPOGLYCEMIA Sodium Chloride (Sodium Chloride 0.9%) 1,000 mls @ 0 mls/hr IV .Q0M PRN PRN Reason: hypotension or symptomatic Albumin Human (Albumin) 12.5 gm in 50 mls @ 60 mls/hr IV PRN PRN PRN Reason: Hypotension and/or symptomatic Dextrose (D5w) 500 mls @ 0 mls/hr IV ONCE PRN; Protocol PRN Reason: Adult Acute Hypoglycemia Prot Sodium Chloride (Sodium Chloride 0.9%) 1,000 mls @ 0 mls/hr IV .Q0M PRN PRN Reason: hypotension or symptomatic Albumin Human (Albumin) 12.5 gm in 50 mls @ 60 mls/hr IV PRN PRN PRN Reason: Hypotension and/or symptomatic Insulin Human Lispro (Insulin Lispro 100 Unit/1 Ml) 0 unit SUBCUT TIDWM LEN; Protocol Last Admin: 04/30/24 16:53 Dose: Not Given Meropenem (Meropenem 1,000 Mg Sdv) 1,000 mg IVP Q12H [facility] Last Admin: 05/01/24 01:13 Dose: 1,000 mg Midodrine (Midodrine 5 Mg Tablet) 10 mg PO TID PRN PRN Reason: SBP less 140 mmhg Morphine Sulfate (Morphine 4 Mg/Ml Sdv 1 Ml) 1 mg IVP Q4H PRN PRN Reason: SEVERE PAIN Ondansetron HCl (Ondansetron 2 Mg/Ml Sdv 2 Ml) 4 mg IVP Q8H PRN PRN Reason: vomiting, or N/V if npo Last Admin: 04/30/24 12:13 Dose: 4 mg Pantoprazole Sodium (Pantoprazole 40 Mg Sdv) 40 mg IVP DAILY [facility] Last Admin: 04/30/24 09:17 Dose: 40 mg Prednisone (Prednisone 20 Mg Tablet) 40 mg PO DAILY [facility]1983 Stop: 05/03/24 08:59 Last Admin: 04/30/24 09:17 Dose: 40 mg Sodium Chloride (Sodium Chloride 0.9 % (Flush) Syringe 10 Ml) 5 - 10 ml IV Q12H [facility]1983 Last Admin: 04/30/24 20:20 Dose: 10 ml Discontinued Medications Albuterol Sulfate (Albuterol 2.5 Mg/3 Ml Neb) 2.5 mg INHALATION Q6H.RESP [facility] Last Admin: 04/28/24 08:40 Dose: 2.5 mg Atropine Sulfate (Atropine 0.1 Mg/Ml Syr 10 Ml) Confirm Administered Dose 1 mg .ROUTE .STK-MED ONE Stop: 04/26/24 19:26 Atropine Sulfate (Atropine 0.1 Mg/Ml Syr 10 Ml) 1 mg IVP ONCE ONE Stop: 04/26/24 20:00 Last Admin: 04/26/24 19:31 Dose: 1 mg Budesonide (Budesonide 0.5 Mg/2 Ml Neb) 0.5 mg INHALATION BID [facility] Last Admin: 04/28/24 09:02 Dose: 0.5 mg Calcium Gluconate (Calcium Gluconate 0.1 Gm/Ml 10% Sdv 10ml) 1 gm IVP ONCE ONE Stop: 04/29/24 05:44 Last Admin: 04/29/24 06:15 Dose: 1 gm Calcium Gluconate (Calcium Gluconate 0.1 Gm/Ml 10% Sdv 10ml) 1 gm IVP ONCE ONE Stop: 05/01/24 06:10 Last Admin: 05/01/24 06:38 Dose: 1 gm Ceftriaxone Sodium (Ceftriaxone 1,000 Mg Sdv) 1,000 mg IVP Q24H [facility], [facility]; Protocol Last Admin: 04/26/24 20:29 Dose: 1,000 mg Heparin Sodium (Porcine) (Heparin Lock Flush 500 Unit/5 Ml Syringe) 4,000 unit IVP ONCE ONE Stop: 04/26/24 13:38 Last Admin: 04/26/24 15:35 Dose: Not Given Heparin Sodium (Porcine) (Heparin, Porcine 1,000 Unit/Ml Inj 10 Ml) 4,000 unit XX ONCE ONE; Protocol Stop: 04/26/24 14:46 Last Admin: 04/26/24 15:31 Dose: 4,000 unit Heparin Sodium (Porcine) (Heparin Lock Flush 500 Unit/5 Ml Syringe) 200 - 500 unit IV PRN PRN PRN Reason: Central line flush Heparin Sodium (Porcine) (Heparin 5,000 Unit/Ml Inj 1 Ml) 0 unit IVP ONCE ONE; Protocol Stop: 04/26/24 23:09 Last Admin: 04/27/24 00:06 Dose: 5,000 unit Heparin Sodium (Porcine) (Heparin, Porcine 1,000 Unit/Ml Inj 10 Ml) 1,000 unit IV ONCE ONE Stop: 04/27/24 09:28 Last Admin: 04/27/24 11:50 Dose: 1,000 unit Heparin Sodium (Porcine) (Heparin, Porcine 1,000 Unit/Ml Inj 10 Ml) 1,000 unit IV ONCE ONE Stop: 04/27/24 12:01 Last Admin: 04/27/24 12:42 Dose: Not Given Heparin Sodium (Porcine) (Heparin, Porcine 1,000 Unit/Ml Inj 10 Ml) 10,000 unit INTRACATH ONCE ONE Stop: 04/29/24 06:02 Last Admin: 04/29/24 07:21 Dose: Not Given Heparin Sodium (Porcine) (Heparin, Porcine 1,000 Unit/Ml Inj 10 Ml) 1,000 unit IV ONCE ONE Stop: 04/29/24 06:02 Last Admin: 04/29/24 07:21 Dose: Not Given Heparin Sodium (Porcine) (Heparin, Porcine 1,000 Unit/Ml Inj 10 Ml) 10,000 unit INTRACATH ONCE ONE Stop: 05/01/24 07:15 Heparin Sodium (Porcine) (Heparin, Porcine 1,000 Unit/Ml Inj 10 Ml) 1,000 unit IV ONCE ONE Stop: 05/01/24 07:15 Azithromycin 500 mg/ Sodium (Chloride) 250 mls @ 250 mls/hr IV Q24H LEN; Protocol Last Infusion: 04/27/24 00:20 Dose: Infused Levetiracetam (Keppra) 1,000 mg in 100 mls @ 400 mls/hr IV ONCE ONE Stop: 04/26/24 19:54 Last Infusion: 04/26/24 20:12 Dose: Infused Propofol (Diprivan) 1,000 mg in 100 mls @ 0 mls/hr IV .Q0M LEN; Protocol Last Titration: 04/29/24 15:35 Dose: 0 mcg/kg/min, 0 mls/hr Propofol (Diprivan) Confirm Administered Dose 1,000 mg in 100 mls @ as directed .ROUTE .STK-MED ONE Stop: 04/26/24 19:45 Norepinephrine Bitartrate (Levophed) 4 mg in 250 mls @ 0 mls/hr IV .Q0M LEN; Protocol Last Titration: 04/29/24 16:35 Dose: 0 mcg/min, 0 mls/hr Norepinephrine Bitartrate (Levophed) Confirm Administered Dose 4 mg in 250 mls @ as directed .ROUTE .STK-MED ONE Stop: 04/26/24 20:41 Insulin Human Regular 10 unit/ (N/A) 0.1 mls @ 0 mls/hr IVP ONCE ONE Stop: 04/27/24 00:40 Last Admin: 04/27/24 01:54 Dose: 999 mls/hr Dextrose (D10w) 125 mls @ 750 mls/hr IV PRN PRN PRN Reason: HYPERKALEMIA Last Infusion: 04/28/24 11:21 Dose: Infused Cefepime HCl 1,000 mg/ Sodium (Chloride) 50 mls @ 100 mls/hr IV Q12H LEN; Protocol Last Infusion: 04/27/24 14:45 Dose: Infused Vancomycin HCl (Vancocin) 1,500 mg in 300 mls @ 200 mls/hr IV Q36H LEN Last Infusion: 04/29/24 06:22 Dose: Infused Cefepime HCl 1,000 mg/ Sodium (Chloride) 50 mls @ 100 mls/hr IV Q24H FORMERLY [facility], 1928–1983; Protocol Last Infusion: 04/29/24 15:35 Dose: Infused Fentanyl (Sublimaze) 1,000 mcg in 100 mls @ 0 mls/hr IV .Q0M LEN; Protocol Last Titration: 04/29/24 15:00 Dose: 0 mcg/hr, 0 mls/hr Insulin Human Regular 10 unit/ (N/A) 0.1 mls @ 0 mls/hr IVP ONCE ONE Stop: 04/28/24 10:55 Last Infusion: 04/28/24 11:20 Dose: Infused Insulin Human Regular 10 unit/ (N/A) 0.1 mls @ 0 mls/hr IVP ONCE ONE Stop: 04/29/24 05:44 Last Infusion: 04/29/24 07:56 Dose: Infused Dextrose (D10w) 125 mls @ 750 mls/hr IV PRN PRN PRN Reason: HYPOGLYCEMIA Vancomycin HCl 500 mg/ Sodium (Chloride) 100 mls @ 200 mls/hr IV DIALYSIS LEN Meropenem 1,000 mg/ Sodium (Chloride) 50 mls @ 16.667 mls/hr IV Q12H FOR[facility]LY [facility], [facility]; Protocol Last Infusion: 04/30/24 13:46 Dose: Infused Meropenem 1,000 mg/ Sodium (Chloride) 50 mls @ 100 mls/hr IV ONCE ONE Stop: 04/30/24 13:59 Last Admin: 04/30/24 13:43 Dose: Not Given Insulin Human Regular 10 unit/ (N/A) 0.1 mls @ 0 mls/hr IVP ONCE ONE Stop: 05/01/24 06:10 Last Infusion: 05/01/24 06:48 Dose: Infused Dextrose (D10w) 125 mls @ 750 mls/hr IV PRN PRN PRN Reason: HYPERKALEMIA Last Admin: 05/01/24 06:47 Dose: 750 mls/hr Insulin Human Regular (Insulin Regular-Human 100 Units/1 Ml) Confirm Administered Dose 10 unit .ROUTE .STK-MED ONE Stop: 04/27/24 01:33 Iohexol (Iohexol 350 Mg/Ml 500 Ml Btl (Per Ml)) 0 ml IV ONCE ONE Stop: 04/26/24 17:21 Last Admin: 04/26/24 17:20 Dose: 100 ml Iohexol (Iohexol 350 Mg/Ml 500 Ml Btl (Per Ml)) 0 ml IV ONCE ONE Stop: 04/26/24 22:00 Last Admin: 04/26/24 22:00 Dose: 80 ml Lidocaine HCl (Lidocaine 1% Inj 20 Ml) 0.1 ml INTRADERMA PRN PRN PRN Reason: Anesthetic Catheter Placement Lorazepam (Lorazepam 2 Mg/Ml Inj 1 Ml) Confirm Administered Dose 4 mg .ROUTE .STK-MED ONE Stop: 04/26/24 19:24 Lorazepam (Lorazepam 2 Mg/Ml Inj 1 Ml) 4 mg IVP ONCE ONE Stop: 04/26/24 20:00 Last Admin: 04/26/24 19:32 Dose: 4 mg Midodrine (Midodrine 5 Mg Tablet) 10 mg PO TID LEN Last Admin: 04/30/24 09:17 Dose: 10 mg Morphine Sulfate (Morphine 4 Mg/Ml Sdv 1 Ml) 2 mg IVP Q4H PRN PRN Reason: SEVERE PAIN Sodium Chloride (Sodium Chloride 0.9 % (Flush) Syringe 10 Ml) 5 - 10 ml IV PRN PRN PRN Reason: Central line flush Sodium Polystyrene Sulfonate (Sodium Polystyrene Sulfonate 15 Gm/60 Ml Btl) 15 gm PO ONCE ONE Stop: 05/01/24 06:11 Last Admin: 05/01/24 06:20 Dose: 15 gm Allergies Penicillins Allergy (Severe, Verified 04/26/24 14:51) hives Home Medications lovastatin 20 mg tablet 20 mg PO DAILY 05/02/21 [History Confirmed 04/28/24] tramadol 50 mg tablet 100 mg PO BID PRN Pain 10/09/22 [History Confirmed 04/28/24] albuterol sulfate 90 mcg/actuation aerosol inhaler 1 inh inhalation Q4H PRN Shortness Of Breath Or Wheezing 02/27/23 [History Confirmed 04/28/24] furosemide 20 mg tablet 20 mg PO DAILY 05/14/23 [History Confirmed 04/28/24] ascorbic acid (vitamin C) 500 mg tablet (Vitamin C) 500 mg PO DAILY 05/22/23 [History Confirmed 04/28/24] cholecalciferol (vitamin D3) 25 mcg (1,000 unit) capsule (Vitamin D3) 25 mcg PO DAILY 05/22/23 [History Confirmed 04/28/24] vit B,C-folic ac 800 mcg-zinc 12.5 mg-selen-D3 2,000 unit-vit E tablet (RenaPlex-D) 1 tab PO DAILY 05/22/23 [History Confirmed 04/28/24] vitamin B12 0.5 mg-folic acid 1 mg tablet 1 tab PO DAILY 05/22/23 [History Confirmed 04/28/24] vitamin E 268 mg (400 unit) capsule 268 mg PO DAILY 05/22/23 [History Confirmed 04/28/24] vitamin K2 40 mcg tablet 40 mcg PO DAILY 05/22/23 [History Confirmed 04/28/24] sevelamer carbonate 800 mg tablet 800 mg PO DAILY 04/28/24 [History Confirmed 04/28/24] Discharge Plan Discharge Patient Disposition: Home Condition: Stable Prescriptions: No Action lovastatin 20 mg tablet 20 mg PO DAILY tramadol 50 mg tablet 100 mg PO BID PRN (Reason: Pain) albuterol sulfate 90 mcg/actuation HFA aerosol inhaler 1 inh inhalation Q4H PRN (Reason: Shortness Of Breath Or Wheezing) furosemide 20 mg tablet 20 mg PO DAILY sevelamer carbonate 800 mg tablet 800 mg PO DAILY ascorbic acid (vitamin C) [Vitamin C] 500 mg Tablet 500 mg PO DAILY vitamin E 268 mg (400 unit) Capsule 268 mg PO DAILY cholecalciferol (vitamin D3) [Vitamin D3] 25 mcg (1,000 unit) Capsule 25 mcg PO DAILY vitamin M95-wxsvb acid 0.5-1 mg Tablet 1 tab PO DAILY vitamin K2 40 mcg Tablet 40 mcg PO DAILY RenaPlex-D 800 mcg-12.5 mg -2,000 unit tablet 1 tab PO DAILY Discharge Orders: Transfer Out of Facility (Order); Ordered 04/30/24 Ordered By: Noe Goodman Referrals: Philip Torrez [Primary Care Provider] - Patient Instructions: Opioid Safety Activity Restrictions/Additional Instructions: Patient's dialysis sessions are on Sunday, , Sunday Patient have cardiac angiogram for ACS workup Possible intervention on left carotid artery given significant stenosis Transfer Attestations Time Spent in Transfer Care: greater than 30 min Specific Discharge Activities: educating patient, discussing with pcp/other providers, discussing with lining caser/social workers/dc planners, documenting/other paperwork and evaluating patient/reviewing data Status at Transfer: Cognitive status at transfer: cognitively intact; Behavioral status at transfer: cooperative; Functional status at transfer: uses cane/walker; Overall status at transfer: patient is progressing back to baseline Quality Metrics Clinical Quality Measures [ No reported AMI, CVA or VTE this stay] Coding Level of Care Code 47632 Total time (in minutes) for Discharge: 60 Diagnoses Troponin level elevated R79.89 Left carotid artery stenosis I65.22 ESRD on dialysis N18.6; Z99.2 Transient ischemic attack (TIA) G45.9 Paroxysmal atrial fibrillation with rapid ventricular response I48.0 Cardiac arrest I46.9
--- NOTE | 2024-05-01 08:42 | PC.NURSE ---
report called to jay astorga report called to Julio EDMONDS.
[2024-05-01 09:47] LABS: Anion Gap 24.2 (5-19); Blood Urea Nitrogen 66 mg/dL (8-23); Calcium 9.3 mg/dL (8.5-10.5); Carbon Dioxide 23 mmol/L (22-29); Chloride 94 mmol/L (98-107); Creatinine Clr Calc Pharmacy 13.1002; Glomerular Filtration Rate 8.4 mL/min (90-130); Glucose 69 mg/dL (65-115); Osmolality Calculated 299 mOsm/kg (285-295); Potassium 5.2 mmol/L (3.5-5.1); Sodium 136 mmol/L (136-145)
[2024-05-01] MEDS: pantoprazole 40 mg SDV IVP (10:01)
[2024-05-01] MEDS: predniSONE 20 mg Tablet 40 MG PO (10:01)
[2024-05-01] MEDS: aspirin 81 mg EC Tablet PO (10:02)
[2024-05-01] MEDS: midodrine 5 mg TABLET PO (10:03)
[2024-05-01 10:40] LABS: Partial Thromboplastin Time 63.7 SECONDS (23.9-36.7)
--- NOTE | 2024-05-01 11:01 | PC.NURSE ---
report called back to jay around 10 am to let them know of the repeat BMP-potassium is down to 5.2 Verified to nurse castillo from [facility] that they can do the dialysis there.
--- NOTE | 2024-05-01 11:04 | PC.NURSE ---
ambulance is called and they said they will be here in an hour informed Chica.
--- NOTE | 2024-05-01 11:40 | PC.NURSE ---
called [facility] and speak to Alejandra notified her that pt is on his way via ground ambulance. Per staff once he arrives, they will do his dialysis there.
--- NOTE | 2024-05-01 11:41 | PC.NURSE ---
pt belongings are all sent with the ambulance personnel.
--- NOTE | 2024-05-01 13:31 | P.PN_ITS ---
Subjective 2 Subjective: no new c/o Medications: Reviewed: Yes Vitals/I&O/Wt Last Vital Signs Temp 98.6 F 05/01/24 07:07 Pulse 86 05/01/24 11:11 Resp 16 05/01/24 07:57 BP 140/74 05/01/24 07:07 Pulse Ox 96 05/01/24 07:57 O2 Del Method Nasal Cannula 05/01/24 07:57 O2 Flow Rate 4 05/01/24 07:57 FiO2 35 04/29/24 15:17 04/30/24 05/01/24 05/01/24 22:59 06:59 14:59 Intake Total 460.267 / 670.867 266.633 / 937.500 368.367 / 368.367 Output Total 125 / 125 Balance 335.267 / 545.867 266.633 / 812.500 368.367 / 368.367 Weight last 48 hrs Weight 89.6 kg Weight 93.5 kg Weight 93.5 kg Physical Exam 2 Narrative: extubated HEENT normocephalic atraumatic. Neck is supple Lungs -scattered bilateral rhonchi. Heart regular positive S1-S2 Abdomen is soft positive bowel sounds. Extremities no edema. Right anterior chest wall permacath. Neuro sedated. Urinary Catheter Management: [place]: Cath Placed During This Visit: yes Reason for Continuing Indwelling Catheter: Other Urinary Catheter Date of Insertion: 04/26/24 Urinary Catheter Time of Insertion: 21:25 Data 05/01/24 04:23 05/01/24 09:10 Micro: Microbiology 04/29/24 01:10 Urine Culture - Final Urine,Clean Catch 04/28/24 08:50 Gram Stain - Final Sputum - Endotracheal Tube Aspirate Sputum Culture - Final Pseudomonas aeruginosa A&P Assessment and plan (1) ESRD on dialysis: 63-year-old gentleman ESRD here with right-sided weakness. History of hypertension, polycythemia, obesity, sleep apnea. Patient here with episodes of altered mental status. 1. Respiratory failure. As per critical care. . CTA found dilated main pulmonary artery of 3.2 cm ectatic ascending thoracic aorta measuring 4.4 cm in the lung multifocal consolidative and groundglass opacities of the lungs with areas of mosaic attenuation. Similar to prior likely right apical scarring calcified granuloma in the right lung apex -Multiple enlarged mediastinal and hilar, no evidence of PE. Question of left basilar consolidation for pneumonia. Question of sarcoidosis. -Extubated 1. ESRD : HD yesterday ,pt getting to tranferred for highr level care 2. septic shock with white cell count of 18.47. Renal dosed antibiotics 3. Hyponatremia monitor with dialysis 4. Hyperkalemia , s/p med management, plan for HD at the other facility 5. Hyperphosphatemia monitor with dialysis and get binder when eating. 6. Positive troponins likely from stress. 7. History of sarcoidosis as per pulmonary. Patient is in critical condition in the ICU will monitor closely. The patient was seen and examined using A/V equipment and a nurse examined the patient. The patient consented on april 26, 2024 to telehealth visit and to dialysis. . Plan See above Attestations 2 Medical Necessity Statement*: per jace Coding Level of Care Code Acute Code for Chg Fwd Diagnoses ESRD on dialysis N18.6; Z99.2
[2024-05-02 06:45] LABS: Histoplasma Antigen (Quant) NONE DETECTED; Histoplasma Antigen Interpreta NEGATIVE; Histoplasma Antigen Specimen URINE
[2024-05-02 23:38] LABS: Fungitell 1-3-B Glucan Assay 51 pg/ml; Interpretation Negative (Negative)
[2024-05-04 17:10] LABS: Coccidioides AB CF Serum <1:2
== END 2024-05-01 11:41 | disposition short-term general hospital (02) | DRG 67 ==
LOC: ER 18:13 → ICU 04-27 00:49 → MEDSURG 04-27 11:29 → ICU 04-28 18:00 → CSU 04-30 13:45
PROVIDERS: Family Medicine; Internal Medicine; Internal Medicine Nephrology; Admitting Provider Internal Medicine; Emergency Provider Emergency Medicine; PCP Family Medicine; Visit Provider Student in an Organized Health Care Education/Training Program
DX: I65.22 Occlusion and stenosis of left carotid artery (principal); A41.9 Sepsis, unspecified organism; J69.0 Pneumonitis due to inhalation of food and vomit; J96.90 Respiratory failure, unspecified, unspecified whether with hypoxia or hypercapnia; N18.6 End stage renal disease; R65.21 Severe sepsis with septic shock; I13.2 Hypertensive heart and chronic kidney disease with heart failure and with stage 5 chronic kidney disease, or end stage renal disease; I50.32 Chronic diastolic (congestive) heart failure; G81.01 Flaccid hemiplegia affecting right dominant side; E87.1 Hypo-osmolality and hyponatremia; I24.89 Other forms of acute ischemic heart disease; E78.5 Hyperlipidemia, unspecified; E11.22 Type 2 diabetes mellitus with diabetic chronic kidney disease; G47.33 Obstructive sleep apnea (adult) (pediatric); D69.6 Thrombocytopenia, unspecified; D75.1 Secondary polycythemia; R56.9 Unspecified convulsions; E87.5 Hyperkalemia; E83.39 Other disorders of phosphorus metabolism; D86.9 Sarcoidosis, unspecified; I48.0 Paroxysmal atrial fibrillation; I77.810 Thoracic aortic ectasia; J44.9 Chronic obstructive pulmonary disease, unspecified; Z79.82 Long term (current) use of aspirin; Z99.2 Dependence on renal dialysis; Z91.199 Patient's noncompliance with other medical treatment and regimen due to unspecified reason; Z79.899 Other long term (current) drug therapy; Z87.01 Personal history of pneumonia (recurrent); Z86.16 Personal history of COVID-19; Z88.0 Allergy status to penicillin; Z90.49 Acquired absence of other specified parts of digestive tract; Z86.74 Personal history of sudden cardiac arrest; Z99.89 Dependence on other enabling machines and devices
CPT/HCPCS: 36415; 36416; 36592; 36600; 51702; 70450; 70496; 70498; 71045; 71275; 80048; 80051; 80053; 80061; 80076; 80202; 80306; 80307; 81001; 82164; 82330; 82550; 82607; 82746; 82803; 82805; 82962; 83036; 83540; 83550; 83605; 83615; 83735; 83880; 84100; 84145; 84443; 84484; 85025; 85610; 85651; 85730; 86140; 86403; 86635; 86705; 86706; 86709; 86803; 87040; 87070; 87077; 87086; 87186; 87205; 87340; 87385; 87449; 87641; 87806; 90935; 92507; 92523; 92526; 92610; 93005; 93306; 94002; 94003; 94640; 94664; 94799; 96365; 96366; 96367; 96374; 96375; 96376; 97161; 97162; 97167; 97530; 99291; C1751; J0456; J0461; J0612; J0692; J0696; J1642; J1644; J1815; J1953; J2060; J2185; J2405; J2470; J2704; J3010; J3370; J7050; J7512; J7613; J7626; J7799; Q3014

== ENCOUNTER → 2024-06-04 13:57 | Outpatient (BNVA) | payer MEDICARE, SELFPAY | PROVIDERS: PCP Family Medicine; Visit Provider Internal Medicine Cardiovascular Disease | DX: I13.2 Hypertensive heart and chronic kidney disease with heart failure and with stage 5 chronic kidney disease, or end stage renal disease (principal); N18.6 End stage renal disease; I50.33 Acute on chronic diastolic (congestive) heart failure; Z99.2 Dependence on renal dialysis; I47.10 Supraventricular tachycardia, unspecified | CPT/HCPCS: 99214 ==

== ENCOUNTER 2024-07-12 11:13 | Inpatient (IN) | payer MEDICARE, SELFPAY ==
[2024-07-12] VITALS (61 sets, daily range): BP systolic 78–201; BP diastolic 44–125; PULSE 63–112; RESP 14–29; TEMP 35.6–36.4; O2SAT 93–100; BMI 29.5
[2024-07-12] MEDS: succinylcholine 20 mg/mL SDV 10mL 100 MG IVP (11:19)
[2024-07-12] MEDS: etomidate 2 mg/mL INJ SDV 10 mL 20 MG IVP (11:19)
[2024-07-12] MEDS: propofol 10 mg/mL SDV 20 mL 100 MG IVP (11:25)
--- NOTE | 2024-07-12 11:26 | XRR_ITS ---
PROCEDURE INFORMATION: Exam: XR Chest Exam date and time: 07/12/2024 11:29 AM Age: 63 years old Clinical indication: Device placement; Other: Og tube placement; Additional info: Dyspnea/cough TECHNIQUE: Imaging protocol: Radiologic exam of the chest. Views: 1 view. COMPARISON: CR XR chest 1V portable [id number] 04/26/2024 10:53 PM FINDINGS: Tubes, catheters and devices: Enteric tube tip and side hole projecting over the expected region of the stomach. Endotracheal tube tip projecting over the mid trachea in satisfactory position. Right-sided central catheter tip projecting over the expected region of the superior vena cava/right atrial junction. Transcutaneous pacer leads are seen overlying the chest. Lungs: Bilateral interstitial and patchy alveolar lung infiltrates. Pleural spaces: No pleural effusion. No pneumothorax. Heart/Mediastinum: Mild cardiomegaly. Bones/joints: No acute bony abnormality. XR/XR chest 1V portable [id number] IMPRESSION: Findings compatible with congestive heart failure. Infection cannot be excluded. Recommend clinical correlation.
--- NOTE | 2024-07-12 11:26 | CTR_ITS ---
PROCEDURE INFORMATION: Exam: CT Head Without Contrast Exam date and time: 07/12/2024 3:06 PM Age: 63 years old Clinical indication: Other: Post code, intubated; Additional info: Postcode TECHNIQUE: Imaging protocol: Computed tomography of the head without contrast. Radiation optimization: All CT scans at this facility use at least one of these dose optimization techniques: automated exposure control; mA and/or kV adjustment per patient size (includes targeted exams where dose is matched to clinical indication); or iterative reconstruction. COMPARISON: CT head wo con* [id number] 04/26/2024 9:57 PM RADIATION DOSE METRICS: Total DLP (mGy-cm): 1137.89 FINDINGS: Brain: Mild nonspecific white matter low attenuation which may be related to microvascular ischemic changes. No acute confluent lobar ischemic infarct. No acute intracranial hemorrhage. Cerebral ventricles: The ventricles and sulci are prominent in size compatible with mild atrophy. Paranasal sinuses: No fluid levels. Mastoid air cells: Visualized mastoid air cells are well aerated. Bones: No acute calvarial fracture. Soft tissues: Visualized soft tissues are unremarkable. CT/CT head wo con* [id number] IMPRESSION: No acute intracranial abnormality. If symptoms persist, consider further evaluation with MRI, if MRI is clinically safe to obtain.
--- NOTE | 2024-07-12 11:27 | ECG_ITS ---
[facility] Test Date: 2024-07-12 Pat Name: João Carter Department: Room: Gender: Male Ekg Tech: : 1960 Requested By: Pito Stanton Order Number: [id number] Thais MD: Steven Mallory M.D. Measurements Intervals [place] Rate: 89 P: 0 WV: 0 QRS: 259 QRSD: 166 T: 40 QT: 445 QTc: 544 Interpretive Statements ATRIAL FIBRILLATION RIGHT AXIS DEVIATION [QRS AXIS > 100] RIGHT BUNDLE BRANCH BLOCK [120+ ms QRS DURATION, UPRIGHT V1, 40+ ms S IN I/aVL/V4/V5/V6] INFERIOR MYOCARDIAL INFARCTION , PROBABLY OLD [40+ ms Q WAVE AND/OR ST/T ABNORMALITY IN II/aVF] ANTEROLATERAL MYOCARDIAL INFARCTION , OF INDETERMINATE AGE [40+ ms Q WAVE IN I/aVL/V3-V6] Compared to ECG 04/29/2024 06:18:27 First degree AV block no longer present Myocardial infarct finding still present Electronically Signed On 07-13-2024 18:52:27 TUMBLER PLATER by Steven Mallory M.D. [email or web address]
[2024-07-12] MEDS: propofol 1,000 MG/100 ML INJ 30 MG (11:28)
[2024-07-12 11:33] LABS: Basophils # 0.1 10^3/uL (0.0-0.1); Basophils % 0.6 %; Eosinophils # 0.3 10^3/uL (0.0-0.8); Eosinophils % 3.7 %; Hematocrit 46.2 % (37-53); Lymphocytes # 1.1 10^3/uL (0.8-4.8); Lymphocytes % 12.9 %; Mean Corpuscular Hemoglobin 24.6 pg (27-33); Mean Corpuscular Volume 84.9 fl (82-101); Mean Platelet Volume 9.8 fL (7.4-10.4); Monocytes # 1.3 10^3/uL (0.2-0.9); Monocytes % 14.8 %; Neutrophils # 5.69 10^3/uL (1.8-7.7); Neutrophils % 66.1 %; Nucleated Red Blood Cells % 0 %; Platelet Count 112 10^3/cmm (157-399); Red Blood Count 5.44 10^6/uL (3.85-5.65); Red Cell Distribution Width 18.8 % (12.1-15.1)
[2024-07-12 11:41] LABS: ABG PCO2 51.5 mmHg (35-45); ABG PH Result 7.35 (7.35-7.45); Alveolar-Arterial Oxygen Gradi 58.3 mmHg (5-10); Arterial Blood Gas Hematocrit 40.1 % (42-52); Base Excess ABG 1.7 mmol/L (-2.0-2.0); Blood Gas Allen Test Pos; Blood Gas Operator Identificat WALCI; Blood Gas Sample Site Radial, right; Blood Gas Sample Type Arterial; Carboxyhemoglobin 1.3 %THgb (0.4-20.1); HCO3 ABG 28.2 mmol/L (22-26); HGB O2 Sat 97.6 % (95-100); Ionized Calcium Level - ABG 1.3 mmol/L (1.1-1.4); Methemoglobin 1.2 % (0.4-1.5); Oxygen Device VENT; Oxygen Saturation ABG > 99.1; PO2 FiO2 Ratio Arterial Blood 203; Potassium Level - ABG 3.7 mmol/L (3.5-5.0); Total Hemoglobin 13.1 g/dL (14-18)
--- NOTE | 2024-07-12 11:41 | W.ED.GENADLT ---
HPI - General Adult General: Chief complaint: Cardiac Arrest/CPR Stated complaint: POST CPR Time Seen by Provider: 07/12/24 11:15 History of Present Illness: 63-year-old male presents to the emergency room postcode. Patient is end-stage renal disease he presents to the emergency room via EMS from dialysis. Patient went into cardiac arrest CPR was started for 4 to 6 minutes on arrival EMS placed a Combitube they have IO access gave him rocuronium but he did not have a good response instead they placed the ended up placing an IV and left hand he arrives here with a Tien airway in place. He is nonresponsive. No family is present to give history initially. Related Data Home Medications Medication Instructions Recorded Confirmed lovastatin 20 mg tablet 20 mg PO DAILY 05/02/21 04/28/24 tramadol 50 mg tablet 100 mg PO BID PRN Pain 10/09/22 06/04/24 albuterol sulfate 90 mcg/actuation 1 inh inhalation Q4H PRN Shortness 02/27/23 06/04/24 aerosol inhaler Of Breath Or Wheezing furosemide 20 mg tablet 20 mg PO DAILY 05/14/23 06/04/24 ascorbic acid (vitamin C) 500 mg 500 mg PO DAILY 05/22/23 06/04/24 tablet (Vitamin C) cholecalciferol (vitamin D3) 25 25 mcg PO DAILY 05/22/23 06/04/24 mcg (1,000 unit) capsule (Vitamin D3) vit B,C-folic ac 800 mcg-zinc 12.5 1 tab PO DAILY 05/22/23 04/28/24 mg-selen-D3 2,000 unit-vit E tablet (RenaPlex-D) vitamin B12 0.5 mg-folic acid 1 mg 1 tab PO DAILY 05/22/23 06/04/24 tablet vitamin E 268 mg (400 unit) capsule 268 mg PO DAILY 05/22/23 04/28/24 vitamin K2 40 mcg tablet 40 mcg PO DAILY 05/22/23 04/28/24 sevelamer carbonate 800 mg tablet 800 mg PO DAILY 04/28/24 06/04/24 Previous Rx's Medication Instructions Recorded clopidogrel 75 mg tablet (Plavix) 75 mg PO DAILY #90 tabs 06/04/24 clopidogrel 75 mg tablet (Plavix) 600 mg (8 x 75 mg) PO ONCE #2 tabs 10/23/24 Allergies Allergy/AdvReac Type Severity Reaction Status Date / Time Penicillins Allergy Severe hives Verified 06/04/24 14:03 Review of Systems General: Reports: ROS unobtainable due to endotracheal tube PFSH ED PFSH: Medical History Hyperlipidemia Paroxysmal SVT (supraventricular tachycardia) History of hemoptysis late summer 2022, several bronchoscopies done at [place], no source found, treated with antibiotics Pneumonia due to COVID-19 virus 2022, on ventilator for a time History of pulmonary aspiration per swallow study done during a prolonged acute illness in late 2022 History of cirrhosis of liver History of echocardiogram 06/2021 EF 55%, severe AV sclerosis and calcification but no stenosis History of PFTs 06/2021 severe restriction with preserved residual volume, minimal reduction in DLCO Nephrotic syndrome Vitamin D deficiency Diabetes mellitus, type II History, lost weight, no longer active diagnosis Hypertension JOSE (obstructive sleep apnea) Diastolic heart failure End stage renal disease started dialysis 2022 Cardiac arrest Restrictive lung disease Polycythemia secondary to hypoxia Surgical History History of percutaneous endoscopic gastrostomy 2021/2022, removed short time later History of tracheostomy 2021/2022, removed short time later S/P thoracentesis 2014 History of cholecystectomy 1997 Family History Father Congestive heart failure (CHF) Mother Congestive heart failure (CHF) Social History Smoking and tobacco/nicotine status: never used tobacco/nicotine Second hand smoke exposure: No Alcohol intake: never Substance/Drug Use: never Household members: spouse 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 We turned off the external pacer patient lost pulse it was restarted patient maintaining a good blood pressure. GI: COMMON NORMALS: Soft to palpation and No hepatosplenomegaly present AUSCULTATION: Yes normoactive bowel sounds PALPATION: Yes Soft to palpation, No Tenderness to palpation present (GI), No Guarding due to palpation present (GI) and Yes No hepatosplenomegaly present Extremity: COMMON NORMALS: normal to inspection, capillary refill normal, no clubbing, cyanosis or edema, no calf tenderness and no pedal edema Skin: COMMON NORMALS: no rashes or lesions noted GENERAL SKIN EXAM: no rashes or lesions noted Procedures Intubation sedative: Etomidate Mg Given: 20 paralytic: Succinylcholine Mg Given: 100 Laryngoscope: fiber optic video scope ET Tube Size: 8.5 ET Tube Uncuffed: No Tube Secured Depth (cm): 22 Tube Secured Location: teeth Tube Placement Confirmation: visualized tube passing through cords, equal breath sounds bilaterally and no breath sounds over epigastrium Patient Tolerated Procedure: well Intubation Complications: none Course Vital Signs: Vital signs: Vital Signs Pulse Rate 78 07/12/24 12:51 Respiratory Rate 16 07/12/24 14:43 Blood Pressure 123/73 07/12/24 12:51 Pulse Oximetry 100 07/12/24 14:43 Fraction of Inspir ed Oxygen 50 07/12/24 14:43 MDM - General Adult Medical Decision Making On arrival patient was given etomidate and succinylcholine RSI for intubation exchange the Tien airway. Intubation without complication, tube placement confirmed on chest x-ray. He was switched over to external pacing on the ZOLL monitor. Blood pressure was noted to be elevated. We turned off the external pacer he immediately went to a PEA. Pacemaker was reinitiated which seems to capture at 70 mA with a rate of 70 on his blood pressure and pulse were easily monitored. Consulted cardiology. Dr. Wolf arrived he attempted taking the patient off the pacer this time it was successfully he had an intrinsic rate of 90. However he had become hypotensive he is on propofol at that time propofol was titrated down. Twelve-lead EKG done no acute ST elevation. Laboratory tests are pending. Will admit to ICU with hospitalist service consult cardiology. Patient was empirically given calcium chloride and sodium bicarb for possible hyperkalemia on arrival because of his history of end-stage renal disease. Patient has been started on Levophed. We switched to fentanyl and Versed which did improve his pressure as well admit to hospitalist consult cardiology Medical Records I reviewed the patient's medical records. Lab Data I reviewed the patient's lab results. 07/12/24 11:22 07/12/24 11:22 Radiology Impressions Chest X-Ray 07/12/24 11: IMPRESSION: Findings compatible with congestive heart failure. Infection cannot be excluded. Recommend clinical correlation. Head CT 07/12/24 11: IMPRESSION: No acute intracranial abnormality. If symptoms persist, consider further evaluation with MRI, if MRI is clinically safe to obtain. Laboratory Results WBC 8.60 10^3/uL (3.29-11.43) 07/12/24 11: RBC 5.44 10^6/uL (3.85-5.65) 07/12/24 11:22 Hgb 13.40 g/dL (11.27-16.99) 07/12/24 11:22 Hct 46.2 % (37-53) 07/12/24 11:22 MCV 84.9 fl (82-101) 07/12/24 11:22 MCH 24.6 pg (27-33) L 07/12/24 11:22 MCHC 29.0 g/dL (30-55) L 07/12/24 11:22 RDW 18.8 % (12.1-15.1) H 07/12/24 11:22 Plt Count 112 10^3/cmm (157-399) L 07/12/24 11:22 MPV 9.8 fL (7.4-10.4) 07/12/24 11:22 Neut % (Auto) 66.1 % 07/12/24 11:22 Lymph % (Auto) 12.9 % 07/12/24 11:22 [place] % (Auto) 14.8 % 07/12/24 11:22 Eos % (Auto) 3.7 % 07/12/24 11:22 Baso % (Auto) 0.6 % 07/12/24 11:22 Neut # (Auto) 5.69 10^3/uL (1.8-7.7) 07/12/24 11:22 Lymph # (Auto) 1.1 10^3/uL (0.8-4.8) 07/12/24 11:22 [place] # (Auto) 1.3 10^3/uL (0.2-0.9) H 07/12/24 11:22 Eos # (Auto) 0.3 10^3/uL (0.0-0.8) 07/12/24 11:22 Baso # (Auto) 0.1 10^3/uL (0.0-0.1) 07/12/24 11:22 Nucleated RBC % (auto) 0 % 07/12/24 11:22 Nucleated RBCs # 0.0 /100WBC 07/12/24 11:22 PT 16.60 SECONDS (12.1-14.9) H 07/12/24 11:22 INR 1.30 (0.8-1.2) H 07/12/24 11:22 APTT 124.9 SECONDS (23.9-36.7) H 07/12/24 11:22 Specimen Type Arterial 07/12/24 11:30 Sample Site Radial, right 07/12/24 11:30 ABG pH 7.35 (7.35-7.45) 07/12/24 11:30 ABG pCO2 51.5 mmHg (35-45) H 07/12/24 11:30 ABG pO2 203.0 mmHg (80.0-100.0) H 07/12/24 11:30 ABG PO2/FiO2 Ratio 203 07/12/24 11:30 ABG HCO3 28.2 mmol/L (22-26) H 07/12/24 11:30 ABG O2 Saturation > 99.1 07/12/24 11:30 ABG Base Excess 1.7 mmol/L (-2.0-2.0) 07/12/24 11:30 Martin Test Pos 07/12/24 11:30 A-a O2 Gradient 58.3 mmHg (5-10) H 07/12/24 11:30 Hematocrit 40.1 % (42-52) L 07/12/24 11:30 Hgb O2 Saturation 97.6 % (95-100) 07/12/24 11:30 Carboxyhemoglobin 1.3 %THgb (0.4-20.1) 07/12/24 11:30 Methemoglobin 1.2 % (0.4-1.5) 07/12/24 11:30 Total Hemoglobin 13.1 g/dL (14-18) L 07/12/24 11:30 Sodium 140.0 mmol/L (131-143) 07/12/24 11:30 Potassium 3.7 mmol/L (3.5-5.0) 07/12/24 11:30 Glucose 139.0 mg/dL (70-115) H 07/12/24 11:30 Ionized Calcium 1.3 mmol/L (1.1-1.4) 07/12/24 11:30 O2 Delivery Device Vent 07/12/24 11:30 FiO2 100.0 % 07/12/24 11:30 Tidal Volume 0.50 07/12/24 11:30 PEEP 6.0 cmH20 07/12/24 11:30 Biblical Studies Professor ID [place] 07/12/24 11:30 Sodium 135 mmol/L (136-145) L 07/12/24 11:22 Potassium 3.9 mmol/L (3.5-5.1) 07/12/24 11:22 Chloride 96 mmol/L (98-107) L 07/12/24 11:22 Carbon Dioxide 27 mmol/L (22-29) 07/12/24 11:22 Anion Gap 15.9 (5-19) 07/12/24 11:22 BUN 37 mg/dL (8-23) H 07/12/24 11:22 Creatinine 3.0 mg/dL (0.7-1.2) H 07/12/24 11:22 GFR Calculation 21.3 mL/min (90-130) L 07/12/24 11:22 Glucose 140 mg/dL (65-115) H 07/12/24 11:22 Calculated Osmolality 291 mOsm/kg (285-295) 07/12/24 11:22 Calcium 8.5 mg/dL (8.5-10.5) 07/12/24 11:22 Magnesium 1.9 mg/dL (1.7-2.3) 07/12/24 11:22 Total Bilirubin 0.8 mg/dL (0.15-1.2) 07/12/24 11:22 AST 23 U/L (0-40) 07/12/24 11:22 ALT 13 U/L (0-41) 07/12/24 11:22 Alkaline Phosphatase 122 U/L (40-130) 07/12/24 11:22 Creatine Kinase 62 U/L (39-308) 07/12/24 11:22 Troponin T Baseline 74 ng/L (0-15) H 07/12/24 11:22 Total Protein 7.8 g/dL (6.6-8.7) 07/12/24 11:22 Albumin 4.2 g/dL (3.5-5.2) 07/12/24 11:22 Globulin 3.6 g/dL (1.3-4.6) 07/12/24 11:22 Lipase 107 U/L (13-60) H 07/12/24 11:22 All radiology interpretation(s) finalized by discharge Critical Care Time Critical Care Time: Critical Care Time: Yes Total Critical Care Time: 60 Attestation: The high probability of a clinically significant, sudden or life threatening deterioration of the patient's cardiovascular respiratory system(s) required my full and direct attention, intervention and personal management. The critical care time is as shown. This time is in addition to time spent performing any reported procedures but includes the following: [x] Data and vital sign review and interpretation [x] Patient assessment, examination and intervention [x] Documentation [x] Medication orders and management Discharge Plan Discharge Patient Disposition: Admitted As Inpatient Admit Provider: Carla Burgess Clinical Impression: Cardiac arrest, Respiratory failure, ESRD on dialysis, Chronic diastolic heart failure Clinical Impression: (Ruled Out): Seizure Condition: Stable Coding Level of Care Code ED Microcomputer Technician for Rafa Cassidy
[2024-07-12 11:46] LABS: Troponin(5th) Baseline 74 ng/L (0-15)
[2024-07-12 11:50] LABS: Alanine Aminotransferase 13 U/L (0-41); Albumin Level 4.2 g/dL (3.5-5.2); Alkaline Phosphatase 122 U/L (40-130); Anion Gap 15.9 (5-19); Aspartate Amino Transferase 23 U/L (0-40); Blood Urea Nitrogen 37 mg/dL (8-23); Calcium 8.5 mg/dL (8.5-10.5); Carbon Dioxide 27 mmol/L (22-29); Chloride 96 mmol/L (98-107); Creatine Phosphokinase 62 U/L (39-308); Globulin 3.6 g/dL (1.3-4.6); Glomerular Filtration Rate 21.3 mL/min (90-130); Glucose 140 mg/dL (65-115); Lipase 107 U/L (13-60); Magnesium 1.9 mg/dL (1.7-2.3); Osmolality Calculated 291 mOsm/kg (285-295); Potassium 3.9 mmol/L (3.5-5.1); Sodium 135 mmol/L (136-145); Total Bilirubin 0.8 mg/dL (0.15-1.2); Total Protein 7.8 g/dL (6.6-8.7)
--- NOTE | 2024-07-12 12:05 | P.CONIM_ITS ---
Providers/Reason For Consult 2 Consulting Physician/Specialty*: Steven Mallory MD/ Cardiology Reason for Consult*: Cardiac arrest/ bradycardia Requesting Physician: Dr James Attending Physician: Steven Mallory M.D Primary Care Provider: Philip Torrez History of Present Illness History of Present Illness João Carter is a 63 year old male with past medical history of carotid artery disease with recent stenting, prior cardiac arrest history who was at dialysis center where he had possible cardiac arrest. We do not have accurate history that what had happened however he had CPR performed for 4 to 6 minutes. No rhythm strips available. He is currently intubated. Post CPR he was bradycardic. She was put on transcutaneous pacing. On my evaluation stopped transcutaneous pacing and patient has underlying sinus rhythm with normal blood pressure. EKG showed sinus rhythm with no acute ST elevation. Had frequent PACs Review of Systems 2 General: Reports: ROS unobtainable due to endotracheal tube Medications/Allergies Home Medications Medication Instructions Recorded Confirmed Last Taken Type lovastatin 20 mg tablet 20 mg PO DAILY 05/02/21 04/28/24 05/21/23 History tramadol 50 mg tablet 100 mg PO BID PRN Pain 10/09/22 06/04/24 Unknown History albuterol sulfate 90 mcg/actuation 1 inh inhalation Q4H PRN Shortness 02/27/23 06/04/24 Unknown History aerosol inhaler Of Breath Or Wheezing furosemide 20 mg tablet 20 mg PO DAILY 05/14/23 06/04/24 05/21/23 History ascorbic acid (vitamin C) 500 mg 500 mg PO DAILY 05/22/23 06/04/24 05/21/23 History tablet (Vitamin C) cholecalciferol (vitamin D3) 25 25 mcg PO DAILY 05/22/23 06/04/24 05/21/23 History mcg (1,000 unit) capsule (Vitamin D3) vit B,C-folic ac 800 mcg-zinc 12.5 1 tab PO DAILY 05/22/23 04/28/24 05/21/23 History mg-selen-D3 2,000 unit-vit E tablet (RenaPlex-D) vitamin B12 0.5 mg-folic acid 1 mg 1 tab PO DAILY 05/22/23 06/04/24 05/21/23 History tablet vitamin E 268 mg (400 unit) capsule 268 mg PO DAILY 05/22/23 04/28/24 05/21/23 History vitamin K2 40 mcg tablet 40 mcg PO DAILY 05/22/23 04/28/24 05/21/23 History sevelamer carbonate 800 mg tablet 800 mg PO DAILY 04/28/24 06/04/24 Unknown History clopidogrel 75 mg tablet (Plavix) 75 mg PO DAILY #90 tabs 06/04/24 06/04/24 Unknown Rx clopidogrel 75 mg tablet (Plavix) 600 mg (8 x 75 mg) PO ONCE #2 tabs 06/04/24 06/04/24 Unknown Rx Allergies Allergy/AdvReac Type Severity Reaction Status Date / Time Penicillins Allergy Severe hives Verified 06/04/24 14:03 PFSH Acute 2 PFSH: Medical History Hyperlipidemia Paroxysmal SVT (supraventricular tachycardia) History of hemoptysis late summer 2022, several bronchoscopies done at [place], no source found, treated with antibiotics Pneumonia due to COVID-19 virus 2022, on ventilator for a time History of pulmonary aspiration per swallow study done during a prolonged acute illness in late 2022 History of cirrhosis of liver History of echocardiogram 06/2021 EF 55%, severe AV sclerosis and calcification but no stenosis History of PFTs 06/2021 severe restriction with preserved residual volume, minimal reduction in DLCO Nephrotic syndrome Vitamin D deficiency Diabetes mellitus, type II History, lost weight, no longer active diagnosis Hypertension JOSE (obstructive sleep apnea) Diastolic heart failure End stage renal disease started dialysis 2022 Cardiac arrest Restrictive lung disease Polycythemia secondary to hypoxia Surgical History History of percutaneous endoscopic gastrostomy late 2022, removed short time later History of tracheostomy 2022, removed short time later S/P thoracentesis 2014 History of cholecystectomy 1996 Family History Father Congestive heart failure (CHF) Mother Congestive heart failure (CHF) Social History Smoking and tobacco/nicotine status: never used tobacco/nicotine Second hand smoke exposure: No Alcohol intake: never Substance/Drug Use: never Household members: spouse 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 [] HEENT: No cyanosis. No icterus. No pallor. [] HEART:Regular rate and rhythm LUNGS: Diminished air entry bilaterally CENTRAL NERVOUS SYSTEM: Grossly nonfocal. [] EXTREMITIES: Lower extremities with 1+ edema bilaterally. Data 07/13/24 01:04 07/13/24 01:04 Micro: Microbiology 07/12/24 11:55 Blood Culture - Preliminary Blood SPECIMEN COLLECTED 07/12/24 11:50 Blood Culture - Preliminary Blood SPECIMEN COLLECTED A&P Assessment and plan (1) Respiratory failure: (2) Hyperlipidemia: (3) Hypertension: Qualifiers: Hypertension type: primary hypertension Qualified Code(s): I10 - Essential (primary) hypertension (4) ESRD on dialysis: (5) Chronic diastolic heart failure: (6) Sleep apnea: (7) Cardiac arrest: (8) Uses continuous positive airway pressure (CPAP) ventilation at home: (9) Thrombocytopenia: Plan Events prior to possible cardiac arrest are not clear. We do not have any rhythm strip so unknown rhythm. Continue medical therapy. Trend troponins. Can continue anticoagulation for now. Once patient is stable, can consider stress test vs cardiac catheterization. Patient does not need transvenous pacemaker at this time. Obtain echocardiogram Dual antiplatelet therapy Thank you for involving us with care of this patient. We will continue to follow. Please call with questions. Consult Attestations 2 Medical Necessity Statement: Care expected to cross 2 midnights. Coding Level of Care Code Acute Code for [facility] Diagnoses Respiratory failure J96.90 Hyperlipidemia E78.5 Primary hypertension I10 Hypertension type: primary hypertension ESRD on dialysis N18.6; Z99.2 Chronic diastolic heart failure I50.32 Sleep apnea G47.30 Cardiac arrest I46.9 Uses continuous positive airway pressure (CPAP) ventilation at home Z99.89 Thrombocytopenia D69.6
[2024-07-12] MEDS: fentaNYL 1,000 MCG/100 ML BAG 5 MCG IV (12:20)
[2024-07-12] MEDS: midazolam hcl 100 MG/100 ML BAG IV (12:22)
[2024-07-12] MEDS: sodium chloride 0.9% 1,000 ML 999 ML (12:30)
[2024-07-12 12:49] LABS: Partial Thromboplastin Time 124.9 SECONDS (23.9-36.7)
--- NOTE | 2024-07-12 13:13 | P.HP_ITS ---
Providers/Chief Complaint 2 Admitting Physician: Carla Burgess MD Primary Care Provider: Philip Torrez Chief Complaint: POST CPR History of Present Illness João Carter is a 63 year old male João Carter is a 63 year old male With past medical history of sleep apnea noncompliant with CPAP, diabetes, hypertension, end-stage renal disease on hemodialysis TTS, paroxysmal SVT, secondary polycythemia, thrombocytopenia, cardiac arrest, diastolic heart failure, restrictive lung disease was brought in by the EMS after an event of cardiac arrest at dialysis. He was almost at the end of his dialysis when he went into cardiac arrest, was started on CPR for 4 to 6 minutes, on arrival EMS placed a Combitube. He was nonresponsive. On arrival patient was given etomidate and succinylcholine RSI for intubation exchange the Tien airway. Intubation without complication, tube placement confirmed on chest x-ray. He was switched over to external pacing on the ZOLL monitor. Blood pressure was noted to be elevated. We turned off the external pacer he immediately went to a PEA. Pacemaker was reinitiated which seems to capture at 70 mA with a rate of 70 on his blood pressure and pulse were easily monitored. Consulted cardiology. Dr. Wolf arrived he attempted taking the patient off the pacer this time it was successfully he had an intrinsic rate of 90. He was started on propofol and Versed post intubation. Twelve-lead EKG did not show any ST-T changes. First set of troponin was 74. He was also started on heparin drip in ER. As per the who is at bedside, mentioned that he was almost at the end of the dialysis when he suddenly collapsed, went into cardiac arrest had CPR for few minutes and was brought to ER for further evaluation. She further states that this is his total of 5 episodes of cardiac arrest so far and she has been accompanying him to dialysis center since April which was the last time he went into cardiac arrest. He has been otherwise doing well at home, although having low blood pressures. He is able to take care of his ADLs and had no history of recent fever, cold, cough, chest pain, palpitations, dizziness, bowel or urinary complaints. He was all well until this event. He recently was in [facility] for carotid artery stent. Has been doing well up till now. He was recently admitted in 05/06 for evaluation of TIA while hemodialysis and hypertension. He was not a candidate for tPA on admission. CTA head and neck showed significant stenosis of left carotid artery. While waiting in ER he had a seizure and had to be intubated to protect his airway. He was also found to have paroxysmal A-fib at that time. It was thought that the TIA/strokelike symptoms on hemodialysis and seizure activity is most likely in the setting of low blood pressure and sluggish blood flow to brain in setting of left carotid artery stenosis hence he was transferred to [facility] for vascular surgery for further intervention. Review of Systems 2 General: Reports: ROS unobtainable due to endotracheal tube Medications/Allergies Home Medications Medication Instructions Recorded Confirmed Last Taken Type lovastatin 20 mg tablet 20 mg PO DAILY 05/02/21 04/28/24 05/21/23 History tramadol 50 mg tablet 100 mg PO BID PRN Pain 10/09/22 06/04/24 Unknown History albuterol sulfate 90 mcg/actuation 1 inh inhalation Q4H PRN Shortness 02/27/23 06/04/24 Unknown History aerosol inhaler Of Breath Or Wheezing furosemide 20 mg tablet 20 mg PO DAILY 05/14/23 06/04/24 05/21/23 History ascorbic acid (vitamin C) 500 mg 500 mg PO DAILY 05/22/23 06/04/24 05/21/23 History tablet (Vitamin C) cholecalciferol (vitamin D3) 25 25 mcg PO DAILY 05/22/23 06/04/24 05/21/23 History mcg (1,000 unit) capsule (Vitamin D3) vit B,C-folic ac 800 mcg-zinc 12.5 1 tab PO DAILY 05/22/23 04/28/24 05/21/23 History mg-selen-D3 2,000 unit-vit E tablet (RenaPlex-D) vitamin B12 0.5 mg-folic acid 1 mg 1 tab PO DAILY 05/22/23 06/04/24 05/21/23 History tablet vitamin E 268 mg (400 unit) capsule 268 mg PO DAILY 05/22/23 04/28/24 05/21/23 History vitamin K2 40 mcg tablet 40 mcg PO DAILY 05/22/23 04/28/24 05/21/23 History sevelamer carbonate 800 mg tablet 800 mg PO DAILY 04/28/24 06/04/24 Unknown History clopidogrel 75 mg tablet (Plavix) 75 mg PO DAILY #90 tabs 06/04/24 06/04/24 Unknown Rx clopidogrel 75 mg tablet (Plavix) 600 mg (8 x 75 mg) PO ONCE #2 tabs 06/04/24 06/04/24 Unknown Rx Allergies Allergy/AdvReac Type Severity Reaction Status Date / Time Penicillins Allergy Severe hives Verified 06/04/24 14:03 PFSH Acute 2 PFSH: Medical History Hyperlipidemia Paroxysmal SVT (supraventricular tachycardia) History of hemoptysis late summer 2022, several bronchoscopies done at [place], no source found, treated with antibiotics Pneumonia due to COVID-19 virus 2022, on ventilator for a time History of pulmonary aspiration per swallow study done during a prolonged acute illness in late 2022 History of cirrhosis of liver History of echocardiogram 06/2021 EF 55%, severe AV sclerosis and calcification but no stenosis History of PFTs 06/2021 severe restriction with preserved residual volume, minimal reduction in DLCO Nephrotic syndrome Vitamin D deficiency Diabetes mellitus, type II History, lost weight, no longer active diagnosis Hypertension JOSE (obstructive sleep apnea) Diastolic heart failure End stage renal disease started dialysis late 2022 Cardiac arrest Restrictive lung disease Polycythemia secondary to hypoxia Surgical History History of percutaneous endoscopic gastrostomy late 2021/2022, removed short time later History of tracheostomy 2022, removed short time later S/P thoracentesis 2014 History of cholecystectomy 1996 Family History Father Congestive heart failure (CHF) Mother Congestive heart failure (CHF) Social History Smoking and tobacco/nicotine status: never used tobacco/nicotine Second hand smoke exposure: No Alcohol intake: never Substance/Drug Use: never Household members: spouse 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 Vitals/I&O/Wt Last Vital Signs Resp 18 07/12/24 11:37 Pulse Ox 100 07/12/24 11:37 FiO2 100 07/12/24 11:37 07/11/24 07/12/24 07/12/24 22:59 06:59 14:59 Intake Total 29.850 / 29.850 Balance 29.850 / 29.850 Weight last 48 hrs Weight 113.398 kg Physical Exam 2 Narrative: He is sedated and intubated Chest clear to auscultation bilaterally no crackles or wheezings appreciated Cardiovascular normal heart sounds irregular rhythm Abdomen soft, distended, normal bowel sounds Extremities no edema noted bilateral lower extremity Data 07/12/24 11:22 07/12/24 11:22 Micro: Microbiology 07/12/24 11:55 Blood Culture - Preliminary Blood SPECIMEN COLLECTED 07/12/24 11:50 Blood Culture - Preliminary Blood SPECIMEN COLLECTED A&P Assessment and plan (1) Respiratory failure: (2) Hyperlipidemia: (3) Hypertension: Qualifiers: Hypertension type: primary hypertension Qualified Code(s): I10 - Essential (primary) hypertension (4) ESRD on dialysis: (5) Chronic diastolic heart failure: (6) Sleep apnea: (7) Cardiac arrest: (8) Uses continuous positive airway pressure (CPAP) ventilation at home: (9) Thrombocytopenia: Plan João Carter is a 63 year old male João Carter is a 63 year old male With past medical history of sleep apnea noncompliant with CPAP, diabetes, hypertension, end-stage renal disease on hemodialysis TTS, paroxysmal A-fib with RVR, secondary polycythemia, thrombocytopenia, cardiac arrest, diastolic heart failure, restrictive lung disease was brought in by the EMS after an event of cardiac arrest at dialysis. He is s/p endotracheal intubation. #Cardiac arrest-likely secondary to hypotension during hemodialysis He is s/p endotracheal intubation on mechanical ventilator, sedated On external pacemaker, current heart rate 75 to 77 bpm, irregular Cardiology consulted in ED EKG showed no ST-T changes First set of troponin 74 Will continue heparin drip started in ER until further cardiology recommendations Check 2D echo Chest x-ray consistent with fluid overload Blood pressure stable, no pressors required as of yet K 3.9, Mg 1.8, will replace ECHO-05/06 LV systolic function is normal with EF of 60 to 65%. Grade 1 diastolic dysfunction Moderate to severe left ventricular hypertrophy Mild mitral regurgitation Mild tricuspid regurgitation Mild pulmonic regurgitation # Respiratory failure-likely secondary to cardiac arrest continue mechanical ventilation, ABG noted Continue sedation with propofol and Versed Will monitor blood pressure Will do DuoNebs every 6 hours as needed # ESRD on hemodialysis-Creat 3.0 Will need nephrology consult Monitor electrolytes for now # Thrombocytopenia-platelets 112 Has baseline thrombocytopenia Will continue to monitor He was started on heparin drip in ER s/p cardiac arrest, will hold off on DVT prophylaxis #ID-chest x-ray consistent with fluid overload, no pneumonia, no leukocytosis Will monitor chest x-ray for probable aspiration during code BCx and sputum Cx pending #Diabetes Mellitus-BS 140 will do insulin correction scale for now DVT prophylaxis, already started on heparin drip in ER for possible AR GI prophylaxis with IV Protonix 40 mg daily He is n.p.o. for now CODE STATUS discussed with at bedside, he is full code. Attestations 2 Medical Necessity Statement*: He requires continued hospitalization crossing 2 midnights for post cardiac arrest and respiratory failure with mechanical ventilator, sedation, cardiology consult, pacemaker Time Spent in Patient Care: 90 minutes Coding Level of Care Code Critical Care >/= 30 minutes Diagnoses Respiratory failure J96.90 Hyperlipidemia E78.5 Primary hypertension I10 Hypertension type: primary hypertension ESRD on dialysis N18.6; Z99.2 Chronic diastolic heart failure I50.32 Sleep apnea G47.30 Cardiac arrest I46.9 Uses continuous positive airway pressure (CPAP) ventilation at home Z99.89 Thrombocytopenia D69.6 Time Spent (min) 90
--- NOTE | 2024-07-12 13:21 | USCV_ITS ---
João Carter Age: 63 Gender: M : 1960 Exam Date: 07/12/2024 17:01 Ordering Phys: Carla Burgess MD Technologist: Angel Hardwick [place] [facility] [place]: cardiac arrest BP: 119 / 70 HR: 56 Rhythm: Sinus Technical Quality: Adequate MEASUREMENTS (Male / Female) Normal Values 2D ECHO LV Diastolic Diameter PLAX 2.9 cm 4.2 - 5.9 / 3.9 - 5.3 cm IVS Diastolic Thickness 1.6 cm 0.6 - 1.0 / 0.6 - 0.9 cm IVS Systolic Thickness 1.9 cm LVPW Diastolic Thickness 2.0 cm 0.6 - 1.0 / 0.6 - 0.9 cm LVPW Systolic Thickness 2.4 cm LVOT Diameter 2.0 cm LV Ejection Fraction 2D Teich 78.9 % LV Ejection Fraction MOD 4C 61.1 % LV Ejection Fraction MOD 2C 70.6 % LV Ejection Fraction 2C AL 68.6 % LA Diameter 3.2 cm RA Systolic Volume 4C AL 47.5 ml RA Systolic Volume 4C MOD 47.5 ml LA Sys Volume AL 62.9 cm cubed LA Sys Volume Index AL 28.5 cm cubed/m squared Aorta at Sinotubular Diameter 2.1 cm IVC Diameter 2.0 cm M-MODE LA Ao Ratio MM 1.3 AV Cusp Separation MM 1.5 cm DOPPLER AV Peak Velocity 129.0 cm/s MV Peak Velocity 123.0 cm/s MV Area PHT 2.7 cm squared Mitral E to A Ratio 0.6 TV Peak Velocity 262.5 cm/s TR Peak Velocity 275.0 cm/s TR Peak Gradient 30.3 mmHg TR Mean Velocity 187.0 cm/s TR Mean Gradient 16.3 mmHg TR Velocity Time Integral 113.9 cm PV Peak Velocity 83.0 cm/s RV Ejection Time 0.3 s FINDINGS Left Ventricle Left ventricle is normal size. LV systolic function is normal with EF of 55 to 60%. No regional wall motion abnormalities are seen. Severe concentric left ventricular hypertrophy. Grade 1 diastolic dysfunction. Right Ventricle Grossly RV is hypokinetic. Right Atrium Normal in size Left Atrium Normal in size Mitral Valve Mitral valve is thickened. Mild mitral regurgitation Aortic Valve Aortic valve is thickened. No significant stenosis or regurgitation. Tricuspid Valve Mild tricuspid regurgitation. Pulmonic Valve Mild pulmonic regurgitation. Pericardium Normal Aorta Normal in size IVC Dilated CONCLUSIONS LV systolic function is normal with EF 55 to 60% Severe concentric LVH Grade 1 diastolic dysfunction Grossly RV is hypokinetic Mild mitral regurgitation Mild tricuspid regurgitation Mild pulmonic regurgitation IVC is dilated. Steven Mallory MD (Electronically Signed) Final Date: 13 July 2024 08:34 S
--- NOTE | 2024-07-12 13:27 | ECG_ITS ---
[employer] Test Date: 2024-07-12 Pat Name: João Carter Department: Room: ICU08 Gender: Male Industry Segment Specialist: : 1960 Requested By: Pito Stanton Order Number: [id number] Thais MD: Steven Mallory M.D. Measurements Intervals [place] Rate: 73 P: 74 HI: 274 QRS: 262 QRSD: 166 T: -53 QT: 459 QTc: 508 Interpretive Statements SINUS RHYTHM WITH FIRST DEGREE AV BLOCK WITH FREQUENT SUPRAVENTRICULAR PREMATURE COMPLEXES RIGHT AXIS DEVIATION [QRS AXIS > 100] RIGHT BUNDLE BRANCH BLOCK [120+ ms QRS DURATION, UPRIGHT V1, 40+ ms S IN I/aVL/V4/V5/V6] POSSIBLE ANTERIOR MYOCARDIAL INFARCTION , OF INDETERMINATE AGE [30 ms Q WAVE IN V3/V4, OR R < 0.2 mV IN V4] MODERATE T-WAVE ABNORMALITY, CONSIDER INFERIOR ISCHEMIA [-0.1+ mV T-WAVE IN II/aVF] Compared to ECG 07/12/2024 12:22:01 First degree AV block now present Myocardial infarct finding still present Electronically Signed On 07-13-2024 19:04:40 LEATHER PIECE INSPECTOR by Steven Mallory M.D. [id number]
--- NOTE | 2024-07-12 13:36 | PC.NURSE ---
provider gave verbal orders to start fentanyl drip @ 50mcg/hr and midazolam @ 2mcg/hr. propofol drip stopped d/t pts pressure.
--- NOTE | 2024-07-12 13:43 | PC.NURSE ---
Pt brought in by EMS from Dialysis where he reportedly coded and had 4-6 mins of CPR done on him by dialysis staff. Pt being externally paced at a rate of 70 when he arrived to ED. Transferred to ER [facility], and intubated by Dr James. Med orders/push times as follows; 1 amp Calcium Chloride and 1 amp Bicarb IVP attempted by SENIOR NET C DEVELOPER through IO to left leg @1115. 100 sucs IVP @1119 20 Etom IVP @1119 Tubed with 8.0 ETT and 22 at the gumline @1119. Second round amp of Calcium Chloride and amp of Bicarb IVP, based on integrity of IO to left leg. IVP in right AC @1120. Prop gtt initiated @1124 with start rate of 30.
[2024-07-12 14:03] LABS: Troponin 5 2HR 83.24 ng/L (0-15); Troponin 5 2HR Delta 9.24 ABS# (0-10)
[2024-07-12] MEDS: heparin 5,000 unit/mL INJ 1 mL IVP (14:05)
[2024-07-12 14:08] LABS: Bilirubin Urine Negative (Negative); Blood Urine Non-haemolysed trace (Negative); Glucose Urine UA Negative (Normal); Ketones Urine Negative (Negative); Leukocyte Esterase Urine Negative (Negative); Nitrate Urine Negative (Negative); Protein Urine 3+ (Negative); Specific Gravity, Urine 1.014 (1.005-1.030); Urine Appearance Clear (CLEAR); Urine Color Yellow (Yellow); Urobilinogen Urine 0.2 mg/dL (Negative)
[2024-07-12] MEDS: heparin drip 25,000 UNIT/500 ML PREMIX 32 UNIT IV (14:11)
[2024-07-12 14:13] LABS: Add Urine Microscopic? YES; Hyaline Casts Urine 8.67 /lpf; Squamous Epithelial Cell Urine 0-5 /hpf (0-5); WBC Urine 0-5 /hpf (0-5)
[2024-07-12 14:23] LABS: UA Slide Review UA Slide Review Perf
[2024-07-12 14:24] LABS: Bacteria Urine 1+ /hpf
--- NOTE | 2024-07-12 14:32 | PC.PT ---
1420 - checked in ICU and pt still currently in ED. Pt still intubated at this time as well per nursing staff. Will hold at this time and reattempt on Sunday.
[2024-07-12 14:45] LABS: Covid PCR NEGATIVE (Negative); Influenza A NEGATIVE (Negative); Influenza B NEGATIVE (Negative); Respiratory Syncytial Virus Ce NEGATIVE (Negative)
--- NOTE | 2024-07-12 15:58 | PC.NURSE ---
approx medication waste: 87ml of propofol drip 12ml of propofol IVP 6ml of succinylcholine wasted with ELLI Pickens
[2024-07-12] MEDS: pantoprazole 40 mg SDV IVP (16:57)
[2024-07-12] MEDS: sodium chloride 0.9% 1,000 ML 30 ML IV (16:58)
[2024-07-12] MEDS: magnesium sulfate premix 1 GM/100 ML PIGGYBACK IV (16:58)
--- NOTE | 2024-07-12 17:27 | ECG_ITS ---
[employer] Test Date: 2024-07-12 Pat Name: João Carter Department: Room: ICU08 Gender: Male Chief Digital Officer: : 1960 Requested By: Pito Stanton Order Number: [id number] Thais MD: Steven Mallory M.D. Measurements Intervals [place] Rate: 77 P: 72 MS: 277 QRS: 260 QRSD: 156 T: -54 QT: 462 QTc: 526 Interpretive Statements SINUS RHYTHM WITH FIRST DEGREE AV BLOCK WITH FREQUENT SUPRAVENTRICULAR PREMATURE COMPLEXES RIGHT AXIS DEVIATION [QRS AXIS > 100] RIGHT BUNDLE BRANCH BLOCK [120+ ms QRS DURATION, UPRIGHT V1, 40+ ms S IN I/aVL/V4/V5/V6] POSSIBLE ANTERIOR MYOCARDIAL INFARCTION , OF INDETERMINATE AGE [30 ms Q WAVE IN V3/V4, OR R < 0.2 mV IN V4] MODERATE T-WAVE ABNORMALITY, CONSIDER LATERAL ISCHEMIA [-0.1+ mV T-WAVE IN I/aVL/V5/V6] Compared to ECG 07/12/2024 15:17:53 No significant changes Electronically Signed On 07-13-2024 19:03:12 IN[employer]KE [employer] by Steven Mallory M.D. [email or web address]
[2024-07-12] MEDS: lidocaine 1% 5 ML in potassium chloride premix 100 ML 25 ML IV (18:00)
[2024-07-12 18:08] LABS: ABG PCO2 32.2 mmHg (35-45); ABG PH Result 7.54 (7.35-7.45); Alveolar-Arterial Oxygen Gradi 12.4 mmHg (5-10); Base Excess ABG 5.3 mmol/L (-2.0-2.0); Blood Gas Allen Test Pos; Blood Gas Operator Identificat GD; Blood Gas Sample Site Radial, left; Blood Gas Sample Type Arterial; Carboxyhemoglobin 1.4 %THgb (0.4-20.1); HCO3 ABG 27.6 mmol/L (22-26); HGB O2 Sat 94.2 % (95-100); Ionized Calcium Level - ABG 1.2 mmol/L (1.1-1.4); Methemoglobin 0.8 % (0.4-1.5); Oxygen Device VENT; Oxygen Saturation ABG 96.3; PO2 ABG 78.3 mmHg (80.0-100.0); PO2 FiO2 Ratio Arterial Blood 261; Potassium Level - ABG 4.2 mmol/L (3.5-5.0); Total Hemoglobin 12.1 g/dL (14-18)
[2024-07-12 18:27] LABS: Glucose Point of Care 80 mg/dL (70-110)
[2024-07-12 19:00] LABS: Basophils % 0.6 %; Eosinophils # 0.2 10^3/uL (0.0-0.8); Eosinophils % 2.4 %; Lymphocytes # 0.8 10^3/uL (0.8-4.8); Lymphocytes % 11.7 %; Mean Corpuscular HGB Conc 29.3 g/dL (30-55); Mean Corpuscular Hemoglobin 24.8 pg (27-33); Mean Corpuscular Volume 84.5 fl (82-101); Mean Platelet Volume 11.8 fL (7.4-10.4); Monocytes # 1.2 10^3/uL (0.2-0.9); Monocytes % 17.3 %; Neutrophils # 4.74 10^3/uL (1.8-7.7); Neutrophils % 67.7 %; Nucleated Red Blood Cells % 0 %; Platelet Count 99 10^3/cmm (157-399); Red Blood Count 5.21 10^6/uL (3.85-5.65); Red Cell Distribution Width 18.9 % (12.1-15.1)
[2024-07-12 19:06] LABS: Troponin 5 6HR 134.4 ng/L (0-15); Troponin 5 6HR Delta 60.4 ng/L (0-12)
[2024-07-12 19:19] LABS: Anion Gap 16.6 (5-19); Blood Urea Nitrogen 37 mg/dL (8-23); Calcium 9.6 mg/dL (8.5-10.5); Carbon Dioxide 27 mmol/L (22-29); Chloride 100 mmol/L (98-107); Creatinine Clr Calc Pharmacy 26.6436; Glomerular Filtration Rate 18.4 mL/min (90-130); Glucose 87 mg/dL (65-115); Magnesium 2.1 mg/dL (1.7-2.3); Osmolality Calculated 296 mOsm/kg (285-295); Potassium 4.6 mmol/L (3.5-5.1); Sodium 139 mmol/L (136-145)
[2024-07-12 20:43] LABS: Partial Thromboplastin Time 211.4 SECONDS (23.9-36.7)
[2024-07-12 20:47] LABS: ABG PCO2 40.3 mmHg (35-45); ABG PH Result 7.46 (7.35-7.45); Arterial Blood Gas Hematocrit 37.1 % (42-52); Base Excess ABG 4.6 mmol/L (-2.0-2.0); Blood Gas Allen Test Pos; Blood Gas Operator Identificat JDB; Blood Gas Sample Site Radial, right; Blood Gas Sample Type Arterial; Carboxyhemoglobin 1.7 %THgb (0.4-20.1); HCO3 ABG 28.8 mmol/L (22-26); HGB O2 Sat 88.1 % (95-100); Ionized Calcium Level - ABG 1.2 mmol/L (1.1-1.4); Oxygen Device VENT; Oxygen Saturation ABG 90.5; PO2 ABG 58.6 mmHg (80.0-100.0); Potassium Level - ABG 4.8 mmol/L (3.5-5.0); Total Hemoglobin 12.1 g/dL (14-18)
[2024-07-12 20:49] LABS: Alveolar-Arterial Oxygen Gradi 13.8 mmHg (5-10); PO2 FiO2 Ratio Arterial Blood 195
[2024-07-12 21:37] LABS: Glucose Point of Care 70 mg/dL (70-110)
[2024-07-12] MEDS: dextrose 10% 125 ML 750 ML IV (22:25)
[2024-07-12 23:28] LABS: Glucose Point of Care 90 mg/dL (70-110)
--- NOTE | 2024-07-12 23:29 | PC.NURSE ---
Hypoglycemia: Patient's blood sugar was 70, Dr. Navarro was contacted and gave telephone orders to administer a D10 bolus of 125mL.
--- NOTE | 2024-07-12 23:31 | PC.NURSE ---
Low temperature: Patient's temperature was 96.2 axillary, Dr. Navarro gave telephone orders to withhold warming for 24 hours post code, critical care message to nurse was entered.
--- NOTE | 2024-07-12 23:33 | PC.NURSE ---
Pause Heparin gtt: PTT was 211.6, Dr. Navarro gave orders to pause gtt for 4 hours then recheck ptt. If level is normal restart gtt at half of previous rate.
[2024-07-13] VITALS (112 sets, daily range): BP systolic 73–182; BP diastolic 40–100; PULSE 64–116; RESP 14–18; TEMP 36.5–38.3; O2SAT 80–99; BMI 30.1
[2024-07-13] MEDS: chlorhexidine gluconate 4% Btl 118 mL 1 APPLIC TOPICAL (00:21)
[2024-07-13 01:14] LABS: Basophils % 0.8 %; Eosinophils # 0.1 10^3/uL (0.0-0.8); Eosinophils % 2.5 %; Hematocrit 44.1 % (37-53); Lymphocytes # 0.7 10^3/uL (0.8-4.8); Lymphocytes % 13.4 %; Mean Corpuscular Hemoglobin 24.4 pg (27-33); Mean Corpuscular Volume 84.2 fl (82-101); Mean Platelet Volume 10.6 fL (7.4-10.4); Monocytes # 0.6 10^3/uL (0.2-0.9); Monocytes % 11.9 %; Neutrophils # 3.73 10^3/uL (1.8-7.7); Neutrophils % 71.2 %; Nucleated Red Blood Cells % 0 %; Platelet Count 89 10^3/cmm (157-399); Red Blood Count 5.24 10^6/uL (3.85-5.65); Red Cell Distribution Width 18.7 % (12.1-15.1); White Blood Count 5.23 10^3/uL (3.29-11.43)
[2024-07-13 01:25] LABS: Partial Thromboplastin Time 19.3 SECONDS (23.9-36.7)
[2024-07-13 01:28] LABS: Estmated Average Glucose 117; Hemoglobin A1C 5.7 % (4.0-6.0)
[2024-07-13 01:30] LABS: Lactate (Lactic Acid level) 1.7 mmol/L (0.5-2.2)
[2024-07-13 01:48] LABS: Slide Review Slide Review Perform
[2024-07-13 02:25] LABS: Alanine Aminotransferase 17 U/L (0-41); Albumin Level 3.4 g/dL (3.5-5.2); Alkaline Phosphatase 102 U/L (40-130); Blood Urea Nitrogen 41 mg/dL (8-23); Calcium 9.1 mg/dL (8.5-10.5); Carbon Dioxide 22 mmol/L (22-29); Chloride 101 mmol/L (98-107); Creatinine Clr Calc Pharmacy 25.8824; Globulin 3.3 g/dL (1.3-4.6); Glomerular Filtration Rate 17.8 mL/min (90-130); Glucose 86 mg/dL (65-115); Magnesium 2.1 mg/dL (1.7-2.3); NT Pro B Type Natriuretic Pept 6945 pg/mL (0-125); Osmolality Calculated 291 mOsm/kg (285-295); Sodium 136 mmol/L (136-145); Total Protein 6.7 g/dL (6.6-8.7)
[2024-07-13 02:26] LABS: Anion Gap 18.8 (5-19); Aspartate Amino Transferase 81 U/L (0-40); Potassium 5.8 mmol/L (3.5-5.1)
[2024-07-13] MEDS: fentaNYL 1,000 MCG/100 ML BAG 5 MCG IV (02:28)
[2024-07-13 04:03] LABS: Glucose Point of Care 90 mg/dL (70-110)
[2024-07-13 04:03] LABS: Glucose Point of Care 73 mg/dL (70-110)
[2024-07-13 05:23] LABS: ABG PCO2 45.7 mmHg (35-45); ABG PH Result 7.39 (7.35-7.45); Arterial Blood Gas Hematocrit 40.1 % (42-52); Base Excess ABG 1.8 mmol/L (-2.0-2.0); Blood Gas Allen Test Pos; Blood Gas Operator Identificat JDB; Blood Gas Sample Site Radial, right; Blood Gas Sample Type Arterial; Carboxyhemoglobin 1.7 %THgb (0.4-20.1); HCO3 ABG 27.4 mmol/L (22-26); HGB O2 Sat 87.2 % (95-100); Ionized Calcium Level - ABG 1.2 mmol/L (1.1-1.4); Methemoglobin 0.9 % (0.4-1.5); Oxygen Device VENT; Oxygen Saturation ABG 89.5; PO2 ABG 60.7 mmHg (80.0-100.0); Potassium Level - ABG 5.4 mmol/L (3.5-5.0); Total Hemoglobin 13.1 g/dL (14-18)
[2024-07-13 05:24] LABS: Alveolar-Arterial Oxygen Gradi 17.5 mmHg (5-10); PO2 FiO2 Ratio Arterial Blood 173
[2024-07-13] MEDS: ipratropium-albuterol 3 mL Neb INHALATION ×3 (07:56→19:48)
--- NOTE | 2024-07-13 08:09 | PC.NURSE ---
0715 Needing to suction due to large amounts of secretions, and SAT dropping into upper 80's. Increasing Versed to help keep calm and help elevated BP. Lungs sound very coarse. Suctioning out a lot of secretions. Mallorie in RT working with patient, said try to give a treatment to help.
[2024-07-13 08:24] LABS: Glucose Point of Care 65 mg/dL (70-110)
[2024-07-13] MEDS: dextrose 10% 125 ML 750 ML IV (08:25)
--- NOTE | 2024-07-13 08:30 | XRR_ITS ---
PROCEDURE INFORMATION: Exam: XR Chest Exam date and time: 07/13/2024 8:39 AM Age: 63 years old Clinical indication: Shortness of breath; Additional info: Post cardiac arrest on mechanical ventilator TECHNIQUE: Imaging protocol: Radiologic exam of the chest. Views: 1 view. COMPARISON: CR (CHEST, ) 07/12/2024 11:29 AM FINDINGS: Lungs: Unchanged pulmonary infiltrates. Pleural spaces: Unremarkable. No pleural effusion. No pneumothorax. Heart/Mediastinum: Unremarkable. No cardiomegaly. Bones/joints: Unremarkable. Other findings: Stable life support lines. XR/XR chest 1V portable [id number] IMPRESSION: No significant change.
[2024-07-13] MEDS: norepinephrine 4 MG/250 ML BAG 22.5 MG IV (08:56)
--- NOTE | 2024-07-13 08:58 | PC.NURSE ---
0845 BP low, started Levophed, titrating up freq. according to blood pressure
--- NOTE | 2024-07-13 09:22 | P.PN_ITS ---
Subjective 2 Subjective: Patient is intubated and sedated. RV is hypokinetic on echocardiogram. Normal LV systolic function. Vitals/I&O/Wt Last Vital Signs Temp 100.9 F H 07/13/24 07:20 Pulse 89 07/13/24 08:13 Resp 17 07/13/24 08:00 BP 145/63 07/13/24 07:15 Pulse Ox 90 07/13/24 08:00 O2 Del Method Mechanical Ventilation 07/13/24 07:56 FiO2 60 07/13/24 08:00 07/12/24 07/13/24 07/13/24 22:59 06:59 14:59 Intake Total 505.433 / 1537.850 175.166 / 1713.016 18.958 / 18.958 Output Total 150 / 150 100 / 250 Balance 355.433 / 1387.850 75.166 / 1463.016 18.958 / 18.958 Weight last 48 hrs Weight 216 lb 0.848 oz Weight 211 lb 13.828 oz Weight 250 lb Physical Exam 2 Narrative: GENERAL: Patient is intubate and sedated NECK: No jugular vein distension. [] HEENT: No cyanosis. No icterus. No pallor. [] HEART:Regular rate and rhythm LUNGS: Diminished air entry bilaterally CENTRAL NERVOUS SYSTEM: Grossly nonfocal. [] EXTREMITIES: Lower extremities with 1+ edema bilaterally. Data 07/14/24 01:11 07/14/24 01:11 Micro: Microbiology 07/12/24 11:55 Blood Culture - Preliminary Blood SPECIMEN COLLECTED 07/12/24 11:50 Blood Culture - Preliminary Blood SPECIMEN COLLECTED A&P Assessment and plan (1) Respiratory failure: (2) Hyperlipidemia: (3) Hypertension: Qualifiers: Hypertension type: primary hypertension Qualified Code(s): I10 - Essential (primary) hypertension (4) ESRD on dialysis: (5) Chronic diastolic heart failure: (6) Sleep apnea: (7) Cardiac arrest: (8) Uses continuous positive airway pressure (CPAP) ventilation at home: (9) Thrombocytopenia: Plan Patient's RV is hypokinetic. I have recommended primary team to check d dimer and if elevated, rule out pulmonary embolism. Continue anticoagulation until that time. Events prior to possible cardiac arrest or rhythm unknown. Ischemic workup once patient is stable. Can discuss cardiac catheterization vs stress test at that time. LV systolic function is normal. Thank you for involving us with care of this patient. We will continue to follow. Please call with questions. Attestations 2 Medical Necessity Statement*: Care expected to cross 2 midnights. Coding Level of Care Code Acute Code for Chg Fwd Diagnoses Respiratory failure J96.90 Hyperlipidemia E78.5 Primary hypertension I10 Hypertension type: primary hypertension ESRD on dialysis N18.6; Z99.2 Chronic diastolic heart failure I50.32 Sleep apnea G47.30 Cardiac arrest I46.9 Uses continuous positive airway pressure (CPAP) ventilation at home Z99.89 Thrombocytopenia D69.6
[2024-07-13 09:25] LABS: Partial Thromboplastin Time 26.2 SECONDS (23.9-36.7)
[2024-07-13] MEDS: meropenem 1,000 mg SDV 1000 MG IVP (09:37)
[2024-07-13] MEDS: water for injection-sterile 20 ML 100 ML (09:41)
[2024-07-13 10:19] LABS: D Dimer 1.05 ug/mLFEU (0-0.59)
[2024-07-13] MEDS: fentaNYL 1,000 MCG/100 ML BAG 15 MCG IV ×3 (10:20→21:00)
[2024-07-13 10:36] LABS: Glucose Point of Care 100 mg/dL (70-110)
[2024-07-13] MEDS: midazolam hcl 100 MG/100 ML BAG IV (10:58)
[2024-07-13 12:45] LABS: Glucose Point of Care 82 mg/dL (70-110)
--- NOTE | 2024-07-13 13:28 | P.PN_ITS ---
Subjective 2 Subjective: Seen him at bedside this morning. He is still sedated. As per the bedside nurse his blood pressure dropped to 70/30, was started on Levophed. He is already on Versed and fentanyl for sedation Medications: Reviewed: Yes Vitals/I&O/Wt Last Vital Signs Temp 99.8 F H 07/13/24 12:00 Pulse 89 07/13/24 08:13 Resp 14 07/13/24 11:05 BP 145/63 07/13/24 07:15 Pulse Ox 96 07/13/24 11:05 O2 Del Method Mechanical Ventilation 07/13/24 07:56 FiO2 60 07/13/24 11:05 07/12/24 07/13/24 07/13/24 22:59 06:59 14:59 Intake Total 505.433 / 1537.850 175.166 / 1713.016 294.489 / 294.489 Output Total 150 / 150 100 / 250 Balance 355.433 / 1387.850 75.166 / 1463.016 294.489 / 294.489 Weight last 48 hrs Weight 98 kg Weight 96.1 kg Weight 113.398 kg Physical Exam 2 Narrative: He is sedated and intubated Chest bilateral coarse crackles present, respiratory states he has huge amount of respiratory secretions yellowish in color Cardiovascular normal heart sounds irregular rhythm Abdomen soft, distended, normal bowel sounds Extremities no edema noted bilateral lower extremity Data 07/13/24 01:04 07/13/24 01:04 Micro: Microbiology 07/12/24 11:55 Blood Culture - Preliminary Blood NEGATIVE TO DATE 07/12/24 11:50 Blood Culture - Preliminary Blood NEGATIVE TO DATE 07/12/24 11:33 Gram Stain - Final Sputum - Endotracheal Tube Aspirate A&P Assessment and plan (1) Respiratory failure: (2) Hyperlipidemia: (3) Hypertension: Qualifiers: Hypertension type: primary hypertension Qualified Code(s): I10 - Essential (primary) hypertension (4) ESRD on dialysis: (5) Chronic diastolic heart failure: (6) Sleep apnea: (7) Cardiac arrest: (8) Uses continuous positive airway pressure (CPAP) ventilation at home: (9) Thrombocytopenia: Plan João Carter is a 63 year old male João Carter is a 63 year old male With past medical history of sleep apnea noncompliant with CPAP, diabetes, hypertension, end-stage renal disease on hemodialysis TTS, paroxysmal A-fib with RVR, secondary polycythemia, thrombocytopenia, cardiac arrest, diastolic heart failure, restrictive lung disease was brought in by the EMS after an event of cardiac arrest at dialysis. He is s/p endotracheal intubation. #Cardiac arrest-likely secondary to hypotension during hemodialysis He is s/p endotracheal intubation on mechanical ventilator, sedated On external pacemaker, current heart rate 75 to 77 bpm, irregular Cardiology consulted in ED EKG showed no ST-T changes First set of troponin 74 Will continue heparin drip started in ER until further cardiology recommendations Check 2D echo Chest x-ray consistent with fluid overload Blood pressure stable, no pressors required as of yet K 3.9, Mg 1.8, will replace ECHO-05/06 LV systolic function is normal with EF of 60 to 65%. Grade 1 diastolic dysfunction Moderate to severe left ventricular hypertrophy Mild mitral regurgitation Mild tricuspid regurgitation Mild pulmonic regurgitation # Respiratory failure-likely secondary to cardiac arrest continue mechanical ventilation, ABG noted Continue sedation with propofol and Versed Will monitor blood pressure Will do DuoNebs every 6 hours as needed # ESRD on hemodialysis-Creat 3.0 Will need nephrology consult Monitor electrolytes for now # Thrombocytopenia-platelets 112 Has baseline thrombocytopenia Will continue to monitor He was started on heparin drip in ER s/p cardiac arrest, will hold off on DVT prophylaxis #ID-chest x-ray consistent with fluid overload, no pneumonia, no leukocytosis Will monitor chest x-ray for probable aspiration during code BCx and sputum Cx pending #Diabetes Mellitus-BS 140 will do insulin correction scale for now DVT prophylaxis, already started on heparin drip in ER for possible RI GI prophylaxis with IV Protonix 40 mg daily He is n.p.o. for now CODE STATUS discussed with at bedside, he is full code. 07/13/24 He is still intubated and sedated. Had an hypotensive episode this morning, was started on Levophed. Chest exam showed bilateral coarse rhonchi and crackles consistent with fluid overload. Was also found to have potassium of 5.8 this morning and creatinine of 3.5. Nephrology consulted for HD. He also has platelet count trending down to 89. He is on heparin drip for possible RI. Discussed with cardiology, Dr. Mallory, wants to continue heparin drip for 48 hours since admission. D-dimer elevated 1.05, will check CTA chest PE protocol to rule out PE since 2D echo as per cardiology showed RV dilatation. He had a temperature of 100.8 this morning, given 1 dose of IV Zosyn 3.375 mg. Will continue IV Zosyn for now. Continue to monitor in ICU. Family, aware of plan of care. Attestations 2 Medical Necessity Statement*: He requires continued hospitalization crossing 2 midnights for post cardiac arrest and respiratory failure with mechanical ventilator, sedation, cardiology consult, pacemaker Time Spent in Patient Care: 30 minutes Coding Level of Care Code Critical Care >/= 30 minutes Diagnoses Respiratory failure J96.90 Hyperlipidemia E78.5 Primary hypertension I10 Hypertension type: primary hypertension ESRD on dialysis N18.6; Z99.2 Chronic diastolic heart failure I50.32 Sleep apnea G47.30 Cardiac arrest I46.9 Uses continuous positive airway pressure (CPAP) ventilation at home Z99.89 Thrombocytopenia D69.6 Time Spent (min) 30
--- NOTE | 2024-07-13 14:20 | PC.NURSE ---
1330 and daughter came in to visit. I ask them admission questions and completed that. Notified Dr. Burgess that they are here and would like to speak with her. She's doing an admission and will come down when finished. 1415 Yarely with dialysis here to do his dialysis.
[2024-07-13] MEDS: pantoprazole 40 mg SDV IVP (14:42)
--- NOTE | 2024-07-13 15:06 | PC.NURSE ---
1500 Sats dipping down into upper 80's. Suctioned, return of very little secretions. Notified Mallorie in RT, she began working with him. Lungs sounding more course than just 20-30 minutes prior. Dialysis had began around 30 minutes prior, all going well. RT increased loygen level, and got sat back into low 90's. Mallorie still at bedside.
--- NOTE | 2024-07-13 15:33 | XRR_ITS ---
PROCEDURE INFORMATION: Exam: XR Chest Exam date and time: 07/13/2024 3:57 PM Age: 63 years old Clinical indication: Other: Changes in lung sounds; Additional info: Lung changes TECHNIQUE: Imaging protocol: Radiologic exam of the chest. Views: 1 view. COMPARISON: CR (CHEST, ) 07/13/2024 8:39 AM FINDINGS: Tubes, catheters and devices: Endotracheal tube is visualized approximately 3.6 cm above the level of the linda. Right-sided central venous catheter is in place with its distal tip in the right atrium. Enteric tube is visualized with its tip coursing below the level of the diaphragm and collimated from view. Lungs: Patchy right perihilar airspace opacities essentially stable from prior exam. Left basilar atelectasis and/or small pleural effusion. Pleural spaces: No definitive pneumothorax. No significant right-sided pleural effusion. Heart/Mediastinum: Cardiomediastinal silhouette is mildly prominent and stable from prior exam. Bones/joints: Unremarkable. XR/XR chest 1V portable [id number] IMPRESSION: 1. Stable positioning of catheter is and support devices as described above. 2. Stable right perihilar airspace opacity. 3. Questionable small left pleural effusion and/or atelectasis.
--- NOTE | 2024-07-13 15:39 | PC.NURSE ---
1530 Dialysis stopped. 1600 PTT canceled due to dialysis nurse just gave a heparin bolus. Rescheduled PTT for 1800 RT ask for port CXR, ordered.
[2024-07-13 15:46] LABS: Glucose Point of Care 80 mg/dL (70-110)
--- NOTE | 2024-07-13 16:08 | PC.NURSE ---
[address] Burgess of current and past 30 minute status.
--- NOTE | 2024-07-13 16:58 | PC.PHAR ---
Patient's states she doesn't know what Medication Patient is currently taking I called and verified with last fills with Pharmacy on Prescriptions and updated from current med list for OTC .
[2024-07-13] MEDS: propofol 1,000 MG/100 ML INJ 3.4 MG IV (17:13)
[2024-07-13 18:07] LABS: Glucose Point of Care 81 mg/dL (70-110)
--- NOTE | 2024-07-13 18:08 | PC.HD ---
Pt on Levophed gtt at 4mcg/min prior to start of treatment. AP was high initially, even higher with lines reversed, but pressures dropped after PALEOBOTANIST suctioned ETT. However they increased again and BFR decreased to 200 to keep AP <250. Around this time pt dropped his O2 sat. RT in, noted that his vent pressures had also increased and lungs had rales and ronchi throughout (were clear with only LLL rales/wheezes prior to treatment). FIO2 increased to 100% and pt suctioned per RT but sat remained in 80s. Albuterol tx given per RT which lowered his vent pressures some and O2 sat up to 93% on 100% FIO2. AP remains high, spiking to 300. Line flushed clot noted in the arterial chamber. Heparin had been held d/t pt on Heparin gtt but loading dose d/t clot. AP contined to spike to the point that when the pump shut off and was reset AP immediately spiked again and would not run. Blood returned without difficulty and cath ports unobstructed, clot better visualized and not occluding the chamber so no benefit to restringing machine. Dr Meyers notified of increased ventilator and machine pressures with inadequate blood flow to do treatment and increased O2 requirement, instructed to terminate treatment. PALEOBOTANIST notified hospitalist of pt condition and inability to dialyze.
[2024-07-13 18:35] LABS: Partial Thromboplastin Time 41.8 SECONDS (23.9-36.7)
--- NOTE | 2024-07-13 18:45 | PC.HD ---
Pre treatment patient's dialysis catheter found without caps.
[2024-07-13] MEDS: heparin drip 25,000 UNIT/500 ML PREMIX 37.24 UNIT IV (19:01)
[2024-07-13] MEDS: heparin 5,000 unit/mL INJ 1 mL IVP (19:11)
--- NOTE | 2024-07-13 19:37 | PC.NURSE ---
Unequal pupils: During initial assessment of patient, pupils were found to be unequal and unreactive. Dr. Goodman was contacted, this nurse informed Dr. Goodman that patient condition was critical requiring 100% fio2 on mechanical ventilation and was saturating in the low 90s. Dr. Goodman gave telephone orders to monitor patient status and to obtain a head CT when patient is more stable.
--- NOTE | 2024-07-13 20:08 | PC.NURSE ---
Levo titration: Upon arrival to shift levophed was running at 5mcg/min, MAR updated to reflect dose.
--- NOTE | 2024-07-13 20:36 | PC.NURSE ---
SCDs not applied due to heparin drip.
[2024-07-13] MEDS: norepinephrine 4 MG/250 ML BAG 30 MG IV (21:02)
--- NOTE | 2024-07-13 21:54 | PC.NURSE ---
Hold off on head CT: This nurse contacted Dr. Navarro regarding patient status and need for head CT and chest CTA, Dr. Navarro gave telephone orders to hold off on moving patient as he is too unstable at this time.
--- NOTE | 2024-07-13 22:30 | PC.NURSE ---
Continue Heparin gtt: Dr. Navarro gave confirmation to continue heparin drip.
--- NOTE | 2024-07-13 23:31 | P.CONIM_ITS ---
Providers/Reason For Consult 2 Consulting Physician/Specialty*: [facility]/Nephrology Reason for Consult*: ESRD Attending Physician: Carla Burgess MD Primary Care Provider: Philip Torrez History of Present Illness History of Present Illness João Carter is a 63 year old male withPatient is a 63-year-old male with past medical history of end-stage renal disease on dialysis diabetes schedule, coronary artery disease history of prior cardiac arrest and CHF, sleep apnea, hypertension thrombocytopenia was brought to the hospital via EMS as patient had a cardiac arrest while he was at dialysis and required CPR. CTA head and neck showed left carotid stenosis. While in the ER he also had a seizure episode and he was intubated for airway protection. He was hypotensive requiring pressors currently. Review of Systems 2 Narrative: on vent Medications/Allergies Home Medications Medication Instructions Recorded Confirmed Last Taken Type lovastatin 20 mg tablet 20 mg PO DAILY 05/02/21 07/13/24 05/21/23 History albuterol sulfate 90 mcg/actuation 1 inh inhalation Q4H PRN Shortness 02/27/23 07/13/24 Unknown History aerosol inhaler Of Breath Or Wheezing furosemide 20 mg tablet 20 mg PO DAILY 05/14/23 07/13/24 05/21/23 History ascorbic acid (vitamin C) 500 mg 500 mg PO DAILY 05/22/23 07/13/24 05/21/23 History tablet (Vitamin C) cholecalciferol (vitamin D3) 25 25 mcg PO DAILY 05/22/23 07/13/24 05/21/23 History mcg (1,000 unit) capsule (Vitamin D3) vitamin B12 0.5 mg-folic acid 1 mg 1 tab PO DAILY 05/22/23 07/13/24 05/21/23 History tablet vitamin E 268 mg (400 unit) capsule 268 mg PO DAILY 05/22/23 07/13/24 05/21/23 History vitamin K2 40 mcg tablet 40 mcg PO DAILY 05/22/23 07/13/24 05/21/23 History sevelamer carbonate 800 mg tablet 800 mg PO DAILY 04/28/24 07/13/24 Unknown History clopidogrel 75 mg tablet (Plavix) 75 mg PO DAILY #90 tabs 06/04/24 07/13/24 Unknown Rx Allergies Allergy/AdvReac Type Severity Reaction Status Date / Time Penicillins Allergy Severe hives Verified 06/04/24 14:03 Current Medications Generic Name Dose Route Start Last Admin Trade Name Freq PRN Reason Stop Dose Admin Albuterol/Ipratropium 3 ml 07/12/24 13:35 07/13/24 19:48 Ipratropium-Albuterol 3 Ml Neb INHALATION 3 ml Q6H PRN Administration SHORTNESS OF BREATH Chlorhexidine Gluconate 1 applic 07/13/24 00:00 07/13/24 00:21 Chlorhexidine Gluconate 4% Btl 118 Ml TOPICAL 1 applic Q24H LEN Administration Heparin Sodium (Porcine) 0 unit 07/12/24 12:22 07/13/24 19:11 Heparin 5,000 Unit/Ml Inj 1 Ml IVP 3,900 unit PRN PRN Administration Heparin Weight Based Protocol -Subsequent Bolus Protocol Propofol 1,000 mg in 100 mls @ 0 mls/hr 07/12/24 11:30 07/13/24 22:44 Diprivan IV 10 mcg/kg/min .Q0M LEN 6.09 mls/hr Titration Protocol Per Protocol Fentanyl 1,000 mcg in 100 mls @ 0 mls/hr 07/12/24 11:45 07/13/24 22:49 Sublimaze IV 100 mcg/hr .Q0M LEN 10 mls/hr Titration Protocol Per Protocol Midazolam HCl 100 mg in 100 mls @ 0 mls/hr 07/12/24 11:45 07/13/24 23:01 Versed IV 5 mg/hr .Q0M LEN 5 mls/hr Titration Protocol Per Protocol Heparin Sodium/Sodium Chloride 25,000 unit in 500 mls @ 0 mls/hr 07/12/24 12:30 07/13/24 19:12 Heparin Drip IV 10.71 unit/kg/hr CONT LEN 21 mls/hr Titration Protocol Per Protocol Norepinephrine Bitartrate 4 mg in 250 mls @ 0 mls/hr 07/12/24 13:06 07/13/24 23:01 Levophed IV 12 mcg/min .Q0M LEN 45 mls/hr Titration Protocol Per Protocol Insulin Human Lispro 0 unit 07/12/24 14:00 07/12/24 22:00 Insulin Lispro 100 Unit/1 Ml SUBCUT Not Given Q4H LEN Protocol Pantoprazole Sodium 40 mg 07/12/24 13:30 07/13/24 14:42 Pantoprazole 40 Mg Sdv IVP 40 mg Q24H LEN Administration PFSH Acute 2 PFSH: Medical History Hyperlipidemia Paroxysmal SVT (supraventricular tachycardia) History of hemoptysis late summer 2022, several bronchoscopies done at [place], no source found, treated with antibiotics Pneumonia due to COVID-19 virus 2022, on ventilator for a time History of pulmonary aspiration per swallow study done during a prolonged acute illness in late 2022 History of cirrhosis of liver History of echocardiogram 06/2021 EF 55%, severe AV sclerosis and calcification but no stenosis History of PFTs 06/2021 severe restriction with preserved residual volume, minimal reduction in DLCO Nephrotic syndrome Vitamin D deficiency Diabetes mellitus, type II History, lost weight, no longer active diagnosis Hypertension JOSE (obstructive sleep apnea) Diastolic heart failure End stage renal disease started dialysis late 2022 Cardiac arrest Restrictive lung disease Polycythemia secondary to hypoxia Surgical History History of percutaneous endoscopic gastrostomy 2022, removed short time later History of tracheostomy 2022, removed short time later S/P thoracentesis 2014 History of cholecystectomy 1996 Family History Father Congestive heart failure (CHF) Mother Congestive heart failure (CHF) Social History Smoking and tobacco/nicotine status: never used tobacco/nicotine Second hand smoke exposure: No Alcohol intake: never Substance/Drug Use: never Household members: spouse 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 Vitals/I&O/Wt Last Vital Signs Temp 100.2 F H 07/13/24 20:30 Pulse 115 H 07/13/24 22:00 Resp 14 07/13/24 19:48 BP 98/49 07/13/24 20:30 Pulse Ox 92 07/13/24 20:30 O2 Del Method Mechanical Ventilation 07/13/24 20:30 FiO2 100 07/13/24 20:30 07/13/24 07/13/24 07/14/24 14:59 22:59 06:59 Intake Total 1069.150 / 9312.561 9613.116 / 2283.266 20.3 / 2303.566 Output Total 565 / 565 Balance 1069.150 / 1069.150 649.116 / 1718.266 20.3 / 1738.566 Weight last 48 hrs Weight 101.5 kg Weight 98 kg Weight 96.1 kg Weight 113.398 kg Physical Exam 2 Narrative: intubated and sedated Data 07/13/24 01:04 07/13/24 01:04 Micro: Microbiology 07/12/24 11:33 Gram Stain - Final Sputum - Endotracheal Tube Aspirate Sputum Culture - Preliminary 07/12/24 11:55 Blood Culture - Preliminary Blood NEGATIVE TO DATE 07/12/24 11:50 Blood Culture - Preliminary Blood NEGATIVE TO DATE A&P Assessment and plan (1) ESRD on dialysis: 1. End-stage renal disease: On TTS schedule, patient currently volume overloaded, on low-dose pressors-will attempt HD today patient may not tolerate well due to hypotension. 2. Cardiac arrest-currently intubated and on pressors, history of multiple cardiac arrest in the past 3. Hyperkalemia: HD as above 4. A-fib with rapid ventricular response 5. Chronic thrombocytopenia 6. History of COPD Overall poor prognosis. If patient fails to tolerate HD, will discuss with family regarding goals of care. Patient evaluated using audiovisual cart, time spent 40 minutes. Coding Level of Care Code Acute Code for Chg Fwd Diagnoses ESRD on dialysis N18.6; Z99.2
[2024-07-13] MEDS: glucagon 1 mg/mL KIT 1 mL IM (23:58)
[2024-07-14] VITALS (111 sets, daily range): BP systolic 61–129; BP diastolic 39–59; PULSE 94–118; RESP 14–36; TEMP 36.8–38.4; O2SAT 77–98; BMI 30.7
[2024-07-14] MEDS: dextrose 10% 125 ML 750 ML IV (00:15)
[2024-07-14 00:50] LABS: Glucose Point of Care 88 mg/dL (70-110)
[2024-07-14 01:24] LABS: Basophils # 0.1 10^3/uL (0.0-0.1); Basophils % 0.4 %; Eosinophils # 0.1 10^3/uL (0.0-0.8); Eosinophils % 0.5 %; Hematocrit 44.8 % (37-53); Lymphocytes # 0.9 10^3/uL (0.8-4.8); Lymphocytes % 4.4 %; Mean Corpuscular HGB Conc 27.7 g/dL (30-55); Mean Corpuscular Hemoglobin 24.8 pg (27-33); Mean Corpuscular Volume 89.6 fl (82-101); Mean Platelet Volume 10.1 fL (7.4-10.4); Monocytes # 1.1 10^3/uL (0.2-0.9); Monocytes % 5.7 %; Neutrophils # 17.08 10^3/uL (1.8-7.7); Neutrophils % 88.3 %; Nucleated Red Blood Cells % 0 %; Platelet Count 165 10^3/cmm (157-399); Red Cell Distribution Width 19.1 % (12.1-15.1); White Blood Count 19.35 10^3/uL (3.29-11.43)
--- NOTE | 2024-07-14 01:41 | XRR_ITS ---
PROCEDURE INFORMATION: Exam: XR Chest Exam date and time: 07/14/2024 2:00 AM Age: 63 years old Clinical indication: Shortness of breath; Prior surgery; Surgery date: 6+ months; Surgery type: Dialysis cath; Patient HX: Persistent hypoxia post cardiac arrest. Intubated. ; Additional info: Pulmonary edema TECHNIQUE: Imaging protocol: Radiologic exam of the chest. Views: 1 view. COMPARISON: CR (CHEST, ) 07/13/2024 3:57 PM FINDINGS: Tubes, catheters and devices: Stable endotracheal tube, enteric tube, and right-sided dual lumen central venous catheter. Lungs: Mild interval increase of perihilar opacities related to fluid overload versus infectious/inflammatory processes. Similar bilateral [id number]-left patchy airspace opacities more distally. Pleural spaces: No pleural effusion or pneumothorax. Heart/Mediastinum: Unremarkable. No cardiomegaly. Bones/joints: Unremarkable. XR/XR chest 1V portable [id number] IMPRESSION: As above.
[2024-07-14 01:44] LABS: Alanine Aminotransferase 14 U/L (0-41); Albumin Level 2.8 g/dL (3.5-5.2); Alkaline Phosphatase 94 U/L (40-130); Anion Gap 19.4 (5-19); Aspartate Amino Transferase 60 U/L (0-40); Blood Urea Nitrogen 48 mg/dL (8-23); Calcium 8.3 mg/dL (8.5-10.5); Carbon Dioxide 20 mmol/L (22-29); Chloride 103 mmol/L (98-107); Creatinine Clr Calc Pharmacy 16.3032; Globulin 3.3 g/dL (1.3-4.6); Glomerular Filtration Rate 10.2 mL/min (90-130); Glucose 99 mg/dL (65-115); Magnesium 1.8 mg/dL (1.7-2.3); Osmolality Calculated 297 mOsm/kg (285-295); Potassium 5.4 mmol/L (3.5-5.1); Sodium 137 mmol/L (136-145); Total Bilirubin 1.3 mg/dL (0.15-1.2); Total Protein 6.1 g/dL (6.6-8.7)
[2024-07-14] MEDS: linezolid premix 600 MG/300 ML PREMIX 300 MG IV ×2 (02:03→13:44)
[2024-07-14] MEDS: norepinephrine 4 MG/250 ML BAG 60 MG IV (02:09)
[2024-07-14 02:18] LABS: Glucose Point of Care 86 mg/dL (70-110)
[2024-07-14 02:19] LABS: Glucose Point of Care 65 mg/dL (70-110)
--- NOTE | 2024-07-14 02:46 | PC.NURSE ---
Addendum entered by MICHELINE Fong 07/14/24 02:54: Witnessed waste of 61 ml of propofol. Original Note: Wasted Prop: 61mL was wasted and witnessed by KENDAL Smith.
[2024-07-14] MEDS: heparin 5,000 unit/mL INJ 1 mL IVP ×2 (02:57→17:05)
[2024-07-14] MEDS: ipratropium-albuterol 3 mL Neb INHALATION ×4 (03:02→21:13)
[2024-07-14] MEDS: vasopressin 40 UNIT/100 ML PREMIX IV (03:51)
[2024-07-14 04:51] LABS: Glucose Point of Care 88 mg/dL (70-110)
--- NOTE | 2024-07-14 05:00 | PM.CCNAC ---
Critical Care Event Note The high probability of a clinically significant, sudden or life threatening deterioration of the patient's [] system(s) required my full and direct attention, intervention and personal management. The critical care time is as shown. This time is in addition to time spent performing any reported procedures but includes the following: [x] Data and vital sign review and interpretation [x] Patient assessment, examination and intervention [x] Documentation [x] Medication orders and management Critical Care Time Code activated: No Critical Care Time (min): 40 Additional information about critical care time: Patient was clinically worsened over the course of the night. He developed fever up to 101.2 Fahrenheit overnight. His nurse had noted that patient's pupils were equal. CT of the head was ordered however patient has been too unstable to be moved to CT for both CT of the head and CTA of the chest to evaluate for PE. Minimal movements, attempts to lay patient flat resulted in desaturation with O2 sat in the early 80s on 100% FiO2 on the ventilator. Chest x-ray taken overnight showing increasing bilateral pulmonary opacities consistent with combination of pulmonary edema. Possibility of developing pneumonia not excluded. ABG taken this morning showing worsening metabolic acidosis. Stat blood cultures were taken overnight. Requested additional blood cultures this morning from dialysis port at the time of access. Empiric antibiotic coverage started with meropenem renally dosed at 500 mg IV every 24 hours and linezolid 600 mg IV every 12 hours. Levophed requirement has continued to increase, currently patient is on Levophed of 20 with MAP 60, additional vasopressin is being added at this time. A central line will be placed shortly due to increasing need of pressors, multiple medications necessitating placement of a central line. Patient remains critically ill. Patient's worsening course through the night and poor prognosis discussed with patient's daughter this morning. Procedures Arterial Line Size (Gauge): 20 Coding Level of Care Code Acute Code for Chg Fwd
--- NOTE | 2024-07-14 05:07 | PC.NURSE ---
Vaso and PICC order: Patient's BP continued to drop with MAPs consistently below 65, levophed maxed at 20mcg/min. Dr. Navarro gave telephone orders to start vaso and put in an order for a PICC line insertion in the AM.
[2024-07-14 05:09] LABS: ABG PCO2 59.7 mmHg (35-45); Alveolar-Arterial Oxygen Gradi 76.7 mmHg (5-10); Arterial Blood Gas Hematocrit 37.3 % (42-52); Base Excess ABG -6.7 mmol/L (-2.0-2.0); Blood Gas Allen Test Pos; Blood Gas Operator Identificat JDB; Blood Gas Sample Site Radial, right; Blood Gas Sample Type Arterial; Carboxyhemoglobin 1.5 %THgb (0.4-20.1); HCO3 ABG 22.2 mmol/L (22-26); HGB O2 Sat 85.6 % (95-100); Ionized Calcium Level - ABG 1.2 mmol/L (1.1-1.4); Methemoglobin 0.9 % (0.4-1.5); Oxygen Device VENT; Oxygen Saturation ABG 87.7; PO2 ABG 60.8 mmHg (80.0-100.0); PO2 FiO2 Ratio Arterial Blood 60; Potassium Level - ABG 5.3 mmol/L (3.5-5.0); Total Hemoglobin 12.2 g/dL (14-18)
[2024-07-14 05:13] LABS: ABG PH Result 7.18 (7.35-7.45)
[2024-07-14] MEDS: norepinephrine 4 MG/250 ML BAG 75 MG IV ×7 (05:23→23:55)
--- NOTE | 2024-07-14 06:30 | PM.ACPR ---
Procedure/Consent Time out: Time Out Performed: Yes Consent: Consent for Procedure: Emergency procedure Acute Procedures Arterial Line: Size (Gauge): 20 Central Line Placement: Right Femoral: Time out performed: Yes Patient placed on monitor/pulse ox: Yes MD prep: mask, gown and gloves Central line prep: Povidone-Iodine 1%, Chlorhexidine scrub and sterile drapes applied Local anesthesia used: other anesthetic Ultrasound used for placement: Yes Central line lumen inserted: triple Post procedure: sutured in place, good blood return, all ports aspirated, flushed, capped and sterile dressing applied Post procedure x-ray: other (N/A) Patient tolerated procedure: well and no complications Epistaxis Control: Time out performed: Yes
--- NOTE | 2024-07-14 07:43 | ANES.PROC ---
Anesthesia Procedures Procedure/Date: 07/14/24 Arterial Line: Time Out Performed: Yes Consent: emergency procedure Size (Gauge): 20 Technique Used: guide wire technique Post-Procedure: dry sterile dressing placed Patient Tolerated Procedure: well Complications: none Site: right and radial
[2024-07-14 08:01] LABS: Glucose Point of Care 75 mg/dL (70-110)
[2024-07-14] MEDS: EPINEPHrine 2.5 MG in sodium chloride 0.9% 250 ML 6.06 MG IV (08:31)
--- NOTE | 2024-07-14 08:35 | PC.NURSE ---
Patient has become hypotensive. BP: 64/35 (45) via arterial line. Verified with automatic NIBP and manual NIBP. Levophed is at 20mcg/min (max per protocol), ALso on vasopressin 4 units/min. Nurse has started incraseing vaspressin per protocol. Attmepted to lay patient flat but he quickly desaturates into the 70's spo2. Nurse alerted Dr Monroy. Received an order for epinephrine drip, instructied to continue to titrate up on vaso first due to heart rate being 106.
[2024-07-14] MEDS: meropenem 500 mg SDV IVP (08:46)
[2024-07-14 09:40] LABS: Partial Thromboplastin Time 54.9 SECONDS (23.9-36.7)
[2024-07-14 09:49] LABS: Glucose Point of Care 75 mg/dL (70-110)
[2024-07-14] MEDS: sodium bicarbonate 8.4% 1 mEq/mL 50mL Syr 50 MEQ IVP ×2 (10:02→10:56)
[2024-07-14 10:30] LABS: Alanine Aminotransferase 16 U/L (0-41); Albumin Level 3.2 g/dL (3.5-5.2); Alkaline Phosphatase 125 U/L (40-130); Anion Gap 19.9 (5-19); Aspartate Amino Transferase 73 U/L (0-40); Blood Urea Nitrogen 51 mg/dL (8-23); Calcium 7.5 mg/dL (8.5-10.5); Carbon Dioxide 22 mmol/L (22-29); Chloride 100 mmol/L (98-107); Creatinine Clr Calc Pharmacy 14.8836; Globulin 3.3 g/dL (1.3-4.6); Glomerular Filtration Rate 9.2 mL/min (90-130); Glucose 87 mg/dL (65-115); Osmolality Calculated 293 mOsm/kg (285-295); Sodium 135 mmol/L (136-145); Total Bilirubin 1.7 mg/dL (0.15-1.2); Total Protein 6.5 g/dL (6.6-8.7)
--- NOTE | 2024-07-14 10:30 | PC.NURSE ---
Unable to regularly turn patient as his oxygen levels quickly drop with any change in position, down to 79%.
[2024-07-14 10:36] LABS: Potassium 6.9 mmol/L (3.5-5.1)
[2024-07-14] MEDS: calcium gluconate 0.1 gm/mL 10% SDV 10mL 1 GM IVP ×2 (10:58→18:55)
[2024-07-14] MEDS: dextrose 10% 250 ML 1000 ML IV ×2 (11:02→19:01)
[2024-07-14] MEDS: insulin regular-human 10 UNIT in SYRINGE 1 EACH IVP ×2 (11:02→19:09)
[2024-07-14] MEDS: fentaNYL 1,000 MCG/100 ML BAG 5 MCG IV (11:06)
--- NOTE | 2024-07-14 11:58 | PC.SOCIAL ---
IMM Update IMM not updated with pt & family. Pt is intubated & in critical condition. He is not expected to d/c withing the next 24-48hrs.
[2024-07-14 12:35] LABS: Anion Gap 20.8 (5-19); Blood Urea Nitrogen 52 mg/dL (8-23); Calcium 8.2 mg/dL (8.5-10.5); Carbon Dioxide 22 mmol/L (22-29); Chloride 99 mmol/L (98-107); Creatinine Clr Calc Pharmacy 14.6474; Glomerular Filtration Rate 9.1 mL/min (90-130); Glucose 130 mg/dL (65-115); Osmolality Calculated 298 mOsm/kg (285-295); Potassium 5.8 mmol/L (3.5-5.1); Sodium 136 mmol/L (136-145)
--- NOTE | 2024-07-14 13:14 | P.PN_ITS ---
<Statement entered by Steven Mallory M.D - 07/15/24 18:34> Patient was evaluated and cared for in conjunction with an advanced practice practitioner.? I personally examined the patient and reviewed the chart and all pertinent data including imaging, telemetry, and laboratory results.? I discussed the patient in detail with the advanced practice practitioner.? Please see? their note for complete progress note, testing result and agreed upon plan of care for the patient. Patient has febrile episodes. Patient requiring increasing doses of pressors. WBC count increased significantly. GENERAL: Patient is intubated and sedated HEART: Regular S1 and S2 LUNGS: Diminished air entry CENTRAL NERVOUS SYSTEM: Grossly nonfocal. EXTREMITIES: Lower extremities with out edema bilaterally. (1) Respiratory failure (2) Hyperlipidemia (3) Hypertension (4) ESRD on dialysis: (5) Chronic diastolic heart failure (6) Sleep apnea (7) Cardiac arrest (8) Uses continuous positive airway pressure (CPAP) ventilation at home (9) Thrombocytopenia 10) Septic shock Plan Patient's pressure presentation currently appears consistent with a septic shock. Continue to biotic therapy per primary team. Continue pressor support. RV has hypokinesis however it is a limited quality echocardiogram. Repeat limited echo to better assess RV function again. Continue heparin gtt as PE can not be ruled out. Hypotension likely secondary to septic shock . Thank you for involving us with care of this patient. We will continue to follow. Please call with questions. Subjective 2 Subjective: Patient is still on the ventilator and sedated. He is maxed out on 3 pressors. Blood pressure has been low. O2 sat has been low on 100% FiO2. Medications: Reviewed: Yes Vitals/I&O/Wt Last Vital Signs Temp 99.4 F 07/14/24 09:00 Pulse 110 H 07/14/24 11:15 Resp 17 07/14/24 11:10 BP 117/48 07/14/24 11:15 Pulse Ox 86 L 07/14/24 11:15 O2 Del Method Mechanical Ventilation 07/14/24 09:00 FiO2 100 07/14/24 11:10 07/13/24 07/14/24 07/14/24 22:59 06:59 14:59 Intake Total 1214.116 / 2283.266 1107.704 / 3390.970 724.623 / 724.623 Output Total 565 / 565 0 / 565 Balance 649.116 / 3374.373 4994.704 / 2825.970 724.623 / 724.623 Weight last 48 hrs Weight 220 lb 7.396 oz Weight 223 lb 12.307 oz Weight 216 lb 0.848 oz Weight 211 lb 13.828 oz Physical Exam 2 Narrative: General: ventilated, sedated, dusky appearing Lymphatic: no edema Respiratory: ventilated, lung sounds clear Cardio: No JVD, tachycardic, S1 S2 normal, no murmurs, peripheral pulses 2+ throughout Extremities: No edema Neuro: sedated Skin: Appears dusky Urinary Catheter Management: Latham: Cath Placed During This Visit: no Reason for Continuing Indwelling Catheter: Accurate Measurement of Urinary Output in Critically Ill Patients Data 07/14/24 01:11 07/14/24 12:08 Micro: Microbiology 07/12/24 11:33 Gram Stain - Final Sputum - Endotracheal Tube Aspirate Sputum Culture - Final 07/14/24 01:08 Blood Culture - Preliminary Blood SPECIMEN COLLECTED 07/14/24 01:11 Blood Culture - Preliminary Blood SPECIMEN COLLECTED 07/12/24 11:55 Blood Culture - Preliminary Blood NEGATIVE TO DATE 07/12/24 11:50 Blood Culture - Preliminary Blood NEGATIVE TO DATE A&P Assessment and plan (1) Respiratory failure: (2) Hyperlipidemia: (3) Hypertension: Qualifiers: Hypertension type: primary hypertension Qualified Code(s): I10 - Essential (primary) hypertension (4) ESRD on dialysis: (5) Chronic diastolic heart failure: (6) Sleep apnea: (7) Cardiac arrest: (8) Uses continuous positive airway pressure (CPAP) ventilation at home: (9) Thrombocytopenia: Plan Patient unable to get CT due to currently too unstable. Events prior to possible cardiac arrest or rhythm unknown. At this time, continue current care. LV function normal. No acute EKG changes. No indications for acute cardiac intervention at this time. Attestations 2 Medical Necessity Statement*: Deferred to primary. Procedures Arterial Line Size (Gauge): 20 Coding Level of Care Code Acute Code for Chg Fwd Diagnoses Respiratory failure J96.90 Hyperlipidemia E78.5 Primary hypertension I10 Hypertension type: primary hypertension ESRD on dialysis N18.6; Z99.2 Chronic diastolic heart failure I50.32 Sleep apnea G47.30 Cardiac arrest I46.9 Uses continuous positive airway pressure (CPAP) ventilation at home Z99.89 Thrombocytopenia D69.6
--- NOTE | 2024-07-14 13:42 | P.PN_ITS ---
Subjective 2 Subjective: Seen with this morning. Patient is on 2 pressors maxed out at this time. I have added epinephrine drip. Blood pressure is 60/30 at this time. Saturations 82%. Potassium overnight 5.8. Repeat CMP this morning has been ordered. ABG reviewed from this morning. pH 7 point . Patient on 100% FiO2. ? He is intubated sedated on the ventilator Patient not a candidate for dialysis at this time. He is too unstable to have any further imaging studies conducted. Discussed with cardiology this morning as well. Called patient's family and let them know of grave prognosis. Had a goals of care discussion. They want us to keep patient full code at this time and they will be coming to the hospital soon. Once family arrived had a family meeting at bedside. Explained to them patient's current status. He is becoming acidotic due to end-stage renal disease and not being a candidate for dialysis. Right ventricular is hypokinetic on echo. Patient is on 3 pressors at this time. MAP still below 65. Saturation 79 to 82%. Discussed with family that his prognosis is very poor and I am not very hopeful for his survival. At this time family would like to make him DNR which they have relayed to the nursing staff. We will continue to fully treat and continue all medications as deemed necessary. Patient was started on Zyvox and meropenem. We will continue that at this time. WBC count 19,000 Did order 2 A of bicarb. Vitals/I&O/Wt Last Vital Signs Temp 99.4 F 07/14/24 09:00 Pulse 104 H 07/14/24 13:24 Resp 16 07/14/24 13:20 BP 117/48 07/14/24 11:15 Pulse Ox 87 L 07/14/24 13:20 O2 Del Method Mechanical Ventilation 07/14/24 13:15 FiO2 100 07/14/24 13:20 07/13/24 07/14/24 07/14/24 22:59 06:59 14:59 Intake Total 1214.116 / 2283.266 1107.704 / 3390.970 724.623 / 724.623 Output Total 565 / 565 0 / 565 Balance 649.116 / 5066.338 2108.704 / 2825.970 724.623 / 724.623 Weight last 48 hrs Weight 100 kg Weight 101.5 kg Weight 98 kg Weight 96.1 kg Physical Exam 2 Narrative: Intubated and sedated. Unequal pupils. Chest bilateral chest rise, equal breath sounds. Low suspicion of pneumothorax. Saturating 82% 100% FiO2. Minute ventilation 7-8. Cardiovascular normal heart sounds irregular rhythm, slightly tachycardic. Abdomen soft, distended, hypoactive bowel sounds. Extremities no edema noted bilateral lower extremity Urinary Catheter Management: Latham: Cath Placed During This Visit: no Reason for Continuing Indwelling Catheter: Accurate Measurement of Urinary Output in Critically Ill Patients Data 07/14/24 01:11 07/14/24 12:08 Micro: Microbiology 07/12/24 11:33 Gram Stain - Final Sputum - Endotracheal Tube Aspirate Sputum Culture - Final 07/14/24 01:08 Blood Culture - Preliminary Blood SPECIMEN COLLECTED 07/14/24 01:11 Blood Culture - Preliminary Blood SPECIMEN COLLECTED 07/12/24 11:55 Blood Culture - Preliminary Blood NEGATIVE TO DATE 07/12/24 11:50 Blood Culture - Preliminary Blood NEGATIVE TO DATE A&P Assessment and plan (1) Respiratory failure: (2) Hyperlipidemia: (3) Hypertension: Qualifiers: Hypertension type: primary hypertension Qualified Code(s): I10 - Essential (primary) hypertension (4) ESRD on dialysis: (5) Chronic diastolic heart failure: (6) Sleep apnea: (7) Cardiac arrest: (8) Uses continuous positive airway pressure (CPAP) ventilation at home: (9) Thrombocytopenia: Plan João Carter is a 63 year old male João Carter is a 63 year old male With past medical history of sleep apnea noncompliant with CPAP, diabetes, hypertension, end-stage renal disease on hemodialysis TTS, paroxysmal A-fib with RVR, secondary polycythemia, thrombocytopenia, cardiac arrest, diastolic heart failure, restrictive lung disease was brought in by the EMS after an event of cardiac arrest at dialysis. He is s/p endotracheal intubation. #Cardiac arrest-likely secondary to hypotension during hemodialysis He is s/p endotracheal intubation on mechanical ventilator, sedated On external pacemaker, current heart rate 75 to 77 bpm, irregular Cardiology consulted in ED EKG showed no ST-T changes First set of troponin 74 Will continue heparin drip started in ER until further cardiology recommendations Check 2D echo Chest x-ray consistent with fluid overload Blood pressure stable, no pressors required as of yet K 3.9, Mg 1.8, will replace ECHO-05/06 LV systolic function is normal with EF of 60 to 65%. Grade 1 diastolic dysfunction Moderate to severe left ventricular hypertrophy Mild mitral regurgitation Mild tricuspid regurgitation Mild pulmonic regurgitation # Respiratory failure-likely secondary to cardiac arrest continue mechanical ventilation, ABG noted Continue sedation with propofol and Versed Will monitor blood pressure Will do DuoNebs every 6 hours as needed # ESRD on hemodialysis-Creat 3.0 Will need nephrology consult Monitor electrolytes for now # Thrombocytopenia-platelets 112 Has baseline thrombocytopenia Will continue to monitor He was started on heparin drip in ER s/p cardiac arrest, will hold off on DVT prophylaxis #ID-chest x-ray consistent with fluid overload, no pneumonia, no leukocytosis Will monitor chest x-ray for probable aspiration during code BCx and sputum Cx pending #Diabetes Mellitus-BS 140 will do insulin correction scale for now DVT prophylaxis, already started on heparin drip in ER for possible UT GI prophylaxis with IV Protonix 40 mg daily He is n.p.o. for now CODE STATUS discussed with at bedside, he is full code. 07/13/24 He is still intubated and sedated. Had an hypotensive episode this morning, was started on Levophed. Chest exam showed bilateral coarse rhonchi and crackles consistent with fluid overload. Was also found to have potassium of 5.8 this morning and creatinine of 3.5. Nephrology consulted for HD. He also has platelet count trending down to 89. He is on heparin drip for possible UT. Discussed with cardiology, Dr. Mallory, wants to continue heparin drip for 48 hours since admission. D-dimer elevated 1.05, will check CTA chest PE protocol to rule out PE since 2D echo as per cardiology showed RV dilatation. He had a temperature of 100.8 this morning, given 1 dose of IV Zosyn 3.375 mg. Will continue IV Zosyn for now. Continue to monitor in ICU. Family, aware of plan of care. 07/14/2024 -#Pneumonia #Hyperkalemia #Respiratory failure secondary to cardiac arrest, ventilator dependent respiratory failure #End-stage renal disease on hemodialysis, renal failure #Chronic thrombocytopenia #Diabetes mellitus type 2 #Cardiac arrest secondary to hypotension during dialysis #Possibility of a large PE? #Right ventricular hypokinesia #History of obstructive sleep apnea #History of hypertension #History of A-fib with RVR #Diastolic heart failure #Restrictive lung disease ? Patient continues to be intubated and sedated. He has been hypotensive and is requiring 3 pressors at this time Levophed, vasopressin and epinephrine. He does have bilateral coarse crackles consistent with fluid overload. Equal bilateral chest rise, low suspicion of pneumothorax at this time. He is hyperkalemic with potassium of 6.9. He was treated with insulin dextrose 2 A of bicarb, calcium gluconate ? Patient is being continued on a heparin drip for possibility of PE. Patient not too unstable to go for CTA chest. ? Chest x-ray from this morning did show mild interval increase of perihilar opacities related to fluid overload versus infectious inflammatory processes. For possibility of pneumonia Zyvox and meropenem have been added on. ? Echo did show RV dilatation. D-dimer elevated at 1.05. Too unstable to go for CTA chest at this time. ? Did have temperature overnight 100.8. Will continue on meropenem. ? Patient is not a candidate for dialysis at this time given 3 vasopressor support and hypotension. Will discuss with nephrology. Will discuss if there is possibility of CRRT that could be performed. ? Family would like to elect DNR status at this time. However we will continue to treat ? Blood cultures ordered overnight. ? Check urine culture, sputum culture Gram stain. -Continue to wean off vasopressors as able. -Patient does have evidence of anisocoria. Will obtain head CT if possible. ? When and if patient does become medically stable cardiology to consider stress test versus coronary angiogram in the future. ? If patient does become stable enough we will go ahead with dialysis. ? Discussed with cardiology, nephrology, nursing staff, family. Saw patient multiple times this morning. -He remains in a critical condition. - DNR DVT prophylaxis: On a heparin drip at this time. Attestations 2 Medical Necessity Statement*: Critically ill in ICU. Critical Care Time: The high probability of a clinically significant, sudden or life threatening deterioration of the patient's [renal, respiratory, cardiovascular] system(s) required my full and direct attention, intervention and personal management. The critical care time is as shown. This time is in addition to time spent performing any reported procedures but includes the following: [x] Data and vital sign review and interpretation [x] Patient assessment, examination and intervention [x] Documentation [x] Medication orders and management Critical Care Time (min): Procedures Arterial Line Size (Gauge): 20 Coding Level of Care Code Acute Code for Chg Fwd Diagnoses Respiratory failure J96.90 Hyperlipidemia E78.5 Primary hypertension I10 Hypertension type: primary hypertension ESRD on dialysis N18.6; Z99.2 Chronic diastolic heart failure I50.32 Sleep apnea G47.30 Cardiac arrest I46.9 Uses continuous positive airway pressure (CPAP) ventilation at home Z99.89 Thrombocytopenia D69.6
[2024-07-14] MEDS: pantoprazole 40 mg SDV IVP (14:04)
[2024-07-14 14:14] LABS: Glucose Point of Care 96 mg/dL (70-110)
[2024-07-14 14:27] LABS: Procalcitonin 11.01 ng/mL (0-0.5)
--- NOTE | 2024-07-14 14:50 | USCV_ITS ---
João Carter Age: 63 Gender: M : 1960 Exam Date: 07/14/2024 15:12 Ordering Phys: Steven Mallory M.D ([email or web address]) Technologist: CT Exam Location: [facility] [place] Indication: hypotension BP: 93 / 49 HR: Rhythm: Sinus Technical Quality: Technically difficult study MEASUREMENTS (Male / Female) Normal Values 2D ECHO LVOT Diameter 2.0 cm LV Ejection Fraction MOD 4C 27.0 % LV Ejection Fraction MOD 2C 54.6 % LV Ejection Fraction 2C AL 55.8 % LA Diameter 4.0 cm RA Systolic Volume 4C AL 76.4 ml RA Systolic Volume 4C MOD 73.5 ml LA Sys Volume AL 53.1 cm cubed LA Sys Volume Index AL 23.2 cm cubed/m squared Aorta at Sinotubular Diameter 2.2 cm IVC Diameter 2.3 cm M-MODE LA Ao Ratio MM 1.3 AV Cusp Separation MM 0.5 cm DOPPLER TV Peak E Velocity 59.0 cm/s PV Peak Velocity 90.0 cm/s FINDINGS Left Ventricle Right Ventricle Right Atrium Left Atrium Mitral Valve Aortic Valve Tricuspid Valve Pulmonic Valve Pericardium Aorta IVC CONCLUSIONS Limited echocardiogram performed to assess RV function. LV dysfunction is normal. RV is moderately hypokinetic Steven Mallory MD (Electronically Signed) Final Date: 15 July 2024 07:45 S
[2024-07-14] MEDS: EPINEPHrine 2.5 MG in sodium chloride 0.9% 250 ML 36.36 MG IV (15:56)
[2024-07-14] MEDS: midazolam hcl 100 MG/100 ML BAG IV (16:04)
[2024-07-14 16:05] LABS: Partial Thromboplastin Time 53.4 SECONDS (23.9-36.7)
[2024-07-14] MEDS: heparin drip 25,000 UNIT/500 ML PREMIX 27 UNIT IV (17:03)
[2024-07-14 17:33] LABS: ABG PCO2 57.9 mmHg (35-45); ABG PH Result 7.19 (7.35-7.45); Arterial Blood Gas Hematocrit 36.6 % (42-52); Base Excess ABG -6.6 mmol/L (-2.0-2.0); Blood Gas Sample Site ART-LINE; Blood Gas Sample Type Arterial; Carboxyhemoglobin 1.3 %THgb (0.4-20.1); HCO3 ABG 22.1 mmol/L (22-26); HGB O2 Sat 89.3 % (95-100); Ionized Calcium Level - ABG 1.2 mmol/L (1.1-1.4); Oxygen Saturation ABG 91.4; PO2 ABG 65.3 mmHg (80.0-100.0); Potassium Level - ABG 6.2 mmol/L (3.5-5.0); Total Hemoglobin 11.9 g/dL (14-18)
[2024-07-14 17:34] LABS: Alveolar-Arterial Oxygen Gradi 76.6 mmHg (5-10); Blood Gas Operator Identificat GD; Oxygen Device VENT; PO2 FiO2 Ratio Arterial Blood 65
--- NOTE | 2024-07-14 17:55 | US_ITS ---
WS: [id number] Complete ABDOMINAL ULTRASOUND HISTORY: septic shock, eval gall bladder COMPARISON: None available. Liver: 17.2 cm in length. Liver is top normal size. Coarse echotexture. Surface of the liver is sligh tly irregular suggesting cirrhosis. No hepatic mass. No bile duct dilatation. Portal Vein: Normal hepatopetal flow with monophasic waveform. Gallbladder: Status post cholecystectomy. CBD: 0.5 cm Pancreas: Atrophy. Right kidney: 10.7 cm x 4.3 x 4.2 cm. Cortex:1.1 cm. Poorly visualized. There is no obstruction. Small cortical cyst measures 1.0 cm. Left kidney: 7.5 cm x 3.9 cm x 3.7 cm. Cortex: 1.0 cm. Poorly visualized kidney. Kidney appears small in size but this may be due to incomplete visualizatio n. Spleen: 13.3 cm. Normal size and echogenicity. Aorta and IVC: Atherosclerosis aorta. US/US abdomen complete* [id number] Impression: 1. Technically difficult abdominal ultrasound. 2. Gallbladder has been removed. 3. No common bile duct dilatation. 4. Mild hepatic cirrhosis. 5. Moderate atrophy LEFT kidney. 6. No ascites.
[2024-07-14] MEDS: vasopressin 40 UNIT/100 ML PREMIX 15 UNIT IV (18:14)
[2024-07-14] MEDS: sodium bicarbonate 150 MEQ in dextrose 5% 1,000 ML 75 MEQ IV (18:27)
[2024-07-14 18:31] LABS: Anion Gap 19.3 (5-19); Blood Urea Nitrogen 53 mg/dL (8-23); Calcium 8.3 mg/dL (8.5-10.5); Carbon Dioxide 24 mmol/L (22-29); Chloride 98 mmol/L (98-107); Creatinine Clr Calc Pharmacy 13.9669; Glomerular Filtration Rate 8.4 mL/min (90-130); Glucose 107 mg/dL (65-115); Osmolality Calculated 293 mOsm/kg (285-295); Sodium 134 mmol/L (136-145)
--- NOTE | 2024-07-14 18:34 | PC.NURSE ---
Addendum entered by Berto Sargent RN 07/14/24 19:20: Shift SUmmary: Art line and Central line placed this morning. EPinephrine started in addition to the norepineprhrine and vasopressin which was already running at beggining of shift. Started on bicarb drip. Vent is at 100% fio2. Oxygen saturation has greatly varied between 79-100%, but usually 85% or lower. Patient had at [facility] around 2pm where his SPO2 increased to 100%, and we were starting to wean down on the pressors. But patient again declined. By end of shift patient is maxed per protocol of levophed - 20mcg/min. Maxed on vasopressin per protocol - 0.1 units/min. Maxed per protocol of epinephrine - 10mcg/min. Potassium has been high throughout the day. Treated with insulin/D10 and calcium gluconate in the morning, and again right at shift change. BMP ordered for 2330 to follow up on potassium levels. Original Note: Shift SUmmary: Art line and Central line placed this morning. EPinephrine started in addition to norepineprhrine and vasopressin. Started on bicarb drip. Vent is at 100% fio2. Oxtgen saturation has greatly varied between 79-100%, but usually 85% or lower.
[2024-07-14 18:37] LABS: Potassium 7.3 mmol/L (3.5-5.1)
[2024-07-14 18:48] LABS: Lactate (Lactic Acid level) 4.8 mmol/L (0.5-2.2)
[2024-07-14 18:49] LABS: Erythrocyte Sedimentation Rate 33 mm/hr (0-10)
[2024-07-14 18:54] LABS: C Reactive Protein 288.1 mg/L (0.0-4.9)
[2024-07-14 19:54] LABS: Glucose Point of Care 97 mg/dL (70-110)
[2024-07-14] MEDS: EPINEPHrine 2.5 MG in sodium chloride 0.9% 250 ML 60.6 MG IV (20:36)
--- NOTE | 2024-07-14 23:12 | P.PN_ITS ---
Subjective 2 Subjective: Patient remains intubated on 100% FiO2 and patient currently on 3% pressors Medications: Reviewed: Yes Vitals/I&O/Wt Last Vital Signs Temp 98.3 F 07/14/24 19:00 Pulse 104 H 07/14/24 22:00 Resp 36 H 07/14/24 21:30 BP 111/49 07/14/24 21:30 Pulse Ox 94 07/14/24 22:16 O2 Del Method Mechanical Ventilation 07/14/24 21:30 FiO2 80 07/14/24 22:16 07/14/24 07/14/24 07/15/24 14:59 22:59 06:59 Intake Total 1127.503 / 5695.158 8030.770 / 2938.273 Balance 1127.503 / 3797.079 7813.770 / 2938.273 Weight last 48 hrs Weight 103 kg Weight 100 kg Weight 101.5 kg Weight 98 kg Physical Exam 2 Narrative: Intubated, sedated Urinary Catheter Management: Latham: Cath Placed During This Visit: no Reason for Continuing Indwelling Catheter: Accurate Measurement of Urinary Output in Critically Ill Patients Data 07/14/24 01:11 07/14/24 17:50 Micro: Microbiology 07/12/24 11:33 Gram Stain - Final Sputum - Endotracheal Tube Aspirate Sputum Culture - Final 07/14/24 01:08 Blood Culture - Preliminary Blood SPECIMEN COLLECTED 07/14/24 01:11 Blood Culture - Preliminary Blood SPECIMEN COLLECTED A&P Assessment and plan (1) ESRD on dialysis: 1. End-stage renal disease: On TTS schedule, patient currently volume overloaded, on low-dose pressors-patient did not tolerate HD well yesterday and became hypotensive, currently on 3 pressors at maximum doses, remains on vent, if patient able to come down on pressor requirement, we could attempt CRRT 2. Cardiac arrest-currently intubated and on pressors, history of multiple cardiac arrest in the past 3. Hyperkalemia: HD as above 4. A-fib with rapid ventricular response 5. Chronic thrombocytopenia 6. History of COPD Overall poor prognosis. Patient evaluated using audiovisual cart, time spent 40 minutes. Attestations 2 Medical Necessity Statement*: Per medicine team Procedures Arterial Line Size (Gauge): 20 Coding Level of Care Code Acute Code for Chg Fwd Diagnoses ESRD on dialysis N18.6; Z99.2
[2024-07-14 23:37] LABS: Anion Gap 21.9 (5-19); Blood Urea Nitrogen 52 mg/dL (8-23); Carbon Dioxide 22 mmol/L (22-29); Chloride 96 mmol/L (98-107); Creatinine Clr Calc Pharmacy 15.3407; Glomerular Filtration Rate 9.4 mL/min (90-130); Glucose 133 mg/dL (65-115); Osmolality Calculated 292 mOsm/kg (285-295); Sodium 133 mmol/L (136-145)
[2024-07-14 23:41] LABS: Potassium 6.9 mmol/L (3.5-5.1)
[2024-07-15] VITALS (100 sets, daily range): BP systolic 61–155; BP diastolic 41–73; PULSE 83–109; RESP 18–27; TEMP 36.4–39.6; O2SAT 89–97
[2024-07-15 00:16] LABS: Partial Thromboplastin Time 50.8 SECONDS (23.9-36.7)
[2024-07-15] MEDS: vasopressin 40 UNIT/100 ML PREMIX 15 UNIT IV ×4 (00:28→20:44)
[2024-07-15] MEDS: insulin regular-human 10 UNIT in SYRINGE 1 EACH IVP ×2 (00:29→06:14)
[2024-07-15] MEDS: dextrose 10% 250 ML 500 ML IV (00:29)
[2024-07-15] MEDS: EPINEPHrine 2.5 MG in sodium chloride 0.9% 250 ML 60.6 MG IV ×4 (00:29→13:00)
--- NOTE | 2024-07-15 00:52 | PC.NURSE ---
Addendum entered by Jeanine Matos RN 07/15/24 02:59: Ice placed on patients armpits and groin Original Note: Fever: Patient temperature is 102.1 axillary, Dr. Hutchinson notified and ordered 15mg IVP Toradol.
[2024-07-15] MEDS: heparin 5,000 unit/mL INJ 1 mL IVP (01:30)
[2024-07-15] MEDS: linezolid premix 600 MG/300 ML PREMIX 300 MG IV ×2 (01:30→13:15)
[2024-07-15] MEDS: ketorolac 30 mg/mL INJ 15 MG IVP (01:31)
[2024-07-15] MEDS: chlorhexidine gluconate 4% Btl 118 mL 1 APPLIC TOPICAL ×2 (01:32→23:53)
[2024-07-15] MEDS: norepinephrine 4 MG/250 ML BAG 75 MG IV ×7 (03:15→21:08)
[2024-07-15 04:20] LABS: Basophils # 0.1 10^3/uL (0.0-0.1); Basophils % 0.4 %; Eosinophils % 0.2 %; Lymphocytes # 0.8 10^3/uL (0.8-4.8); Lymphocytes % 4.6 %; Mean Corpuscular HGB Conc 27.9 g/dL (30-55); Mean Corpuscular Hemoglobin 24.3 pg (27-33); Mean Corpuscular Volume 86.9 fl (82-101); Monocytes # 1.6 10^3/uL (0.2-0.9); Monocytes % 9.5 %; Neutrophils # 14.33 10^3/uL (1.8-7.7); Neutrophils % 83.6 %; Nucleated Red Blood Cells % 0.1 %; Platelet Count 167 10^3/cmm (157-399); Red Blood Count 4.49 10^6/uL (3.85-5.65); Red Cell Distribution Width 18.8 % (12.1-15.1); White Blood Count 17.12 10^3/uL (3.29-11.43)
[2024-07-15 04:46] LABS: Alanine Aminotransferase 14 U/L (0-41); Albumin Level 2.6 g/dL (3.5-5.2); Alkaline Phosphatase 144 U/L (40-130); Anion Gap 21.8 (5-19); Aspartate Amino Transferase 74 U/L (0-40); Blood Urea Nitrogen 55 mg/dL (8-23); Calcium 7.8 mg/dL (8.5-10.5); Carbon Dioxide 22 mmol/L (22-29); Chloride 95 mmol/L (98-107); Creatinine Clr Calc Pharmacy 13.7615; Globulin 3.3 g/dL (1.3-4.6); Glomerular Filtration Rate 8.3 mL/min (90-130); Glucose 165 mg/dL (65-115); Magnesium 1.7 mg/dL (1.7-2.3); Osmolality Calculated 293 mOsm/kg (285-295); Sodium 132 mmol/L (136-145); Total Bilirubin 1.4 mg/dL (0.15-1.2); Total Protein 5.9 g/dL (6.6-8.7)
[2024-07-15 05:04] LABS: Potassium 6.8 mmol/L (3.5-5.1)
[2024-07-15] MEDS: dextrose 10% 250 ML IV (06:13)
[2024-07-15 07:51] LABS: Partial Thromboplastin Time 55.8 SECONDS (23.9-36.7)
[2024-07-15] MEDS: ipratropium-albuterol 3 mL Neb INHALATION ×3 (08:03→20:31)
[2024-07-15] MEDS: meropenem 500 mg SDV IVP (08:53)
[2024-07-15] MEDS: sodium bicarbonate 150 MEQ in dextrose 5% 1,000 ML 75 MEQ IV (08:59)
[2024-07-15 09:22] LABS: ABG PCO2 43.6 mmHg (35-45); ABG PH Result 7.32 (7.35-7.45); Arterial Blood Gas Hematocrit 32.9 % (42-52); Base Excess ABG -3.8 mmol/L (-2.0-2.0); Blood Gas Sample Type Arterial; Carboxyhemoglobin 1.3 %THgb (0.4-20.1); HCO3 ABG 22.3 mmol/L (22-26); HGB O2 Sat 86.9 % (95-100); Methemoglobin 0.6 % (0.4-1.5); Oxygen Saturation ABG 88.6; PO2 ABG 57.7 mmHg (80.0-100.0); Total Hemoglobin 10.7 g/dL (14-18)
[2024-07-15 09:23] LABS: Alveolar-Arterial Oxygen Gradi 42.3 mmHg (5-10); Blood Gas Operator Identificat MONRO; Blood Gas Sample Site ALINE; Blood Gas Tidal Volume 0.55; Oxygen Device VENT; PO2 FiO2 Ratio Arterial Blood 96
--- NOTE | 2024-07-15 09:39 | P.PN_ITS ---
Subjective 2 Subjective: remains on 3 pressors Medications: Reviewed: Yes Vitals/I&O/Wt Last Vital Signs Temp 100.5 F H 07/15/24 06:36 Pulse 101 H 07/15/24 08:03 Resp 19 H 07/15/24 08:03 BP 104/45 07/15/24 06:45 Pulse Ox 91 07/15/24 08:03 O2 Del Method Mechanical Ventilation 07/15/24 08:03 FiO2 60 07/15/24 08:03 07/14/24 07/15/24 07/15/24 22:59 06:59 14:59 Intake Total 1810.770 / 2938.273 2197.013 / 5135.286 1798.58 / 1798.58 Output Total 100 / 100 Balance 1810.770 / 2938.273 2097.013 / 5035.286 1798.58 / 1798.58 Weight last 48 hrs Weight 105.279 kg Weight 103 kg Weight 100 kg Weight 101.5 kg Physical Exam 2 Narrative: intubated , sedated Urinary Catheter Management: Latham: Cath Placed During This Visit: no Reason for Continuing Indwelling Catheter: Accurate Measurement of Urinary Output in Critically Ill Patients Data 07/15/24 03:39 07/15/24 03:39 Micro: Microbiology 07/14/24 01:08 Blood Culture - Preliminary Blood NEGATIVE TO DATE 07/14/24 01:11 Blood Culture - Preliminary Blood NEGATIVE TO DATE 07/12/24 11:33 Gram Stain - Final Sputum - Endotracheal Tube Aspirate Sputum Culture - Final A&P Assessment and plan (1) ESRD on dialysis: 1. End-stage renal disease: On TTS schedule, patient currently volume overloaded, on low-dose pressors-patient did not tolerate HD well and became hypotensive, currently on 3 pressors at maximum doses, remains on vent, if patient able to come down on pressor requirement, we could attempt CRRT 2. Cardiac arrest-currently intubated and on pressors, history of multiple cardiac arrest in the past 3. Hyperkalemia: HD as above 4. A-fib with rapid ventricular response 5. Chronic thrombocytopenia 6. History of COPD Overall poor prognosis. Patient evaluated using audiovisual cart, time spent 40 minutes. Attestations 2 Medical Necessity Statement*: per mediicne Procedures Arterial Line Size (Gauge): 20 Coding Level of Care Code Acute Code for Chg Fwd Diagnoses ESRD on dialysis N18.6; Z99.2
[2024-07-15] MEDS: citric acid-sodium citrate 30 mL UDC 60 ML PO (09:56)
--- NOTE | 2024-07-15 10:14 | XR_ITS ---
WS: [id number] XR KUB portable [id number] REASON FOR EXAM: Constipation FINDINGS: Consolidation with air bronchograms in the left lower lobe. No free air or retroperitoneal air. Nasogastric tube is doubled on itself overlying the fundus of the stomach. Minimal bowel gas. There does appear to be a significant volume of retained stool in the colon and re ctum. Right femoral vein central line. XR/XR KUB portable [id number] IMPRESSION: No acute abnormality. Relatively gasless abdomen with no findings of obstruction.
--- NOTE | 2024-07-15 11:05 | PC.NURSE ---
Dr. Henderson contacted about [facility] being non-formulary. Physician speaking to pharmacy about obtaining medication
[2024-07-15] MEDS: heparin drip 25,000 UNIT/500 ML PREMIX 29 UNIT IV (11:11)
[2024-07-15 11:12] LABS: Glucose Point of Care 138 mg/dL (70-110)
--- NOTE | 2024-07-15 11:20 | PM.PN ---
Subjective Subjective: intubated still on 3 pressors fio2 60% had a long discussion with at bedside regarding pts current status and care prognosis remains poor K 6.8 this AM talked with nephrology, pt not a candidate for CRRT at this time due to pressor requirements Vitals/I&O/Wt Last Vital Signs Temp 100.2 F H 07/15/24 08:00 Pulse 104 H 07/15/24 09:45 Resp 18 07/15/24 11:05 BP 83/58 07/15/24 09:45 Pulse Ox 93 07/15/24 11:05 O2 Del Method Mechanical Ventilation 07/15/24 08:03 FiO2 70 07/15/24 11:05 07/14/24 07/15/24 07/15/24 22:59 06:59 14:59 Intake Total 1810.770 / 2938.273 2197.013 / 5135.286 2102.78 / 2102.78 Output Total 100 / 100 Balance 1810.770 / 2938.273 2097.013 / 5035.286 2102.78 / 2102.78 Weight last 48 hrs Weight 105.279 kg Weight 103 kg Weight 100 kg Weight 101.5 kg Physical Exam Narrative: Intubated and sedated. Unequal pupils. Chest bilateral chest rise, equal breath sounds. Saturating 91% 60% FiO2. Cardiovascular normal heart sounds irregular rhythm, slightly tachycardic. Abdomen soft, distended, hypoactive bowel sounds. Extremities no edema noted bilateral lower extremity Urinary Catheter Management: L[place]: Cath Placed During This Visit: no Reason for Continuing Indwelling Catheter: Accurate Measurement of Urinary Output in Critically Ill Patients Data 07/15/24 03:39 07/15/24 03:39 Micro: Microbiology 07/14/24 01:08 Blood Culture - Preliminary Blood NEGATIVE TO DATE 07/14/24 01:11 Blood Culture - Preliminary Blood NEGATIVE TO DATE 07/12/24 11:33 Gram Stain - Final Sputum - Endotracheal Tube Aspirate Sputum Culture - Final A&P Assessment and plan (1) Respiratory failure: (2) Hyperlipidemia: (3) Hypertension: Qualifiers: Hypertension type: primary hypertension Qualified Code(s): I10 - Essential (primary) hypertension (4) ESRD on dialysis: (5) Chronic diastolic heart failure: (6) Sleep apnea: (7) Cardiac arrest: (8) Uses continuous positive airway pressure (CPAP) ventilation at home: (9) Thrombocytopenia: Plan João Carter is a 63 year old male João Carter is a 63 year old male With past medical history of sleep apnea noncompliant with CPAP, diabetes, hypertension, end-stage renal disease on hemodialysis TTS, paroxysmal A-fib with RVR, secondary polycythemia, thrombocytopenia, cardiac arrest, diastolic heart failure, restrictive lung disease was brought in by the EMS after an event of cardiac arrest at dialysis. He is s/p endotracheal intubation. #Cardiac arrest-likely secondary to hypotension during hemodialysis He is s/p endotracheal intubation on mechanical ventilator, sedated On external pacemaker, current heart rate 75 to 77 bpm, irregular Cardiology consulted in ED EKG showed no ST-T changes First set of troponin 74 Will continue heparin drip started in ER until further cardiology recommendations Check 2D echo Chest x-ray consistent with fluid overload Blood pressure stable, no pressors required as of yet K 3.9, Mg 1.8, will replace ECHO-05/06 LV systolic function is normal with EF of 60 to 65%. Grade 1 diastolic dysfunction Moderate to severe left ventricular hypertrophy Mild mitral regurgitation Mild tricuspid regurgitation Mild pulmonic regurgitation # Respiratory failure-likely secondary to cardiac arrest continue mechanical ventilation, ABG noted Continue sedation with propofol and Versed Will monitor blood pressure Will do DuoNebs every 6 hours as needed # ESRD on hemodialysis-Creat 3.0 Will need nephrology consult Monitor electrolytes for now # Thrombocytopenia-platelets 112 Has baseline thrombocytopenia Will continue to monitor He was started on heparin drip in ER s/p cardiac arrest, will hold off on DVT prophylaxis #ID-chest x-ray consistent with fluid overload, no pneumonia, no leukocytosis Will monitor chest x-ray for probable aspiration during code BCx and sputum Cx pending #Diabetes Mellitus-BS 140 will do insulin correction scale for now DVT prophylaxis, already started on heparin drip in ER for possible OR GI prophylaxis with IV Protonix 40 mg daily He is n.p.o. for now CODE STATUS discussed with at bedside, he is full code. 07/13/24 He is still intubated and sedated. Had an hypotensive episode this morning, was started on Levophed. Chest exam showed bilateral coarse rhonchi and crackles consistent with fluid overload. Was also found to have potassium of 5.8 this morning and creatinine of 3.5. Nephrology consulted for HD. He also has platelet count trending down to 89. He is on heparin drip for possible OR. Discussed with cardiology, Dr. Mallory, wants to continue heparin drip for 48 hours since admission. D-dimer elevated 1.05, will check CTA chest PE protocol to rule out PE since 2D echo as per cardiology showed RV dilatation. He had a temperature of 100.8 this morning, given 1 dose of IV Zosyn 3.375 mg. Will continue IV Zosyn for now. Continue to monitor in ICU. Family, aware of plan of care. -#Pneumonia #Hyperkalemia #Respiratory failure secondary to cardiac arrest, ventilator dependent respiratory failure #End-stage renal disease on hemodialysis, renal failure #Chronic thrombocytopenia #Diabetes mellitus type 2 #Cardiac arrest secondary to hypotension during dialysis #Possibility of a large PE? #Right ventricular hypokinesia #History of obstructive sleep apnea #History of hypertension #History of A-fib with RVR #Diastolic heart failure #Restrictive lung disease 07/14/2024 ? Patient continues to be intubated and sedated. He has been hypotensive and is requiring 3 pressors at this time Levophed, vasopressin and epinephrine. He does have bilateral coarse crackles consistent with fluid overload. Equal bilateral chest rise, low suspicion of pneumothorax at this time. He is hyperkalemic with potassium of 6.9. He was treated with insulin dextrose 2 A of bicarb, calcium gluconate ? Patient is being continued on a heparin drip for possibility of PE. Patient not too unstable to go for CTA chest. ? Chest x-ray from this morning did show mild interval increase of perihilar opacities related to fluid overload versus infectious inflammatory processes. For possibility of pneumonia Zyvox and meropenem have been added on. ? Echo did show RV dilatation. D-dimer elevated at 1.05. Too unstable to go for CTA chest at this time. ? Did have temperature overnight 100.8. Will continue on meropenem. ? Patient is not a candidate for dialysis at this time given 3 vasopressor support and hypotension. Will discuss with nephrology. Will discuss if there is possibility of CRRT that could be performed. ? Family would like to elect DNR status at this time. However we will continue to treat ? Blood cultures ordered overnight. ? Check urine culture, sputum culture Gram stain. -Continue to wean off vasopressors as able. -Patient does have evidence of anisocoria. Will obtain head CT if possible. ? When and if patient does become medically stable cardiology to consider stress test versus coronary angiogram in the future. ? If patient does become stable enough we will go ahead with dialysis. ? Discussed with cardiology, nephrology, nursing staff, family. Saw patient multiple times this morning. -He remains in a critical condition. 07/15/2024 -Patient remains in critical condition at this time. He is maxed out on 3 pressors. Does not tolerate any movement and desats immediately. FiO2 60% this morning. Currently on a bicarb drip, epinephrine, vasopressin, Levophed. ? CT head, CTA chest abdomen pelvis ordered however patient unstable to go for imaging studies at this time. ? Limited echo repeated. Does show moderate hypokinesis of right ventricle. ? Blood cultures pending, CRP 200, procalcitonin 11. Appropriate this morning. ? Urine culture sputum culture Gram stain pending at this time. ? Continue meropenem and Zyvox. ? Not a candidate for CRRT secondary to high vasopressor requirements. ? Continue heparin drip for to cover for possibility of PE. ? Discussed with , nursing staff, nephrology in detail. ? Creatinine continues to rise. 6.8 today. Potassium also elevated. ? Have ordered Lokelma and Bicitra as per nephrology recommendations. Will reduce bicarb drip to 50 cc/h. ? Repeat labs at 6 PM. ? Abdomen ultrasound reviewed. Possibility of liver cirrhosis. Absent gallbladder. No other acute pathology identified at this time. DNR DVT prophylaxis: On a heparin drip at this time. Attestations Medical Necessity Statement*: Remains critically ill in ICU. Critical Care Time: The high probability of a clinically significant, sudden or life threatening deterioration of the patient's [neurological, respiratory, cardiovascular, renal] system(s) required my full and direct attention, intervention and personal management. The critical care time is as shown. This time is in addition to time spent performing any reported procedures but includes the following: [x] Data and vital sign review and interpretation [x] Patient assessment, examination and intervention [x] Documentation [x] Medication orders and management Critical Care Time (min): 60 Procedures Arterial Line Size (Gauge): 20 Coding Level of Care Code Acute Code for [facility] Fwd Diagnoses Respiratory failure J96.90 Hyperlipidemia E78.5 Primary hypertension I10 Hypertension type: primary hypertension ESRD on dialysis N18.6; Z99.2 Chronic diastolic heart failure I50.32 Sleep apnea G47.30 Cardiac arrest I46.9 Uses continuous positive airway pressure (CPAP) ventilation at home Z99.89 Thrombocytopenia D69.6
[2024-07-15] MEDS: levofloxacin-dextrose 5 % 750 MG/150 ML PREMIX 100 MG IV (12:09)
[2024-07-15 12:36] LABS: Procalcitonin 19.86 ng/mL (0-0.5)
--- NOTE | 2024-07-15 13:14 | P.PN_ITS ---
<Statement entered by Steven Mallory M.D - 07/15/24 18:37> Patient was evaluated and cared for in conjunction with an advanced practice practitioner.? I personally examined the patient and reviewed the chart and all pertinent data including imaging, telemetry, and laboratory results.? I discussed the patient in detail with the advanced practice practitioner.? Please see? their note for complete progress note, testing result and agreed upon plan of care for the patient. Patient continues to be febrile. This evening slight improvement in blood pressure. Still requiring 3 pressors. FiO2 on vent decreased. GENERAL: Patient is intubated and sedated HEART: Regular S1 and S2 LUNGS: Diminished air entry CENTRAL NERVOUS SYSTEM: Grossly nonfocal. EXTREMITIES: Lower extremities with out edema bilaterally. (1) Respiratory failure (2) Hyperlipidemia (3) Hypertension (4) ESRD on dialysis: (5) Chronic diastolic heart failure (6) Sleep apnea (7) Cardiac arrest (8) Uses continuous positive airway pressure (CPAP) ventilation at home (9) Thrombocytopenia 10) Septic shock Plan Slight improvement in blood pressure this evening. Titrate pressor support with goal of MAP over 65 mmHg. Antibiotic therapy per primary team. Hypertension most likely secondary to septic shock. Continue heparin drip for now. Limited echocardiogram that shows moderately reduced RV function. Plan for CRRT per nephrology once pressor support requirement decreased Thank you for involving us with care of this patient. We will continue to follow. Please call with questions. Prognosis is guarded. Subjective 2 Subjective: Patient is still unresponsive but currently has come down on his FiO2 on the vent from 100% O2. Still maxed out on 3 pressors. Medications: Reviewed: Yes Vitals/I&O/Wt Last Vital Signs Temp 100.2 F H 07/15/24 08:00 Pulse 104 H 07/15/24 09:45 Resp 18 07/15/24 11:05 BP 83/58 07/15/24 09:45 Pulse Ox 93 07/15/24 11:05 O2 Del Method Mechanical Ventilation 07/15/24 08:03 FiO2 70 07/15/24 11:05 07/14/24 07/15/24 07/15/24 22:59 06:59 14:59 Intake Total 1810.770 / 2938.273 2197.013 / 5135.286 2618.78 / 2618.78 Output Total 100 / 100 Balance 1810.770 / 2938.273 2097.013 / 5035.286 2618.78 / 2618.78 Weight last 48 hrs Weight 232 lb 1.6 oz Weight 227 lb 1.218 oz Weight 220 lb 7.396 oz Weight 223 lb 12.307 oz Physical Exam 2 Narrative: General: ventilated, sedated, dusky appearing Lymphatic: no edema Respiratory: ventilated, lung sounds clear Cardio: No JVD, tachycardic, S1 S2 normal, no murmurs, peripheral pulses 2+ throughout Extremities: No edema Neuro: sedated Skin: Appears dusky Urinary Catheter Management: [place]: Cath Placed During This Visit: no Reason for Continuing Indwelling Catheter: Accurate Measurement of Urinary Output in Critically Ill Patients Data 07/15/24 03:39 07/15/24 03:39 Micro: Microbiology 07/14/24 14:45 Sputum Culture - Preliminary Sputum - Endotracheal Tube Aspirate Gram Negative Rods 07/14/24 01:08 Blood Culture - Preliminary Blood NEGATIVE TO DATE 07/14/24 01:11 Blood Culture - Preliminary Blood NEGATIVE TO DATE 07/12/24 11:33 Gram Stain - Final Sputum - Endotracheal Tube Aspirate Sputum Culture - Final A&P Assessment and plan (1) Respiratory failure: (2) Hyperlipidemia: (3) Hypertension: Qualifiers: Hypertension type: primary hypertension Qualified Code(s): I10 - Essential (primary) hypertension (4) ESRD on dialysis: (5) Chronic diastolic heart failure: (6) Sleep apnea: (7) Cardiac arrest: (8) Uses continuous positive airway pressure (CPAP) ventilation at home: (9) Thrombocytopenia: Plan Patient unable to get CT due to currently too unstable. Events prior to possible cardiac arrest or rhythm unknown. May have had previous coronary stenting. We will attempt to get records. At this time, continue current care. May consider adding dobutamine if weaned off of one of his pressors. LV function normal. No acute EKG changes. No indications for acute cardiac intervention at this time. Attestations 2 Medical Necessity Statement*: Deferred to primary. Procedures Arterial Line Size (Gauge): 20 Coding Level of Care Code Acute Code for [facility] Fwd Diagnoses Respiratory failure J96.90 Hyperlipidemia E78.5 Primary hypertension I10 Hypertension type: primary hypertension ESRD on dialysis N18.6; Z99.2 Chronic diastolic heart failure I50.32 Sleep apnea G47.30 Cardiac arrest I46.9 Uses continuous positive airway pressure (CPAP) ventilation at home Z99.89 Thrombocytopenia D69.6
[2024-07-15] MEDS: acetaminophen 1,000 MG/100 ML PIGGYBACK 400 MG IV (13:15)
[2024-07-15] MEDS: pantoprazole 40 mg SDV IVP (13:15)
[2024-07-15] MEDS: LOKELMA 10 GM 10 EACH OG-TUBE ×2 (15:30→20:38)
[2024-07-15] MEDS: EPINEPHrine 2.5 MG in sodium chloride 0.9% 250 ML 42.42 MG IV (17:31)
[2024-07-15 19:49] LABS: Anion Gap 19.5 (5-19); Blood Urea Nitrogen 57 mg/dL (8-23); Calcium 7.7 mg/dL (8.5-10.5); Carbon Dioxide 22 mmol/L (22-29); Chloride 93 mmol/L (98-107); Creatinine Clr Calc Pharmacy 14.1143; Glomerular Filtration Rate 8.4 mL/min (90-130); Glucose 128 mg/dL (65-115); Osmolality Calculated 283 mOsm/kg (285-295); Sodium 128 mmol/L (136-145)
[2024-07-15 19:50] LABS: Potassium 6.5 mmol/L (3.5-5.1)
[2024-07-15] MEDS: clopidogrel 75 mg Tablet OG-TUBE (20:38)
[2024-07-15] MEDS: aspirin 81 mg Chew Tablet OG-TUBE (20:38)
[2024-07-15 22:41] LABS: Partial Thromboplastin Time 61.9 SECONDS (23.9-36.7)
[2024-07-15] MEDS: fentaNYL 1,000 MCG/100 ML BAG 2.5 MCG IV (23:24)
[2024-07-16] VITALS (95 sets, daily range): BP systolic 65–148; BP diastolic 45–102; PULSE 75–126; RESP 18–23; TEMP 35.3–37.2; O2SAT 90–99
[2024-07-16] MEDS: norepinephrine 4 MG/250 ML BAG 75 MG IV ×3 (00:20→06:53)
[2024-07-16] MEDS: linezolid premix 600 MG/300 ML PREMIX 300 MG IV ×2 (01:47→15:15)
[2024-07-16] MEDS: vasopressin 40 UNIT/100 ML PREMIX 6 UNIT IV (02:50)
[2024-07-16 05:12] LABS: Erythrocyte Sedimentation Rate 49 mm/hr (0-10)
[2024-07-16 05:14] LABS: Partial Thromboplastin Time 51.4 SECONDS (23.9-36.7)
[2024-07-16 05:18] LABS: Basophils # 0.1 10^3/uL (0.0-0.1); Basophils % 0.5 %; Eosinophils # 0.1 10^3/uL (0.0-0.8); Eosinophils % 0.8 %; Hematocrit 37.3 % (37-53); Lymphocytes # 0.6 10^3/uL (0.8-4.8); Lymphocytes % 4.6 %; Mean Corpuscular Hemoglobin 24.2 pg (27-33); Mean Corpuscular Volume 83.4 fl (82-101); Mean Platelet Volume 10.9 fL (7.4-10.4); Monocytes # 0.8 10^3/uL (0.2-0.9); Monocytes % 6.3 %; Nucleated Red Blood Cells % 0 %; Platelet Count 133 10^3/cmm (157-399); Red Blood Count 4.47 10^6/uL (3.85-5.65); Red Cell Distribution Width 18.8 % (12.1-15.1); White Blood Count 12.63 10^3/uL (3.29-11.43)
[2024-07-16 05:26] LABS: ABG PCO2 36.1 mmHg (35-45); ABG PH Result 7.37 (7.35-7.45); Arterial Blood Gas Hematocrit 32.7 % (42-52); Base Excess ABG -3.9 mmol/L (-2.0-2.0); Blood Gas Sample Type Arterial; Carboxyhemoglobin 1.7 %THgb (0.4-20.1); HCO3 ABG 20.9 mmol/L (22-26); HGB O2 Sat 91.1 % (95-100); Ionized Calcium Level - ABG 0.9 mmol/L (1.1-1.4); Oxygen Saturation ABG 93.6; PO2 ABG 71.6 mmHg (80.0-100.0); Potassium Level - ABG 5.2 mmol/L (3.5-5.0); Total Hemoglobin 10.7 g/dL (14-18)
[2024-07-16 05:32] LABS: Iron 14 ug/dL (59-158); Percent Saturation 7.8 % (20-50); Total Iron Binding Capacity 179 mcg/dl; Unsaturated Iron Binding 165 ug/dL (112-347)
[2024-07-16 05:33] LABS: C Reactive Protein 327.1 mg/L (0.0-4.9); Ferritin 244 ng/mL (30-400)
[2024-07-16] MEDS: heparin 5,000 unit/mL INJ 1 mL IVP (05:34)
[2024-07-16] MEDS: heparin drip 25,000 UNIT/500 ML PREMIX 31 UNIT IV (05:35)
[2024-07-16 05:36] LABS: Alveolar-Arterial Oxygen Gradi 31.3 mmHg (5-10); Blood Gas Operator Identificat ED; Blood Gas Sample Site ALINE; Blood Gas Tidal Volume 0.55; Oxygen Device VENT; PO2 FiO2 Ratio Arterial Blood 143
[2024-07-16 05:37] LABS: Alanine Aminotransferase 67 U/L (0-41); Albumin Level 2.4 g/dL (3.5-5.2); Alkaline Phosphatase 94 U/L (40-130); Anion Gap 22.6 (5-19); Aspartate Amino Transferase 143 U/L (0-40); Blood Urea Nitrogen 61 mg/dL (8-23); Calcium 7.3 mg/dL (8.5-10.5); Carbon Dioxide 22 mmol/L (22-29); Chloride 93 mmol/L (98-107); Creatinine Clr Calc Pharmacy 14.3724; Globulin 3.1 g/dL (1.3-4.6); Glomerular Filtration Rate 8.4 mL/min (90-130); Glucose 168 mg/dL (65-115); Magnesium 1.6 mg/dL (1.7-2.3); Osmolality Calculated 293 mOsm/kg (285-295); Phosphorus 6.4 mg/dL (2.5-4.5); Sodium 131 mmol/L (136-145); Total Bilirubin 2.2 mg/dL (0.15-1.2); Total Protein 5.5 g/dL (6.6-8.7)
[2024-07-16 05:43] LABS: Creatine Phosphokinase 1318 U/L (39-308)
[2024-07-16 05:44] LABS: Potassium 6.6 mmol/L (3.5-5.1)
[2024-07-16] MEDS: sodium bicarbonate 150 MEQ in dextrose 5% 1,000 ML 50 MEQ IV (06:18)
[2024-07-16 06:40] LABS: Estmated Average Glucose 111; Hemoglobin A1C 5.5 % (4.0-6.0)
--- NOTE | 2024-07-16 07:09 | P.PN_ITS ---
Subjective 2 Subjective: fio2 down 50 % off epi and vasopressin on lEVOPHED - 20 mcg Medications: Reviewed: Yes Vitals/I&O/Wt Last Vital Signs Temp 99.0 F 07/16/24 06:08 Pulse 83 07/16/24 06:00 Resp 20 H 07/16/24 05:17 BP 106/57 07/16/24 05:45 Pulse Ox 94 07/16/24 05:45 O2 Del Method Mechanical Ventilation 07/16/24 05:45 FiO2 50 07/16/24 05:17 07/15/24 07/16/24 07/16/24 22:59 06:59 14:59 Intake Total 2559.156 / 5427.936 1681.942 / 7109.878 Output Total 240 / 240 Balance 2559.156 / 5427.936 1441.942 / 6869.878 Weight last 48 hrs Weight 109.27 kg Weight 105.279 kg Weight 103 kg Physical Exam 2 Narrative: intubated , sedated Urinary Catheter Management: L[place]: Cath Placed During This Visit: no Reason for Continuing Indwelling Catheter: Accurate Measurement of Urinary Output in Critically Ill Patients Data 07/16/24 03:30 07/16/24 03:30 Micro: Microbiology 07/14/24 14:45 Gram Stain - Final Sputum - Endotracheal Tube Aspirate Sputum Culture - Preliminary Gram Negative Rods 07/14/24 01:08 Blood Culture - Preliminary Blood NEGATIVE TO DATE 07/14/24 01:11 Blood Culture - Preliminary Blood NEGATIVE TO DATE A&P Assessment and plan (1) ESRD on dialysis: 1. End-stage renal disease: On TTS schedule, patient currently volume overloaded, on low-dose pressors, - decreased O2 requirement to 50 % Fio2 , remains Hyperkalemic - was on 3 pressors - down to 1 pressor currently , will attempt CRRT today 2. Cardiac arrest-currently intubated and on pressors, history of multiple cardiac arrest in the past 3. Hyperkalemia: HD as above 4. A-fib with rapid ventricular response 5. Chronic thrombocytopenia 6. History of COPD Patient evaluated using audiovisual cart, time spent 40 minutes. Attestations 2 Medical Necessity Statement*: per [facility] Procedures Arterial Line Size (Gauge): 20 Coding Level of Care Code Acute Code for [facility] Fwd Diagnoses ESRD on dialysis N18.6; Z99.2
[2024-07-16] MEDS: ipratropium-albuterol 3 mL Neb INHALATION ×2 (07:32→15:00)
--- NOTE | 2024-07-16 08:30 | CTR_ITS ---
PROCEDURE INFORMATION: Exam: CTA Head With Contrast, Arteriography Exam date and time: 07/16/2024 10:50 AM Age: 63 years old Clinical indication: Other: Unresponsive; Additional info: R/O stroke, unequal pupils, post code on Sunday, unresponsive, intubated without sedation, TECHNIQUE: Imaging protocol: Computed tomographic angiography of the head with contrast. Exam focused on the arteries. 3D rendering (Not supervised by radiologist): MIP and/or 3D reconstructed images were created by the technologist. Radiation optimization: All CT scans at this facility use at least one of these dose optimization techniques: automated exposure control; mA and/or kV adjustment per patient size (includes targeted exams where dose is matched to clinical indication); or iterative reconstruction. Contrast material: OMNI 350; Contrast volume: 100 ml; Contrast route: INTRAVENOUS (IV); COMPARISON: CT angio headneck* [id number] 04/26/2024 4:58 PM RADIATION DOSE METRICS: Total DLP (mGy-cm): 587.97 FINDINGS: ANTERIOR CIRCULATION: Right internal carotid artery: Intracranial segment is patent with no significant stenosis. No aneurysm. Right middle cerebral artery: No occlusion or significant stenosis. No aneurysm. Right anterior cerebral artery: No occlusion or significant stenosis. No aneurysm. Left internal carotid artery: There are several at least 50-69% diameter stenoses within the petrous portion and intracranial portion of the left internal carotid artery which are not obviously changed. Otherwise, unremarkable. Left middle cerebral artery: No occlusion or significant stenosis. No aneurysm. Left anterior cerebral artery: No occlusion or significant stenosis. No aneurysm. POSTERIOR CIRCULATION: Right vertebral artery: No occlusion or significant stenosis. No aneurysm. Left vertebral artery: No occlusion or significant stenosis. No aneurysm. Basilar artery: No occlusion or significant stenosis. No aneurysm. Right posterior cerebral artery: No occlusion or significant stenosis. No aneurysm. Left posterior cerebral artery: No occlusion or significant stenosis. No aneurysm. Veins: Unremarkable intracranial venous sinuses. Brain: See concurrent separate report. Cerebral ventricles: No ventriculomegaly. Bones/joints: Unremarkable. No acute fracture. Soft tissues: Unremarkable. Other findings: Posterior communicating arteries: Both posterior communicating arteries are normally patent. PROCEDURE INFORMATION: Exam: CTA Neck With Contrast Exam date and time: 07/16/2024 10:50 AM Age: 63 years old Clinical indication: Other: Unresponsive; Additional info: R/O stroke, unequal pupils, post code on Sunday, unresponsive, intubated without sedation, TECHNIQUE: Imaging protocol: Computed tomographic angiography of the neck with contrast. Exam focused on the cervical segments of the vasculature. 3D rendering (Not supervised by radiologist): MIP and/or 3D reconstructed images were created by the technologist. Radiation optimization: All CT scans at this facility use at least one of these dose optimization techniques: automated exposure control; mA and/or kV adjustment per patient size (includes targeted exams where dose is matched to clinical indication); or iterative reconstruction. Contrast material: OMNI 350; Contrast volume: 100 ml; Contrast route: INTRAVENOUS (IV); COMPARISON: CT angio headneck* [id number] 04/26/2024 4:58 PM RADIATION DOSE METRICS: Total DLP (mGy-cm): 587.97 FINDINGS: Right common carotid artery: No stenosis. No dissection or occlusion. Right internal carotid artery: No stenosis of the extracranial segment. No dissection or occlusion. Right external carotid artery: No occlusion or stenosis of the origin. Left common carotid artery: New occlusion of the proximal and mid left common carotid artery is suspected. Greater than 90% diameter narrowing of the distal left common carotid artery is not obviously changed. Left internal carotid artery: Unchanged diffusely small cervical left internal carotid artery. Otherwise, unremarkable. Left external carotid artery: No occlusion or stenosis of the origin. Right vertebral artery: No stenosis. No dissection or occlusion. Left vertebral artery: A few 50-69% diameter stenoses in the proximal left vertebral artery are unchanged. Otherwise, unremarkable. Brachiocephalic artery: No significant brachiocephalic artery pathology. Right subclavian artery: No significant right subclavian artery pathology. Left subclavian artery: Slight progression of a few 50-69% diameter stenoses left subclavian artery. Portions of the left subclavian artery are obscured by artifact. Aorta: No significant aortic arch pathology. Soft tissues: Otherwise, grossly unremarkable. No significant soft tissue swelling. Bones/joints: No acute fracture. CT/CT angio headneck* [id number] IMPRESSION: 1. There are several at least 50-69% diameter stenoses within the petrous portion and intracranial portion of the left internal carotid artery which are not obviously changed. 2. No other significant intracranial arterial pathology identified. IMPRESSION: 1. New occlusion of the proximal and mid left common carotid artery is suspected. Greater than 90% diameter narrowing of the distal left common carotid artery is not obviously changed. 2. Slight progression of a few 50-69% diameter stenoses left subclavian artery. 3. A few 50-69% diameter stenoses in the proximal left vertebral artery are unchanged. 4. Unchanged diffusely small cervical left internal carotid artery. 5. Portions of the left subclavian artery are obscured by artifact, so additional pathology in this artery cannot be excluded. 6. No other significant arterial pathology identified in the neck and upper chest. REFERENCES: NASCET CRITERIA. The degree of stenosis in the cervical segment of the internal carotid artery is based on NASCET criteria. Normal is no stenosis. Mild is less than 50% stenosis. Moderate is 50-69% stenosis. Severe is 70% to 99% stenosis. Total occlusion is no detectable patent lumen.
--- NOTE | 2024-07-16 08:30 | CTR_ITS ---
PROCEDURE INFORMATION: Exam: CT Head Without Contrast Exam date and time: 07/16/2024 10:47 AM Age: 63 years old Clinical indication: Coma or unconsciousness; Additional info: R/O stroke, unequal pupils, post code on Sunday, unresponsive, intubated without sedation, TECHNIQUE: Imaging protocol: Computed tomography of the head without contrast. Radiation optimization: All CT scans at this facility use at least one of these dose optimization techniques: automated exposure control; mA and/or kV adjustment per patient size (includes targeted exams where dose is matched to clinical indication); or iterative reconstruction. COMPARISON: CT head wo con* [id number] 07/12/2024 3:06 PM RADIATION DOSE METRICS: Total DLP (mGy-cm): 1097.5 FINDINGS: Brain: There are several new small irregular low-density areas in the white matter of the left frontal lobe, the anterior left parietal and occipital lobes, and in the left basal ganglia region. This is all most likely subacute infarction mainly in the distribution of the left middle cerebral artery. No intracranial hemorrhage or significant mass effect, otherwise. Unchanged chronic lacunar infarcts right basal ganglia. Unchanged mild, diffuse atrophy of the brain with unchanged chronic ischemic changes bilaterally elsewhere, likely due to microvascular disease. Unchanged partially empty sella. Otherwise, unremarkable. Cerebral ventricles: No ventriculomegaly. Paranasal sinuses: Increased mild bilateral sinusitis. Mastoid air cells: Visualized mastoid air cells are well aerated. Bones: Unremarkable. No acute fracture. Soft tissues: Otherwise, unremarkable. CT/CT head wo con* [id number] IMPRESSION: 1. There are several new small irregular low-density areas in the white matter of the left frontal lobe, the anterior left parietal and occipital lobes, and in the left basal ganglia region. This is all most likely subacute infarction mainly in the distribution of the left middle cerebral artery. No intracranial hemorrhage or significant mass effect, otherwise. 2. Increased mild bilateral sinusitis. 3. No other acute findings. 4. Additional details as above. Unchanged.
--- NOTE | 2024-07-16 08:30 | CTR_ITS ---
PROCEDURE INFORMATION: Exam: CTA Chest With Contrast Exam date and time: 07/16/2024 10:59 AM Age: 63 years old Clinical indication: Other: Unresponsive, extremity swelling, shortness of breath; Additional info: R/O pe, septic shock, cardiogenic shock? , R/O infectious source, crp 300 TECHNIQUE: Imaging protocol: Computed tomographic angiography of the chest with contrast. Exam focused on the arteries. 3D rendering (Not supervised by radiologist): MIP and/or 3D reconstructed images were created by the technologist. Radiation optimization: All CT scans at this facility use at least one of these dose optimization techniques: automated exposure control; mA and/or kV adjustment per patient size (includes targeted exams where dose is matched to clinical indication); or iterative reconstruction. Contrast material: OMNI 350; Contrast volume: 75 ml; Contrast route: INTRAVENOUS (IV); COMPARISON: CT angio chest PE protcl [id number] 04/26/2024 10:01 PM RADIATION DOSE METRICS: Total DLP (mGy-cm): 1748.45 FINDINGS: Tubes, catheters and devices: Endotracheal tube is present with its tip above the linda. Pulmonary arteries: The main pulmonary artery measures 3.4 cm in size which is mildly dilated. This can be seen with pulmonary arterial hypertension. Aorta: The ascending aorta measures 4.4 cm in size unchanged. No definite dissection is identified although the aorta is not optimally opacified. There is calcified plaque involving the aorta and coronary vessels. Lungs: There is bilateral airspace disease involving primarily the right upper lobe and lower lobes and to a lesser degree the left upper lobe and right middle lobe. There has been interval worsening at the lung bases most notably on the right and to a lesser degree the left. The upper lobes are relatively unchanged. Pleural spaces: There are small bilateral pleural effusions. Heart: Unremarkable. No cardiomegaly. No pericardial effusion. Lymph nodes: There are multiple enlarged mediastinal and hilar lymph nodes. Findings are similar to that seen on prior exam. Bones/joints: Unremarkable. No acute fracture. Soft tissues: Unremarkable. PROCEDURE INFORMATION: Exam: CT Abdomen And Pelvis With Contrast Exam date and time: 07/16/2024 10:59 AM Age: 63 years old Clinical indication: Other: Unresponsive, extremity swelling, shortness of breath; Additional info: R/O pe, septic shock, cardiogenic shock? , R/O infectious source, crp 300 TECHNIQUE: Imaging protocol: Computed tomography of the abdomen and pelvis with contrast. Radiation optimization: All CT scans at this facility use at least one of these dose optimization techniques: automated exposure control; mA and/or kV adjustment per patient size (includes targeted exams where dose is matched to clinical indication); or iterative reconstruction. Contrast material: OMNI 350; Contrast volume: 75 ml; Contrast route: INTRAVENOUS (IV); COMPARISON: CT angio chest PE protcl [id number] 04/26/2024 10:01 PM RADIATION DOSE METRICS: Total DLP (mGy-cm): 1748.45 FINDINGS: Tubes, catheters and devices: There is a nasogastric tube within the stomach. Liver: There is mild fatty infiltration of the liver. There is a slightly nodular contour to the liver which can be seen with cirrhosis. The liver is otherwise normal. Gallbladder and biliary ducts: The gallbladder is surgically absent. Pancreas: There is a cystic lesion involving the uncinate process of the pancreas measuring 17 mm in size. The pancreas is otherwise normal. Spleen: The spleen is slightly enlarged measuring 13.4 cm in size. Adrenal glands: Normal. No mass. Kidneys and ureters: There is left renal atrophy. Small nonobstructing renal calculus is noted on the right. No hydronephrosis is noted. Stomach and bowel: No dilated loops of large or small bowel is appreciated. There are a few scattered colonic diverticula. No bowel wall thickening is noted. Appendix: No evidence of appendicitis. Intraperitoneal space: There are small volume ascites. No free air is identified. Vasculature: The aorta is normal in caliber without aneurysm or dissection. There is moderate calcified plaque involving the aorta and its branch vessels. There is a right femoral venous catheter with its tip within the SVC/right iliac vein junction. Lymph nodes: There are numerous small retroperitoneal lymph nodes. No enlarged nodes are appreciated. Urinary bladder: There is a Latham catheter within the urinary bladder. Reproductive: Unremarkable as visualized. Bones/joints: Unremarkable. No acute fracture. Soft tissues: There is mild edema diffusely involving the subcutaneous tissues suggesting a degree of anasarca. CT/CT angio chest w abd pel w con IMPRESSION: 1. Mediastinal and hilar adenopathy not significantly changed. 2. Small bilateral pleural effusions with bilateral infiltrates worse on today's exam. 3. Mild aneurysmal dilatation involving the ascending aorta which measures 4.4 cm in size unchanged. 4. Mild dilatation involving the main pulmonary artery which measures 3.4 cm in size also unchanged. This can be seen with pulmonary arterial hypertension. IMPRESSION: 1. Cystic lesion involving the uncinate process of the pancreas. This could represent a cystic pancreatic neoplasm. If further evaluation is desired, MRI with without IV contrast pancreatic protocol would be recommended. 2. Nephrolithiasis on the right. There is left renal atrophy. 3. Small volume ascites. 4. Edema involving the subcutaneous tissues. This can be seen with anasarca.
[2024-07-16 08:58] LABS: Albumin Level 2.2 g/dL (3.5-5.2); Anion Gap 20.5 (5-19); Blood Urea Nitrogen 57 mg/dL (8-23); Calcium 6.8 mg/dL (8.5-10.5); Carbon Dioxide 20 mmol/L (22-29); Chloride 96 mmol/L (98-107); Glomerular Filtration Rate 9.1 mL/min (90-130); Glucose 116 mg/dL (65-115); Magnesium 1.5 mg/dL (1.7-2.3); Phosphorus 5.5 mg/dL (2.5-4.5); Potassium 5.5 mmol/L (3.5-5.1); Sodium 131 mmol/L (136-145)
[2024-07-16] MEDS: LOKELMA 10 GM 10 EACH OG-TUBE ×3 (09:09→21:36)
[2024-07-16] MEDS: aspirin 81 mg Chew Tablet OG-TUBE (09:09)
[2024-07-16] MEDS: meropenem 500 mg SDV IVP (09:09)
[2024-07-16] MEDS: clopidogrel 75 mg Tablet OG-TUBE (09:10)
--- NOTE | 2024-07-16 09:20 | USR_ITS ---
PROCEDURE INFORMATION: Exam: US Duplex Lower Extremity Veins, Bilateral Exam date and time: 07/16/2024 4:21 PM Age: 63 years old Clinical indication: Edema, localized; Lower extremity, bilateral; Additional info: Dvt TECHNIQUE: Imaging protocol: Real-time duplex ultrasound of the bilateral extremities with 2-D titus scale, color Doppler flow and spectral waveform analysis including responses to compression and other maneuvers (when performed) with image documentation. Complete exam focused on the lower extremity veins. COMPARISON: CT angio chest w abd pel w con 07/16/2024 10:59 AM FINDINGS: Right deep veins: Unremarkable. The common femoral, femoral, proximal profunda femoral and popliteal veins are patent without thrombus. Normal Doppler waveforms. Normal compressibility and/or augmentation response. Left deep veins: Unremarkable. The common femoral, femoral, proximal profunda femoral and popliteal veins are patent without thrombus. Normal Doppler waveforms. Normal compressibility and/or augmentation response. Superficial veins: Greater saphenous veins at the saphenofemoral junctions are patent bilaterally without thrombus. Soft tissues: Unremarkable. US/CV venous duplex [facility] [id number] IMPRESSION: No evidence of deep vein thrombosis.
[2024-07-16] MEDS: iohexol 350 mg/mL 500 mL Btl (per mL) IV (11:04)
[2024-07-16] MEDS: norepinephrine 4 MG/250 ML BAG 67.5 MG IV ×2 (11:34→15:30)
--- NOTE | 2024-07-16 12:47 | ECG_ITS ---
Loop88 Test Date: 2024-07-16 Pat Name: João Carter Department: Room: ICU10 Gender: Male [place] [employer]ge: : 1960 Requested By: Kellie Monroy Order Number: [id number] Thais MD: Consuelo Valles M.D. Measurements Intervals [place] Rate: 107 P: 95 WV: 172 QRS: 257 QRSD: 180 T: 57 QT: 382 QTc: 511 Interpretive Statements SINUS TACHYCARDIA WITH FREQUENT SUPRAVENTRICULAR PREMATURE COMPLEXES IN A BIGEMINAL PATTERN POSSIBLE LEFT ATRIAL ENLARGEMENT [-0.1mV P-WAVE IN V1/V2] RIGHT AXIS DEVIATION [QRS AXIS > 100] RIGHT BUNDLE BRANCH BLOCK [120+ ms QRS DURATION, UPRIGHT V1, 40+ ms S IN I/aVL/V4/V5/V6].POSSIBLE ANTERIOR MYOCARDIAL INFARCTION , OF INDETERMINATE AGE [30 ms Q WAVE IN V3/V4, OR R < 0.2 mV IN V4].INFERIOR MYOCARDIAL INFARCTION , OF INDETERMINATE AGE [40+ ms Q WAVE AND/OR ST/T ABNORMALITY IN II/aVF].INTERPRETATION BASED ON A DEFAULT AGE OF 40 YEARS. Compared to ECG 07/12/2024 17:37:06.Sinus rhythm no longer present. First degree AV block no longer present.-wave abnormality no longer present. Possible ischemia no longer present. Electronically Signed On 07-16-2024 19:24:24 SALES FLOOR TEAM MEMBER by Consuelo Valles M.D. [email or web address]
[2024-07-16 12:52] LABS: Partial Thromboplastin Time 56.1 SECONDS (23.9-36.7)
[2024-07-16 13:52] LABS: Albumin Level 2.3 g/dL (3.5-5.2); Blood Urea Nitrogen 60 mg/dL (8-23); Calcium 7.2 mg/dL (8.5-10.5); Carbon Dioxide 20 mmol/L (22-29); Chloride 92 mmol/L (98-107); Creatinine Clr Calc Pharmacy 15.0461; Glomerular Filtration Rate 8.9 mL/min (90-130); Glucose 116 mg/dL (65-115); Magnesium 1.7 mg/dL (1.7-2.3); Phosphorus 6.4 mg/dL (2.5-4.5); Sodium 127 mmol/L (136-145)
--- NOTE | 2024-07-16 14:24 | PM.PN ---
Subjective Subjective: Seen this morning. Patient is off to vasopressors off the vasopressin and epinephrine. He is on 16 mics of Levophed. Unresponsive. Has been off sedation. Will not respond to sternal rub either. Potassium 5.5 this morning. Plan to start CRRT this morning. Discussed with family at bedside. Blood pressure has been stable and we are actively weaning down Levophed as well. Plan for CT head, CT head and neck, CT chest abdomen pelvis. Patient did have a fever up to 104 yesterday and has been hypothermic this morning at 96.2. I discussed with family that I am suspecting brainstem and other areas of the head of having stroke given his critical condition. I discussed with family very clearly the patient is still in critical condition and we are not out of the garcia yet. Patient does have unequal pupils. Does not respond to sternal rub. Nursing staff present at bedside Procalcitonin 23,000, CRP 327. Vitals/I&O/Wt Last Vital Signs Temp 96.2 F L 07/16/24 11:30 Pulse 99 07/16/24 11:30 Resp 23 H 07/16/24 11:24 BP 117/70 07/16/24 11:30 Pulse Ox 92 07/16/24 11:30 O2 Del Method Mechanical Ventilation 07/16/24 07:32 FiO2 60 07/16/24 11:24 07/15/24 07/16/24 07/16/24 22:59 06:59 14:59 Intake Total 2559.156 / 5427.936 1681.942 / 7109.878 250 / 250 Output Total 240 / 240 Balance 2559.156 / 5427.936 1441.942 / 6869.878 250 / 250 Weight last 48 hrs Weight 109.27 kg Weight 105.279 kg Weight 103 kg Physical Exam Narrative: Intubated and sedated. Unequal pupils. Chest bilateral chest rise, equal breath sounds. Currently on Levophed. Cardiovascular normal heart sounds irregular rhythm, slightly tachycardic. Abdomen soft, distended, hypoactive bowel sounds. Extremities no edema noted bilateral lower extremity Neuro: Unresponsive, does not respond to sternal rub or when pain elicited at nailbed. Does have unequal pupils. Urinary Catheter Management: Latham: Cath Placed During This Visit: no Reason for Continuing Indwelling Catheter: Accurate Measurement of Urinary Output in Critically Ill Patients Data 07/16/24 03:30 07/16/24 13:22 Micro: Microbiology 07/15/24 12:06 Blood Culture - Preliminary Blood SPECIMEN COLLECTED 07/14/24 14:45 Gram Stain - Final Sputum - Endotracheal Tube Aspirate Sputum Culture - Preliminary Gram Negative Rods A&P Assessment and plan (1) Respiratory failure: (2) Hyperlipidemia: (3) Hypertension: Qualifiers: Hypertension type: primary hypertension Qualified Code(s): I10 - Essential (primary) hypertension (4) ESRD on dialysis: (5) Chronic diastolic heart failure: (6) Sleep apnea: (7) Cardiac arrest: (8) Uses continuous positive airway pressure (CPAP) ventilation at home: (9) Thrombocytopenia: Plan João Carter is a 63 year old male João Carter is a 63 year old male With past medical history of sleep apnea noncompliant with CPAP, diabetes, hypertension, end-stage renal disease on hemodialysis TTS, paroxysmal A-fib with RVR, secondary polycythemia, thrombocytopenia, cardiac arrest, diastolic heart failure, restrictive lung disease was brought in by the EMS after an event of cardiac arrest at dialysis. He is s/p endotracheal intubation. #Cardiac arrest-likely secondary to hypotension during hemodialysis He is s/p endotracheal intubation on mechanical ventilator, sedated On external pacemaker, current heart rate 75 to 77 bpm, irregular Cardiology consulted in ED EKG showed no ST-T changes First set of troponin 74 Will continue heparin drip started in ER until further cardiology recommendations Check 2D echo Chest x-ray consistent with fluid overload Blood pressure stable, no pressors required as of yet K 3.9, Mg 1.8, will replace ECHO-05/06 LV systolic function is normal with EF of 60 to 65%. Grade 1 diastolic dysfunction Moderate to severe left ventricular hypertrophy Mild mitral regurgitation Mild tricuspid regurgitation Mild pulmonic regurgitation # Respiratory failure-likely secondary to cardiac arrest continue mechanical ventilation, ABG noted Continue sedation with propofol and Versed Will monitor blood pressure Will do DuoNebs every 6 hours as needed # ESRD on hemodialysis-Creat 3.0 Will need nephrology consult Monitor electrolytes for now # Thrombocytopenia-platelets 112 Has baseline thrombocytopenia Will continue to monitor He was started on heparin drip in ER s/p cardiac arrest, will hold off on DVT prophylaxis #ID-chest x-ray consistent with fluid overload, no pneumonia, no leukocytosis Will monitor chest x-ray for probable aspiration during code BCx and sputum Cx pending #Diabetes Mellitus-BS 140 will do insulin correction scale for now DVT prophylaxis, already started on heparin drip in ER for possible PA GI prophylaxis with IV Protonix 40 mg daily He is n.p.o. for now CODE STATUS discussed with at bedside, he is full code. 07/13/24 He is still intubated and sedated. Had an hypotensive episode this morning, was started on Levophed. Chest exam showed bilateral coarse rhonchi and crackles consistent with fluid overload. Was also found to have potassium of 5.8 this morning and creatinine of 3.5. Nephrology consulted for HD. He also has platelet count trending down to 89. He is on heparin drip for possible PA. Discussed with cardiology, Dr. Mallory, wants to continue heparin drip for 48 hours since admission. D-dimer elevated 1.05, will check CTA chest PE protocol to rule out PE since 2D echo as per cardiology showed RV dilatation. He had a temperature of 100.8 this morning, given 1 dose of IV Zosyn 3.375 mg. Will continue IV Zosyn for now. Continue to monitor in ICU. Family, aware of plan of care. -#Pneumonia #Hyperkalemia #Respiratory failure secondary to cardiac arrest, ventilator dependent respiratory failure #End-stage renal disease on hemodialysis, renal failure #Chronic thrombocytopenia #Diabetes mellitus type 2 #Cardiac arrest secondary to hypotension during dialysis #Possibility of a large PE? #Right ventricular hypokinesia #History of obstructive sleep apnea #History of hypertension #History of A-fib with RVR #Diastolic heart failure #Restrictive lung disease 07/14/2024 ? Patient continues to be intubated and sedated. He has been hypotensive and is requiring 3 pressors at this time Levophed, vasopressin and epinephrine. He does have bilateral coarse crackles consistent with fluid overload. Equal bilateral chest rise, low suspicion of pneumothorax at this time. He is hyperkalemic with potassium of 6.9. He was treated with insulin dextrose 2 A of bicarb, calcium gluconate ? Patient is being continued on a heparin drip for possibility of PE. Patient not too unstable to go for CTA chest. ? Chest x-ray from this morning did show mild interval increase of perihilar opacities related to fluid overload versus infectious inflammatory processes. For possibility of pneumonia Zyvox and meropenem have been added on. ? Echo did show RV dilatation. D-dimer elevated at 1.05. Too unstable to go for CTA chest at this time. ? Did have temperature overnight 100.8. Will continue on meropenem. ? Patient is not a candidate for dialysis at this time given 3 vasopressor support and hypotension. Will discuss with nephrology. Will discuss if there is possibility of CRRT that could be performed. ? Family would like to elect DNR status at this time. However we will continue to treat ? Blood cultures ordered overnight. ? Check urine culture, sputum culture Gram stain. -Continue to wean off vasopressors as able. -Patient does have evidence of anisocoria. Will obtain head CT if possible. ? When and if patient does become medically stable cardiology to consider stress test versus coronary angiogram in the future. ? If patient does become stable enough we will go ahead with dialysis. ? Discussed with cardiology, nephrology, nursing staff, family. Saw patient multiple times this morning. -He remains in a critical condition. 07/15/2024 -Patient remains in critical condition at this time. He is maxed out on 3 pressors. Does not tolerate any movement and desats immediately. FiO2 60% this morning. Currently on a bicarb drip, epinephrine, vasopressin, Levophed. ? CT head, CTA chest abdomen pelvis ordered however patient unstable to go for imaging studies at this time. ? Limited echo repeated. Does show moderate hypokinesis of right ventricle. ? Blood cultures pending, CRP 200, procalcitonin 11. Appropriate this morning. ? Urine culture sputum culture Gram stain pending at this time. ? Continue meropenem and Zyvox. ? Not a candidate for CRRT secondary to high vasopressor requirements. ? Continue heparin drip for to cover for possibility of PE. ? Discussed with , nursing staff, nephrology in detail. ? Creatinine continues to rise. 6.8 today. Potassium also elevated. ? Have ordered Lokelma and Bicitra as per nephrology recommendations. Will reduce bicarb drip to 50 cc/h. ? Repeat labs at 6 PM. ? Abdomen ultrasound reviewed. Possibility of liver cirrhosis. Absent gallbladder. No other acute pathology identified at this time. 07/16/2024 -Patient is off vasopressin and epinephrine. Currently on Levophed at 16 mics. Attempting to wean down as able to. FiO2 50%. ? Patient has had fevers up to 104 yesterday. Requiring IV Tylenol. Fever may be secondary to underlying pneumonia versus central cause. ? High suspicion of brainstem and other areas of brain having a stroke given high vasopressor requirement and shock. Will be checking a CT head without contrast, CTA head and neck with contrast, CT chest abdomen pelvis today. Will rule out PE as well. ? Patient is currently on a heparin drip. ? Limited echo did show hypokinesis of right ventricle. ? Potassium 5.5 today. Patient is on Lokelma 10 g 3 times daily. ? Bicitra ordered by nephrology. ? Nephrology following. Plan for CRRT today tentatively. ? Discussed prognosis with family today. I worry about neurological status. Clinically patient is not doing well neurologically. He is on 25 mics of fentanyl which we will also turn off at this time. To assess for responsiveness. ? Consult neurology. Plan for possible EEG in the morning. ? Iron studies ordered yesterday. Percent saturation 7.8. Will order iron sucrose Venofer 200 mg IV x 1. -Liver enzymes slightly elevated. ? Patient hypothermic later in the afternoon with 96.2 temperature. Will apply Leeroy hugger. Temperature variations may be due to central cause with hypothalamus affected. High possibility of brainstem stroke. ? We will have to check for spontaneous breathing trial and assess for brain if patient continues to be unresponsive. Discussed with neurology. -Did discuss again with family and cardiology. Apparently patient had a coronary angiogram done at previous hospitalization at [facility] 3 months ago and had a coronary stent placed. He was on aspirin and Plavix prior to admission as per family however home medications have only listed Plavix at this time. We will place patient back on aspirin and Plavix at this time. Initially patient's had mentioned that he received a carotid stent but upon talking to the daughter it seems he was not a candidate for any carotid intervention and instead coronary angiogram was pursued and coronary stent was placed. We have requested records from [facility] and we will review them in detail. Family updated at bedside in detail. DNR DVT prophylaxis: On a heparin drip at this time. Prognosis remains poor. Attestations Medical Necessity Statement*: Remains critically ill in ICU. Critical Care Time: The high probability of a clinically significant, sudden or life threatening deterioration of the patient's [neurological, respiratory, cardiovascular, renal] system(s) required my full and direct attention, intervention and personal management. The critical care time is as shown. This time is in addition to time spent performing any reported procedures but includes the following: [x] Data and vital sign review and interpretation [x] Patient assessment, examination and intervention [x] Documentation [x] Medication orders and management Critical Care Time (min): 75 Procedures Arterial Line Size (Gauge): 20 Coding Level of Care Code Acute Code for Chg Fwd Diagnoses Respiratory failure J96.90 Hyperlipidemia E78.5 Primary hypertension I10 Hypertension type: primary hypertension ESRD on dialysis N18.6; Z99.2 Chronic diastolic heart failure I50.32 Sleep apnea G47.30 Cardiac arrest I46.9 Uses continuous positive airway pressure (CPAP) ventilation at home Z99.89 Thrombocytopenia D69.6
[2024-07-16] MEDS: pantoprazole 40 mg SDV IVP (15:14)
--- NOTE | 2024-07-16 16:00 | PC.SOCIAL ---
IMM Updated Updated pt's on IMM. No questions voiced. Provided a copy. Initialed, dated, & timed a copy signed & placed in chart.
--- NOTE | 2024-07-16 16:12 | P.CONIM_ITS ---
Providers/Reason For Consult 2 Consulting Physician/Specialty*: Jayme Weiss MD neurology and epilepsy Reason for Consult*: Cardiac arrest, encephalopathy and strokes Attending Physician: Kellie Monroy MD Primary Care Provider: Philip Torrez History of Present Illness History of Present Illness João Carter is a 63 year old male with a history of paroxysmal atrial fibrillation with rapid ventricular response, left carotid stenosis, recurrent cardiac arrest with respiratory failure and end-stage renal disease. The patient was reported to experience cardiac arrest followed by septic shock. The patient has been off sedation for 48 hours but continues to have decreased level consciousness and therefore neurology consult was obtained. Patient has a history of cardiac arrest approximately 6 times during previous dialysis with decreased blood pressure. Noncontrast head CT was obtained on 07/16/2024 revealed the following: IMPRESSION: 1. There are several new small irregular low-density areas in the white matter of the left frontal lobe, the anterior left parietal and occipital lobes, and in the left basal ganglia region. This is all most likely subacute infarction mainly in the distribution of the left middle cerebral artery. No intracranial hemorrhage or significant mass effect, otherwise. 2. Increased mild bilateral sinusitis. CT angiogram of the head and neck performed on 07/16/2024 revealed the following: IMPRESSION: 1. There are several at least 50-69% diameter stenoses within the petrous portion and intracranial portion of the left internal carotid artery which are not obviously changed. In view of the patient decreased level consciousness neurology consult was obtained. Drug allergies: Penicillin which resulted in hives Medications: Albuterol sulfate 90 mcg per accusation 1 inhalation every 4 hours as needed Plavix 75 mg p.o. daily Lasix 20 mg p.o. daily Lovastatin 20 mg p.o. daily Sevelamer carbonate 800 mg p.o. daily Vitamin K2 40 mcg p.o. daily Vitamin E 268 mg p.o. daily Vitamin B12/folic acid 1 tablet p.o. daily Habits: Unknown Family history: Unable to obtain secondary to patient's medical condition Review of Systems 2 General: Reports: ROS unobtainable due to endotracheal tube and ROS unobtainable due to medical condition Medications/Allergies Home Medications Medication Instructions Recorded Confirmed Last Taken Type lovastatin 20 mg tablet 20 mg PO DAILY 05/02/21 07/13/24 05/21/23 History albuterol sulfate 90 mcg/actuation 1 inh inhalation Q4H PRN Shortness 07/18/23 12/01/24 Unknown History aerosol inhaler Of Breath Or Wheezing furosemide 20 mg tablet 20 mg PO DAILY 05/14/23 07/13/24 05/21/23 History ascorbic acid (vitamin C) 500 mg 500 mg PO DAILY 05/22/23 07/13/24 05/21/23 History tablet (Vitamin C) cholecalciferol (vitamin D3) 25 25 mcg PO DAILY 05/22/23 07/13/24 05/21/23 History mcg (1,000 unit) capsule (Vitamin D3) vitamin B12 0.5 mg-folic acid 1 mg 1 tab PO DAILY 05/22/23 07/13/24 05/21/23 History tablet vitamin E 268 mg (400 unit) capsule 268 mg PO DAILY 05/22/23 07/13/24 05/21/23 History vitamin K2 40 mcg tablet 40 mcg PO DAILY 05/22/23 07/13/24 05/21/23 History sevelamer carbonate 800 mg tablet 800 mg PO DAILY 04/28/24 07/13/24 Unknown History clopidogrel 75 mg tablet (Plavix) 75 mg PO DAILY #90 tabs 06/04/24 07/13/24 Unknown Rx sodium zirconium cyclosilicate 10 10 g PO TID 7 days #21 ea 07/15/24 Unknown Rx gram oral powder packet (Lokelma) Allergies Allergy/AdvReac Type Severity Reaction Status Date / Time Penicillins Allergy Severe hives Verified 06/04/24 14:03 Current Medications Generic Name Dose Route Start Last Admin Trade Name Freq PRN Reason Stop Dose Admin Albuterol/Ipratropium 3 ml 07/12/24 13:35 07/16/24 15:00 Ipratropium-Albuterol 3 Ml Neb INHALATION 3 ml Q6H PRN Administration SHORTNESS OF BREATH Aspirin 81 mg 07/16/24 09:00 07/16/24 09:09 Aspirin 81 Mg Chew Tablet OG-TUBE 81 mg DAILY LEN Administration Chlorhexidine Gluconate 1 applic 07/13/24 00:00 07/15/24 23:53 Chlorhexidine Gluconate 4% Btl 118 Ml TOPICAL 1 applic Q24H LEN Administration Clopidogrel Bisulfate 75 mg 07/16/24 09:00 07/16/24 09:10 Clopidogrel 75 Mg Tablet OG-TUBE 75 mg DAILY LEN Administration Heparin Sodium (Porcine) 0 unit 07/12/24 12:22 07/16/24 05:34 Heparin 5,000 Unit/Ml Inj 1 Ml IVP 2,000 unit PRN PRN Administration Heparin Weight Based Protocol -Subsequent Bolus Protocol Heparin Sodium/Sodium Chloride 25,000 unit in 500 mls @ 0 mls/hr 07/12/24 12:30 07/16/24 05:35 Heparin Drip IV 15.82 unit/kg/hr CONT LEN 31 mls/hr Administration Protocol Per Protocol Norepinephrine Bitartrate 4 mg in 250 mls @ 0 mls/hr 07/12/24 13:06 07/16/24 11:34 Levophed IV 18 mcg/min .Q0M LEN 67.5 mls/hr Administration Protocol Per Protocol Dextrose 125 mls @ 750 mls/hr 07/13/24 23:55 07/14/24 00:48 D10w IV Infused PRN PRN Infusion HYPOGLYCEMIA Linezolid 600 mg in 300 mls @ 300 mls/hr 07/14/24 01:45 07/16/24 15:15 Zyvox Premix IV 300 mls/hr Q12H LEN Administration Protocol Vasopressin 40 unit in 100 mls @ 0 mls/hr 07/14/24 03:45 07/16/24 06:06 Vasostrict IV 0 unit/min .Q0M LEN 0 mls/hr Titration Protocol Per Protocol Epinephrine HCl 2.5 mg/ Sodium 252.5 mls @ 0 mls/hr 07/14/24 08:30 07/15/24 21:03 Chloride IV 0 mcg/min .Q0M LEN 0 mls/hr Titration Protocol Per Protocol Sodium Bicarbonate 150 meq/ 1,150 mls @ 50 mls/hr 07/14/24 18:00 07/16/24 06:18 Dextrose IV 50 mls/hr .Q23H LEN Administration Dextrose 250 mls @ 1,000 mls/hr 07/15/24 00:03 07/15/24 01:43 D10w IV Infused ONCE PRN Infusion HYPERKALEMIA Dextrose 250 mls @ 1,000 mls/hr 07/15/24 05:42 07/15/24 08:47 D10w IV Infused ONCE PRN Infusion HYPERKALEMIA Insulin Human Lispro 0 unit 07/12/24 14:00 07/12/24 22:00 Insulin Lispro 100 Unit/1 Ml SUBCUT Not Given Q4H LEN Protocol Meropenem 500 mg 07/14/24 09:30 07/16/24 09:09 Meropenem 500 Mg Sdv IVP 500 mg Q24H LEN Administration Protocol Non-Formulary Medication 10 gm 07/15/24 15:00 07/16/24 15:15 Lokelma OG-TUBE 10 gm TID LEN Administration Pantoprazole Sodium 40 mg 07/12/24 13:30 07/16/24 15:14 Pantoprazole 40 Mg Sdv IVP 40 mg Q24H LEN Administration PFSH Acute 2 PFSH: Medical History Hyperlipidemia Paroxysmal SVT (supraventricular tachycardia) History of hemoptysis late summer 2022, several bronchoscopies done at [place], no source found, treated with antibiotics Pneumonia due to COVID-19 virus 2022, on ventilator for a time History of pulmonary aspiration per swallow study done during a prolonged acute illness in late 2022 History of cirrhosis of liver History of echocardiogram 06/2021 EF 55%, severe AV sclerosis and calcification but no stenosis History of PFTs 06/2021 severe restriction with preserved residual volume, minimal reduction in DLCO Nephrotic syndrome Vitamin D deficiency Diabetes mellitus, type II History, lost weight, no longer active diagnosis Hypertension JOSE (obstructive sleep apnea) Diastolic heart failure End stage renal disease started dialysis 2022 Cardiac arrest Restrictive lung disease Polycythemia secondary to hypoxia Surgical History History of percutaneous endoscopic gastrostomy 2021/2022, removed short time later History of tracheostomy 2022, removed short time later S/P thoracentesis 2014 History of cholecystectomy 1996 Family History Father Congestive heart failure (CHF) Mother Congestive heart failure (CHF) Social History Smoking and tobacco/nicotine status: never used tobacco/nicotine Second hand smoke exposure: No Alcohol intake: never Substance/Drug Use: never Household members: spouse 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 Vitals/I&O/Wt Last Vital Signs Temp 96.2 F L 07/16/24 11:30 Pulse 108 H 07/16/24 15:00 Resp 19 H 07/16/24 15:00 BP 117/70 07/16/24 11:30 Pulse Ox 94 07/16/24 15:00 O2 Del Method Mechanical Ventilation 07/16/24 15:00 FiO2 60 07/16/24 15:00 07/16/24 07/16/24 07/16/24 06:59 14:59 22:59 Intake Total 1681.942 / 7109.878 250 / 250 Output Total 240 / 240 Balance 1441.942 / 6869.878 250 / 250 Weight last 48 hrs Weight 240 lb 14.4 oz Weight 232 lb 1.6 oz Weight 227 lb 1.218 oz Physical Exam 2 Narrative: Blood pressure 117/70 heart rate 108 respirations 19 temperature 96.2 ?F O2 saturations 94% on mechanical ventilation with FiO2 ratio 60 The patient is displaying decreased level consciousness. Patient is on a ventilator and does breathe at least 1 breath over the ventilator respiratory rate setting of 18 breaths/min. Pupils 3 mm round reactive to light and accommodation. Pupils appear to be symmetrical. It was difficult to determine if corneal reflexes were intact. The patient is on low-dose fentanyl Cranial nerves II through XII did not reveal any obvious facial weakness. Motor examination reveals some spontaneous movement to painful stimuli applied to the left foot/nailbeds. There was no movement of the right leg to painful stimuli applied to the nailbeds in the right lower extremity or upper extremities bilaterally. Deep tendon reflexes revealed extensor plantar response on the left and flexor on the right there was no clonus. Sensory examination revealed some response to painful stimuli applied to the left foot. Throat difficult to assess secondary to intubation. Lungs revealed no obvious wheezing and patient taking at least 1 breath over the ventilation set rate. Extremities were negative for cyanosis. Urinary Catheter Management: [place]: Cath Placed During This Visit: no Reason for Continuing Indwelling Catheter: Accurate Measurement of Urinary Output in Critically Ill Patients Data 07/16/24 03:30 07/16/24 13:22 Micro: Microbiology 07/14/24 14:45 Gram Stain - Final Sputum - Endotracheal Tube Aspirate Sputum Culture - Preliminary Gram Negative Rods 07/15/24 12:06 Blood Culture - Preliminary Blood SPECIMEN COLLECTED A&P Assessment and plan (1) Encephalopathy acute: Impression: 1. Acute encephalopathy. Possibility of anoxic encephalopathy cannot be excluded in view of patient's history of reported cardiac arrest followed by septic shock 2. Several new small irregular low-density areas in the white matter of the left frontal lobe, the anterior left parietal and occipital lobes, and in the left basal ganglia region. This is all most likely subacute infarction mainly in the distribution of the left middle cerebral artery. 3. 50-69% diameter stenoses within the petrous portion and intracranial portion of the left internal carotid artery which are not obviously changed. Plan: 1. Will plan to obtain bedside surface EEG recording to assess for possibility of anoxic encephalopathy (note: business systems technician was informed by the intensive care unit nurse that the patient is scheduled this evening for central line placement for CRRT and therefore the business systems technician could not perform the bedside EEG on 07/16/2024) 2. Agree with discontinuing all sedation 3. Agree with current treatment plan Consult Attestations 2 Medical Necessity Statement: The patient was evaluated for decreased level consciousness following cardiac arrest and strokes reported on head CT Procedures Arterial Line Size (Gauge): 20 Coding Level of Care Code 42812 Diagnoses Encephalopathy acute G93.40
[2024-07-16] MEDS: amiodarone 150 MG/100 ML PREMIX 400 MG IV (16:29)
--- NOTE | 2024-07-16 16:30 | PM.CONSULT ---
Providers/Reason For Consult Consulting Physician/Specialty*: Dr. Alfred Lanza, DO/General Surgery Reason for Consult*: Permacath malfunction Attending Physician: Kellie Monroy MD Primary Care Provider: Philip Torrez History of Present Illness History of Present Illness João Carter is a 63 year old male who is currently nonresponsive on a ventilator. He gets hemodialysis via permacath. Dialysis nurse was unable to get adequate flows and therefore general surgery was consulted. HPI and review of systems are limited secondary to patient's nonresponsiveness. Review of Systems General: Reports: ROS unobtainable due to medical condition Medications/Allergies Home Medications Medication Instructions Recorded Confirmed Last Taken Type lovastatin 20 mg tablet 20 mg PO DAILY 05/02/21 07/13/24 05/21/23 History albuterol sulfate 90 mcg/actuation 1 inh inhalation Q4H PRN Shortness 02/27/23 07/13/24 Unknown History aerosol inhaler Of Breath Or Wheezing furosemide 20 mg tablet 20 mg PO DAILY 05/14/23 07/13/24 05/21/23 History ascorbic acid (vitamin C) 500 mg 500 mg PO DAILY 05/22/23 07/13/24 05/21/23 History tablet (Vitamin C) cholecalciferol (vitamin D3) 25 25 mcg PO DAILY 05/22/23 07/13/24 05/21/23 History mcg (1,000 unit) capsule (Vitamin D3) vitamin B12 0.5 mg-folic acid 1 mg 1 tab PO DAILY 05/22/23 07/13/24 05/21/23 History tablet vitamin E 268 mg (400 unit) capsule 268 mg PO DAILY 05/22/23 07/13/24 05/21/23 History vitamin K2 40 mcg tablet 40 mcg PO DAILY 05/22/23 07/13/24 05/21/23 History sevelamer carbonate 800 mg tablet 800 mg PO DAILY 04/28/24 07/13/24 Unknown History clopidogrel 75 mg tablet (Plavix) 75 mg PO DAILY #90 tabs 06/04/24 07/13/24 Unknown Rx sodium zirconium cyclosilicate 10 10 g PO TID 7 days #21 ea 07/15/24 Unknown Rx gram oral powder packet (Lokelma) Allergies Allergy/AdvReac Type Severity Reaction Status Date / Time Penicillins Allergy Severe hives Verified 06/04/24 14:03 Current Medications Generic Name Dose Route Start Last Admin Trade Name Freq PRN Reason Stop Dose Admin Albuterol/Ipratropium 3 ml 07/12/24 13:35 07/16/24 15:00 Ipratropium-Albuterol 3 Ml Neb INHALATION 3 ml Q6H PRN Administration SHORTNESS OF BREATH Aspirin 81 mg 07/16/24 09:00 07/16/24 09:09 Aspirin 81 Mg Chew Tablet OG-TUBE 81 mg DAILY LEN Administration CRRT Dialysis Solution 5,000 ml 07/16/24 07:15 07/17/24 04:26 Prismasol Bgk 4/2.5 - 5,000 Ml Bag CRRT 5,000 ml CONT LEN Administration Protocol CRRT Dialysis Solution 5,000 ml 07/16/24 07:15 07/17/24 04:35 Prismasol Bgk 4/2.5 - 5,000 Ml Bag CRRT 5,000 ml CONT LEN Administration Protocol CRRT Dialysis Solution 5,000 ml 07/16/24 07:15 07/16/24 19:52 Prismasol Bgk 4/2.5 - 5,000 Ml Bag CRRT 5,000 ml CONT LEN Administration Protocol Chlorhexidine Gluconate 1 applic 07/13/24 00:00 07/15/24 23:53 Chlorhexidine Gluconate 4% Btl 118 Ml TOPICAL 1 applic Q24H LEN Administration Clopidogrel Bisulfate 75 mg 07/16/24 09:00 07/16/24 09:10 Clopidogrel 75 Mg Tablet OG-TUBE 75 mg DAILY LEN Administration Heparin Sodium (Porcine) 0 unit 07/12/24 12:22 07/16/24 05:34 Heparin 5,000 Unit/Ml Inj 1 Ml IVP 2,000 unit PRN PRN Administration Heparin Weight Based Protocol -Subsequent Bolus Protocol Heparin Sodium/Sodium Chloride 25,000 unit in 500 mls @ 0 mls/hr 07/12/24 12:30 07/17/24 03:17 Heparin Drip IV 14.8 unit/kg/hr CONT LEN 29 mls/hr Titration Protocol Per Protocol Norepinephrine Bitartrate 4 mg in 250 mls @ 0 mls/hr 07/12/24 13:06 07/17/24 06:09 Levophed IV 12 mcg/min .Q0M LEN 45 mls/hr Administration Protocol Per Protocol Albumin Human 12.5 gm in 50 mls @ 60 mls/hr 07/13/24 11:15 07/17/24 00:42 Albumin IV Infused PRN PRN Infusion Hypotension and/or symptomatic Dextrose 125 mls @ 750 mls/hr 07/13/24 23:55 07/14/24 00:48 D10w IV Infused PRN PRN Infusion HYPOGLYCEMIA Linezolid 600 mg in 300 mls @ 300 mls/hr 07/14/24 01:45 07/17/24 04:19 Zyvox Premix IV Infused Q12H LEN Infusion Protocol Vasopressin 40 unit in 100 mls @ 0 mls/hr 07/14/24 03:45 07/16/24 06:06 Vasostrict IV 0 unit/min .Q0M LEN 0 mls/hr Titration Protocol Per Protocol Epinephrine HCl 2.5 mg/ Sodium 252.5 mls @ 0 mls/hr 07/14/24 08:30 07/15/24 21:03 Chloride IV 0 mcg/min .Q0M LEN 0 mls/hr Titration Protocol Per Protocol Sodium Bicarbonate 150 meq/ 1,150 mls @ 50 mls/hr 07/14/24 18:00 07/16/24 06:18 Dextrose IV 50 mls/hr .Q23H LEN Administration Dextrose 250 mls @ 1,000 mls/hr 07/15/24 00:03 07/15/24 01:43 D10w IV Infused ONCE PRN Infusion HYPERKALEMIA Dextrose 250 mls @ 1,000 mls/hr 07/15/24 05:42 07/15/24 08:47 D10w IV Infused ONCE PRN Infusion HYPERKALEMIA Amiodarone HCl/Dextrose 360 mg in 200 mls @ 0 mls/hr 07/16/24 16:16 07/16/24 23:06 Nexterone IV 0.5 mg/min .Q0M LEN 16.67 mls/hr Administration Protocol Per Protocol Insulin Human Lispro 0 unit 07/12/24 14:00 07/12/24 22:00 Insulin Lispro 100 Unit/1 Ml SUBCUT Not Given Q4H [facility] Protocol Meropenem 500 mg 07/14/24 09:30 07/16/24 09:09 Meropenem 500 Mg Sdv IVP 500 mg Q24H LEN Administration Protocol Non-Formulary Medication 10 gm 07/15/24 15:00 07/16/24 21:36 Lokelma OG-TUBE 10 gm TID LEN Administration Pantoprazole Sodium 40 mg 07/12/24 13:30 07/16/24 15:14 Pantoprazole 40 Mg Sdv IVP 40 mg Q24H LEN Administration Sodium Chloride 1,000 - 7,000 ml 07/16/24 07:13 07/17/24 04:20 Sodium Chloride 0.9% 1,000 Ml Bag CRRT 2,000 ml PRN PRN Administration For priming CRRT Machine PFSH Acute PFSH: Medical History Hyperlipidemia Paroxysmal SVT (supraventricular tachycardia) History of hemoptysis late summer 2022, several bronchoscopies done at [place], no source found, treated with antibiotics Pneumonia due to COVID-19 virus 2022, on ventilator for a time History of pulmonary aspiration per swallow study done during a prolonged acute illness in late 2022 History of cirrhosis of liver History of echocardiogram 06/2021 EF 55%, severe AV sclerosis and calcification but no stenosis History of PFTs 06/2021 severe restriction with preserved residual volume, minimal reduction in DLCO Nephrotic syndrome Vitamin D deficiency Diabetes mellitus, type II History, lost weight, no longer active diagnosis Hypertension JOSE (obstructive sleep apnea) Diastolic heart failure End stage renal disease started dialysis 2022 Cardiac arrest Restrictive lung disease Polycythemia secondary to hypoxia Surgical History History of percutaneous endoscopic gastrostomy 2022, removed short time later History of tracheostomy 2022, removed short time later S/P thoracentesis 2014 History of cholecystectomy 1996 Family History Father Congestive heart failure (CHF) Mother Congestive heart failure (CHF) Social History Smoking and tobacco/nicotine status: never used tobacco/nicotine Second hand smoke exposure: No Alcohol intake: never Substance/Drug Use: never Household members: spouse 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 Vitals/I&O/Wt Last Vital Signs Temp 97.4 F L 07/17/24 04:30 Pulse 110 H 07/17/24 07:08 Resp 18 07/17/24 06:45 BP 120/77 07/17/24 07:00 Pulse Ox 99 07/17/24 07:00 O2 Del Method Mechanical Ventilation 07/17/24 06:45 FiO2 60 07/17/24 06:45 07/16/24 07/17/24 07/17/24 22:59 06:59 14:59 Intake Total 1855.717 / 2105.717 930.383 / 3036.100 Output Total 89 / 89 2805 / 2894 Balance 1766.717 / 2016.717 -1874.617 / 142.100 Weight last 48 hrs Weight 248 lb 0.321 oz Weight 240 lb 14.4 oz Physical Exam Narrative: General : Patient is well developed , no acute distress, intubated, nonresponsive Head : Normal cephalic, a-traumatic. Ears : Pinnae and external canal are normal. Hearing is normal. Eyes : PERRLA, Sclera and injection are normal. No conjunctival discharge. Nose : Mucous membranes are without erythema. Throat : buccal mucosa is normal, gums are without significant recession or hypertrophy. Lungs : Equal chest rise bilaterally, no use of accessory muscles, trachea is midline. Cor : Rate and rhythm are normal. Abdomen : Soft, ND, NT, no g/r/m Extremities : No edema, no cyanosis or clubbing, dorsalis pedis pulses are present bilaterally, non-tender to palpation of calves. Upper extremities are normal bilaterally. Back : non-tender to palpation, no CVA tenderness. Urinary Catheter Management: [place]: Cath Placed During This Visit: no Reason for Continuing Indwelling Catheter: Accurate Measurement of Urinary Output in Critically Ill Patients Data 07/20/24 02:54 07/20/24 09:36 Micro: Microbiology 07/14/24 14:45 Gram Stain - Final Sputum - Endotracheal Tube Aspirate Sputum Culture - Preliminary Gram Negative Rods 07/15/24 12:06 Blood Culture - Preliminary Blood SPECIMEN COLLECTED A&P Assessment and plan (1) ESRD on dialysis: Plan With manipulation was able to get the dialysis catheter in good working order HD per nephrology Medical management per hospitalist Procedures Arterial Line Size (Gauge): 20 Coding Level of Care Code 31624 Diagnoses ESRD on dialysis N18.6; Z99.2
--- NOTE | 2024-07-16 16:53 | P.PN_ITS ---
<Statement entered by Steven Mallory M.D - 07/18/24 12:14> Patient was evaluated and cared for in conjunction with an advanced practice practitioner.? I personally examined the patient and reviewed the chart and all pertinent data including imaging, telemetry, and laboratory results.? I discussed the patient in detail with the advanced practice practitioner.? Please see? their note for complete progress note, testing result and agreed upon plan of care for the patient. Patient continues to be febrile. This evening slight improvement in blood pressure. Still requiring 3 pressors. FiO2 on vent decreased. GENERAL: Patient is intubated and sedated HEART: Regular S1 and S2 LUNGS: Diminished air entry CENTRAL NERVOUS SYSTEM: Patient intubated. Does not respond EXTREMITIES: Lower extremities with out edema bilaterally. (1) Respiratory failure (2) Hyperlipidemia (3) Hypertension (4) ESRD on dialysis: (5) Chronic diastolic heart failure (6) Sleep apnea (7) Cardiac arrest (8) Uses continuous positive airway pressure (CPAP) ventilation at home (9) Thrombocytopenia 10) Septic shock Plan Pressor support coming down. Concern for neurological recovery. Neurology consulted. Plan for CT head today Continue heparin drip for now. Limited echocardiogram that shows moderately reduced RV function. Plan for CRRT per nephrology. Thank you for involving us with care of this patient. We will continue to follow. Please call with questions. Prognosis is guarded. Subjective 2 Subjective: Patient has been weaned off of 2 of his pressors. Attempting CRRT today. Vitals have improved. FiO2 decreased to 50%. There going to get a CT of his head today. Medications: Reviewed: Yes Vitals/I&O/Wt Last Vital Signs Temp 96.9 F L 07/16/24 16:00 Pulse 120 H 07/16/24 16:15 Resp 19 H 07/16/24 15:00 BP 120/83 07/16/24 16:15 Pulse Ox 95 07/16/24 16:15 O2 Del Method Mechanical Ventilation 07/16/24 15:00 FiO2 60 07/16/24 15:00 07/16/24 07/16/24 07/16/24 06:59 14:59 22:59 Intake Total 1681.942 / 7109.878 250 / 250 550 / 800 Output Total 240 / 240 Balance 1441.942 / 6869.878 250 / 250 550 / 800 Weight last 48 hrs Weight 240 lb 14.4 oz Weight 232 lb 1.6 oz Physical Exam 2 Narrative: General: ventilated, sedated, dusky appearing Lymphatic: no edema Respiratory: ventilated, lung sounds clear Cardio: No JVD, tachycardic, S1 S2 normal, no murmurs, peripheral pulses 2+ throughout Extremities: No edema Neuro: sedated Skin: Appears dusky Urinary Catheter Management: [place]: Cath Placed During This Visit: no Reason for Continuing Indwelling Catheter: Accurate Measurement of Urinary Output in Critically Ill Patients Data 07/16/24 03:30 07/16/24 13:22 Micro: Microbiology 07/14/24 14:45 Gram Stain - Final Sputum - Endotracheal Tube Aspirate Sputum Culture - Preliminary Gram Negative Rods 07/15/24 12:06 Blood Culture - Preliminary Blood SPECIMEN COLLECTED A&P Assessment and plan (1) Respiratory failure: (2) Hyperlipidemia: (3) Hypertension: Qualifiers: Hypertension type: primary hypertension Qualified Code(s): I10 - Essential (primary) hypertension (4) ESRD on dialysis: (5) Chronic diastolic heart failure: (6) Sleep apnea: (7) Cardiac arrest: (8) Uses continuous positive airway pressure (CPAP) ventilation at home: (9) Thrombocytopenia: Plan Patient has been weaned off of 2 pressors. FiO2 has been decreased. At this time we will hold off on starting dobutamine as patient is getting CRRT today. CTA of the head is to be done today. At this time we will continue to monitor for worsening right ventricular function. Attestations 2 Medical Necessity Statement*: Deferred to primary. Procedures Arterial Line Size (Gauge): 20 Coding Level of Care Code Acute Code for g Fwd Diagnoses Respiratory failure J96.90 Hyperlipidemia E78.5 Primary hypertension I10 Hypertension type: primary hypertension ESRD on dialysis N18.6; Z99.2 Chronic diastolic heart failure I50.32 Sleep apnea G47.30 Cardiac arrest I46.9 Uses continuous positive airway pressure (CPAP) ventilation at home Z99.89 Thrombocytopenia D69.6
--- NOTE | 2024-07-16 17:56 | PC.NURSE ---
CRRT started per physician orders at 1730.
[2024-07-16] MEDS: norepinephrine 4 MG/250 ML BAG 52.5 MG IV (18:23)
[2024-07-16 19:15] LABS: Partial Thromboplastin Time 83.9 SECONDS (23.9-36.7)
[2024-07-16] MEDS: PrismaSol BGK 4/2.5 - 5,000 mL Bag 5000 ML CRRT ×5 (19:51→22:31)
[2024-07-16 20:16] LABS: Blood Urea Nitrogen 54 mg/dL (8-23); Carbon Dioxide 19 mmol/L (22-29); Chloride 95 mmol/L (98-107); Creatinine Clr Calc Pharmacy 17.5082; Glomerular Filtration Rate 10.6 mL/min (90-130); Glucose 128 mg/dL (65-115); Magnesium 1.7 mg/dL (1.7-2.3); Phosphorus 5.4 mg/dL (2.5-4.5); Sodium 128 mmol/L (136-145)
[2024-07-16 20:23] LABS: Anion Gap 19.7 (5-19); Potassium 5.7 mmol/L (3.5-5.1)
--- NOTE | 2024-07-16 20:44 | PC.NURSE ---
Waste 84 ml of versed and 75 ml of fentanyl wasted with KENDAL Lester.
--- NOTE | 2024-07-16 20:45 | PC.NURSE ---
Leeroy Espinoza Patient's rectal temperature 95.5F. Blood warmer on CRRT machine in use with a temperature of 43C. Leeroy espinoza placed on patient at this time.
[2024-07-16] MEDS: heparin drip 25,000 UNIT/500 ML PREMIX 29 UNIT IV (22:10)
[2024-07-16] MEDS: albumin 12.5 GM/50 ML VIAL IV (23:46)
[2024-07-17] VITALS (91 sets, daily range): BP systolic 75–143; BP diastolic 41–85; PULSE 105–117; RESP 18–19; TEMP 35.1–37.1; O2SAT 90–100; BMI 34.6
[2024-07-17] MEDS: norepinephrine 4 MG/250 ML BAG 45 MG IV ×2 (00:43→06:09)
--- NOTE | 2024-07-17 01:30 | PC.NURSE ---
Filter Change Shortly after 0100, CRRT machine alarmed that the filter was clotting with elevated TMP and pressure drop readings. Dialysis unable to continue. Blood not returned to patient due to possible clots present. Filter set changed and dialysis resumed at around 0200.
[2024-07-17 02:51] LABS: Albumin Level 2.3 g/dL (3.5-5.2); Blood Urea Nitrogen 48 mg/dL (8-23); Calcium 7.1 mg/dL (8.5-10.5); Carbon Dioxide 21 mmol/L (22-29); Chloride 96 mmol/L (98-107); Creatinine Clr Calc Pharmacy 19.2591; Glomerular Filtration Rate 11.8 mL/min (90-130); Glucose 115 mg/dL (65-115); Magnesium 1.7 mg/dL (1.7-2.3); Phosphorus 5.2 mg/dL (2.5-4.5); Sodium 130 mmol/L (136-145)
[2024-07-17 02:52] LABS: Anion Gap 18.3 (5-19); Potassium 5.3 mmol/L (3.5-5.1)
[2024-07-17] MEDS: linezolid premix 600 MG/300 ML PREMIX 300 MG IV ×2 (02:52→14:25)
[2024-07-17 04:13] LABS: Basophils % 0.4 %; Eosinophils # 0.5 10^3/uL (0.0-0.8); Eosinophils % 6.2 %; Hematocrit 32.7 % (37-53); Lymphocytes # 0.4 10^3/uL (0.8-4.8); Lymphocytes % 4.3 %; Mean Corpuscular HGB Conc 30.6 g/dL (30-55); Mean Corpuscular Hemoglobin 24.4 pg (27-33); Mean Platelet Volume 10.1 fL (7.4-10.4); Monocytes # 0.5 10^3/uL (0.2-0.9); Neutrophils # 6.74 10^3/uL (1.8-7.7); Neutrophils % 82.9 %; Nucleated Red Blood Cells % 0 %; Platelet Count 87 10^3/cmm (157-399); Red Blood Count 4.09 10^6/uL (3.85-5.65); Red Cell Distribution Width 18.6 % (12.1-15.1); White Blood Count 8.13 10^3/uL (3.29-11.43)
[2024-07-17] MEDS: sodium chloride 0.9% 1,000 mL Bag CRRT (04:20)
[2024-07-17] MEDS: PrismaSol BGK 4/2.5 - 5,000 mL Bag 5000 ML CRRT ×2 (04:26→04:35)
[2024-07-17 04:32] LABS: Blood Urea Nitrogen 45 mg/dL (8-23); Calcium 7.2 mg/dL (8.5-10.5); Carbon Dioxide 21 mmol/L (22-29); Chloride 98 mmol/L (98-107); Creatinine Clr Calc Pharmacy 20.4884; Glomerular Filtration Rate 12.7 mL/min (90-130); Glucose 146 mg/dL (65-115); Magnesium 1.7 mg/dL (1.7-2.3); Osmolality Calculated 290 mOsm/kg (285-295); Sodium 133 mmol/L (136-145)
[2024-07-17 04:33] LABS: Anion Gap 19.6 (5-19); Potassium 5.6 mmol/L (3.5-5.1)
--- NOTE | 2024-07-17 05:58 | PC.NURSE ---
Physician Communication Dr. Henderson notified of clotted filter previously in the night as well as decreasing platelet count. Order received to stop CRRT if filter clots again and notify her. No additional orders received.
[2024-07-17 08:40] LABS: Albumin Level 2.4 g/dL (3.5-5.2); Anion Gap 18.3 (5-19); Blood Urea Nitrogen 41 mg/dL (8-23); Calcium 7.5 mg/dL (8.5-10.5); Carbon Dioxide 23 mmol/L (22-29); Chloride 96 mmol/L (98-107); Creatinine Clr Calc Pharmacy 22.2034; Glomerular Filtration Rate 13.7 mL/min (90-130); Glucose 141 mg/dL (65-115); Magnesium 1.8 mg/dL (1.7-2.3); Phosphorus 4.9 mg/dL (2.5-4.5); Potassium 5.3 mmol/L (3.5-5.1); Sodium 132 mmol/L (136-145)
[2024-07-17 08:41] LABS: Partial Thromboplastin Time 66.5 SECONDS (23.9-36.7)
[2024-07-17] MEDS: aspirin 81 mg Chew Tablet OG-TUBE (08:50)
[2024-07-17] MEDS: LOKELMA 10 GM 10 EACH OG-TUBE ×3 (08:50→20:17)
[2024-07-17] MEDS: clopidogrel 75 mg Tablet OG-TUBE (08:50)
[2024-07-17] MEDS: meropenem 500 mg SDV IVP (08:50)
--- NOTE | 2024-07-17 10:24 | PC.NURSE ---
approximately 0935 TMP started rising, filter is clottong alarm on screen, unable to clear alarm, Dr. Jeter contacted and advised to end CRRT, blood returned approximately 0942.
--- NOTE | 2024-07-17 10:45 | P.PN_ITS ---
Subjective 2 Subjective: on CRRT Medications: Reviewed: Yes Vitals/I&O/Wt Last Vital Signs Temp 95.2 F L 07/17/24 08:00 Pulse 107 H 07/17/24 10:15 Resp 18 07/17/24 09:44 BP 99/67 07/17/24 10:15 Pulse Ox 92 07/17/24 10:15 O2 Del Method Mechanical Ventilation 07/17/24 06:45 FiO2 40 07/17/24 09:44 07/16/24 07/17/24 07/17/24 22:59 06:59 14:59 Intake Total 1855.717 / 2105.717 930.383 / 3036.100 Output Total 89 / 89 2805 / 2894 Balance 1766.717 / 2016.717 -1874.617 / 142.100 Weight last 48 hrs Weight 112.5 kg Weight 109.27 kg Physical Exam 2 Narrative: intubated , sedated Urinary Catheter Management: Latham: Cath Placed During This Visit: no Reason for Continuing Indwelling Catheter: Accurate Measurement of Urinary Output in Critically Ill Patients Data 07/17/24 04:00 07/17/24 08:13 Micro: Microbiology 07/14/24 14:45 Gram Stain - Final Sputum - Endotracheal Tube Aspirate Sputum Culture - Preliminary Gram Negative Rods 07/15/24 12:06 Blood Culture - Preliminary Blood SPECIMEN COLLECTED A&P Assessment and plan (1) ESRD on dialysis: 1. End-stage renal disease: On TTS schedule, patient currently volume overloaded, pt started on CRRT , filter clotted x twice ,--> currently on hold , on heparin gtt on levophed @ 12 mcg Fio2 down to 40 % 2. Cardiac arrest-currently intubated and on pressors, history of multiple cardiac arrest in the past 3. Hyperkalemia: CRRT as above 4. A-fib with rapid ventricular response 5. Chronic thrombocytopenia 6. History of COPD Patient evaluated using audiovisual cart, time spent 40 minutes. Attestations 2 Medical Necessity Statement*: per [facility] Procedures Arterial Line Size (Gauge): 20 Coding Level of Care Code Acute Code for Chg Fwd Diagnoses ESRD on dialysis N18.6; Z99.2
--- NOTE | 2024-07-17 10:53 | PC.NURSE ---
Dr. Henderson called, plan to recheck labs around 1300 to evaluate if HD dialysis will be indicated
[2024-07-17] MEDS: levofloxacin-dextrose 5 % 500 MG/100 ML PREMIX 100 MG IV (12:05)
[2024-07-17] MEDS: norepinephrine 4 MG/250 ML BAG 37.5 MG IV (12:06)
[2024-07-17] MEDS: sodium bicarbonate 150 MEQ in dextrose 5% 1,000 ML 50 MEQ IV (12:08)
--- NOTE | 2024-07-17 12:12 | P.PN_ITS ---
Subjective 2 Subjective: Seen this morning. Still on Levophed drip at 10 mics. Has been on CRRT overnight which was stopped this morning. 800 cc fluid was removed. Electrolytes reviewed. Leeroy hugger in place. Patient hypothermic. EEG planned for today. No family available at bedside at this time Patient does not respond to sternal rub, no ocular reflexes, very mild gag reflex present, does not respond to commands. Not initiating any breaths. Completely dependent on ventilator as time. FiO2 40%. Unequal pupils. Vitals/I&O/Wt Last Vital Signs Temp 95.2 F L 07/17/24 08:00 Pulse 107 H 07/17/24 10:15 Resp 18 07/17/24 11:20 BP 99/67 07/17/24 10:15 Pulse Ox 96 07/17/24 11:20 O2 Del Method Mechanical Ventilation 07/17/24 06:45 FiO2 40 07/17/24 11:20 07/16/24 07/17/24 07/17/24 22:59 06:59 14:59 Intake Total 1855.717 / 2105.717 2080.383 / 4186.100 250 / 250 Output Total 89 / 89 2805 / 2894 Balance 1766.717 / 2016.717 -724.617 / 1292.100 250 / 250 Weight last 48 hrs Weight 112.5 kg Weight 109.27 kg Physical Exam 2 Narrative: Intubated and sedated. Unequal pupils. Does not respond to sternal rub. Does not respond to nailbed pain. Chest bilateral chest rise, equal breath sounds. Currently on Levophed. Cardiovascular normal heart sounds irregular rhythm, slightly tachycardic. Abdomen soft, distended, hypoactive bowel sounds. Extremities no edema noted bilateral lower extremity Neuro: Unresponsive, does not respond to sternal rub or when pain elicited at nailbed. Does have unequal pupils. Urinary Catheter Management: Latham: Cath Placed During This Visit: no Reason for Continuing Indwelling Catheter: Accurate Measurement of Urinary Output in Critically Ill Patients Data 07/17/24 04:00 07/17/24 08:13 Micro: Microbiology 07/12/24 11:55 Blood Culture - Final Blood NO GROWTH AFTER 5 DAYS 07/12/24 11:50 Blood Culture - Final Blood NO GROWTH AFTER 5 DAYS 07/14/24 14:45 Gram Stain - Final Sputum - Endotracheal Tube Aspirate Sputum Culture - Preliminary Gram Negative Rods 07/15/24 12:06 Blood Culture - Preliminary Blood SPECIMEN COLLECTED A&P Assessment and plan (1) Respiratory failure: (2) Hyperlipidemia: (3) Hypertension: Qualifiers: Hypertension type: primary hypertension Qualified Code(s): I10 - Essential (primary) hypertension (4) ESRD on dialysis: (5) Chronic diastolic heart failure: (6) Sleep apnea: (7) Cardiac arrest: (8) Uses continuous positive airway pressure (CPAP) ventilation at home: (9) Thrombocytopenia: Plan João Carter is a 63 year old male João Carter is a 63 year old male With past medical history of sleep apnea noncompliant with CPAP, diabetes, hypertension, end-stage renal disease on hemodialysis TTS, paroxysmal A-fib with RVR, secondary polycythemia, thrombocytopenia, cardiac arrest, diastolic heart failure, restrictive lung disease was brought in by the EMS after an event of cardiac arrest at dialysis. He is s/p endotracheal intubation. #Cardiac arrest-likely secondary to hypotension during hemodialysis He is s/p endotracheal intubation on mechanical ventilator, sedated On external pacemaker, current heart rate 75 to 77 bpm, irregular Cardiology consulted in ED EKG showed no ST-T changes First set of troponin 74 Will continue heparin drip started in ER until further cardiology recommendations Check 2D echo Chest x-ray consistent with fluid overload Blood pressure stable, no pressors required as of yet K 3.9, Mg 1.8, will replace ECHO-05/06 LV systolic function is normal with EF of 60 to 65%. Grade 1 diastolic dysfunction Moderate to severe left ventricular hypertrophy Mild mitral regurgitation Mild tricuspid regurgitation Mild pulmonic regurgitation # Respiratory failure-likely secondary to cardiac arrest continue mechanical ventilation, ABG noted Continue sedation with propofol and Versed Will monitor blood pressure Will do DuoNebs every 6 hours as needed # ESRD on hemodialysis-Creat 3.0 Will need nephrology consult Monitor electrolytes for now # Thrombocytopenia-platelets 112 Has baseline thrombocytopenia Will continue to monitor He was started on heparin drip in ER s/p cardiac arrest, will hold off on DVT prophylaxis #ID-chest x-ray consistent with fluid overload, no pneumonia, no leukocytosis Will monitor chest x-ray for probable aspiration during code BCx and sputum Cx pending #Diabetes Mellitus-BS 140 will do insulin correction scale for now DVT prophylaxis, already started on heparin drip in ER for possible RI GI prophylaxis with IV Protonix 40 mg daily He is n.p.o. for now CODE STATUS discussed with at bedside, he is full code. 07/13/24 He is still intubated and sedated. Had an hypotensive episode this morning, was started on Levophed. Chest exam showed bilateral coarse rhonchi and crackles consistent with fluid overload. Was also found to have potassium of 5.8 this morning and creatinine of 3.5. Nephrology consulted for HD. He also has platelet count trending down to 89. He is on heparin drip for possible RI. Discussed with cardiology, Dr. Mallory, wants to continue heparin drip for 48 hours since admission. D-dimer elevated 1.05, will check CTA chest PE protocol to rule out PE since 2D echo as per cardiology showed RV dilatation. He had a temperature of 100.8 this morning, given 1 dose of IV Zosyn 3.375 mg. Will continue IV Zosyn for now. Continue to monitor in ICU. Family, aware of plan of care. -#Pneumonia #Hyperkalemia #Respiratory failure secondary to cardiac arrest, ventilator dependent respiratory failure #End-stage renal disease on hemodialysis, renal failure #Chronic thrombocytopenia #Diabetes mellitus type 2 #Cardiac arrest secondary to hypotension during dialysis #Possibility of a large PE? #Right ventricular hypokinesia #History of obstructive sleep apnea #History of hypertension #History of A-fib with RVR #Diastolic heart failure #Restrictive lung disease 07/14/2024 ? Patient continues to be intubated and sedated. He has been hypotensive and is requiring 3 pressors at this time Levophed, vasopressin and epinephrine. He does have bilateral coarse crackles consistent with fluid overload. Equal bilateral chest rise, low suspicion of pneumothorax at this time. He is hyperkalemic with potassium of 6.9. He was treated with insulin dextrose 2 A of bicarb, calcium gluconate ? Patient is being continued on a heparin drip for possibility of PE. Patient not too unstable to go for CTA chest. ? Chest x-ray from this morning did show mild interval increase of perihilar opacities related to fluid overload versus infectious inflammatory processes. For possibility of pneumonia Zyvox and meropenem have been added on. ? Echo did show RV dilatation. D-dimer elevated at 1.05. Too unstable to go for CTA chest at this time. ? Did have temperature overnight 100.8. Will continue on meropenem. ? Patient is not a candidate for dialysis at this time given 3 vasopressor support and hypotension. Will discuss with nephrology. Will discuss if there is possibility of CRRT that could be performed. ? Family would like to elect DNR status at this time. However we will continue to treat ? Blood cultures ordered overnight. ? Check urine culture, sputum culture Gram stain. -Continue to wean off vasopressors as able. -Patient does have evidence of anisocoria. Will obtain head CT if possible. ? When and if patient does become medically stable cardiology to consider stress test versus coronary angiogram in the future. ? If patient does become stable enough we will go ahead with dialysis. ? Discussed with cardiology, nephrology, nursing staff, family. Saw patient multiple times this morning. -He remains in a critical condition. 07/15/2024 -Patient remains in critical condition at this time. He is maxed out on 3 pressors. Does not tolerate any movement and desats immediately. FiO2 60% this morning. Currently on a bicarb drip, epinephrine, vasopressin, Levophed. ? CT head, CTA chest abdomen pelvis ordered however patient unstable to go for imaging studies at this time. ? Limited echo repeated. Does show moderate hypokinesis of right ventricle. ? Blood cultures pending, CRP 200, procalcitonin 11. Appropriate this morning. ? Urine culture sputum culture Gram stain pending at this time. ? Continue meropenem and Zyvox. ? Not a candidate for CRRT secondary to high vasopressor requirements. ? Continue heparin drip for to cover for possibility of PE. ? Discussed with , nursing staff, nephrology in detail. ? Creatinine continues to rise. 6.8 today. Potassium also elevated. ? Have ordered Lokelma and Bicitra as per nephrology recommendations. Will reduce bicarb drip to 50 cc/h. ? Repeat labs at 6 PM. ? Abdomen ultrasound reviewed. Possibility of liver cirrhosis. Absent gallbladder. No other acute pathology identified at this time. 07/16/2024 -Patient is off vasopressin and epinephrine. Currently on Levophed at 16 mics. Attempting to wean down as able to. FiO2 50%. ? Patient has had fevers up to 104 yesterday. Requiring IV Tylenol. Fever may be secondary to underlying pneumonia versus central cause. ? High suspicion of brainstem and other areas of brain having a stroke given high vasopressor requirement and shock. Will be checking a CT head without contrast, CTA head and neck with contrast, CT chest abdomen pelvis today. Will rule out PE as well. ? Patient is currently on a heparin drip. ? Limited echo did show hypokinesis of right ventricle. ? Potassium 5.5 today. Patient is on Lokelma 10 g 3 times daily. ? Bicitra ordered by nephrology. ? Nephrology following. Plan for CRRT today tentatively. ? Discussed prognosis with family today. I worry about neurological status. Clinically patient is not doing well neurologically. He is on 25 mics of fentanyl which we will also turn off at this time. To assess for responsiveness. ? Consult neurology. Plan for possible EEG in the morning. ? Iron studies ordered yesterday. Percent saturation 7.8. Will order iron sucrose Venofer 200 mg IV x 1. -Liver enzymes slightly elevated. ? Patient hypothermic later in the afternoon with 96.2 temperature. Will apply Leeroy hugger. Temperature variations may be due to central cause with hypothalamus affected. High possibility of brainstem stroke. ? We will have to check for spontaneous breathing trial and assess for brain if patient continues to be unresponsive. Discussed with neurology. -Did discuss again with family and cardiology. Apparently patient had a coronary angiogram done at previous hospitalization at [facility] 3 months ago and had a coronary stent placed. He was on aspirin and Plavix prior to admission as per family however home medications have only listed Plavix at this time. We will place patient back on aspirin and Plavix at this time. Initially patient's had mentioned that he received a carotid stent but upon talking to the daughter it seems he was not a candidate for any carotid intervention and instead coronary angiogram was pursued and coronary stent was placed. We have requested records from [facility] and we will review them in detail. Family updated at bedside in detail. DNR DVT prophylaxis: On a heparin drip at this time. Prognosis remains poor. 07/16/2024 -Patient has no purposeful movements, does not respond to pain did not respond to sternal rub nailbed pain, does have unequal pupils. Has been hypothermic requiring active rewarming protocol with Leeroy hugger. Temperature 95.2. 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 Brainstem stroke suspected. CT head, CTA head and neck reviewed. Multiple infarcts noted. ? EEG planned for today. ? Patient's symptoms. PT 800 cc fluid removed. ? Currently still requiring Levophed. Wean off as able ? Still awaiting records from [facility]. ? Continue treatment as above. Continue antibiotics, aspirin Plavix. ? stop bicarbonate drip. ? Continue heparin drip at this time. ? Amiodarone drip was started yesterday for A-fib. Patient still tachycardic heart rate 107. ? Neurology following. ? When family is here we will update them in person. Prognosis guarded Attestations 2 Medical Necessity Statement*: Remains critically ill in ICU. Critical Care Time: The high probability of a clinically significant, sudden or life threatening deterioration of the patient's [neurological, respiratory, cardiovascular, renal] system(s) required my full and direct attention, intervention and personal management. The critical care time is as shown. This time is in addition to time spent performing any reported procedures but includes the following: [x] Data and vital sign review and interpretation [x] Patient assessment, examination and intervention [x] Documentation [x] Medication orders and management Critical Care Time (min): 35 Procedures Arterial Line Size (Gauge): 20 Coding Level of Care Code Acute Code for Chg Fwd Diagnoses Respiratory failure J96.90 Hyperlipidemia E78.5 Primary hypertension I10 Hypertension type: primary hypertension ESRD on dialysis N18.6; Z99.2 Chronic diastolic heart failure I50.32 Sleep apnea G47.30 Cardiac arrest I46.9 Uses continuous positive airway pressure (CPAP) ventilation at home Z99.89 Thrombocytopenia D69.6
[2024-07-17] MEDS: pantoprazole 40 mg SDV IVP (14:25)
[2024-07-17] MEDS: heparin drip 25,000 UNIT/500 ML PREMIX 29 UNIT IV (14:48)
[2024-07-17 15:06] LABS: Albumin Level 2.4 g/dL (3.5-5.2); Anion Gap 15.4 (5-19); Blood Urea Nitrogen 42 mg/dL (8-23); Carbon Dioxide 24 mmol/L (22-29); Chloride 93 mmol/L (98-107); Creatinine Clr Calc Pharmacy 20.7862; Glomerular Filtration Rate 12.7 mL/min (90-130); Glucose 133 mg/dL (65-115); Magnesium 1.8 mg/dL (1.7-2.3); Potassium 5.4 mmol/L (3.5-5.1); Sodium 127 mmol/L (136-145)
--- NOTE | 2024-07-17 15:45 | P.PN_ITS ---
<Statement entered by Steven Mallory M.D - 07/18/24 12:23> Patient was evaluated and cared for in conjunction with an advanced practice practitioner.? I personally examined the patient and reviewed the chart and all pertinent data including imaging, telemetry, and laboratory results.? I discussed the patient in detail with the advanced practice practitioner.? Please see? their note for complete progress note, testing result and agreed upon plan of care for the patient. Patient does not respond to painful stimuli. Neurology on board. Likely will have EEG. GENERAL: Patient is intubated and sedated HEART: Regular S1 and S2 LUNGS: Diminished air entry CENTRAL NERVOUS SYSTEM: Patient intubated. Does not respond EXTREMITIES: Lower extremities with out edema bilaterally. (1) Respiratory failure (2) Hyperlipidemia (3) Hypertension (4) ESRD on dialysis: (5) Chronic diastolic heart failure (6) Sleep apnea (7) Cardiac arrest (8) Uses continuous positive airway pressure (CPAP) ventilation at home (9) Thrombocytopenia 10) Septic shock 11) Stroke Plan Patient is stable from cardiac standpoint. Pressor requirement has decreased. On amiodarone gtt. Thank you for involving us with care of this patient. We will continue to follow. Please call with questions. Prognosis is guarded. Appropriate to have goals of care discussion. Subjective 2 Subjective: Patient is doing about the same. CT showed several acute infarcts. He is not responsive to sternal rub. Corneal reflex is not intact. Still on Levophed. Dialysis was attempted today but his filter chamber clotted. Medications: Reviewed: Yes Vitals/I&O/Wt Last Vital Signs Temp 95.2 F L 07/17/24 08:00 Pulse 107 H 07/17/24 10:15 Resp 18 07/17/24 15:22 BP 99/67 07/17/24 10:15 Pulse Ox 96 07/17/24 15:22 O2 Del Method Mechanical Ventilation 07/17/24 06:45 FiO2 40 07/17/24 15:22 07/17/24 07/17/24 07/17/24 06:59 14:59 22:59 Intake Total 2080.383 / 4186.100 583.983 / 583.983 Output Total 2805 / 2894 Balance -724.617 / 1292.100 583.983 / 583.983 Weight last 48 hrs Weight 248 lb 0.321 oz Weight 240 lb 14.4 oz Physical Exam 2 Narrative: General: ventilated, sedated Lymphatic: no edema Respiratory: ventilated, lung sounds clear Cardio: No JVD, tachycardic, S1 S2 normal, no murmurs, peripheral pulses 2+ throughout Extremities: No edema Neuro: sedated Skin: normal Urinary Catheter Management: Latham: Cath Placed During This Visit: no Reason for Continuing Indwelling Catheter: Accurate Measurement of Urinary Output in Critically Ill Patients Data 07/17/24 04:00 07/17/24 14:37 Micro: Microbiology 07/14/24 14:45 Gram Stain - Final Sputum - Endotracheal Tube Aspirate Sputum Culture - Final Pseudomonas aeruginosa 07/15/24 12:06 Blood Culture - Preliminary Blood NEGATIVE TO DATE 07/12/24 11:55 Blood Culture - Final Blood NO GROWTH AFTER 5 DAYS 07/12/24 11:50 Blood Culture - Final Blood NO GROWTH AFTER 5 DAYS A&P Assessment and plan (1) Respiratory failure: (2) Hyperlipidemia: (3) Hypertension: Qualifiers: Hypertension type: primary hypertension Qualified Code(s): I10 - Essential (primary) hypertension (4) ESRD on dialysis: (5) Chronic diastolic heart failure: (6) Sleep apnea: (7) Cardiac arrest: (8) Uses continuous positive airway pressure (CPAP) ventilation at home: (9) Thrombocytopenia: Plan Patient remains on Levophed. He is on a rewarming protocol. FiO2 has remained the same. Patient's prognosis is very guarded. No new recommendations from a cardiology standpoint at this time. Attestations 2 Medical Necessity Statement*: Deferred to primary. Procedures Arterial Line Size (Gauge): 20 Coding Level of Care Code Acute Code for [facility] Fwd Diagnoses Respiratory failure J96.90 Hyperlipidemia E78.5 Primary hypertension I10 Hypertension type: primary hypertension ESRD on dialysis N18.6; Z99.2 Chronic diastolic heart failure I50.32 Sleep apnea G47.30 Cardiac arrest I46.9 Uses continuous positive airway pressure (CPAP) ventilation at home Z99.89 Thrombocytopenia D69.6
--- NOTE | 2024-07-17 15:45 | P.PN_ITS ---
Subjective 2 Subjective: History of present illness: João Carter is a 63 year old male with a history of paroxysmal atrial fibrillation with rapid ventricular response, left carotid stenosis, recurrent cardiac arrest with respiratory failure and end-stage renal disease. The patient was reported to experience cardiac arrest followed by septic shock. The patient has been off sedation for 48 hours but continues to have decreased level consciousness and therefore neurology consult was obtained. Patient has a history of cardiac arrest approximately 6 times during previous dialysis with decreased blood pressure. On 07/17/2024 the patient remains intubated. The patient remained stuporous with minimal response to vigorous stimulation and painful stimuli. The patient's and daughters at the patient's bedside in ICU bed #10. The patient's respiratory rate on the ventilator set at 18. Patient during sternal rub will briefly breathing 19 breaths/min, which is 1 breath over the ventilator settings. But then the ventilation rate returns to 18 with no spontaneous breaths over the ventilator. Cranial nerves II through XII revealed no corneal reflexes. Oculocephalic reflexes are not intact. Pupils left pupil 4 to 5 mm right pupil 3 mm neither reactive to light. Motor testing reveals decerebrate posture. Patient displayed some mild movement of the right toes when pain was applied to the nailbeds on the right foot and patient displayed some purposeful movement of the left foot when pain was applied to the left toe nailbeds. Plantar responses flexor bilaterally there was no clonus. During sternal rub the patient's respiration rate was 19 breaths/min temporarily and then the respiration rate returned to 18 breaths/min with the ventilator settings at 18. I informed the family that the EEG was not performed on 07/16/2024 since my appliance service technician was informed by the ICU that the patient was to undergo central line placement for CRRT. I spoke with the attending physician on 07/17/2024 who informed me that the patient's central line was working in the order for replacement of a new central line was canceled. My appliance service technician and I were not informed of this on 07/16/2024. My appliance service technician will attempt to perform the portable EEG on the evening/night of 07/17/2024 or 07/18/2024. I had a long discussion with the patient's and patient's daughter regarding the patient's clinical condition. The family was informed that in view of the patient's clinical history and neurological clinical examinations on 07/16/2024 and 07/17/2024 suggestive of anoxic encephalopathy and possible brainstem stroke, the patient's prognosis is poor. The family was informed that since the patient is on the ventilator, head MRI cannot be obtained. Noncontrast head CT was obtained on 07/16/2024 revealed the following: IMPRESSION: 1. There are several new small irregul ar low-density areas in the white matter of the left frontal lobe, the anterior left parietal and occipital lobes, and in the left basal ganglia region. This is all most likely subacute infarction mainly in the distribution of the left middle cerebral artery. No intracranial hemorrhage or significant mass effect, otherwise. 2. Increased mild bilateral sinusitis. CT angiogram of the head and neck performed on 07/16/2024 revealed the following: IMPRESSION: 1. There are several at least 50-69% d iameter stenoses within the petrous portion and intracranial portion of the left internal carotid artery which are not obviously changed. In view of the patient decreased level consciousness neurology consult was obtained. Drug allergies: Penicillin which resulted in hives Medications: Albuterol sulfate 90 mcg per accusation 1 inhalation every 4 hours as needed Plavix 75 mg p.o. daily Lasix 20 mg p.o. daily Lovastatin 20 mg p.o. daily Sevelamer carbonate 800 mg p.o. daily Vitamin K2 40 mcg p.o. daily Vitamin E 268 mg p.o. daily Vitamin B12/folic acid 1 tablet p.o. daily Habits: Unknown Family history: Unable to obtain secondary to patient's medical condition Review of Systems General: Reports: ROS unobt ainable due to end otracheal tube and ROS unobtainable due to medical con dition Vitals/I&O/Wt Last Vital Signs Temp 95.2 F L 07/17/24 08:00 Pulse 107 H 07/17/24 10:15 Resp 18 07/17/24 15:22 BP 99/67 07/17/24 10:15 Pulse Ox 96 07/17/24 15:22 O2 Del Method Mechanical Ventilation 07/17/24 06:45 FiO2 40 07/17/24 15:22 07/17/24 07/17/24 07/17/24 06:59 14:59 22:59 Intake Total 2080.383 / 4186.100 583.983 / 583.983 Output Total 2805 / 2894 Balance -724.617 / 1292.100 583.983 / 583.983 Weight last 48 hrs Weight 248 lb 0.321 oz Weight 240 lb 14.4 oz Physical Exam 2 Narrative: Blood pressure 99/67 heart rate 107 respirations 18 temperature 95.2 ?F O2 saturation 96% on mechanical ventilation. The patient remains intubated. The patient remained stuporous with minimal response to vigorous stimulation and painful stimuli. The patient's respiratory rate on the ventilator set at 18. Patient during sternal rub will briefly breathing 19 breaths/min, which is 1 breath over the ventilator settings. But then the ventilation rate returns to 18 with no spontaneous breaths over the ventilator. Cranial nerves II through XII revealed no corneal reflexes. Oculocephalic reflexes are not intact. Pupils left pupil 4 to 5 mm right pupil 3 mm neither reactive to light. Motor testing reveals decerebrate posture. Patient displayed some mild movement of the right toes when pain was applied to the nailbeds on the right foot and patient displayed some purposeful movement of the left foot when pain was applied to the left toe nailbeds. Plantar responses flexor bilaterally there was no clonus. During sternal rub the patient's respiration rate was 19 breaths/min temporarily and then the respiration rate returned to 18 breaths/min with the ventilator settings at 18. Urinary Catheter Management: [place]: Cath Placed During This Visit: no Reason for Continuing Indwelling Catheter: Accurate Measurement of Urinary Output in Critically Ill Patients Data 07/17/24 04:00 07/17/24 14:37 Micro: Microbiology 07/14/24 14:45 Gram Stain - Final Sputum - Endotracheal Tube Aspirate Sputum Culture - Final Pseudomonas aeruginosa 07/15/24 12:06 Blood Culture - Preliminary Blood NEGATIVE TO DATE 07/12/24 11:55 Blood Culture - Final Blood NO GROWTH AFTER 5 DAYS 07/12/24 11:50 Blood Culture - Final Blood NO GROWTH AFTER 5 DAYS A&P Assessment and plan (1) Anoxic encephalopathy: Impression: 1. Anoxic encephalopathy 2. Left MCA distribution stroke 3. 50-69% diameter stenoses within the petrous portion and intracranial portion of the left internal carotid artery which are not obviously changed. 4. Renal failure on hemodialysis Plan: 1. I had a long discussion with the patient's and patient's daughter on 07/17/2024 regarding the patient's clinical condition. The family was informed that in view of the patient's clinical history of cardiac arrest requiring resuscitation and neurological clinical examinations on 07/16/2024 and 07/17/2024 suggestive of anoxic encephalopathy and possible brainstem stroke secondary to clinical examination revealing no oculocephalic reflexes, asymmetric pupils with no obvious reaction to light and no spontaneous movements and stuporous mental state despite discontinuing sedation for greater than 72 hours, the patient's prognosis is poor. The family was informed that since the patient is on the ventilator, head MRI cannot be obtained. 2. Will attempt to obtain portable surface EEG recording on 07/17/2024 to assess for anoxic encephalopathy 3. Agree with current treatment plan and speaking with the family regarding comfort care Attestations 2 Medical Necessity Statement*: Patient was evaluated by neurology for encephalopathy, acute and stroke Procedures Arterial Line Size (Gauge): 20 Coding Level of Care Code 82389 Diagnoses Anoxic encephalopathy G93.1
--- NOTE | 2024-07-17 16:30 | PC.NURSE ---
Per Dr. Henderson, will reevaluate labs in the AM to determine plan of care
--- NOTE | 2024-07-17 17:00 | PM.ACPR ---
Documented by User: Destinee [email or web address] 07/17/24 17:01 Procedure/Consent Procedure Narrative: obtain portable surface EEG recording on 07/17/2024 to assess for anoxic encephalopathy Acute Procedures Arterial Line: Size (Gauge): 20 EEG Routine Details of Procedure EEG 11627- coma or sleep only: 61183 (obtain portable surface EEG recording on 07/17/2024 to assess for anoxic encephalopathy) Documented by User: Jayme Weiss MD 07/18/24 11:00 Procedure/Consent Procedure Narrative: obtain portable surface EEG recording on 07/17/2024 to assess for anoxic encephalopathy EEG TEMPLATE: This is a 19 channel routine video surface EEG recording utilizing the [email or web address] software with surface and EKG electrodes. The procedure was performed utilizing the international 10-20 system. Patient name: João Carter Date of : 1960 Patient age [age] years old Identification number: [id number] Referring Physician: Jayme Weiss MD EEG#: EEG Start time: 17:26:08 EEG End time: 17:46:09 Duration of study: 20 minutes Date of study: 07/17/2024 Reason for study: Stupor in patient with a history of cardiac arrest assess for anoxic encephalopathy Skull defects: None Condition of recording: The patient was reported to be stuporous Cooperation: N/A. Patient stupor state Activation procedures: None Medications: Amiodarone Background activity: Background activity during the portable surface EEG recording revealed 6 Hz low voltage theta slowing seen over the left hemisphere and 5 Hz theta slowing seen over the right hemisphere associated with intermittent generalized 2 to 3 Hz low to moderate voltage delta activity. The slowing of the background rhythm was more pronounced over the right hemisphere. Intermittent low voltage beta activity was seen centrally and anteriorly. Interictal activity: None Ictal activity: None Impression: This is an abnormal 20-minute portable surface EEG recording secondary to generalized theta/delta slowing seen over the left and right hemispheres more pronounced over the right hemisphere. Clinical correlation: The slowing of the background rhythm is consistent with a diffuse encephalopathic process. The focal slowing seen over the right hemisphere suggestive of a structural lesion/stroke in this area. In view of the patient's history of cardiac arrest, and clinical examination consistent with stuporous state, the portable surface EEG recording findings are consistent with the patient's clinical diagnosis of anoxic encephalopathy. Note: No seizure activity was seen. Physician name/Signature: Jayme Weiss MD schedule analyst/Signature: Destinee Morgan
--- NOTE | 2024-07-17 17:09 | PC.NURSE ---
patient requested home dose of oxycodone for pain, DR Monroy approved 1x dose
[2024-07-17] MEDS: norepinephrine 4 MG/250 ML BAG 52.5 MG IV ×2 (18:39→22:29)
[2024-07-17 19:49] LABS: Albumin Level 2.4 g/dL (3.5-5.2); Anion Gap 17.4 (5-19); Blood Urea Nitrogen 43 mg/dL (8-23); Calcium 8.1 mg/dL (8.5-10.5); Carbon Dioxide 24 mmol/L (22-29); Chloride 90 mmol/L (98-107); Creatinine Clr Calc Pharmacy 22.2034; Glomerular Filtration Rate 13.7 mL/min (90-130); Glucose 137 mg/dL (65-115); Magnesium 1.8 mg/dL (1.7-2.3); Potassium 5.4 mmol/L (3.5-5.1); Sodium 126 mmol/L (136-145)
[2024-07-17 19:53] LABS: Partial Thromboplastin Time 69.3 SECONDS (23.9-36.7)
[2024-07-18] VITALS (53 sets, daily range): BP systolic 69–127; BP diastolic 41–89; PULSE 98–127; RESP 18–19; TEMP 36.9–38.3; O2SAT 90–94; BMI 35.3
[2024-07-18 02:14] LABS: Basophils % 0.2 %; Eosinophils # 0.3 10^3/uL (0.0-0.8); Eosinophils % 3.2 %; Hematocrit 33.1 % (37-53); Lymphocytes # 0.4 10^3/uL (0.8-4.8); Lymphocytes % 4.5 %; Mean Corpuscular HGB Conc 30.8 g/dL (30-55); Mean Corpuscular Hemoglobin 24.5 pg (27-33); Mean Corpuscular Volume 79.6 fl (82-101); Mean Platelet Volume 9.4 fL (7.4-10.4); Monocytes # 0.8 10^3/uL (0.2-0.9); Monocytes % 9.6 %; Neutrophils # 6.67 10^3/uL (1.8-7.7); Nucleated Red Blood Cells % 0 %; Platelet Count 63 10^3/cmm (157-399); Red Blood Count 4.16 10^6/uL (3.85-5.65); Red Cell Distribution Width 18.6 % (12.1-15.1); White Blood Count 8.14 10^3/uL (3.29-11.43)
[2024-07-18] MEDS: linezolid premix 600 MG/300 ML PREMIX 300 MG IV ×2 (02:14→14:37)
[2024-07-18 02:27] LABS: Partial Thromboplastin Time 64.6 SECONDS (23.9-36.7)
[2024-07-18 02:34] LABS: Albumin Level 2.5 g/dL (3.5-5.2); Blood Urea Nitrogen 49 mg/dL (8-23); Calcium 8.2 mg/dL (8.5-10.5); Carbon Dioxide 25 mmol/L (22-29); Chloride 90 mmol/L (98-107); Glomerular Filtration Rate 11.8 mL/min (90-130); Glucose 153 mg/dL (65-115); Magnesium 1.8 mg/dL (1.7-2.3); Phosphorus 5.3 mg/dL (2.5-4.5); Sodium 126 mmol/L (136-145)
[2024-07-18 02:35] LABS: Anion Gap 16.9 (5-19); Potassium 5.9 mmol/L (3.5-5.1)
[2024-07-18] MEDS: chlorhexidine gluconate 4% Btl 118 mL 1 APPLIC TOPICAL (03:03)
[2024-07-18] MEDS: norepinephrine 4 MG/250 ML BAG 45 MG IV (03:41)
[2024-07-18] MEDS: heparin drip 25,000 UNIT/500 ML PREMIX 29.01 UNIT IV (07:31)
[2024-07-18 07:41] LABS: Glucose Point of Care 109 mg/dL (70-110)
[2024-07-18 08:04] LABS: Albumin Level 2.5 g/dL (3.5-5.2); Anion Gap 16.4 (5-19); Blood Urea Nitrogen 49 mg/dL (8-23); Calcium 8.4 mg/dL (8.5-10.5); Carbon Dioxide 25 mmol/L (22-29); Chloride 89 mmol/L (98-107); Glomerular Filtration Rate 10.4 mL/min (90-130); Glucose 110 mg/dL (65-115); Magnesium 1.8 mg/dL (1.7-2.3); Phosphorus 5.6 mg/dL (2.5-4.5); Potassium 5.4 mmol/L (3.5-5.1); Sodium 125 mmol/L (136-145)
[2024-07-18] MEDS: alteplase 1 mg/mL SDV 2 mL INTRACATH ×4 (08:20→10:45)
[2024-07-18] MEDS: clopidogrel 75 mg Tablet OG-TUBE (08:27)
[2024-07-18] MEDS: aspirin 81 mg Chew Tablet OG-TUBE (08:27)
[2024-07-18] MEDS: norepinephrine 4 MG/250 ML BAG 52.5 MG IV ×2 (09:19→14:14)
[2024-07-18 09:57] LABS: Partial Thromboplastin Time 60.1 SECONDS (23.9-36.7)
[2024-07-18 10:34] LABS: ABG PCO2 32.7 mmHg (35-45); ABG PH Result 7.44 (7.35-7.45); Alveolar-Arterial Oxygen Gradi 24.7 mmHg (5-10); Arterial Blood Gas Hematocrit 29.1 % (42-52); Base Excess ABG -1.4 mmol/L (-2.0-2.0); Blood Gas Operator Identificat BROMA; Blood Gas Sample Type Arterial; Blood Gas Tidal Volume 0.55; Carboxyhemoglobin 1.3 %THgb (0.4-20.1); HCO3 ABG 22.3 mmol/L (22-26); Oxygen Device VENT; Oxygen Saturation ABG 89.1; PO2 ABG 58.1 mmHg (80.0-100.0); PO2 FiO2 Ratio Arterial Blood 145; Potassium Level - ABG 4.3 mmol/L (3.5-5.0); Total Hemoglobin 9.5 g/dL (14-18)
[2024-07-18 10:35] LABS: Blood Gas Sample Site ART- LINE
--- NOTE | 2024-07-18 10:41 | P.PN_ITS ---
Subjective 2 Subjective: History of present illness: João Carter is a 63 year old male with a history of paroxysmal atrial fibrillation with rapid ventricular response, left carotid stenosis, recurrent cardiac arrest with respiratory failure and end-stage renal disease. The patient was reported to experience cardiac arrest followed by septic shock. The patient has been off sedation for 48 hours but continues to have decreased level consciousness and therefore neurology consult was obtained. Patient has a history of cardiac arrest approximately 6 times during previous dialysis with decreased blood pressure. On 07/17/2024 the patient remains intubated. The patient remained stuporous with minimal response to vigorous stimulation and painful stimuli. The patient's and daughters at the patient's bedside in ICU bed #10. The patient's respiratory rate on the ventilator set at 18. Patient during sternal rub will briefly breathing 19 breaths/min, which is 1 breath over the ventilator settings. But then the ventilation rate returns to 18 with no spontaneous breaths over the ventilator. Cranial nerves II through XII revealed no corneal reflexes. Oculocephalic reflexes are not intact. Pupils left pupil 4 to 5 mm right pupil 3 mm neither reactive to light. Motor testing reveals decerebrate posture. Patient displayed some mild movement of the right toes when pain was applied to the nailbeds on the right foot and patient displayed some purposeful movement of the left foot when pain was applied to the left toe nailbeds. Plantar responses flexor bilaterally there was no clonus. During sternal rub the patient's respiration rate was 19 breaths/min temporarily and then the respiration rate returned to 18 breaths/min with the ventilator settings at 18. I informed the family that the EEG was not performed on 07/16/2024 since my registered veterinary technician was informed by the ICU that the patient was to undergo central line placement for CRRT. I spoke with the attending physician on 07/17/2024 who informed me that the patient's central line was working in the order for replacement of a new central line was canceled. My registered veterinary technician and I were not informed of this on 07/16/2024. My registered veterinary technician will attempt to perform the portable EEG on the evening/night of 07/17/2024 or 07/18/2024. I had a long discussion with the patient's and patient's daughter regarding the patient's clinical condition. The family was informed that in view of the patient's clinical history and neurological clinical examinations on 07/16/2024 and 07/17/2024 suggestive of anoxic encephalopathy and possible brainstem stroke, the patient's prognosis is poor. The family was informed that since the patient is on the ventilator, head MRI cannot be obtained. Portable surface EEG recording performed on 07/17/2024 revealed generalized theta slowing with 6 Hz theta slowing seen over the left hemisphere and 5 Hz theta slowing seen over the right hemisphere associated with delta slowing seen over the left and right hemispheres but more pronounced over the right hemisphere. Findings consistent with a diffuse encephalopathic process as well as structural lesion/stroke in the right hemisphere. The generalized slowing is consistent with the patient's clinical diagnosis of anoxic encephalopathy. Note: No seizure activity was seen. Noncontrast head CT was obtained on 07/16/2024 revealed the following: IMPRESSION: 1. There are several new small irregul ar low-density areas in the white matter of the left frontal lobe, the anterior left parietal and occipital lobes, and in the left basal ganglia region. This is all most likely subacute infarction mainly in the distribution of the left middle cerebral artery. No intracranial hemorrhage or significant mass effect, otherwise. 2. Increased mild bilateral sinusitis. CT angiogram of the head and neck performed on 07/16/2024 revealed the following: IMPRESSION: 1. There are several at least 50-69% d iameter stenoses within the petrous portion and intracranial portion of the left internal carotid artery which are not obviously changed. In view of the patient decreased level consciousness neurology consult was obtained. Drug allergies: Penicillin which resulted in hives Medications: Albuterol sulfate 90 mcg per accusation 1 inhalation every 4 hours as needed Plavix 75 mg p.o. daily Lasix 20 mg p.o. daily Lovastatin 20 mg p.o. daily Sevelamer carbonate 800 mg p.o. daily Vitamin K2 40 mcg p.o. daily Vitamin E 268 mg p.o. daily Vitamin B12/folic acid 1 tablet p.o. daily Habits: Unknown Family history: Unable to obtain secondary to patient's medical condition Review of Systems General: Reports: ROS unobtainable due to endotracheal tube and ROS unobtainable due to medical condition Vitals/I&O/Wt Last Vital Signs Temp 99.9 F H 07/18/24 08:00 Pulse 117 H 07/18/24 08:00 Resp 18 07/18/24 07:28 BP 119/82 07/18/24 08:00 Pulse Ox 93 07/18/24 08:00 O2 Del Method Mechanical Ventilation 07/18/24 08:00 FiO2 40 07/18/24 08:00 07/17/24 07/18/24 07/18/24 22:59 06:59 14:59 Intake Total 1051.333 / 1833.689 739.049 / 2572.738 396.017 / 396.017 Output Total 200 / 200 250 / 450 Balance 851.333 / 1633.689 489.049 / 2122.738 396.017 / 396.017 Weight last 48 hrs Weight 253 lb 8.505 oz Weight 248 lb 0.321 oz Physical Exam 2 Narrative: The patient remains intubated. The patient remained stuporous with minimal response to vigorous stimulation and painful stimuli. The patient's respiratory rate on the ventilator set at 18. Patient during sternal rub will briefly breathing 19 breaths/min, which is 1 breath over the ventilator settings. But then the ventilation rate returns to 18 with no spontaneous breaths over the ventilator. Cranial nerves II through XII revealed no corneal reflexes. Oculocephalic reflexes are not intact. Pupils left pupil 4 to 5 mm right pupil 3 mm neither reactive to light. Motor testing reveals decerebrate posture. Patient displayed some mild movement of the right toes when pain was applied to the nailbeds on the right foot and patient displayed some purposeful movement of the left foot when pain was applied to the left toe nailbeds. Plantar responses flexor bilaterally there was no clonus. During sternal rub the patient's respiration rate was 19 breaths/min temporarily and then the respiration rate returned to 18 breaths/min with the ventilator settings at 18. Urinary Catheter Management: [place]: Cath Placed During This Visit: no Reason for Continuing Indwelling Catheter: Accurate Measurement of Urinary Output in Critically Ill Patients Data 07/18/24 02:06 07/18/24 07:09 Micro: Microbiology 07/14/24 14:45 Gram Stain - Final Sputum - Endotracheal Tube Aspirate Sputum Culture - Final Pseudomonas aeruginosa 07/15/24 12:06 Blood Culture - Preliminary Blood NEGATIVE TO DATE 07/12/24 11:55 Blood Culture - Final Blood NO GROWTH AFTER 5 DAYS 07/12/24 11:50 Blood Culture - Final Blood NO GROWTH AFTER 5 DAYS A&P Assessment and plan (1) Anoxic encephalopathy: Impression: 1. Anoxic encephalopathy 2. Left MCA distribution stroke 3. 50-69% diameter stenoses within the petrous portion and intracranial portion of the left internal carotid artery which are not obviously changed. 4. Renal failure on hemodialysis 5. Portable surface EEG recording on 07/17/2024 revealed findings consistent with a diffuse encephalopathic process as well as focal slowing seen over the right hemisphere suggestive of a structural lesion or stroke in this region most likely anoxic in origin and correlates with the patient's clinical diagnosis of anoxic encephalopathy. Plan: 1. I had a long discussion with the patient's and patient's daughter on 07/17/2024 regarding the patient's clinical condition. The family was informed that in view of the patient's clinical history of cardiac arrest requiring resuscitation and neurological clinical examinations on 07/16/2024 and 07/17/2024 suggestive of anoxic encephalopathy and possible brainstem stroke secondary to clinical examination revealing no oculocephalic reflexes, asymmetric pupils with no obvious reaction to light and no spontaneous movements and stuporous mental state despite discontinuing sedation for greater than 72 hours, the patient's prognosis is poor. The family was informed that since the patient is on the ventilator, head MRI cannot be obtained. 2. Agree with current treatment plan and speaking with the family regarding comfort care (2) Carotid artery stenosis: (3) Arterial ischemic stroke, MCA (middle cerebral artery), left, acute: (4) Cardiac arrest: Attestations 2 Medical Necessity Statement*: Patient was evaluated by neurology for decreased level consciousness following cardiac arrest Procedures Arterial Line Size (Gauge): 20 Coding Level of Care Code 73331 Diagnoses Anoxic encephalopathy G93.1 Carotid artery stenosis I65.29 Arterial ischemic stroke, MCA (middle cerebral artery), left, acute I63.512 Cardiac arrest I46.9
[2024-07-18] MEDS: sodium bicarbonate 150 MEQ in dextrose 5% 1,000 ML 50 MEQ IV (10:53)
--- NOTE | 2024-07-18 11:21 | P.PN_ITS ---
Subjective 2 Subjective: Patient seen and examined. He has been getting dialysis successfully through his permacath. Still nonresponsive Vitals/I&O/Wt Last Vital Signs Temp 101.0 F H 07/20/24 09:00 Pulse 70 07/20/24 10:30 Resp 25 H 07/20/24 10:34 BP 88/48 07/20/24 10:30 Pulse Ox 90 07/20/24 10:30 O2 Del Method Mechanical Ventilation 07/20/24 10:30 O2 Flow Rate 50 07/19/24 13:00 FiO2 100 07/20/24 10:34 07/19/24 07/20/24 07/20/24 22:59 06:59 14:59 Intake Total 701.686 / 2087.468 909.888 / 2997.356 1128.83 / 1128.83 Output Total 100 / 100 0 / 100 Balance 601.686 / 1987.468 909.888 / 2897.356 1128.83 / 1128.83 Weight last 48 hrs Weight 262 lb 5.601 oz Weight 254 lb 10.142 oz Weight 263 lb 7.238 oz Physical Exam 2 Narrative: General: No acute distress, intubated and nonresponsive Abdomen: Soft, nontender, nondistended Permacath without surrounding erythema or exudate Urinary Catheter Management: [place]: Cath Placed During This Visit: no Reason for Continuing Indwelling Catheter: Accurate Measurement of Urinary Output in Critically Ill Patients Data 07/20/24 02:54 07/20/24 09:36 A&P Assessment and plan (1) ESRD on dialysis: Plan Permacath now functioning well General Surgery will sign off. Please reconsult if the need arises Medical management per hospitalist Attestations 2 Medical Necessity Statement*: per primary Procedures Arterial Line Size (Gauge): 20 Coding Level of Care Code 76066 Diagnoses ESRD on dialysis N18.6; Z99.2
--- NOTE | 2024-07-18 11:58 | P.PN_ITS ---
Subjective 2 Subjective: remains on Levophed and remains on vent at 40% FiO2 Medications: Reviewed: Yes Vitals/I&O/Wt Last Vital Signs Temp 99.9 F H 07/18/24 08:00 Pulse 117 H 07/18/24 08:00 Resp 18 07/18/24 11:10 BP 119/82 07/18/24 08:00 Pulse Ox 91 07/18/24 11:10 O2 Del Method Mechanical Ventilation 07/18/24 08:00 FiO2 40 07/18/24 11:10 07/17/24 07/18/24 07/18/24 22:59 06:59 14:59 Intake Total 1051.333 / 1833.689 739.049 / 2572.738 1628.766 / 1628.766 Output Total 200 / 200 250 / 450 Balance 851.333 / 1633.689 489.049 / 2122.738 1628.766 / 1628.766 Weight last 48 hrs Weight 115 kg Weight 112.5 kg Physical Exam 2 Narrative: intubated , sedated Urinary Catheter Management: [place]: Cath Placed During This Visit: no Reason for Continuing Indwelling Catheter: Accurate Measurement of Urinary Output in Critically Ill Patients Data 07/18/24 02:06 07/18/24 07:09 Micro: Microbiology 07/14/24 14:45 Gram Stain - Final Sputum - Endotracheal Tube Aspirate Sputum Culture - Final Pseudomonas aeruginosa 07/15/24 12:06 Blood Culture - Preliminary Blood NEGATIVE TO DATE 07/12/24 11:55 Blood Culture - Final Blood NO GROWTH AFTER 5 DAYS 07/12/24 11:50 Blood Culture - Final Blood NO GROWTH AFTER 5 DAYS A&P Assessment and plan (1) ESRD on dialysis: 1. End-stage renal disease: On TTS schedule, patient currently volume overloaded, s/p CRRT --> noted frequent filter clotting , stopped CRRT on levophed @ 12 mcg Fio2 down to 40 % - Plan for HD today 2. Cardiac arrest-currently intubated and on pressors, history of multiple cardiac arrest in the past 3. Hyperkalemia: CRRT as above 4. A-fib with rapid ventricular response 5. Chronic thrombocytopenia 6. History of COPD 7. Anoxic brain injury - noted EEG results , Neurology following over all poor prognosis , Patient evaluated using audiovisual cart, time spent 40 minutes. Attestations 2 Medical Necessity Statement*: per medicne Procedures Arterial Line Size (Gauge): 20 Coding Level of Care Code Acute Code for Chg Fwd Diagnoses ESRD on dialysis N18.6; Z99.2
[2024-07-18] MEDS: heparin, porcine 1,000 unit/mL INJ 10 mL 1000 UNIT IV (12:55)
--- NOTE | 2024-07-18 13:16 | P.PN_ITS ---
Subjective 2 Subjective: Seen this morning. Patient is breathing with the ventilator and is not initiating any breaths of his own. Does grimace to pain with nailbed pressure, does not respond to sternal rub. Does not have corneal reflexes, absent gag reflex this morning. Unequal pupils. EEG shows anoxic brain injury. Patient does not tolerate weaning down Levophed. He is on 14 mics per hour. ? CRRT had to be stopped due to clot in catheter. Family not here yet. Once they are we will have it conversation regarding patient's care today. Platelet count dropping to 63,000. DIC profile has been ordered. Vitals/I&O/Wt Last Vital Signs Temp 213.4 F H 07/18/24 13:11 Pulse 100 07/18/24 13:11 Resp 19 H 07/18/24 13:11 BP 98/73 07/18/24 13:11 Pulse Ox 91 07/18/24 11:10 O2 Del Method Mechanical Ventilation 07/18/24 08:00 FiO2 40 07/18/24 11:10 07/17/24 07/18/24 07/18/24 22:59 06:59 14:59 Intake Total 1051.333 / 1833.689 739.049 / 2572.738 1628.766 / 1628.766 Output Total 200 / 200 250 / 450 Balance 851.333 / 1633.689 489.049 / 2122.738 1628.766 / 1628.766 Weight last 48 hrs Weight 115 kg Weight 112.5 kg Physical Exam 2 Narrative: Intubated and sedated. Unequal pupils. Does not respond to sternal rub. Grimaces to nailbed pressure. Chest bilateral chest rise, equal breath sounds. Currently on Levophed. Cardiovascular normal heart sounds irregular rhythm, slightly tachycardic. Abdomen soft, distended, hypoactive bowel sounds. Extremities no edema noted bilateral lower extremity Neuro: Unresponsive, does not respond to sternal rub o grimaces to nailbed pressure, corneal reflex absent, gag reflex absent. Does not follow commands does not open eyes., Unable to pupils. Urinary Catheter Management: Latham: Cath Placed During This Visit: no Reason for Continuing Indwelling Catheter: Accurate Measurement of Urinary Output in Critically Ill Patients Data 07/18/24 02:06 07/18/24 07:09 Micro: Microbiology 07/14/24 14:45 Gram Stain - Final Sputum - Endotracheal Tube Aspirate Sputum Culture - Final Pseudomonas aeruginosa 07/15/24 12:06 Blood Culture - Preliminary Blood NEGATIVE TO DATE 07/12/24 11:55 Blood Culture - Final Blood NO GROWTH AFTER 5 DAYS 07/12/24 11:50 Blood Culture - Final Blood NO GROWTH AFTER 5 DAYS A&P Assessment and plan (1) Respiratory failure: (2) Hyperlipidemia: (3) Hypertension: Qualifiers: Hypertension type: primary hypertension Qualified Code(s): I10 - Essential (primary) hypertension (4) ESRD on dialysis: (5) Chronic diastolic heart failure: (6) Sleep apnea: (7) Cardiac arrest: (8) Uses continuous positive airway pressure (CPAP) ventilation at home: (9) Thrombocytopenia: Plan João Carter is a 63 year old male João Carter is a 63 year old male With past medical history of sleep apnea noncompliant with CPAP, diabetes, hypertension, end-stage renal disease on hemodialysis TTS, paroxysmal A-fib with RVR, secondary polycythemia, thrombocytopenia, cardiac arrest, diastolic heart failure, restrictive lung disease was brought in by the EMS after an event of cardiac arrest at dialysis. He is s/p endotracheal intubation. #Cardiac arrest-likely secondary to hypotension during hemodialysis He is s/p endotracheal intubation on mechanical ventilator, sedated On external pacemaker, current heart rate 75 to 77 bpm, irregular Cardiology consulted in ED EKG showed no ST-T changes First set of troponin 74 Will continue heparin drip started in ER until further cardiology recommendations Check 2D echo Chest x-ray consistent with fluid overload Blood pressure stable, no pressors required as of yet K 3.9, Mg 1.8, will replace ECHO-05/06 LV systolic function is normal with EF of 60 to 65%. Grade 1 diastolic dysfunction Moderate to severe left ventricular hypertrophy Mild mitral regurgitation Mild tricuspid regurgitation Mild pulmonic regurgitation # Respiratory failure-likely secondary to cardiac arrest continue mechanical ventilation, ABG noted Continue sedation with propofol and Versed Will monitor blood pressure Will do DuoNebs every 6 hours as needed # ESRD on hemodialysis-Creat 3.0 Will need nephrology consult Monitor electrolytes for now # Thrombocytopenia-platelets 112 Has baseline thrombocytopenia Will continue to monitor He was started on heparin drip in ER s/p cardiac arrest, will hold off on DVT prophylaxis #ID-chest x-ray consistent with fluid overload, no pneumonia, no leukocytosis Will monitor chest x-ray for probable aspiration during code BCx and sputum Cx pending #Diabetes Mellitus-BS 140 will do insulin correction scale for now DVT prophylaxis, already started on heparin drip in ER for possible SC GI prophylaxis with IV Protonix 40 mg daily He is n.p.o. for now CODE STATUS discussed with at bedside, he is full code. 07/13/24 He is still intubated and sedated. Had an hypotensive episode this morning, was started on Levophed. Chest exam showed bilateral coarse rhonchi and crackles consistent with fluid overload. Was also found to have potassium of 5.8 this morning and creatinine of 3.5. Nephrology consulted for HD. He also has platelet count trending down to 89. He is on heparin drip for possible SC. Discussed with cardiology, Dr. Mallory, wants to continue heparin drip for 48 hours since admission. D-dimer elevated 1.05, will check CTA chest PE protocol to rule out PE since 2D echo as per cardiology showed RV dilatation. He had a temperature of 100.8 this morning, given 1 dose of IV Zosyn 3.375 mg. Will continue IV Zosyn for now. Continue to monitor in ICU. Family, aware of plan of care. -#Pneumonia #Hyperkalemia #Respiratory failure secondary to cardiac arrest, ventilator dependent respiratory failure #End-stage renal disease on hemodialysis, renal failure #Chronic thrombocytopenia #Diabetes mellitus type 2 #Cardiac arrest secondary to hypotension during dialysis #Possibility of a large PE? #Right ventricular hypokinesia #History of obstructive sleep apnea #History of hypertension #History of A-fib with RVR #Diastolic heart failure #Restrictive lung disease 07/14/2024 ? Patient continues to be intubated and sedated. He has been hypotensive and is requiring 3 pressors at this time Levophed, vasopressin and epinephrine. He does have bilateral coarse crackles consistent with fluid overload. Equal bilateral chest rise, low suspicion of pneumothorax at this time. He is hyperkalemic with potassium of 6.9. He was treated with insulin dextrose 2 A of bicarb, calcium gluconate ? Patient is being continued on a heparin drip for possibility of PE. Patient not too unstable to go for CTA chest. ? Chest x-ray from this morning did show mild interval increase of perihilar opacities related to fluid overload versus infectious inflammatory processes. For possibility of pneumonia Zyvox and meropenem have been added on. ? Echo did show RV dilatation. D-dimer elevated at 1.05. Too unstable to go for CTA chest at this time. ? Did have temperature overnight 100.8. Will continue on meropenem. ? Patient is not a candidate for dialysis at this time given 3 vasopressor support and hypotension. Will discuss with nephrology. Will discuss if there is possibility of CRRT that could be performed. ? Family would like to elect DNR status at this time. However we will continue to treat ? Blood cultures ordered overnight. ? Check urine culture, sputum culture Gram stain. -Continue to wean off vasopressors as able. -Patient does have evidence of anisocoria. Will obtain head CT if possible. ? When and if patient does become medically stable cardiology to consider stress test versus coronary angiogram in the future. ? If patient does become stable enough we will go ahead with dialysis. ? Discussed with cardiology, nephrology, nursing staff, family. Saw patient multiple times this morning. -He remains in a critical condition. 07/15/2024 -Patient remains in critical condition at this time. He is maxed out on 3 pressors. Does not tolerate any movement and desats immediately. FiO2 60% this morning. Currently on a bicarb drip, epinephrine, vasopressin, Levophed. ? CT head, CTA chest abdomen pelvis ordered however patient unstable to go for imaging studies at this time. ? Limited echo repeated. Does show moderate hypokinesis of right ventricle. ? Blood cultures pending, CRP 200, procalcitonin 11. Appropriate this morning. ? Urine culture sputum culture Gram stain pending at this time. ? Continue meropenem and Zyvox. ? Not a candidate for CRRT secondary to high vasopressor requirements. ? Continue heparin drip for to cover for possibility of PE. ? Discussed with , nursing staff, nephrology in detail. ? Creatinine continues to rise. 6.8 today. Potassium also elevated. ? Have ordered Lokelma and Bicitra as per nephrology recommendations. Will reduce bicarb drip to 50 cc/h. ? Repeat labs at 6 PM. ? Abdomen ultrasound reviewed. Possibility of liver cirrhosis. Absent gallbladder. No other acute pathology identified at this time. 07/16/2024 -Patient is off vasopressin and epinephrine. Currently on Levophed at 16 mics. Attempting to wean down as able to. FiO2 50%. ? Patient has had fevers up to 104 yesterday. Requiring IV Tylenol. Fever may be secondary to underlying pneumonia versus central cause. ? High suspicion of brainstem and other areas of brain having a stroke given high vasopressor requirement and shock. Will be checking a CT head without contrast, CTA head and neck with contrast, CT chest abdomen pelvis today. Will rule out PE as well. ? Patient is currently on a heparin drip. ? Limited echo did show hypokinesis of right ventricle. ? Potassium 5.5 today. Patient is on Lokelma 10 g 3 times daily. ? Bicitra ordered by nephrology. ? Nephrology following. Plan for CRRT today tentatively. ? Discussed prognosis with family today. I worry about neurological status. Clinically patient is not doing well neurologically. He is on 25 mics of fentanyl which we will also turn off at this time. To assess for responsiveness. ? Consult neurology. Plan for possible EEG in the morning. ? Iron studies ordered yesterday. Percent saturation 7.8. Will order iron sucrose Venofer 200 mg IV x 1. -Liver enzymes slightly elevated. ? Patient hypothermic later in the afternoon with 96.2 temperature. Will apply Leeroy hugger. Temperature variations may be due to central cause with hypothalamus affected. High possibility of brainstem stroke. ? We will have to check for spontaneous breathing trial and assess for brain if patient continues to be unresponsive. Discussed with neurology. -Did discuss again with family and cardiology. Apparently patient had a coronary angiogram done at previous hospitalization at [facility] 3 months ago and had a coronary stent placed. He was on aspirin and Plavix prior to admission as per family however home medications have only listed Plavix at this time. We will place patient back on aspirin and Plavix at this time. Initially patient's had mentioned that he received a carotid stent but upon talking to the daughter it seems he was not a candidate for any carotid intervention and instead coronary angiogram was pursued and coronary stent was placed. We have requested records from [facility] and we will review them in detail. Family updated at bedside in detail. DNR DVT prophylaxis: On a heparin drip at this time. Prognosis remains poor. 07/17/2024 -Patient has no purposeful movements, does not respond to pain did not respond to sternal rub nailbed pain, does have unequal pupils. Has been hypothermic requiring active rewarming protocol with Leeroy hugger. Temperature 95.2. 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 Brainstem stroke suspected. CT head, CTA head and neck reviewed. Multiple infarcts noted. ? EEG planned for today. ? Patient's symptoms. PT 800 cc fluid removed. ? Currently still requiring Levophed. Wean off as able ? Still awaiting records from [facility]. ? Continue treatment as above. Continue antibiotics, aspirin Plavix. ? stop bicarbonate drip. ? Continue heparin drip at this time. ? Amiodarone drip was started yesterday for A-fib. Patient still tachycardic heart rate 107. ? Neurology following. ? When family is here we will update them in person. Prognosis guarded 07/18/2024 -Does not have verbal movements, no gag reflex no corneal reflex is not initiating any breaths. Not breathing over the vent. Has been off sedation pain medication. No spontaneous breaths noted. Increased flow rate on ventilator however patient still did not initiate any breaths. ? CT head CT head and neck reviewed. Multiple infarcts noted. ? EEG shows anoxic brain injury. ? Check DIC profile. Platelets down to 62,000. Stop heparin drip. ? Will check HIT panel. ? Stop bicarbonate drip. ? Continue amiodarone drip. Patient still tachycardic. ? Neurology following, cardiology following, nephrology following. ? Had a long discussion with family regarding patient's prognosis at this time. I discussed with him that there is no meaningful recovery expected at this time for . He is in a comatose vegetative state. Family states they are not ready to make any decisions at this time. ? Continue current treatment. Attestations 2 Medical Necessity Statement*: Remains critically ill in ICU. Critical Care Time: The high probability of a clinically significant, sudden or life threatening deterioration of the patient's [neurological, respiratory, cardiovascular, renal] system(s) required my full and direct attention, intervention and personal management. The critical care time is as shown. This time is in addition to time spent performing any reported procedures but includes the following: [x] Data and vital sign review and interpretation [x] Patient assessment, examination and intervention [x] Documentation [x] Medication orders and management Critical Care Time (min): 60 Procedures Arterial Line Size (Gauge): 20 Coding Level of Care Code Acute Code for Chg Fwd Diagnoses Respiratory failure J96.90 Hyperlipidemia E78.5 Primary hypertension I10 Hypertension type: primary hypertension ESRD on dialysis N18.6; Z99.2 Chronic diastolic heart failure I50.32 Sleep apnea G47.30 Cardiac arrest I46.9 Uses continuous positive airway pressure (CPAP) ventilation at home Z99.89 Thrombocytopenia D69.6
[2024-07-18 14:03] LABS: Reflex FDPQ test REFLEX FDP QUEST TES
[2024-07-18 14:23] LABS: INR 1.25 (0.8-1.2)
[2024-07-18 14:25] LABS: Fibrinogen 420 mg/dL (174-498)
[2024-07-18 14:26] LABS: Albumin Level 2.3 g/dL (3.5-5.2); Anion Gap 15.3 (5-19); Blood Urea Nitrogen 37 mg/dL (8-23); Calcium 8.2 mg/dL (8.5-10.5); Carbon Dioxide 27 mmol/L (22-29); Chloride 90 mmol/L (98-107); Creatinine Clr Calc Pharmacy 23.5187; Glomerular Filtration Rate 14.5 mL/min (90-130); Glucose 98 mg/dL (65-115); Magnesium 1.7 mg/dL (1.7-2.3); Phosphorus 4.3 mg/dL (2.5-4.5); Potassium 4.3 mmol/L (3.5-5.1); Sodium 128 mmol/L (136-145)
--- NOTE | 2024-07-18 14:31 | P.PN_ITS ---
Documented by User: Ruma Castro NP 07/18/24 14:33 Subjective 2 Subjective: Saw patient and spoke to family at bedside. No new changes. Neurology is going to do an EEG. Patient has had multiple strokes as evident on CT. He is nonresponsive Medications: Reviewed: Yes Vitals/I&O/Wt Last Vital Signs Temp 213.4 F H 07/18/24 13:11 Pulse 100 07/18/24 13:11 Resp 18 07/18/24 14:09 BP 98/73 07/18/24 13:11 Pulse Ox 94 07/18/24 14:09 O2 Del Method Mechanical Ventilation 07/18/24 08:00 FiO2 40 07/18/24 14:09 07/17/24 07/18/24 07/18/24 22:59 06:59 14:59 Intake Total 1051.333 / 1833.689 739.049 / 2572.738 1878.766 / 1878.766 Output Total 200 / 200 250 / 450 Balance 851.333 / 1633.689 489.049 / 2122.738 1878.766 / 1878.766 Weight last 48 hrs Weight 253 lb 8.505 oz Weight 248 lb 0.321 oz Physical Exam 2 Narrative: General: ventilated, sedated Lymphatic: no edema Respiratory: ventilated, lung sounds clear Cardio: No JVD, tachycardic, S1 S2 normal, no murmurs, peripheral pulses 2+ throughout Extremities: No edema Neuro: sedated Skin: normal Urinary Catheter Management: Latham: Cath Placed During This Visit: no Reason for Continuing Indwelling Catheter: Accurate Measurement of Urinary Output in Critically Ill Patients Data 07/20/24 02:54 07/20/24 09:36 Micro: Microbiology 07/14/24 14:45 Gram Stain - Final Sputum - Endotracheal Tube Aspirate Sputum Culture - Final Pseudomonas aeruginosa 07/15/24 12:06 Blood Culture - Preliminary Blood NEGATIVE TO DATE 07/12/24 11:55 Blood Culture - Final Blood NO GROWTH AFTER 5 DAYS 07/12/24 11:50 Blood Culture - Final Blood NO GROWTH AFTER 5 DAYS A&P Assessment and plan (1) Respiratory failure: (2) Hyperlipidemia: (3) Hypertension: Qualifiers: Hypertension type: primary hypertension Qualified Code(s): I10 - Essential (primary) hypertension (4) ESRD on dialysis: (5) Chronic diastolic heart failure: (6) Sleep apnea: (7) Cardiac arrest: (8) Uses continuous positive airway pressure (CPAP) ventilation at home: (9) Thrombocytopenia: Plan No new recommendations from a cardiology standpoint at this time. Discussed with the family and answered questions appropriately. At this time, patient is unresponsive. Neurology will be reviewing patient. Attestations 2 Medical Necessity Statement*: Deferred to primary. Procedures Arterial Line Size (Gauge): 20 Coding Level of Care Code Acute Code for g Fwd Diagnoses Respiratory failure J96.90 Hyperlipidemia E78.5 Primary hypertension I10 Hypertension type: primary hypertension ESRD on dialysis N18.6; Z99.2 Chronic diastolic heart failure I50.32 Sleep apnea G47.30 Cardiac arrest I46.9 Uses continuous positive airway pressure (CPAP) ventilation at home Z99.89 Thrombocytopenia D69.6 Documented by User: Steven Mallory M.D 07/21/24 11:05 Subjective 2 Subjective: Patient had EEG. Remains intubated. Physical Exam 2 Narrative: GENERAL: Patient is intubated. No response to painful stimuli NECK: No jugular vein distension. [] HEENT: No cyanosis. No icterus. No pallor. [] HEART: Tachycardia LUNGS: Diminished air entry bilaterally CENTRAL NERVOUS SYSTEM: Can not assess EXTREMITIES: Lower extremities with 1+ edema bilaterally. Urinary Catheter Management: Latham: Cath Placed During This Visit: no Data 07/20/24 02:54 07/20/24 09:36 A&P Assessment and plan (1) Respiratory failure: (2) Hyperlipidemia: (3) Hypertension: Qualifiers: Hypertension type: primary hypertension Qualified Code(s): I10 - Essential (primary) hypertension (4) ESRD on dialysis: (5) Chronic diastolic heart failure: (6) Sleep apnea: (7) Cardiac arrest: (8) Uses continuous positive airway pressure (CPAP) ventilation at home: (9) Thrombocytopenia: Plan Patient's overall prognosis is guarded. Mainly will depend on possibility of neurologic recovery. neurology on board. Continue pressor support as needed. LV systolic function is normal Thank you for involving us with care of this patient. Please call with questions. Attestations 2 Medical Necessity Statement*: Care expected to cross 2 midnights. Coding Level of Care Code Acute Code for Chg Fwd Diagnoses Respiratory failure J96.90 Hyperlipidemia E78.5 Primary hypertension I10 Hypertension type: primary hypertension ESRD on dialysis N18.6; Z99.2 Chronic diastolic heart failure I50.32 Sleep apnea G47.30 Cardiac arrest I46.9 Uses continuous positive airway pressure (CPAP) ventilation at home Z99.89 Thrombocytopenia D69.6
[2024-07-18 14:33] LABS: Partial Thromboplastin Time 114.8 SECONDS (23.9-36.7)
[2024-07-18 14:37] LABS: D Dimer 10.01 ug/mLFEU (0-0.59)
[2024-07-18] MEDS: pantoprazole 40 mg SDV IVP (14:38)
[2024-07-18] MEDS: meropenem 500 mg SDV IVP (14:38)
--- NOTE | 2024-07-18 14:47 | PC.SOCIAL ---
IMM Updated Updated pt's family on IMM. No questions voiced. Provided a copy. Initialed, dated, & timed copy in chart.
--- NOTE | 2024-07-18 15:13 | PC.HD ---
Prior to HD initiation, this RN was unable to draw/push either port of catheter. CathFlo instilled into each limb. No improvement after one hour. Dwelled another hour with no improvement in patency. 2nd dose of CathFlo instilled with minor improvement after one hour. After 2nd hour of dwell, able to draw/pull with minor resistance. Treatment initiated without issue. After one hour of trx, patient's heart rate increased from 120s to 150s. Per Dr. Garcia, treatment was terminated due to patient's inability to tolerate HD in spite of extended treatment time, low UF goal and slow blood flow rate.
--- NOTE | 2024-07-18 15:32 | PC.NURSE ---
[facility] was called and updated about the patient's condition. Steff Fajardo was the person contacted at [facility].
--- NOTE | 2024-07-18 16:09 | PC.NURSE ---
Dexter with [facility] called and stated that the patient was an organ donation rule out and to call with a time of for possibility of tissue donation. Referral number is [id number].
[2024-07-18 16:42] LABS: Partial Thromboplastin Time 85.4 SECONDS (23.9-36.7)
[2024-07-18 16:56] LABS: Glucose Point of Care 140 mg/dL (70-110)
--- NOTE | 2024-07-18 18:10 | PC.NURSE ---
This morning patient started to move their eyes a little, moving their mouth a little and having a small gagging reflex. Family was at bedside witnessing this and they believed that it was purposeful. Dr. Monroy was contacted and she came down and talked to the patient's family about this behavior being more autonomical than purposeful which would correlate with the finding of the EEG.
--- NOTE | 2024-07-18 18:17 | PC.NURSE ---
While receiving dialysis, the patient started to go in the high heart rates of 150 and blood pressures where becoming softer. Dialysis nurse called Dr. Henderson and the doctor decided to discontinue dialysis treatment for today.
--- NOTE | 2024-07-18 18:20 | PC.NURSE ---
Patient's stated that she would like to wait until Sunday of this week to make a final decision about the patient due to her wanting the patient's family member to come see them. Dr. Monroy was made aware of this and she said to let Doctor Beatriz know so that she could plan dialysis accordingly. Dr. Henderson was notified.
[2024-07-18 18:23] LABS: Glucose Point of Care 114 mg/dL (70-110)
[2024-07-18 19:16] LABS: Albumin Level 2.3 g/dL (3.5-5.2); Blood Urea Nitrogen 40 mg/dL (8-23); Calcium 8.1 mg/dL (8.5-10.5); Carbon Dioxide 25 mmol/L (22-29); Chloride 90 mmol/L (98-107); Creatinine Clr Calc Pharmacy 22.8928; Glomerular Filtration Rate 13.7 mL/min (90-130); Glucose 118 mg/dL (65-115); Magnesium 1.7 mg/dL (1.7-2.3); Phosphorus 5.1 mg/dL (2.5-4.5); Sodium 127 mmol/L (136-145)
[2024-07-18] MEDS: LOKELMA 10 GM 10 EACH OG-TUBE (20:44)
[2024-07-18] MEDS: norepinephrine 4 MG/250 ML BAG 60 MG IV (23:30)
[2024-07-19] VITALS (54 sets, daily range): BP systolic 54–127; BP diastolic 40–70; PULSE 42–117; RESP 18–26; TEMP 37.4–39.3; O2SAT 85–94; BMI 35.5
[2024-07-19 00:58] LABS: Reflex FDPQ test REFLEX FDP QUEST TES
[2024-07-19 01:02] LABS: Basophils # 0.1 10^3/uL (0.0-0.1); Basophils % 0.5 %; Eosinophils # 0.1 10^3/uL (0.0-0.8); Eosinophils % 1.3 %; Hematocrit 32.1 % (37-53); Lymphocytes # 0.6 10^3/uL (0.8-4.8); Lymphocytes % 5.9 %; Mean Corpuscular HGB Conc 30.5 g/dL (30-55); Mean Corpuscular Hemoglobin 24.4 pg (27-33); Mean Platelet Volume 11.1 fL (7.4-10.4); Monocytes # 0.9 10^3/uL (0.2-0.9); Monocytes % 9.9 %; Neutrophils # 7.59 10^3/uL (1.8-7.7); Neutrophils % 81.4 %; Nucleated Red Blood Cells % 0.2 %; Platelet Count 74 10^3/cmm (157-399); Red Blood Count 4.01 10^6/uL (3.85-5.65); Red Cell Distribution Width 18.6 % (12.1-15.1); White Blood Count 9.32 10^3/uL (3.29-11.43)
[2024-07-19 01:22] LABS: INR 1.28 (0.8-1.2)
[2024-07-19 01:23] LABS: Fibrinogen 491 mg/dL (174-498); Partial Thromboplastin Time 41.8 SECONDS (23.9-36.7)
[2024-07-19 01:29] LABS: Albumin Level 2.4 g/dL (3.5-5.2); Anion Gap 16.4 (5-19); Blood Urea Nitrogen 45 mg/dL (8-23); Calcium 8.5 mg/dL (8.5-10.5); Carbon Dioxide 26 mmol/L (22-29); Chloride 90 mmol/L (98-107); Creatinine Clr Calc Pharmacy 21.4316; Glomerular Filtration Rate 12.7 mL/min (90-130); Glucose 105 mg/dL (65-115); Magnesium 1.8 mg/dL (1.7-2.3); Phosphorus 5.6 mg/dL (2.5-4.5); Potassium 5.4 mmol/L (3.5-5.1); Sodium 127 mmol/L (136-145)
[2024-07-19 01:33] LABS: D Dimer 8.03 ug/mLFEU (0-0.59)
[2024-07-19] MEDS: linezolid premix 600 MG/300 ML PREMIX 300 MG IV ×2 (02:09→13:22)
[2024-07-19] MEDS: chlorhexidine gluconate 4% Btl 118 mL 1 APPLIC TOPICAL (03:42)
[2024-07-19] MEDS: norepinephrine 4 MG/250 ML BAG 60 MG IV (03:42)
--- NOTE | 2024-07-19 07:02 | P.PN_ITS ---
Subjective 2 Subjective: remains on vent - 50 % fio2 Increased lEVOPHED TO 18 MCG BPs low Medications: Reviewed: Yes Vitals/I&O/Wt Last Vital Signs Temp 100.5 F H 07/19/24 04:00 Pulse 102 H 07/19/24 06:00 Resp 18 07/19/24 06:00 BP 107/49 07/19/24 06:00 Pulse Ox 91 07/19/24 06:00 O2 Del Method Mechanical Ventilation 07/19/24 06:00 O2 Flow Rate 3 07/19/24 06:00 FiO2 50 07/19/24 04:30 07/18/24 07/19/24 07/19/24 22:59 06:59 14:59 Intake Total 1152.433 / 3214.532 889.705 / 4104.237 Output Total 805 / 805 75 / 880 Balance 347.433 / 2409.532 814.705 / 3224.237 Weight last 48 hrs Weight 115.5 kg Weight 119.5 kg Weight 115 kg Weight 112.5 kg Physical Exam 2 Narrative: intubated , sedated Urinary Catheter Management: Latham: Cath Placed During This Visit: no Reason for Continuing Indwelling Catheter: Accurate Measurement of Urinary Output in Critically Ill Patients Data 07/19/24 00:52 07/19/24 00:52 Micro: Microbiology 07/14/24 01:08 Blood Culture - Final Blood NO GROWTH AFTER 5 DAYS 07/14/24 01:11 Blood Culture - Final Blood NO GROWTH AFTER 5 DAYS A&P Assessment and plan (1) ESRD on dialysis: 1. End-stage renal disease: On TTS schedule, patient currently volume overloaded, s/p CRRT --> noted frequent filter clotting , stopped CRRT , s/p HD on sunday with 500 cc UF -BPs low , hold off HD today on levophed Fio2 upto 50 % Awaititng further family decisions re ; goals of care 2. Cardiac arrest-currently intubated and on pressors, history of multiple cardiac arrest in the past 3. Hyperkalemia: lokelma ordered 4. A-fib with rapid ventricular response 5. Chronic thrombocytopenia 6. History of COPD 7. Anoxic brain injury - noted EEG results - , Neurology following over all poor prognosis , Patient evaluated using audiovisual cart, time spent 40 minutes. Attestations 2 Medical Necessity Statement*: per mediicne Procedures Arterial Line Size (Gauge): 20 Coding Level of Care Code Acute Code for Chg Fwd Diagnoses ESRD on dialysis N18.6; Z99.2
[2024-07-19] MEDS: norepinephrine 4 MG/250 ML BAG 67.5 MG IV (07:17)
[2024-07-19 07:54] LABS: Glucose Point of Care 123 mg/dL (70-110)
[2024-07-19] MEDS: LOKELMA 10 GM 10 EACH OG-TUBE ×3 (08:40→21:47)
[2024-07-19] MEDS: clopidogrel 75 mg Tablet OG-TUBE (08:41)
[2024-07-19] MEDS: meropenem 500 mg SDV IVP ×2 (08:41→21:45)
[2024-07-19] MEDS: aspirin 81 mg Chew Tablet OG-TUBE (08:41)
[2024-07-19] MEDS: vasopressin 40 UNIT/100 ML PREMIX IV (09:23)
[2024-07-19] MEDS: norepinephrine 4 MG/250 ML BAG 75 MG IV ×5 (10:36→23:02)
[2024-07-19] MEDS: levofloxacin-dextrose 5 % 500 MG/100 ML PREMIX 100 MG IV (11:46)
[2024-07-19 12:10] LABS: Glucose Point of Care 122 mg/dL (70-110)
[2024-07-19] MEDS: pantoprazole 40 mg SDV IVP (13:00)
[2024-07-19] MEDS: acetaminophen 325 mg Tablet 650 MG PO ×2 (13:28→18:11)
--- NOTE | 2024-07-19 14:18 | PC.NURSE ---
Temperature 102.7, Tylenol given via OG, ice packs applied, Temperature down to 99.4.
--- NOTE | 2024-07-19 15:07 | PM.PN ---
Subjective Subjective: Seen this morning. Patient requiring vasopressor support. He is on Levophed maxed out and vasopressin has been started this morning. Platelets are 74,000. D-dimer elevated, DIC profile positive. Heparin drip was stopped yesterday. Patient hyponatremic hyperkalemic. Unable to tolerate CRRT. Friends at bedside. No neurological recovery noted. Does not respond to sternal rub. His breathing with the vent. Febrile 102.4. Vitals/I&O/Wt Last Vital Signs Temp 99.4 F 07/19/24 14:00 Pulse 108 H 07/19/24 14:52 Resp 18 07/19/24 14:14 BP 101/53 07/19/24 14:00 Pulse Ox 90 07/19/24 14:14 O2 Del Method Mechanical Ventilation 07/19/24 14:00 O2 Flow Rate 50 07/19/24 13:00 FiO2 50 07/19/24 14:14 07/19/24 07/19/24 07/19/24 06:59 14:59 22:59 Intake Total 889.705 / 4104.237 1385.782 / 1385.782 Output Total 75 / 880 Balance 814.705 / 3224.237 1385.782 / 1385.782 Weight last 48 hrs Weight 115.5 kg Weight 119.5 kg Weight 115 kg Physical Exam Narrative: Intubated and sedated. Unequal pupils. Does not respond to sternal rub. Grimaces to nailbed pressure. Chest bilateral chest rise, equal breath sounds. Currently on Levophed. Cardiovascular normal heart sounds irregular rhythm, slightly tachycardic. Abdomen soft, distended, hypoactive bowel sounds. Extremities no edema noted bilateral lower extremity Neuro: Unresponsive, does not respond to sternal rub o grimaces to nailbed pressure, corneal reflex absent, gag reflex absent. Does not follow commands does not open eyes., Unable to pupils. Urinary Catheter Management: L[place]: Cath Placed During This Visit: no Reason for Continuing Indwelling Catheter: Accurate Measurement of Urinary Output in Critically Ill Patients Data 07/19/24 00:52 07/19/24 00:52 Micro: Microbiology 07/14/24 01:08 Blood Culture - Final Blood NO GROWTH AFTER 5 DAYS 07/14/24 01:11 Blood Culture - Final Blood NO GROWTH AFTER 5 DAYS A&P Assessment and plan (1) Respiratory failure: (2) Hyperlipidemia: (3) Hypertension: Qualifiers: Hypertension type: primary hypertension Qualified Code(s): I10 - Essential (primary) hypertension (4) ESRD on dialysis: (5) Chronic diastolic heart failure: (6) Sleep apnea: (7) Cardiac arrest: (8) Uses continuous positive airway pressure (CPAP) ventilation at home: (9) Thrombocytopenia: Plan João Carter is a 63 year old male João Carter is a 63 year old male With past medical history of sleep apnea noncompliant with CPAP, diabetes, hypertension, end-stage renal disease on hemodialysis TTS, paroxysmal A-fib with RVR, secondary polycythemia, thrombocytopenia, cardiac arrest, diastolic heart failure, restrictive lung disease was brought in by the EMS after an event of cardiac arrest at dialysis. He is s/p endotracheal intubation. #Cardiac arrest-likely secondary to hypotension during hemodialysis He is s/p endotracheal intubation on mechanical ventilator, sedated On external pacemaker, current heart rate 75 to 77 bpm, irregular Cardiology consulted in ED EKG showed no ST-T changes First set of troponin 74 Will continue heparin drip started in ER until further cardiology recommendations Check 2D echo Chest x-ray consistent with fluid overload Blood pressure stable, no pressors required as of yet K 3.9, Mg 1.8, will replace ECHO-05/06 LV systolic function is normal with EF of 60 to 65%. Grade 1 diastolic dysfunction Moderate to severe left ventricular hypertrophy Mild mitral regurgitation Mild tricuspid regurgitation Mild pulmonic regurgitation # Respiratory failure-likely secondary to cardiac arrest continue mechanical ventilation, ABG noted Continue sedation with propofol and Versed Will monitor blood pressure Will do DuoNebs every 6 hours as needed # ESRD on hemodialysis-Creat 3.0 Will need nephrology consult Monitor electrolytes for now # Thrombocytopenia-platelets 112 Has baseline thrombocytopenia Will continue to monitor He was started on heparin drip in ER s/p cardiac arrest, will hold off on DVT prophylaxis #ID-chest x-ray consistent with fluid overload, no pneumonia, no leukocytosis Will monitor chest x-ray for probable aspiration during code BCx and sputum Cx pending #Diabetes Mellitus-BS 140 will do insulin correction scale for now DVT prophylaxis, already started on heparin drip in ER for possible WI GI prophylaxis with IV Protonix 40 mg daily He is n.p.o. for now CODE STATUS discussed with at bedside, he is full code. 07/13/24 He is still intubated and sedated. Had an hypotensive episode this morning, was started on Levophed. Chest exam showed bilateral coarse rhonchi and crackles consistent with fluid overload. Was also found to have potassium of 5.8 this morning and creatinine of 3.5. Nephrology consulted for HD. He also has platelet count trending down to 89. He is on heparin drip for possible WI. Discussed with cardiology, Dr. Mallory, wants to continue heparin drip for 48 hours since admission. D-dimer elevated 1.05, will check CTA chest PE protocol to rule out PE since 2D echo as per cardiology showed RV dilatation. He had a temperature of 100.8 this morning, given 1 dose of IV Zosyn 3.375 mg. Will continue IV Zosyn for now. Continue to monitor in ICU. Family, aware of plan of care. -#Pneumonia #Hyperkalemia #Respiratory failure secondary to cardiac arrest, ventilator dependent respiratory failure #End-stage renal disease on hemodialysis, renal failure #Chronic thrombocytopenia #Diabetes mellitus type 2 #Cardiac arrest secondary to hypotension during dialysis #Possibility of a large PE? #Right ventricular hypokinesia #History of obstructive sleep apnea #History of hypertension #History of A-fib with RVR #Diastolic heart failure #Restrictive lung disease 07/14/2024 ? Patient continues to be intubated and sedated. He has been hypotensive and is requiring 3 pressors at this time Levophed, vasopressin and epinephrine. He does have bilateral coarse crackles consistent with fluid overload. Equal bilateral chest rise, low suspicion of pneumothorax at this time. He is hyperkalemic with potassium of 6.9. He was treated with insulin dextrose 2 A of bicarb, calcium gluconate ? Patient is being continued on a heparin drip for possibility of PE. Patient not too unstable to go for CTA chest. ? Chest x-ray from this morning did show mild interval increase of perihilar opacities related to fluid overload versus infectious inflammatory processes. For possibility of pneumonia Zyvox and meropenem have been added on. ? Echo did show RV dilatation. D-dimer elevated at 1.05. Too unstable to go for CTA chest at this time. ? Did have temperature overnight 100.8. Will continue on meropenem. ? Patient is not a candidate for dialysis at this time given 3 vasopressor support and hypotension. Will discuss with nephrology. Will discuss if there is possibility of CRRT that could be performed. ? Family would like to elect DNR status at this time. However we will continue to treat ? Blood cultures ordered overnight. ? Check urine culture, sputum culture Gram stain. -Continue to wean off vasopressors as able. -Patient does have evidence of anisocoria. Will obtain head CT if possible. ? When and if patient does become medically stable cardiology to consider stress test versus coronary angiogram in the future. ? If patient does become stable enough we will go ahead with dialysis. ? Discussed with cardiology, nephrology, nursing staff, family. Saw patient multiple times this morning. -He remains in a critical condition. 07/15/2024 -Patient remains in critical condition at this time. He is maxed out on 3 pressors. Does not tolerate any movement and desats immediately. FiO2 60% this morning. Currently on a bicarb drip, epinephrine, vasopressin, Levophed. ? CT head, CTA chest abdomen pelvis ordered however patient unstable to go for imaging studies at this time. ? Limited echo repeated. Does show moderate hypokinesis of right ventricle. ? Blood cultures pending, CRP 200, procalcitonin 11. Appropriate this morning. ? Urine culture sputum culture Gram stain pending at this time. ? Continue meropenem and Zyvox. ? Not a candidate for CRRT secondary to high vasopressor requirements. ? Continue heparin drip for to cover for possibility of PE. ? Discussed with , nursing staff, nephrology in detail. ? Creatinine continues to rise. 6.8 today. Potassium also elevated. ? Have ordered Lokelma and Bicitra as per nephrology recommendations. Will reduce bicarb drip to 50 cc/h. ? Repeat labs at 6 PM. ? Abdomen ultrasound reviewed. Possibility of liver cirrhosis. Absent gallbladder. No other acute pathology identified at this time. 07/16/2024 -Patient is off vasopressin and epinephrine. Currently on Levophed at 16 mics. Attempting to wean down as able to. FiO2 50%. ? Patient has had fevers up to 104 yesterday. Requiring IV Tylenol. Fever may be secondary to underlying pneumonia versus central cause. ? High suspicion of brainstem and other areas of brain having a stroke given high vasopressor requirement and shock. Will be checking a CT head without contrast, CTA head and neck with contrast, CT chest abdomen pelvis today. Will rule out PE as well. ? Patient is currently on a heparin drip. ? Limited echo did show hypokinesis of right ventricle. ? Potassium 5.5 today. Patient is on Lokelma 10 g 3 times daily. ? Bicitra ordered by nephrology. ? Nephrology following. Plan for CRRT today tentatively. ? Discussed prognosis with family today. I worry about neurological status. Clinically patient is not doing well neurologically. He is on 25 mics of fentanyl which we will also turn off at this time. To assess for responsiveness. ? Consult neurology. Plan for possible EEG in the morning. ? Iron studies ordered yesterday. Percent saturation 7.8. Will order iron sucrose Venofer 200 mg IV x 1. -Liver enzymes slightly elevated. ? Patient hypothermic later in the afternoon with 96.2 temperature. Will apply Leeroy hugger. Temperature variations may be due to central cause with hypothalamus affected. High possibility of brainstem stroke. ? We will have to check for spontaneous breathing trial and assess for brain if patient continues to be unresponsive. Discussed with neurology. -Did discuss again with family and cardiology. Apparently patient had a coronary angiogram done at previous hospitalization at [facility] 3 months ago and had a coronary stent placed. He was on aspirin and Plavix prior to admission as per family however home medications have only listed Plavix at this time. We will place patient back on aspirin and Plavix at this time. Initially patient's had mentioned that he received a carotid stent but upon talking to the daughter it seems he was not a candidate for any carotid intervention and instead coronary angiogram was pursued and coronary stent was placed. We have requested records from [facility] and we will review them in detail. Family updated at bedside in detail. DNR DVT prophylaxis: On a heparin drip at this time. Prognosis remains poor. 07/17/2024 -Patient has no purposeful movements, does not respond to pain did not respond to sternal rub nailbed pain, does have unequal pupils. Has been hypothermic requiring active rewarming protocol with Leeroy hugger. Temperature 95.2. 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 Brainstem stroke suspected. CT head, CTA head and neck reviewed. Multiple infarcts noted. ? EEG planned for today. ? Patient's symptoms. PT 800 cc fluid removed. ? Currently still requiring Levophed. Wean off as able ? Still awaiting records from [facility]. ? Continue treatment as above. Continue antibiotics, aspirin Plavix. ? stop bicarbonate drip. ? Continue heparin drip at this time. ? Amiodarone drip was started yesterday for A-fib. Patient still tachycardic heart rate 107. ? Neurology following. ? When family is here we will update them in person. Prognosis guarded 07/18/2024 -Does not have verbal movements, no gag reflex no corneal reflex is not initiating any breaths. Not breathing over the vent. Has been off sedation pain medication. No spontaneous breaths noted. Increased triggered flow rate on ventilator however patient still did not initiate any breaths. ? CT head CT head and neck reviewed. Multiple infarcts noted. ? EEG shows anoxic brain injury. ? Check DIC profile. Platelets down to 62,000. Stop heparin drip. ? Will check HIT panel. ? Stop bicarbonate drip. ? Continue amiodarone drip. Patient still tachycardic. ? Neurology following, cardiology following, nephrology following. ? Had a long discussion with family regarding patient's prognosis at this time. I discussed with him that there is no meaningful recovery expected at this time for . He is in a comatose vegetative state. Family states they are not ready to make any decisions at this time. ? Continue current treatment. 07/19/2024 -Unresponsive ? May EEG consistent with anoxic brain injury, CT head shows multiple infarcts ? DIC profile positive. Heparin drip stopped. May consider low-dose heparin drip however with low platelets I will hold off at this time. ? HIT panel pending ? Bicarbonate drip stopped. ? Continue amiodarone drip, patient requiring vasopressor support again. He is on vasopressin and Levophed maxed out. ? Continue on IV antibiotics ? No longer candidate for CRRT secondary to worsening hypotension and vasopressor requirement. ? Continues to spike fevers. -Patient continues to be on full life support. ? Had a discussion with family regarding poor prognosis. Patient and comatose vegetative state. ? Family not present at bedside today. They indicated yesterday they would like to wait till Sunday to make decisions as more family is coming in from out of town to see . Attestations Medical Necessity Statement*: The high probability of a clinically significant, sudden or life threatening deterioration of the patient's [neurological respiratory cardiovascular, renal] system(s) required my full and direct attention, intervention and personal management. The critical care time is as shown. This time is in addition to time spent performing any reported procedures but includes the following: [x] Data and vital sign review and interpretation [x] Patient assessment, examination and intervention [x] Documentation [x] Medication orders and management Critical Care Time (min): 45 Procedures Arterial Line Size (Gauge): 20 Coding Level of Care Code Acute Code for Chg Fwd Diagnoses Respiratory failure J96.90 Hyperlipidemia E78.5 Primary hypertension I10 Hypertension type: primary hypertension ESRD on dialysis N18.6; Z99.2 Chronic diastolic heart failure I50.32 Sleep apnea G47.30 Cardiac arrest I46.9 Uses continuous positive airway pressure (CPAP) ventilation at home Z99.89 Thrombocytopenia D69.6
[2024-07-19 18:07] LABS: Glucose Point of Care 113 mg/dL (70-110)
--- NOTE | 2024-07-19 20:11 | P.PN_ITS ---
Subjective 2 Subjective: Remains intubated Medications: Reviewed: Yes Vitals/I&O/Wt Last Vital Signs Temp 101.4 F H 07/19/24 18:00 Pulse 111 H 07/19/24 18:00 Resp 19 H 07/19/24 16:31 BP 84/58 07/19/24 18:00 Pulse Ox 88 L 07/19/24 18:00 O2 Del Method Mechanical Ventilation 07/19/24 18:00 O2 Flow Rate 50 07/19/24 13:00 FiO2 50 07/19/24 16:31 07/19/24 07/19/24 07/19/24 06:59 14:59 22:59 Intake Total 889.705 / 4104.237 1385.782 / 1385.782 462.075 / 1847.857 Output Total 75 / 880 100 / 100 Balance 814.705 / 3224.237 1385.782 / 1385.782 362.075 / 1747.857 Weight last 48 hrs Weight 254 lb 10.142 oz Weight 263 lb 7.238 oz Weight 253 lb 8.505 oz Physical Exam 2 Const: OTHER: GENERAL: Patient is intubated HEART: Regular S1 and S2. No murmur, rub or gallop. LUNGS: Decreased breath sound ilaterally. CENTRAL NERVOUS SYSTEM: Cannot assess. Urinary Catheter Management: Latham: Cath Placed During This Visit: no Reason for Continuing Indwelling Catheter: Accurate Measurement of Urinary Output in Critically Ill Patients Data 07/19/24 00:52 07/19/24 00:52 Micro: Microbiology 07/14/24 01:08 Blood Culture - Final Blood NO GROWTH AFTER 5 DAYS 07/14/24 01:11 Blood Culture - Final Blood NO GROWTH AFTER 5 DAYS A&P Assessment and plan (1) Respiratory failure: Status post intubation (2) Hypertension: Qualifiers: Hypertension type: primary hypertension Qualified Code(s): I10 - Essential (primary) hypertension (3) ESRD on dialysis: On dialysis (4) Chronic diastolic heart failure: Continue current regimen on dialysis (5) Cardiac arrest: Status post intubation (6) Uses continuous positive airway pressure (CPAP) ventilation at home: (7) Thrombocytopenia: Plan Assessment and plan (1) Respiratory failure: (2) Hyperlipidemia: (3) Hypertension: (4) ESRD on dialysis: (5) Chronic diastolic heart failure: (6) Sleep apnea: (7) Cardiac arrest: (8) Uses continuous positive airway pressure (CPAP) ventilation at home: (9) Thrombocytopenia Continue current management Attestations 2 Medical Necessity Statement*: Require continuation hospitalization for above defined care Procedures Arterial Line Size (Gauge): 20 Coding Level of Care Code Acute Code for Chg Fwd Diagnoses Respiratory failure J96.90 Primary hypertension I10 Hypertension type: primary hypertension ESRD on dialysis N18.6; Z99.2 Chronic diastolic heart failure I50.32 Cardiac arrest I46.9 Uses continuous positive airway pressure (CPAP) ventilation at home Z99.89 Thrombocytopenia D69.6
[2024-07-19] MEDS: EPINEPHrine 2.5 MG in sodium chloride 0.9% 250 ML 6.06 MG IV (22:58)
[2024-07-20] VITALS (30 sets, daily range): BP systolic 0–108; BP diastolic 0–63; PULSE 0–77; RESP 0–27; TEMP -17.7–38.3; O2SAT 0–94; BMI 36.6
[2024-07-20] MEDS: vasopressin 40 UNIT/100 ML PREMIX 15 UNIT IV ×2 (00:19→05:44)
[2024-07-20] MEDS: linezolid premix 600 MG/300 ML PREMIX 300 MG IV (01:25)
--- NOTE | 2024-07-20 02:19 | PC.NURSE ---
Turning: Q2h turns contraindicated, patient condition too unstable.
[2024-07-20] MEDS: norepinephrine 4 MG/250 ML BAG 75 MG IV ×3 (03:10→09:16)
[2024-07-20 03:35] LABS: Basophils % 0.3 %; Eosinophils % 0.1 %; Hematocrit 35.3 % (37-53); Lymphocytes # 0.7 10^3/uL (0.8-4.8); Lymphocytes % 5.6 %; Mean Corpuscular HGB Conc 30.3 g/dL (30-55); Mean Corpuscular Hemoglobin 24.6 pg (27-33); Mean Corpuscular Volume 81.1 fl (82-101); Monocytes % 8.6 %; Neutrophils % 82.9 %; Nucleated Red Blood Cells # 0.1 /100WBC; Nucleated Red Blood Cells % 0.9 %; Platelet Count 49 10^3/cmm (157-399); Red Blood Count 4.35 10^6/uL (3.85-5.65); Red Cell Distribution Width 18.8 % (12.1-15.1); White Blood Count 11.68 10^3/uL (3.29-11.43)
[2024-07-20 03:53] LABS: Anion Gap 29.5 (5-19); Blood Urea Nitrogen 60 mg/dL (8-23); Calcium 8.1 mg/dL (8.5-10.5); Carbon Dioxide 17 mmol/L (22-29); Chloride 84 mmol/L (98-107); Creatinine Clr Calc Pharmacy 14.1421; Glucose 71 mg/dL (65-115); Magnesium 1.9 mg/dL (1.7-2.3); Osmolality Calculated 271 mOsm/kg (285-295); Sodium 123 mmol/L (136-145)
[2024-07-20 04:10] LABS: Potassium 7.5 mmol/L (3.5-5.1)
[2024-07-20 04:14] LABS: Slide Review Slide Review Perform
--- NOTE | 2024-07-20 08:01 | P.PN_ITS ---
Subjective 2 Subjective: pt seen and examined. remians on vent, pressors, not responsive Medications: Reviewed: Yes Medication Review Details: Current Medications Acetaminophen (Acetaminophen 325 Mg Tablet) 650 mg PO Q6H PRN PRN Reason: Mild/Mod Pain Or Temp >/= 101 Last Admin: 07/19/24 18:11 Dose: 650 mg Albuterol/Ipratropium (Ipratropium-Albuterol 3 Ml Neb) 3 ml INHALATION Q6H PRN PRN Reason: SHORTNESS OF BREATH Last Admin: 07/16/24 15:00 Dose: 3 ml Aspirin (Aspirin 81 Mg Chew Tablet) 81 mg OG-TUBE DAILY LEN Last Admin: 07/19/24 08:41 Dose: 81 mg CRRT Dialysis Solution (Prismasol Bgk 4/2.5 - 5,000 Ml Bag) 5,000 ml CRRT CONT LEN; Protocol Last Admin: 07/20/24 07:17 Dose: Not Given CRRT Dialysis Solution (Prismasol Bgk 4/2.5 - 5,000 Ml Bag) 5,000 ml CRRT CONT LEN; Protocol Last Admin: 07/20/24 07:17 Dose: Not Given CRRT Dialysis Solution (Prismasol Bgk 4/2.5 - 5,000 Ml Bag) 5,000 ml CRRT CONT LEN; Protocol Last Admin: 07/20/24 07:18 Dose: Not Given Chlorhexidine Gluconate (Chlorhexidine Gluconate 4% Btl 118 Ml) 1 applic TOPICAL Q24H LEN Last Admin: 07/20/24 01:23 Dose: Not Given Clopidogrel Bisulfate (Clopidogrel 75 Mg Tablet) 75 mg OG-TUBE DAILY LEN Last Admin: 07/19/24 08:41 Dose: 75 mg Heparin Sodium (Porcine) (Heparin 5,000 Unit/Ml Inj 1 Ml) 0 unit IVP PRN PRN; Protocol PRN Reason: Heparin Weight Based Protocol -Subsequent Bolus Last Admin: 07/16/24 05:34 Dose: 2,000 unit Heparin Sodium (Porcine) (Heparin Lock Flush 500 Unit/5 Ml Syringe) 500 unit IV PRN PRN PRN Reason: At CRRT disconnect Norepinephrine Bitartrate (Levophed) 4 mg in 250 mls @ 0 mls/hr IV .Q0M LEN; Protocol Last Admin: 07/20/24 06:13 Dose: 20 mcg/min, 75 mls/hr Dextrose (D5w) 500 mls @ 0 mls/hr IV ONCE PRN; Protocol PRN Reason: Adult Acute Hypoglycemia Prot Dextrose (D10w) 250 mls @ 1,000 mls/hr IV PRN PRN; Protocol PRN Reason: Adult Acute Hypoglycemia Nursing Protocol Sodium Chloride (Sodium Chloride 0.9%) 1,000 mls @ 0 mls/hr IV .Q0M PRN PRN Reason: hypotension or symptomatic Dextrose (D10w) 125 mls @ 750 mls/hr IV PRN PRN PRN Reason: HYPOGLYCEMIA Last Infusion: 07/14/24 00:48 Dose: Infused Linezolid (Zyvox Premix) 600 mg in 300 mls @ 300 mls/hr IV Q12H LEN; Protocol Last Admin: 07/20/24 01:25 Dose: 300 mls/hr Vasopressin (Vasostrict) 40 unit in 100 mls @ 0 mls/hr IV .Q0M LEN; Protocol Last Admin: 07/20/24 05:44 Dose: 0.1 unit/min, 15 mls/hr Epinephrine HCl 2.5 mg/ Sodium (Chloride) 252.5 mls @ 0 mls/hr IV .Q0M LEN; Protocol Last Titration: 07/20/24 06:09 Dose: 3 mcg/min, 18.18 mls/hr Dextrose (D10w) 250 mls @ 1,000 mls/hr IV ONCE PRN PRN Reason: HYPERKALEMIA Last Infusion: 07/15/24 01:43 Dose: Infused Dextrose (D10w) 250 mls @ 1,000 mls/hr IV ONCE PRN PRN Reason: HYPERKALEMIA Last Infusion: 07/15/24 08:47 Dose: Infused Levofloxacin/Dextrose (Levaquin-D5w) 500 mg in 100 mls @ 100 mls/hr IV Q48H LEN Last Infusion: 07/19/24 12:48 Dose: Infused Amiodarone HCl/Dextrose (Nexterone) 360 mg in 200 mls @ 0 mls/hr IV .Q0M LEN; Protocol Last Titration: 07/19/24 21:15 Dose: 0 mg/min, 0 mls/hr Sodium Chloride (Sodium Chloride 0.9%) 1,000 mls @ 0 mls/hr IV .Q0M PRN PRN Reason: hypotension or symptomatic Albumin Human (Albumin) 12.5 gm in 50 mls @ 60 mls/hr IV PRN PRN PRN Reason: Hypotension and/or symptomatic Insulin Human Lispro (Insulin Lispro 100 Unit/1 Ml) 0 unit SUBCUT Q4H LEN; Protocol Last Admin: 07/12/24 22:00 Dose: Not Given Meropenem (Meropenem 500 Mg Sdv) 500 mg IVP Q12H LEN; Protocol Last Admin: 07/19/24 21:45 Dose: 500 mg Non-Formulary Medication (Lokelma) 10 gm OG-TUBE TID LEN Last Admin: 07/19/24 21:47 Dose: 10 gm Ondansetron HCl (Ondansetron 2 Mg/Ml Sdv 2 Ml) 4 mg IVP Q8H PRN PRN Reason: vomiting, or N/V if npo Pantoprazole Sodium (Pantoprazole 40 Mg Sdv) 40 mg IVP Q24H LEN Last Admin: 07/19/24 13:00 Dose: 40 mg Sodium Chloride (Sodium Chloride 0.9% 1,000 Ml Bag) 1,000 - 7,000 ml CRRT PRN PRN PRN Reason: For priming CRRT Machine Last Admin: 07/17/24 04:20 Dose: 2,000 ml Vitals/I&O/Wt Last Vital Signs Temp 100.1 F H 07/20/24 00:00 Pulse 65 07/20/24 07:00 Resp 27 H 07/20/24 03:53 BP 92/45 07/20/24 07:00 Pulse Ox 94 07/20/24 03:53 O2 Del Method Mechanical Ventilation 07/20/24 01:30 O2 Flow Rate 50 07/19/24 13:00 FiO2 100 07/20/24 03:53 07/19/24 07/20/24 07/20/24 22:59 06:59 14:59 Intake Total 701.686 / 6.468 909.888 / 2997.356 Output Total 100 / 100 0 / 100 Balance 601.686 / 1986.468 909.888 / 2897.356 Weight last 48 hrs Weight 119 kg Weight 115.5 kg Weight 119.5 kg Physical Exam 2 Narrative: maxed on 3 pressors. vented. fio2 of 100%, not responsive pupils not reactive lungs crackles b/l heart regular abd soft, +BS ext no edema neuro no responsive Urinary Catheter Management: [place]: Cath Placed During This Visit: no Reason for Continuing Indwelling Catheter: Accurate Measurement of Urinary Output in Critically Ill Patients Data 07/20/24 02:54 07/20/24 02:54 A&P Assessment and plan (1) ESRD on dialysis: 1. End-stage renal disease: On TTS schedule At the patient was not able to tolerate CRRT. The patient is currently on 3 pressors, acidotic, hyponatremia, hyperkalemic, not responsive. Can attempt to treat medically. Would recommend comfort care as patient is too unstable for renal replacement therapy. 2. Cardiac arrest-currently intubated and on pressors, history of multiple cardiac arrest in the past 3. Hyperkalemia: Will give calcium and D50 and regular insulin. 4. A-fib with rapid ventricular response= he is converted to normal sinus rhythm. 5. Chronic thrombocytopenia 6. Hyponatremia from end-stage renal disease and anoxic brain damage. 7. Anoxic brain injury - noted EEG results - , Neurology following Patient's prognosis is grave. Would recommend comfort care. Patient evaluated using audiovisual cart Plan See above. Recommend comfort care as unfortunately patient is too unstable for dialysis and has multiorgan failure with anoxic brain injury. Attestations 2 Medical Necessity Statement*: Per critical care and hospitalist. Time Spent in Patient Care: 16 - 35 minutes (>than 50% of time sp ent in counselling and/or direct pt care on unit) . Procedures Arterial Line Size (Gauge): 20 Coding Level of Care Code Acute Code for Chg Fwd Diagnoses ESRD on dialysis N18.6; Z99.2
[2024-07-20] MEDS: albuterol 2.5 mg/3 mL Neb INHALATION (08:12)
[2024-07-20] MEDS: calcium gluconate 0.9% NaCL 1 GM/50 ML PREMIX IV (08:44)
[2024-07-20] MEDS: clopidogrel 75 mg Tablet OG-TUBE (08:44)
[2024-07-20] MEDS: LOKELMA 10 GM 10 EACH OG-TUBE (08:44)
[2024-07-20] MEDS: aspirin 81 mg Chew Tablet OG-TUBE (08:44)
[2024-07-20] MEDS: meropenem 500 mg SDV IVP (08:44)
[2024-07-20] MEDS: dextrose 10% 250 ML 1000 ML IV ×2 (08:58→09:30)
[2024-07-20 09:00] LABS: Glucose Point of Care 21 mg/dL (70-110)
--- NOTE | 2024-07-20 09:32 | PC.NURSE ---
Patient glucose resulted at 21, 250 D10 bolus given, BG at 40, Dr. Monroy telephone order to give second bolus 250 D10 and start on D10 continuos at 75ml/hr. See MAR. See Order for Lab Glucose per protocol.
[2024-07-20 09:47] LABS: Glucose Point of Care 40 mg/dL (70-110)
[2024-07-20] MEDS: dextrose 10% 1,000 ML 75 ML IV (09:52)
[2024-07-20] MEDS: insulin regular-human 8 UNIT in SYRINGE 1 EACH 1 UNIT IVP (09:56)
[2024-07-20 09:59] LABS: Glucose Point of Care 89 mg/dL (70-110)
[2024-07-20 10:26] LABS: Glucose 142 mg/dL (65-115)
--- NOTE | 2024-07-20 13:20 | PC.RESP ---
12:05 patient was terminally extubated .
--- NOTE | 2024-07-20 13:23 | PC.NURSE ---
Dr. Monroy spoke with family, Comfort care orders received, all meds D/C per orders, Dr. Monroy at bedside. See MAR for medication pause. RT extubated at 1205. Patient at 1210. [facility] called with TOD. Espinoza the [facility] liability claims representative stated patient would be a candidate for tissue donation, packing room supervisor notified. Family in waiting room updated, post mortem care performed, family updated once more.
--- NOTE | 2024-07-20 14:07 | PM.DDS ---
Discharge Providers DDS Date of Admission: 07/12/24 12:51 Date Summary Completed: 07/20/24 Attending Provider at Admission: Carla Burgess MD Attending Provider at Discharge: Kellie Monroy MD Primary Care Provider: Philip BUCK Diagnoses Hospital Diagnoses (1) ESRD on dialysis: Reason for Visit Reason for Visit POST CPR Summary Summary Summary: Please see previous notes for details regarding hospital course. Patient was made comfort measures earlier this morning. Terminal extubation was performed. Patient naturally at 12:10 PM. Family notified. Additional Data Confirmation of as documented by pronouncing clinician: no pulse, no respirations, no heart sounds and pupils fixed and dilated Family: contacted Additional persons at bedside: nursing staff Attending/PCP notified?: I am attending Was code activated?: No Advance directives?: No Discharge Plan Discharge Patient Disposition: Condition: Stable Probable Cause of Probable cause of : Cardiac arrest DS Attestations Time Spent in /Discharge Care*: greater than 30 min Quality - AMI: AMI present?: No Quality - Stroke: CVA present?: Yes Symptom Onset Unknown: No Quality - VTE: VTE present?: No Deep Vein Thrombosis/Pulmonary Embolism Present on Admission: No Coding Level of Care Code 28518 Total time (in minutes) for Discharge: 60 Diagnoses ESRD on dialysis N18.6; Z99.2
[2024-07-22 02:44] LABS: Heparin Induced Platelet AB POSITIVE (NEGATIVE); Patient O.D 1.033
== END 2024-07-20 14:39 | disposition expired | DRG 207 ==
LOC: ER 11:29 → CCL 11:45 → ER 12:40 → ICU 12:59
PROVIDERS: Hospitalist; Internal Medicine; Student in an Organized Health Care Education/Training Program; Admitting Provider Internal Medicine; Emergency Provider Family Medicine; PCP Family Medicine; Visit Provider Internal Medicine
DX: J96.90 Respiratory failure, unspecified, unspecified whether with hypoxia or hypercapnia (principal); N18.6 End stage renal disease; J18.9 Pneumonia, unspecified organism; I63.89 Other cerebral infarction; I13.2 Hypertensive heart and chronic kidney disease with heart failure and with stage 5 chronic kidney disease, or end stage renal disease; I50.32 Chronic diastolic (congestive) heart failure; E87.20 Acidosis, unspecified; G93.1 Anoxic brain damage, not elsewhere classified; E87.1 Hypo-osmolality and hyponatremia; Z51.5 Encounter for palliative care; G47.30 Sleep apnea, unspecified; E11.22 Type 2 diabetes mellitus with diabetic chronic kidney disease; Z99.2 Dependence on renal dialysis; E78.5 Hyperlipidemia, unspecified; D69.6 Thrombocytopenia, unspecified; I95.9 Hypotension, unspecified; I48.0 Paroxysmal atrial fibrillation; J44.9 Chronic obstructive pulmonary disease, unspecified; E55.9 Vitamin D deficiency, unspecified; E87.70 Fluid overload, unspecified; I65.22 Occlusion and stenosis of left carotid artery; E87.5 Hyperkalemia; Z91.158 Patient's noncompliance with renal dialysis for other reason; Z66 Do not resuscitate; H57.02 Anisocoria; R68.0 Hypothermia, not associated with low environmental temperature; Z95.5 Presence of coronary angioplasty implant and graft; Z86.74 Personal history of sudden cardiac arrest; Z79.02 Long term (current) use of antithrombotics/antiplatelets
CPT/HCPCS: 0241U; 36415; 36416; 36592; 36600; 70450; 70496; 70498; 71045; 71275; 74018; 74177; 76700; 80048; 80051; 80053; 80069; 81001; 82330; 82550; 82728; 82805; 82947; 82962; 83036; 83540; 83550; 83605; 83690; 83735; 83880; 84100; 84145; 84484; 85025; 85362; 85378; 85384; 85610; 85651; 85730; 86140; 87040; 87070; 87077; 87186; 87205; 90935; 93005; 93306; 93308; 93970; 94002; 94003; 94640; 94799; 95822; 96365; 96366; 96367; 96372; 96374; 96375; 96376; 99291; 99292; A4222; J0131; J0171; J0283; J0330; J0612; J1610; J1642; J1644; J1815; J1885; J1956; J2020; J2185; J2250; J2470; J2598; J2704; J2997; J3010; J3475; J3480; J3490; J7030; J7050; J7070; J7613; J7799; P9047; Q3014